=== PATIENT | male | born 1950 | race Caucasian/White ===

== ENCOUNTER 2019-09-15 19:07 | Emergency (ER) | payer OTHER, MEDICARE, SELFPAY ==
--- NOTE | ~2019-09-15 | XR_ITS ---
XR knee LT min 4V DATE: 09/15/2019 20:22 INDICATION: Left posterior knee pain TECHNIQUE: Crosstable lateral, AP, bilateral oblique views COMPARISON: None FINDINGS: There is prominent suprapatellar knee joint effusion. There is tricompartment osteoarthritis involving particularly the medial and patellofemoral compartme nts. Hypertrophic change of the tibial spines. Diffuse osteopenia. No fracture or dislocation, periosteal reaction or bone destruction, radiopaque intra-articular loose body or chondrocalcinosis is detected. IMPRESSION: Suprapatellar knee joint effusion Tricompartment osteoarthritis Reviewed, dictated and finalized at location A.
--- NOTE | ~2019-09-15 | XR_ITS ---
XR chest 2V DATE: 09/15/2019 20:22 INDICATION: Weakness TECHNIQUE: AP and lateral views COMPARISON: None FINDINGS: No pulmonary infiltrate or consolidation, pleural effusion or pulmonary vascular congestion or pneumothorax. Diffuse idiopathic skeletal hyperostosis of the thoracic spine. IMPRESSION: No active cardiopulmonary disease Reviewed, dictated and finalized at location A.
--- NOTE | 2019-09-15 19:11 | ECG_ITS ---
Measurements Intervals [place] Rate: 114 P: 71 DE: 169 QRS: -25 QRSD: 101 T: 74 QT: 314 QTc: 433 Interpretive Statements SINUS TACHYCARDIA INCOMPLETE RIGHT BUNDLE BRANCH BLOCK CONSIDER ANTEROSEPTAL INFARCT, AGE INDETERMINATE BASELINE ARTIFACT- I, III, AVR, AVL ABNORMAL ECG Electronically Signed On 09-16-2019 7:00:25 CDT by Geoffrey Roche D.O.
[2019-09-15 19:14] VITALS: BP 110/69; PULSE 114; RESP 18; TEMP 36.6; O2SAT 93
[2019-09-15 19:38] LABS: Basophils Absolute Auto 0.1 K/mm3 (0.0-0.1); Basophils Percent Auto 0.6 % (0.2-1.2); Eosinophils Percent Auto 0.4 % (0-4.4); Hematocrit 44.7 % (42.0-52.0); Hemoglobin 15.1 g/dL (14.0-18.0); Immature Granulocyte Absolute 0.08 K/mm3 (0.00-0.031); Immature Granulocyte Percent A 0.9 % (0-0.5); Lymphocytes Absolute Auto 1.51 K/mm3 (0.9-3.2); Lymphocytes Percent Auto 17.7 % (18.3-44.2); Mean Corpuscular HGB Conc 33.8 g/dl (32-36); Mean Corpuscular Hemoglobin 30.6 pg (26-34); Mean Corpuscular Volume 90.7 fl (80-100); Mean Platelet Volume 10.8 fl (7.4-10.4); Monocytes Percent Auto 11.9 % (2.6-8.5); Neutrophils Absolute Auto 5.9 K/mm3 (1.3-6.7); Neutrophils Percent Auto 68.5 % (45.5-73.1); Platelet Count Result 202 k/mm3 (150-375); Red Blood Count 4.93 M/mm3 (4.6-6.20); Red Cell Distribution Width 12.6 % (11.5-14.5); White Blood Count 8.5 K/mm3 (4.5-10.0)
[2019-09-15 19:53] LABS: Alanine Aminotransferase 30 U/L (4-50); Albumin Level 4.3 g/dL (3.5-5.1); Alkaline Phosphatase 65 U/L (38-126); Aspartate Amino Transferase 37 U/L (17-59); Bilirubin,Total 0.5 mg/dL (0.2-1.3); Blood Urea Nitrogen 41 mg/dL (9-20); Calcium 10.9 mg/dL (8.4-10.2); Carbon Dioxide 26 mmol/L (22-30); Chloride 100 mmol/L (98-107); Estimated CRCL calculation 54 ml/min; Estimated Glomerular Filt Rate 55; Glucose 399 mg/dL (75-110); Potassium 4.6 mmol/L (3.4-5.0); Sodium 138 mmol/L (137-145)
--- NOTE | 2019-09-15 20:00 | PC.NURSE ---
pt down to xray
[2019-09-15 20:03] VITALS: PULSE 114
--- NOTE | 2019-09-15 20:20 | PC.NURSE ---
provided pt w/ urinal for urine sample.
--- NOTE | 2019-09-15 20:37 | ED.LOWEXIN ---
HPI - Extremity Injury (Lower) General Chief Complaint: Weakness Stated Complaint: weakness, fall x 3 Time Seen by Provider: 09/15/19 20:12 History of Present Illness HPI Narrative: The patient presents with his for left knee pain, and recurrent falls. He fell in the bathtub 4 days ago, and twisted his left knee. Since then he has had 2 falls because he felt his leg buckling under him. He gives an 8 out of 10 pain scale at rest. [facility], and they are not seeing patients currently because of COVID. He does not have an orthopedic surgeon. MD complaint: knee injury Onset (ago): day(s) Injury: Left: knee Type of Injury: other (Fall) Place: home Severity: severe Severity scale (1-10): 8 Relieving factors: nothing Exacerbating factors: weight bearing and movement Context: fall Associated symptoms: swelling Other symptoms: none Related Data Allergies Allergy/AdvReac Type Severity Reaction Status Date / Time lithium Allergy Unknown Verified 09/15/19 20:47 Review of Systems Review of Systems: Narrative: CONSTITUTIONAL: Denies fever, chills, or sweats. EYES: Denies visual changes, redness, or discharge. ENT: Denies rhinorrhea, congestion, sore throat, or otalgia. CARDIOVASCULAR: Denies chest pain, palpitations, or edema. RESPIRATORY: Denies cough or dyspnea. GASTROINTESTINAL: Denies abdominal pain, nausea, vomiting, or diarrhea. GENITOURINARY: Denies dysuria or hematuria. SKIN: Denies rash or itching. MUSCULOSKELETAL: Denies back pain NEUROLOGIC: Denies headache, numbness, or weakness. PSYCHIATRIC: Denies anxiety or depression. [facility] Social History Social History (Updated 09/15/19 @ 20:39 by Jael Blunt MD) Smoking status: Never smoker Alcohol intake: never Substance use: never Gender identity (if verbalized by the patient): Male Exam Narrative: Exam Narrative: GENERAL: Well-appearing, well-nourished, and in no acute distress.Baseball hat falling over his eyes. HEAD: Normocephalic, atraumatic. EYES: PERRLA and EOMI. ENT: Nares clear, no rhinorrhea or epistaxis. Mucous membranes moist. NECK: Supple. CHEST: Clear to auscultation. No respiratory distress. HEART: Regular rate and rhythm. No murmur heard. Normal peripheral pulses. ABDOMEN: Soft, nontender, nondistended, normal active bowel sounds. EXTREMITIES: Left knee swollen and warm, more medially. SKIN: Warm, dry, no rash. NEURO: No focal deficits. Alert and oriented x3. PSYCH: Normal mood and affect. Course Reevaluation(s) Reevaluation #1: Went back in the room to discuss the x-ray findings with the patient and his . They understand there is no fracture but probably some internal damage. I will order a knee immobilizer and pain medication for here. They have a walker for home. I will give them the name and phone number of the orthopedic surgeon to follow-up with this week. I suspect he will need physical therapy and/or MRI. They understand this. Date: 09/15/19 Time: 20:47 Reevaluation #2: The patient now has on his left knee immobilizer, and is much more comfortable with it. There is no neurovascular compromise. We discussed the discharge plan. He and his agree Date: 09/15/19 Time: 21:54 Vital Signs Vital signs: Vital Signs Temperature 97.9 F 09/15/19 19:14 Pulse Rate 114 H 09/15/19 19:14 Respiratory Rate 18 09/15/19 19:14 Blood Pressure 110/69 09/15/19 19:14 Pulse Oximetry 93 09/15/19 19:14 Temperature 97.9 F 09/15/19 19:14 Pulse Rate 105 H 09/15/19 21:00 Respiratory Rate 12 09/15/19 21:00 Blood Pressure 126/83 09/15/19 21:00 Pulse Oximetry 93 09/15/19 21:00 MDM - Extremity Injury (Lower) Lab Data Attestation: I reviewed the patient's lab results. Result diagrams: 09/15/19 19:26 09/15/19 19:26 Labs: Lab Results 09/15/19 09/15/19 09/15/19 Range/Units 19:26 19:26 20:52 WBC 8.5 (4.5-10.0) K/mm3 RBC 4.93 (4.6-6.20) M/m
[2019-09-15] MEDS: HYDROMORPHONE HCL 1 MG/ML INJ 0.5 MG IV PUSH (20:51)
[2019-09-15 21:00] VITALS: BP 126/83; PULSE 105; RESP 12; O2SAT 93
[2019-09-15 21:01] LABS: Add Urine Microscopic? YES; Appearance Urine Clear (Clear); Bacteria Urine Trace /hpf; Bilirubin Urine Negative (Negative); Blood Urine 1+ (Negative); Color Urine Straw (Yellow); Glucose Urine UA 3+ mg/dL (Negative); Ketones Urine Negative (Negative); Leukocyte Esterase Ur 2+ LEU/UL (Negative); Nitrate Urine Negative (Negative); Protein Urine Negative (Negative); Specific Grav Ur 1.015 (1.001-1.035); Urobilinogen Urine Negative mg/dL (<2.0); WBC Urine 21-30 /hpf
[2019-09-15 22:15] VITALS: BP 160/78; PULSE 100; RESP 17; O2SAT 96
== END 2019-09-15 22:15 | disposition home or self-care (01) ==
PROVIDERS: Emergency Provider Emergency Medicine
DX: M25.562 Pain in left knee (principal); M25.462 Effusion, left knee; M17.12 Unilateral primary osteoarthritis, left knee; W18.2XXA Fall in (into) shower or empty bathtub, initial encounter; R82.998 Other abnormal findings in urine
CPT/HCPCS: 36415; 71046; 73564; 80053; 81001; 85025; 87086; 87088; 93005; 96374; 99284; J1170

== ENCOUNTER 2019-09-21 18:47 | Inpatient (IN) | payer MEDICARE, OTHER, SELFPAY ==
--- NOTE | ~2019-09-21 | CT_ITS ---
EXAMINATION: CTA chest PE abdomen pel DATE: 09/21/2019 20:46 INDICATION: Right upper quadrant abdominal pain. Right chest pain. TECHNIQUE: Computed tomography angiography (CTA) of the chest was performed with 100 mL Omnipaque-350 intravenous contrast timed to evaluate the pulmonary arteries. Coronal maximum intensity projection 3D-reconstructions were created by the technologist. Computed tomography (CT) of the abdomen and pelv is was performed with intravenous contrast. Automated exposure control and iterative reconstruction t echnique were employed. The dose-length product was 1427.91 mGy-cm. COMPARISON: Chest 2 views 09/15/2019 FINDINGS: CTA chest: The lungs demonstrate minimal atelectasis. No pleural effusion. The heart size is normal. There are coronary artery calcifications. No pericardial effusion. There is no pulmonary embolus. The re are bridging endplate osteophytes at multiple levels in the spine, consistent with diffuse idiopat hic skeletal hyperostosis (DISH). CT abdomen and pelvis: The liver and spleen are normal. There are changes of cholecystectomy. The pascal creas and adrenal glands are normal. There are cysts in the kidneys measuring up to 10 mm on the left . There is diffuse bladder wall thickening, likely secondary to chronic outlet obstruction from the m oderately enlarged prostate. There is diverticulosis of the colon without evidence of diverticulitis. There are no dilated loops of bowel. The appendix is normal. There are no pathologically enlarged ly mph nodes. There is no free intraperitoneal fluid. There is a left inguinal hernia containing fat. Th ere is mild lumbar spondylosis. IMPRESSION: 1. No pulmonary embolus. Sensitivity is mildly decreased by motion artifact. Reviewed, dictated and finalized at location A.
--- NOTE | ~2019-09-21 | CT_ITS ---
EXAMINATION: CT brain wo con DATE: 09/22/2019 04:04 INDICATION: Confusion. Altered mental status. TECHNIQUE: Computed tomography (CT) of the head was performed without intravenous contrast. The dose- length product was 681.00 mGy-cm. Automated exposure control and iterative reconstruction technique w ere employed. COMPARISON: None FINDINGS: Mild generalized atrophy. There are scattered mild periventricular and subcortical white ma tter changes, most likely related to small vessel ischemic disease (microangiopathy). Prominent periv ascular spaces bilaterally in the basal ganglia. No acute intracranial hemorrhage, infarction, mass o r mass effect. Mild mucosal thickening of the ethmoid and frontal sinuses. No depressed skull fractur es. Orbits are symmetric. IMPRESSION: 1. No acute intracranial abnormality. 2: Chronic age-related findings. Reviewed, dictated and finalized at location A.
[2019-09-21 18:50] VITALS: BP 160/77; PULSE 122; RESP 19; TEMP 37.9; O2SAT 93
--- NOTE | 2019-09-21 19:12 | ECG_ITS ---
Measurements Intervals [place] Rate: 122 P: 65 SD: 169 QRS: 11 QRSD: 93 T: 65 QT: 300 QTc: 429 Interpretive Statements SINUS TACHYCARDIA BORDERLINE R WAVE PROGRESSION, ANTERIOR LEADS BASELINE ARTIFACT- I, III, AVR, AVL ABNORMAL ECG Electronically Signed On 09-22-2019 7:48:52 CDT by Geoffrey Roche D.O.
[2019-09-21 19:45] LABS: Basophils Percent Auto 0.4 % (0.2-1.2); Hematocrit 45.2 % (42.0-52.0); Hemoglobin 15.5 g/dL (14.0-18.0); Immature Granulocyte Absolute 0.15 K/mm3 (0.00-0.031); Immature Granulocyte Percent A 1.5 % (0-0.5); Lymphocytes Absolute Auto 0.58 K/mm3 (0.9-3.2); Lymphocytes Percent Auto 5.6 % (18.3-44.2); Mean Corpuscular HGB Conc 34.3 g/dl (32-36); Mean Corpuscular Hemoglobin 30.3 pg (26-34); Mean Corpuscular Volume 88.3 fl (80-100); Monocytes Absolute Auto 0.9 K/mm3 (0.1-0.6); Monocytes Percent Auto 8.4 % (2.6-8.5); Neutrophils Absolute Auto 8.7 K/mm3 (1.3-6.7); Neutrophils Percent Auto 84.1 % (45.5-73.1); Platelet Count Result 200 k/mm3 (150-375); Red Blood Count 5.12 M/mm3 (4.6-6.20); Red Cell Distribution Width 12.5 % (11.5-14.5); White Blood Count 10.3 K/mm3 (4.5-10.0)
[2019-09-21 20:04] LABS: Alanine Aminotransferase 22 U/L (4-50); Albumin Level 4.4 g/dL (3.5-5.1); Alkaline Phosphatase 76 U/L (38-126); Aspartate Amino Transferase 19 U/L (17-59); Bilirubin,Total 0.6 mg/dL (0.2-1.3); Blood Urea Nitrogen 52 mg/dL (9-20); Calcium 11.3 mg/dL (8.4-10.2); Carbon Dioxide 22 mmol/L (22-30); Chloride 103 mmol/L (98-107); Estimated CRCL calculation 54 ml/min; Estimated Glomerular Filt Rate 55; Glucose 362 mg/dL (75-110); Potassium 5.1 mmol/L (3.4-5.0); Sodium 138 mmol/L (137-145)
--- NOTE | 2019-09-21 20:37 | ED.WEAKNESS ---
HPI - Weakness General Chief complaint: Weakness Stated complaint: generalized weakness Time Seen by Provider: 09/21/19 20:05 Source: patient Mode of arrival: EMS Limitations: no limitations History of Present Illness HPI Narrative: Patient is a 68-year-old male who presents to the emergency department with complaint of right rib pain and generalized weakness. Patient was seen in the emergency department on 09/15/2019 for a fall. At that time he was having pain in his left knee. Patient has had issues of his left knee giving out on him. Arthrocentesis was done and injection of steroid was performed. Orthopedic surgeon advised patient would eventually need a total knee replacement. Patient was referred for physical therapy. Patient has been having right-sided rib pain which may have been secondary to his fall. However, he is also significantly weak today. Patient is notably tachycardic on arrival. He denies any fever or illness symptoms aside from some urinary symptoms. MD Complaint: generalized weakness Duration: constant Location: generalized Associated symptoms: chest pain (right rib) Related Data Home Medications Medication Instructions Recorded Confirmed aspirin 81 mg tablet,delayed 81 mg PO DAILY 09/18/19 09/21/19 release vitamin B12 500 mcg-folic acid 400 1 tablet PO DAILY 09/18/19 09/22/19 mcg tablet ascorbic acid (vitamin C) [Vitamin 1 g PO HS 09/21/19 09/22/19 C] cholecalciferol (vitamin D3) 25 mcg PO DAILY 09/21/19 09/21/19 [Vitamin D3] cyanocobalamin (vitamin B-12) 1,000 mcg PO DAILY 09/21/19 09/22/19 [Vitamin B-12] divalproex 1,000 mg PO DAILY 09/21/19 09/21/19 glipizide 20 mg PO BIDAC 09/21/19 09/22/19 hydrochlorothiazide 25 mg PO DAILY 09/21/19 09/21/19 [id number] 1 cap PO DAILY 09/21/19 09/21/19 [MegaRed [place]-3 Krill Oil] lisinopril 10 mg PO DAILY 09/21/19 09/22/19 metformin 850 mg PO BIDWM 09/21/19 09/22/19 metoprolol tartrate 50 mg PO DAILY 09/21/19 09/22/19 metoprolol tartrate 75 mg PO QPM 09/21/19 09/22/19 Allergies Allergy/AdvReac Type Severity Reaction Status Date / Time lithium Allergy Unknown Verified 09/21/19 18:58 Review of Systems Review of Systems: All systems reviewed & are unremarkable except as noted in HPI and below Constitutional: Constitutional: Denies fever(s) Cardiovascular: Cardiovascular: Reports chest pain (right rib) Respiratory: Respiratory: Denies cough and Denies dyspnea Gastrointestinal: Gastrointestinal: Denies abdominal pain, Reports diarrhea, Denies nausea and Denies vomiting Genitourinary: Genitourinary: Denies hematuria, Reports dysuria and Reports urinary frequency Musculoskeletal: Musculoskeletal: Reports arthralgias (Left knee) [facility] Past Medical History Medical History (Updated 09/22/19 @ 02:48 by Lazara Gaviria MD) B12 deficiency Essential hypertension Gout Manic depressive disorder Osteoarthritis PTSD (post-traumatic stress disorder) Schizophrenia Type 2 diabetes mellitus Vitamin D deficiency Surgical History Surgical History (Updated 09/22/19 @ 02:22 by Kaitlyn Quinn DO) History of cholecystectomy (~1970) Status post cataract extraction of both eyes with insertion of intraocular lens Status post laser cataract surgery of both eyes Social History Social History (Updated 09/22/19 @ 02:34 by Kaitlyn Quinn DO) Social History: Primary care physician: [facility] Code status: Full code Advanced directives: None Smoking packs per day: 3 Smoking cigarettes per day: 60.0 Years smoked: 15 Smoking pack-years: 45.00 Smoking status: Former smoker Tobacco type: cigarettes Second hand tobacco smoke exposure: No Alcohol intake: never Substance use: never Living arrangements: with family Additional living arrangements comments: He lives with his of 11 years. He has 2 grown sons. One of his sons has issues with IV drug abuse. Occupation/
[2019-09-21 20:40] LABS: Prothrombin Time 12.7 Seconds (11.1-14.7)
[2019-09-21 20:41] LABS: Partial Thromboplastin Time 24.8 SECONDS (22.3-36.8)
[2019-09-21] MEDS: LACTATED RINGERS 1,000 ML 999 ML IV CONT ×2 (20:49→22:46)
[2019-09-21 20:51] LABS: Lipase 307 U/L (23-300)
[2019-09-21 21:16] VITALS: BP 158/96; PULSE 130; RESP 20; O2SAT 95
[2019-09-21 21:18] LABS: Lactic Acid Reflex 1.5 mmol/L (0.7-2.1)
[2019-09-21 21:30] LABS: Add Urine Microscopic? YES; Appearance Urine Clear (Clear); Bacteria Urine Trace /hpf; Bilirubin Urine Negative (Negative); Blood Urine 2+ (Negative); Color Urine Colorless (Yellow); Glucose Urine UA 3+ mg/dL (Negative); Ketones Urine Trace mg/dL (Negative); Leukocyte Esterase Ur 2+ LEU/UL (Negative); Mucus Urine Rare /lpf; Nitrate Urine Negative (Negative); Protein Urine 1+ mg/dL (Negative); RBC Urine 21-50 /hpf (0-2); Urobilinogen Urine Negative mg/dL (<2.0); WBC Urine 51-75 /hpf
[2019-09-21 21:32] LABS: Valproic Acid 41.8 ug/mL (50-120)
[2019-09-21 21:55] VITALS: BP 145/85; PULSE 126; RESP 22; O2SAT 96
--- NOTE | 2019-09-21 23:04 | PC.NURSE ---
Called [facility]. Spoke with Silvana, EOD. No beds available.
[2019-09-21 23:10] VITALS: BP 141/81; PULSE 119; RESP 20; O2SAT 92
[2019-09-21 23:29] VITALS: BP 151/84; PULSE 116; RESP 20; TEMP 36.4; O2SAT 96
[2019-09-21 23:32] VITALS: BMI 32.2
[2019-09-21 23:43] VITALS: BMI 32.3
[2019-09-22] VITALS (18 sets, daily range): BP systolic 115–172; BP diastolic 59–102; PULSE 87–139; RESP 20–22; TEMP 36.9–37.2; O2SAT 94–99
--- NOTE | 2019-09-22 | PC.NURSE ---
This patient, Alphonse Mason, was admitted to IMU Room 212-01. Patient/family oriented to hospital policies and general routines including ID bracelet, bed and alarms, visiting hours, pain management, procedures, bathroom and other care routines, personal items, smoking policy, room service/diet, and visiting hours. Valuables list has been completed. Information on how to activate the Rapid Response Team has been discussed. Patient/Family are encouraged to report perceived risks to care and to ask questions if they do not understand what they are told or what they should do.
[2019-09-22] MEDS: LACTATED RINGERS 1,000 ML 150 ML IV CONT ×3 (00:14→15:58)
--- NOTE | 2019-09-22 02:11 | PM.IMHP ---
H&P: HPI History of Present Illness Chief complaint: Weakness, right rib pain Narrative: Date and time of patient contact: 09/22/2019 at 10:50 p.m. Alphonse Mason is a 68 year old male with a past medical history type 2 diabetes, hypertension, and manic depression who presented to the ER with generalized weakness and right rib pain. Patient also has had multiple falls since the . Had been in the bathtub on the and twisted his left knee resulting in a fall. He had had multiple falls since that time due to knee buckling under him. He came to the ER on the due to severe knee pain with an intensity 8/10. He had an x-ray which demonstrated a suprapatellar joint effusion and tricompartmental osteoarthritis. He was unable to go to the [facility] where he usually receives his care due to COVID-19 restrictions. The patient was discharged home with Percocet and a knee immobilizer. He subsequently followed up with Dr. Padgett on the and had a steroid injection in his knee but was informed he would need a knee replacement. He was referred physical therapy. He has had multiple falls but denies having hit his head. He has not been having any headache or visual changes. Over the last 2-3 days the patient developed right rib pain which he thought was due to falling in september be landing on his shower stool. The pain is moderate in intensity and dull. His description of the pain is somewhat vague. He does not specify whether the pain is in anterior posterior ribs. It seems as if the pain is almost originating in the flank. Patient's reports that the patient has been leaning to the left side for the last couple of days to try to ease the pain without success. Pain was accompanied by significant weakness, decreased appetite, chills and the patient was febrile with a temperature of 100.2 on arrival to the ER. He has been fatigued and sleeping more than usual. He has been having a longstanding issue with sensation incomplete bladder emptying. He denies any slow or decreased urinary stream. He has been having some dysuria over the last several days. He denies any hematuria. He denies a known history of BPH but CT scan demonstrated evidence of a moderately enlarged prostate and evidence of diffuse bladder wall thickening. He denies having any abdominal pain. He does have intermittent soft stools but has a history of diverticulosis. He denies any hematochezia or melena. He has not had any recent ill contacts. Denies any cough, cold symptoms, chest pain, shortness of breath, nausea or vomiting. He has not had any changes in sense of smell or taste. The patient's reports that the patient has been mildly confused for the last couple of days. The patient's glucoses have been high during his last 2 ER visits. They are unsure of what his last hemoglobin A1c value. Source of information: ER records, the patient's and the patient's report. The patient relies heavily on his to provide medical information to the staff. Nursing staff called me to update me as to the patient's condition in the early childhood coordinator hours. The patient was less responsive and difficult to arouse. Patient's glucoses at that time were close to 400. Stat CT of the head was ordered and preliminary read from vision reported no acute intercranial process. An order was given for 8 units of NovoLog subq. Review of Systems Review of Systems: Narrative: 12 systems were reviewed with pertinent positives and negatives per HPI. Except as documented in the HPI, all other systems were reviewed and are negative. REPLACED BY [facility] Past Medical History Medical History (Updated 09/22/19 @ 03:12 by Kaitlyn Quinn DO) B12 deficiency Essential hypertension Gout Manic depressive disorder Osteoarthritis PTSD (post-traumatic stress disorder) Schizophrenia Type 2 diabetes mellitus Vitamin D deficiency Surgical History Surgical History (Updated 09/22/19 @ 02:22 by Refugio
[2019-09-22] MEDS: METOPROLOL TARTRATE 25 MG TABLET 75 MG PO ×2 (02:40→20:33)
[2019-09-22 03:21] LABS: Glucose Point of Care 384 (65-105)
--- NOTE | 2019-09-22 03:54 | PCRCNOTE ---
STAT ABG ATTEMPTED X2 WITHOUT SUCCESS. PT TAKEN TO CT SCAN. ABG WILL BE ATTEMPTED AGAIN ONCE PATIENT IS BACK IN ROOM.
[2019-09-22] MEDS: INSULIN ASPART (*BKC) 100 UNITS/ML 8 UNITS SUB-Q (04:13)
[2019-09-22 04:37] LABS: Alveolar/Arterial O2 Gradient 51.1 mmHg; Base Excess ABG 1.3 mEq/l (+/-2.0); Carboxyhemoglobin 0.3 % THb (0-2.0); Fractional Inspired Oxygen 21 %; HCO3 ABG 24.6 mEq/l (22.0-26.0); Methemoglobin ABG 0.5 %THb (0-1.5); Oxygen Content ABG 19.9 %vol (16.0-22.0); Oxygen Saturation ABG 91.2 % (95.0-100.0); Oxyhemoglobin 89.8 % THb (90.0-100.0); PCO2 ABG 35.1 mmHg (35.0-45.0); PO2 ABG 56.6 mmHg (80.0-100.0); Reduced Hemoglobin 9.4 %THb (0-5.0); Total Hemoglobin 15.8 g/dL (12.0-18.0); pH ABG 7.463 (7.350-7.450)
[2019-09-22 04:38] LABS: Device ROOM AIR; Modified Allen's Test Pass; Site Drawn LEFT RADIAL
[2019-09-22 05:04] LABS: Parathyroid Intact 75.4 pg/mL (7.5-53.5)
[2019-09-22 06:07] LABS: Thyroid Stimulating Hormone Reflex 0.292 uIU/mL (0.465-4.68)
[2019-09-22 06:09] LABS: Hemoglobin A1C 9.4 % (<5.7)
[2019-09-22] MEDS: glipiZIDE 5 MG TABLET 20 MG PO ×2 (06:18→16:33)
[2019-09-22 06:55] LABS: Free T4 Free Thyroxine Reflex 1.64 ng/dL (0.78-2.19)
[2019-09-22 07:46] LABS: Glucose Point of Care 318 (65-105)
[2019-09-22 08:00] LABS: Total Triiodothyronine (T3) 0.79 NG/ML (0.97-1.69)
[2019-09-22] MEDS: INSULIN ASPART (*BKC) 100 UNITS/ML SUB-Q ×3 (09:02→16:35)
[2019-09-22] MEDS: ASPIRIN 81 MG ENTERIC TABLET PO (09:29)
[2019-09-22] MEDS: DIVALPROEX SODIUM ER 500 MG TAB 1000 MG PO (09:29)
[2019-09-22] MEDS: ENOXAPARIN 40 MG/0.4 ML SYRINGE SUB-Q (09:30)
[2019-09-22] MEDS: TAMSULOSIN HCL 0.4 MG CAPSULE PO (09:30)
[2019-09-22] MEDS: CYANOCOBALAMIN 1,000 MCG TABLET 1000 MCG PO (09:30)
[2019-09-22] MEDS: CHOLECALCIFEROL 1,000 UNIT TABLET 1000 UNITS PO (09:30)
[2019-09-22] MEDS: METOPROLOL TARTRATE 50 MG TAB PO (09:37)
--- NOTE | 2019-09-22 12:08 | PM.IMPN ---
Progress Note: A&P Assessment and Plan (1) Sepsis: Qualifiers: Sepsis acute organ dysfunction status: without acute organ dysfunction Sepsis type: sepsis due to unspecified organism Qualified Code(s): A41.9 - Sepsis, unspecified organism Code(s): A41.9 - Sepsis, unspecified organism Status: Acute Assessment and Plan: -----defined by temperature, tachycardia, and tachypnea. Likely secondary to UTI. Await urine and blood cultures. Continue ceftriaxone and IV fluids at this time. Heart rate, fever and symptoms have improved. No other infection noted on CTA of chest abdomen pelvis. (2) UTI (urinary tract infection): Qualifiers: Urinary tract infection type: acute cystitis Hematuria presence: with hematuria Qualified Code(s): N30.01 - Acute cystitis with hematuria Code(s): N39.0 - Urinary tract infection, site not specified Status: Acute Assessment and Plan: -----UA suspicious for UTI. Await blood cultures. Continue ceftriaxone. (3) Benign prostatic hyperplasia (BPH) with urinary urgency: Code(s): N40.1 - Benign prostatic hyperplasia with lower urinary tract symptoms; R39.15 - Urgency of urination Status: Acute Assessment and Plan: -----on Flomax started (4) Hypercalcemia: Code(s): E83.52 - Hypercalcemia Status: Acute Assessment and Plan: -----with elevated PTH. Will draw vitamin-D tomorrow morning. Could be primary hyperparathyroidism or vitamin-D deficiency. Will need to follow-up with primary care physician. (5) Diabetes mellitus with hyperglycemia, without long-term current use of insulin: Qualifiers: Diabetes mellitus type: type 2 Qualified Code(s): E11.65 - Type 2 diabetes mellitus with hyperglycemia Code(s): E11.65 - Type 2 diabetes mellitus with hyperglycemia Status: Acute Assessment and Plan: -----A1c is 9.4 and his glucose has been elevated. He is on glipizide 20 mg b.i.d. as well as metformin 850 mg b.i.d.. Because of his uncontrolled glucose, Lantus has been started. He will continue diabetic diet. He was educated about the importance of adhering to a strict regimen to get his diabetes under control. (6) Sinus tachycardia: Code(s): R00.0 - Tachycardia, unspecified Status: Acute Assessment and Plan: -----improving but does have bursts of tachycardia. Likely due to sepsis. Patient also has a history of schizophrenia, drug use seems less likely but I will do a urine drug screen. No other signs withdrawal at this time. TSH abnormal what T4 is normal. Could be due to acute illness. Continue home metoprolol Additional Plan . Time Spent With Patient Time with patient: 25 - 35 minutes Subjective Date/time seen: 09/22/19 12:08 Interval history: Pt is a 68-year-old male here for UTI and sepsis. Patient was seen today and states he is having some dysuria and lower abdominal pain. He says his fevers and chills have resolved since being hospitalized. He denies chest pain, shortness of breath, nausea, vomiting, or leg swelling. Review of Systems Review of Systems: All systems reviewed & are unremarkable except as noted in HPI and below Exam Narrative: Exam Narrative: General: Well developed well nourished patient resting comfortably in bed in NAD HEENT: normocephalic Neck: supple Neuro: Alert and oriented x4. Equal strength the upper lower extremities 5/5. Able to do [id number] with both extremities and rapid alternating movements. CV:RRR. Patient was tachycardic earlier in the stay but his current heart rate at the time my exam was 97. Resp:CTA Abd: Soft, non distended. Pain to palpation to the lower quadrants. Positive bowel sounds Extremities: No swelling, erythema, or pain to palpation. Objective Data Vital Signs Vital Signs: Vital Signs - 24 hr 09/21/19 18:50 09/21/19 21:16 09/21/19 21:55 Te
[2019-09-22 16:54] LABS: Amphetamine Screen Urine Negative (Negative); Barbiturate Screen Urine Negative (Negative); Benzodiazepines Screen Urine Negative (Negative); Cannabinoid Screen Urine Negative (Negative); Cocaine Screen Urine Negative (Negative); Methadone Screen Urine Negative (Negative); Opiate Screen Urine Negative (Negative); Phencyclidine Screen Urine Negative (Negative)
[2019-09-22 20:17] LABS: Glucose Point of Care 328 (65-105)
[2019-09-22 20:17] LABS: Glucose Point of Care 329 (65-105)
[2019-09-22] MEDS: INSULIN GLARGINE (*BKC) 100 UNITS/ML 8 UNITS SUB-Q (20:34)
[2019-09-22] MEDS: ASCORBIC ACID 500 MG TABLET 1000 MG PO (20:34)
[2019-09-23] VITALS (12 sets, daily range): BP systolic 124–163; BP diastolic 70–93; PULSE 89–117; RESP 14–20; TEMP 36.2–36.9; O2SAT 94–97; BMI 32.1
[2019-09-23] MEDS: LACTATED RINGERS 1,000 ML 100 ML IV CONT (02:27)
[2019-09-23 04:38] LABS: Hemoglobin 13.1 g/dL (14.0-18.0); Mean Corpuscular HGB Conc 34.5 g/dl (32-36); Mean Corpuscular Hemoglobin 30.3 pg (26-34); Mean Corpuscular Volume 87.8 fl (80-100); Mean Platelet Volume 10.1 fl (7.4-10.4); Platelet Count Result 146 k/mm3 (150-375); Red Blood Count 4.33 M/mm3 (4.6-6.20); Red Cell Distribution Width 12.2 % (11.5-14.5); White Blood Count 9.5 K/mm3 (4.5-10.0)
[2019-09-23 05:02] LABS: Alanine Aminotransferase 20 U/L (4-50); Albumin Level 3.5 g/dL (3.5-5.1); Alkaline Phosphatase 53 U/L (38-126); Aspartate Amino Transferase 25 U/L (17-59); Bilirubin,Total 0.4 mg/dL (0.2-1.3); Blood Urea Nitrogen 32 mg/dL (9-20); Carbon Dioxide 30 mmol/L (22-30); Chloride 99 mmol/L (98-107); Estimated CRCL calculation 56 ml/min; Estimated Glomerular Filt Rate 60; Glucose 262 mg/dL (75-110); Potassium 4.6 mmol/L (3.4-5.0); Sodium 133 mmol/L (137-145)
[2019-09-23 05:33] LABS: Vitamin D 25 Hydroxy 49.2 ng/mL
[2019-09-23] MEDS: glipiZIDE 5 MG TABLET 20 MG PO ×2 (06:51→16:55)
[2019-09-23] MEDS: DIVALPROEX SODIUM ER 500 MG TAB 1000 MG PO (08:43)
[2019-09-23] MEDS: ASPIRIN 81 MG ENTERIC TABLET PO (08:43)
[2019-09-23] MEDS: CHOLECALCIFEROL 1,000 UNIT TABLET 1000 UNITS PO (08:44)
[2019-09-23] MEDS: CYANOCOBALAMIN 1,000 MCG TABLET 1000 MCG PO (08:44)
[2019-09-23] MEDS: METOPROLOL TARTRATE 50 MG TAB PO (08:44)
[2019-09-23] MEDS: ENOXAPARIN 40 MG/0.4 ML SYRINGE SUB-Q (08:45)
[2019-09-23] MEDS: TAMSULOSIN HCL 0.4 MG CAPSULE PO (08:45)
[2019-09-23 08:46] LABS: Glucose Point of Care 287 (65-105)
[2019-09-23 08:46] LABS: Glucose Point of Care 308 (65-105)
[2019-09-23] MEDS: INSULIN ASPART (*BKC) 100 UNITS/ML SUB-Q ×3 (08:47→17:16)
--- NOTE | 2019-09-23 10:53 | PM.IMPN ---
Progress Note: A&P Assessment and Plan (1) Bacteremia due to Klebsiella pneumoniae: Code(s): R78.81 - Bacteremia; B96.1 - Klebsiella pneumoniae [K. pneumoniae] as the cause of diseases classified elsewhere Status: Acute Assessment and Plan: -----patient's blood cultures are positive for Klebsiella as well as his urine culture. He also has another organism growing that is still un-identified. His pain has improved. Will continue ceftriaxone for now since he is getting better and await sensitivities of the blood culture and both organisms in the urine. Okay to transfer out of IMU (2) Sepsis: Qualifiers: Sepsis acute organ dysfunction status: without acute organ dysfunction Sepsis type: sepsis due to unspecified organism Qualified Code(s): A41.9 - Sepsis, unspecified organism Code(s): A41.9 - Sepsis, unspecified organism Status: Acute Assessment and Plan: -----defined by temperature, tachycardia, and tachypnea secondary to UTI and bacteremia. Continue ceftriaxone. Heart rate, fever and symptoms have improved. No other infection noted on CTA of chest abdomen pelvis. (3) UTI (urinary tract infection): Qualifiers: Urinary tract infection type: acute cystitis Hematuria presence: with hematuria Qualified Code(s): N30.01 - Acute cystitis with hematuria Code(s): N39.0 - Urinary tract infection, site not specified Status: Acute Assessment and Plan: -----culture growing Klebsiella and un-identified organism at this time. Continue to monitor and adjust antibiotics as necessary (4) Benign prostatic hyperplasia (BPH) with urinary urgency: Code(s): N40.1 - Benign prostatic hyperplasia with lower urinary tract symptoms; R39.15 - Urgency of urination Status: Acute Assessment and Plan: ----- Flomax started (5) Hypercalcemia: Code(s): E83.52 - Hypercalcemia Status: Acute Assessment and Plan: -----with elevated PTH. Consistent with primary hyperparathyroid since his vitamin-D is normal. Will need to follow up with this outpatient. (6) Diabetes mellitus with hyperglycemia, without long-term current use of insulin: Qualifiers: Diabetes mellitus type: type 2 Qualified Code(s): E11.65 - Type 2 diabetes mellitus with hyperglycemia Code(s): E11.65 - Type 2 diabetes mellitus with hyperglycemia Status: Acute Assessment and Plan: -----A1c is 9.4 and his glucose has been elevated. He is on glipizide 20 mg b.i.d. as well as metformin 850 mg b.i.d. Because of his uncontrolled glucose, Lantus has been started. He will continue diabetic diet. He was educated about the importance of adhering to a strict regimen to get his diabetes under control. (7) Sinus tachycardia: Code(s): R00.0 - Tachycardia, unspecified Status: Acute Assessment and Plan: -----resolved. Likely due to sepsis. Patient also has a history of schizophrenia, drug use seems less likely but I will do a urine drug screen which is still pending. No other signs withdrawal at this time. TSH abnormal but T4 is normal. Could be due to acute illness. Continue home metoprolol Additional Plan . Subjective Date/time seen: 09/23/19 10:53 Interval history: Pt is a 68-year-old male here for UTI and bacteremia. Patient was seen today and says he is feeling a lot better and has less pain with urination. He is unhappy with the food here in says it taste terrible. We went over the menu together and he has picked out a few items that he is going to try. He says his fevers and chills have resolved since being hospitalized. He denies chest pain, shortness of breath, nausea, vomiting, or leg swelling. We talked about his bacteremia in the plan of care. He says his left knee and leg has been hurting him since his cortisone shot he got before his hospitalization. Exam Narrative: Exam Na
[2019-09-23 12:45] LABS: Glucose Point of Care 275 (65-105)
--- NOTE | 2019-09-23 15:00 | PC.NURSE ---
Transfer received from IMU room 212 to room 243. Belongings list verified. Patient oriented to the room.
--- NOTE | 2019-09-23 15:39 | PC.NURSE ---
This patient, Alphonse Mason, was transferred to [[id number] ] on 09/23/19 at 1448. Personal belongings sent with patient. Belongings list checked and signed with receiving [ yes]. Report given to [viviane ]. Appropriate documentation sent with patient.
[2019-09-23 17:10] LABS: Glucose Point of Care 277 (65-105)
[2019-09-23 18:36] LABS: Glucose Point of Care 318 (65-105)
[2019-09-23 20:29] LABS: Glucose Point of Care 299 (65-105)
[2019-09-23] MEDS: ASCORBIC ACID 500 MG TABLET 1000 MG PO (20:42)
[2019-09-23] MEDS: INSULIN GLARGINE (*BKC) 100 UNITS/ML 8 UNITS SUB-Q (20:43)
[2019-09-23] MEDS: METOPROLOL TARTRATE 25 MG TABLET 75 MG PO (20:45)
[2019-09-24] VITALS: BP 122/71; PULSE 82; RESP 20; TEMP 36.4; O2SAT 98
[2019-09-24 04:00] VITALS: BP 139/87; PULSE 83; RESP 18; TEMP 36.5; O2SAT 96
[2019-09-24 04:56] LABS: Hemoglobin 13.1 g/dL (14.0-18.0); Mean Corpuscular HGB Conc 34.5 g/dl (32-36); Mean Corpuscular Hemoglobin 30.1 pg (26-34); Mean Corpuscular Volume 87.4 fl (80-100); Mean Platelet Volume 10.5 fl (7.4-10.4); Platelet Count Result 152 k/mm3 (150-375); Red Blood Count 4.35 M/mm3 (4.6-6.20); Red Cell Distribution Width 12.2 % (11.5-14.5); White Blood Count 7.1 K/mm3 (4.5-10.0)
[2019-09-24 05:07] LABS: Blood Urea Nitrogen 28 mg/dL (9-20); Calcium 11.1 mg/dL (8.4-10.2); Carbon Dioxide 28 mmol/L (22-30); Chloride 100 mmol/L (98-107); Estimated CRCL calculation 67 ml/min; Estimated Glomerular Filt Rate > 60; Glucose 343 mg/dL (75-110); Potassium 4.5 mmol/L (3.4-5.0); Sodium 134 mmol/L (137-145)
[2019-09-24] MEDS: glipiZIDE 5 MG TABLET 20 MG PO ×2 (06:42→16:11)
[2019-09-24 07:53] LABS: Glucose Point of Care 285 (65-105)
[2019-09-24] MEDS: INSULIN ASPART (*BKC) 100 UNITS/ML SUB-Q ×2 (07:57→11:27)
[2019-09-24] MEDS: ASPIRIN 81 MG ENTERIC TABLET PO (08:01)
[2019-09-24] MEDS: CHOLECALCIFEROL 1,000 UNIT TABLET 1000 UNITS PO (08:01)
[2019-09-24] MEDS: CYANOCOBALAMIN 1,000 MCG TABLET 1000 MCG PO (08:01)
[2019-09-24 08:02] VITALS: PULSE 80
[2019-09-24] MEDS: TAMSULOSIN HCL 0.4 MG CAPSULE PO (08:02)
[2019-09-24] MEDS: ENOXAPARIN 40 MG/0.4 ML SYRINGE SUB-Q (08:02)
[2019-09-24] MEDS: METOPROLOL TARTRATE 50 MG TAB PO (08:02)
--- NOTE | 2019-09-24 09:30 | PM.IMPN ---
Progress Note: A&P Assessment and Plan (1) Bacteremia due to Klebsiella pneumoniae: Code(s): R78.81 - Bacteremia; B96.1 - Klebsiella pneumoniae [K. pneumoniae] as the cause of diseases classified elsewhere Status: Acute Assessment and Plan: Blood and urine cultures grew Klebsiella. Symptoms improved. Sensative to rocephin; Continue Rocepin (day 4) for total of 7 to 10 days IV abx. Discussed this plan with the patient. (2) Sepsis: Qualifiers: Sepsis acute organ dysfunction status: without acute organ dysfunction Sepsis type: sepsis due to unspecified organism Qualified Code(s): A41.9 - Sepsis, unspecified organism Code(s): A41.9 - Sepsis, unspecified organism Status: Resolved Assessment and Plan: Resolved, stable. Evident by fever, tachycardia, tachypnea on arrival. Suspected source is above. No other evidence of infection noted on CTA of chest abdomen/pelvis. (3) UTI (urinary tract infection): Qualifiers: Hematuria presence: with hematuria Urinary tract infection type: acute cystitis Qualified Code(s): N30.01 - Acute cystitis with hematuria Code(s): N39.0 - Urinary tract infection, site not specified Status: Acute Assessment and Plan: See above. (4) Benign prostatic hyperplasia (BPH) with urinary urgency: Code(s): N40.1 - Benign prostatic hyperplasia with lower urinary tract symptoms; R39.15 - Urgency of urination Status: Acute Assessment and Plan: Continue Flomax. He reports no issues today. (5) Hypercalcemia: Code(s): E83.52 - Hypercalcemia Status: Acute Assessment and Plan: With elevated PTH, consider primary hyperparathyroidism since his vitamin-D is normal. Recommend follow up PCP outpatient. (6) Diabetes mellitus with hyperglycemia, without long-term current use of insulin: Qualifiers: Diabetes mellitus type: type 2 Qualified Code(s): E11.65 - Type 2 diabetes mellitus with hyperglycemia Code(s): E11.65 - Type 2 diabetes mellitus with hyperglycemia Status: Acute Assessment and Plan: A1c 9.4; blood sugars elevated. He remains on glipizide and metformin. Lantus has been started, continue diabetic diet. He was educated about the importance of adhering to a strict regimen to get his diabetes under control. Subjective Date/time seen: 09/24/19 0830 Interval history: Mr. Mason is a 68yo M admitted for UTI with bacteremia. He feels well today and notes that his painful urination has resolved. He denies chest pain, shortness of breath, or calf tenderness. He has tolerated some breakfast without nausea, vomiting, or abdominal pain. He describes that he had an office visit with Dr Padgett recently and received a cortisone shot to L knee, still having some left knee pain with activity. In good spirits. Review of Systems Review of Systems: Narrative: Twelve systems were reviewed with pertinent positives and negatives as per HPI. Exam Narrative: Exam Narrative: General: Male resting supine in bed in no acute distress. HEENT: Normocephalic, EOMI, oral mucosa moist. Cardiovascular: Rate and rhythm are regular. Respiratory: Lungs clear to auscultation all enriquez. Respirations even and nonlabored. Abdomen: Soft, non-tender, non-distended, bowel sounds present. Extremities: Peripheral pulses intact. No edema. L knee without edema, erythema, or warmth. Neuro: No focal neurological deficits. Speech is clear. Objective Data Vital Signs Vital Signs: Last Vital Signs Temp 97.7 F 09/24/19 04:00 Pulse 80 09/24/19 08:02 Resp 18 09/24/19 04:00 BP 139/87 09/24/19 04:00 Pulse Ox 96 09/24/19 04:00 Intake/Output Intake/Output: Intake & Output 09/21/19 09/22/19 09/23/19 09/24/19
[2019-09-24 11:25] LABS: Glucose Point of Care 335 (65-105)
[2019-09-24 14:00] VITALS: BP 128/80; PULSE 93; RESP 18; TEMP 36.3; O2SAT 95
[2019-09-24 14:24] LABS: Glucose Point of Care 265 (65-105)
[2019-09-24 16:30] LABS: Glucose Point of Care 193 (65-105)
[2019-09-24 20:00] VITALS: BP 129/81; PULSE 91; RESP 20; TEMP 36.1; O2SAT 98
[2019-09-24] MEDS: INSULIN GLARGINE (*BKC) 100 UNITS/ML 8 UNITS SUB-Q (20:56)
[2019-09-24 20:57] VITALS: PULSE 82
[2019-09-24] MEDS: METOPROLOL TARTRATE 25 MG TABLET 75 MG PO (20:57)
[2019-09-24] MEDS: DIVALPROEX SODIUM ER 500 MG TAB 1000 MG PO (20:57)
[2019-09-24] MEDS: ASCORBIC ACID 500 MG TABLET 1000 MG PO (20:57)
[2019-09-24 22:27] LABS: Glucose Point of Care 265 (65-105)
[2019-09-24] MEDS: ACETAMINOPHEN 325 MG TABLET 650 MG PO (22:34)
[2019-09-25] VITALS (9 sets, daily range): BP systolic 123–143; BP diastolic 64–91; PULSE 74–102; RESP 18–20; TEMP 36.1–36.6; O2SAT 94–99
[2019-09-25 05:13] LABS: Blood Urea Nitrogen 26 mg/dL (9-20); Calcium 11.2 mg/dL (8.4-10.2); Carbon Dioxide 30 mmol/L (22-30); Chloride 100 mmol/L (98-107); Estimated CRCL calculation 61 ml/min; Estimated Glomerular Filt Rate > 60; Glucose 274 mg/dL (75-110); Magnesium 1.6 mg/dL (1.6-2.3); Phosphorus 3.3 mg/dL (2.5-4.5); Potassium 4.6 mmol/L (3.4-5.0); Sodium 135 mmol/L (137-145)
[2019-09-25 07:49] LABS: Glucose Point of Care 273 (65-105)
[2019-09-25] MEDS: INSULIN ASPART (*BKC) 100 UNITS/ML SUB-Q ×3 (07:52→16:40)
[2019-09-25] MEDS: MAGNESIUM SULF 2 GM/WATER 50ML 2 GM/50 ML BAG IVPB (08:51)
[2019-09-25] MEDS: glipiZIDE 5 MG TABLET 20 MG PO ×2 (08:51→16:41)
[2019-09-25] MEDS: CHOLECALCIFEROL 1,000 UNIT TABLET 1000 UNITS PO (08:52)
[2019-09-25] MEDS: ASPIRIN 81 MG ENTERIC TABLET PO (08:52)
[2019-09-25] MEDS: CYANOCOBALAMIN 1,000 MCG TABLET 1000 MCG PO (08:52)
[2019-09-25] MEDS: ENOXAPARIN 40 MG/0.4 ML SYRINGE SUB-Q (08:52)
[2019-09-25] MEDS: TAMSULOSIN HCL 0.4 MG CAPSULE PO (08:53)
[2019-09-25] MEDS: METOPROLOL TARTRATE 50 MG TAB PO (09:13)
--- NOTE | 2019-09-25 09:21 | PM.IMPN ---
Progress Note: A&P Assessment and Plan (1) Bacteremia due to Klebsiella pneumoniae: Code(s): R78.81 - Bacteremia; B96.1 - Klebsiella pneumoniae [K. pneumoniae] as the cause of diseases classified elsewhere Status: Acute Assessment and Plan: Blood and urine cultures grew Klebsiella. Symptoms improved. Sensative to rocephin; Continue Rocepin (day 5). Plan for 7 days of IV Rocephin and potential discharge 09/26 after 7th dose. (2) Sepsis: Qualifiers: Sepsis acute organ dysfunction status: without acute organ dysfunction Sepsis type: sepsis due to unspecified organism Qualified Code(s): A41.9 - Sepsis, unspecified organism Code(s): A41.9 - Sepsis, unspecified organism Status: Resolved Assessment and Plan: Resolved, stable. Evident by fever, tachycardia, tachypnea on arrival. Suspected source is above. No other evidence of infection noted on CTA of chest abdomen/pelvis. (3) UTI (urinary tract infection): Qualifiers: Urinary tract infection type: acute cystitis Hematuria presence: with hematuria Qualified Code(s): N30.01 - Acute cystitis with hematuria Code(s): N39.0 - Urinary tract infection, site not specified Status: Acute Assessment and Plan: See above. (4) Benign prostatic hyperplasia (BPH) with urinary urgency: Code(s): N40.1 - Benign prostatic hyperplasia with lower urinary tract symptoms; R39.15 - Urgency of urination Status: Acute Assessment and Plan: Continue Flomax. He reports no issues today. (5) Hypercalcemia: Code(s): E83.52 - Hypercalcemia Status: Acute Assessment and Plan: With elevated PTH, consider primary hyperparathyroidism since his vitamin-D is normal. Recommend follow up PCP outpatient. (6) Diabetes mellitus with hyperglycemia, without long-term current use of insulin: Qualifiers: Diabetes mellitus type: type 2 Qualified Code(s): E11.65 - Type 2 diabetes mellitus with hyperglycemia Code(s): E11.65 - Type 2 diabetes mellitus with hyperglycemia Status: Acute Assessment and Plan: A1c 9.4. He remains on glipizide and metformin. Lantus has been started, continue diabetic diet. He was educated about the importance of adhering to a strict regimen to get his diabetes under control. Blood sugars elevated, increase lantus. Subjective Date/time seen: 09/25/19 0845 Interval history: Mr. Mason is a 68yo M admitted for UTI with bacteremia. He feels well today and offers no complaints. Dysuria is resolved. He tolerated breakfast without nausea, vomiting, or abdominal pain. He denies chest pain, shortness of breath, or cough. Review of Systems Review of Systems: Narrative: Twelve systems were reviewed with pertinent positives and negatives as per HPI. Exam Narrative: Exam Narrative: General: Male resting comfortably in bedside chair no acute distress. HEENT: Normocephalic, EOMI, oral mucosa moist. Cardiovascular: Rate and rhythm are regular. Respiratory: Lungs clear to auscultation all enriquez. Respirations even and nonlabored. Abdomen: Soft, non-tender, non-distended, bowel sounds present. Extremities: Peripheral pulses intact. No edema. Neuro: No focal neurological deficits. Speech is clear. Objective Data Vital Signs Vital Signs: Last Vital Signs Temp 97.8 F 09/25/19 10:00 Pulse 102 H 09/25/19 10:00 Resp 19 09/25/19 10:00 BP 143/91 H 09/25/19 10:00 Pulse Ox 94 09/25/19 10:00 Intake/Output Intake/Output: Intake & Output 09/22/19 09/23/19 09/24/19 09/25/19 23:59 23:59 23:59 23:59 Intake Total 3340 1940 1700 190 Output Total 500 1575 550 900 Balance 2840 365 1150 -710 Meds/Results Medications: Active Medications Generic Name Dose Route
[2019-09-25 11:46] LABS: Glucose Point of Care 348 (65-105)
[2019-09-25 16:17] LABS: Glucose Point of Care 287 (65-105)
[2019-09-25] MEDS: METOPROLOL TARTRATE 25 MG TABLET 75 MG PO (20:42)
[2019-09-25] MEDS: DIVALPROEX SODIUM ER 500 MG TAB 1000 MG PO (20:42)
[2019-09-25] MEDS: ASCORBIC ACID 500 MG TABLET 1000 MG PO (20:43)
[2019-09-25] MEDS: INSULIN GLARGINE (*BKC) 100 UNITS/ML 12 UNITS SUB-Q (20:57)
[2019-09-25 21:16] LABS: Glucose Point of Care 231 (65-105)
[2019-09-25] MEDS: ACETAMINOPHEN 325 MG TABLET 650 MG PO (21:25)
[2019-09-26 05:31] LABS: Hematocrit 42.3 % (42.0-52.0); Hemoglobin 14.6 g/dL (14.0-18.0); Mean Corpuscular HGB Conc 34.5 g/dl (32-36); Mean Corpuscular Hemoglobin 29.9 pg (26-34); Mean Corpuscular Volume 86.7 fl (80-100); Mean Platelet Volume 10.5 fl (7.4-10.4); Platelet Count Result 171 k/mm3 (150-375); Red Blood Count 4.88 M/mm3 (4.6-6.20); Red Cell Distribution Width 12.1 % (11.5-14.5); White Blood Count 8.5 K/mm3 (4.5-10.0)
[2019-09-26 05:35] LABS: Blood Urea Nitrogen 29 mg/dL (9-20); Calcium 11.5 mg/dL (8.4-10.2); Carbon Dioxide 31 mmol/L (22-30); Chloride 98 mmol/L (98-107); Estimated CRCL calculation 61 ml/min; Estimated Glomerular Filt Rate > 60; Glucose 259 mg/dL (75-110); Magnesium 1.9 mg/dL (1.6-2.3); Potassium 4.7 mmol/L (3.4-5.0); Sodium 135 mmol/L (137-145)
[2019-09-26 05:55] VITALS: BP 117/71; PULSE 77; RESP 20; TEMP 36.2; O2SAT 95
[2019-09-26] MEDS: glipiZIDE 5 MG TABLET 20 MG PO ×2 (06:26→17:02)
[2019-09-26 08:08] LABS: Glucose Point of Care 382 (65-105)
[2019-09-26] MEDS: INSULIN ASPART (*BKC) 100 UNITS/ML 7 UNITS SUB-Q ×3 (08:18→17:02)
[2019-09-26] MEDS: INSULIN ASPART (*BKC) 100 UNITS/ML SUB-Q (08:19)
[2019-09-26] MEDS: ASPIRIN 81 MG ENTERIC TABLET PO (08:20)
[2019-09-26] MEDS: TAMSULOSIN HCL 0.4 MG CAPSULE PO (08:20)
[2019-09-26] MEDS: CHOLECALCIFEROL 1,000 UNIT TABLET 1000 UNITS PO (08:20)
[2019-09-26 08:21] VITALS: PULSE 77
[2019-09-26] MEDS: CYANOCOBALAMIN 1,000 MCG TABLET 1000 MCG PO (08:21)
[2019-09-26] MEDS: METOPROLOL TARTRATE 50 MG TAB PO (08:21)
[2019-09-26] MEDS: ENOXAPARIN 40 MG/0.4 ML SYRINGE SUB-Q (08:21)
--- NOTE | 2019-09-26 09:43 | PM.IMPN ---
Progress Note: A&P Assessment and Plan (1) Bacteremia due to Klebsiella pneumoniae: Code(s): R78.81 - Bacteremia; B96.1 - Klebsiella pneumoniae [K. pneumoniae] as the cause of diseases classified elsewhere Status: Acute Assessment and Plan: Blood and urine cultures grew Klebsiella. Symptoms improved. Sensative to rocephin; Continue Rocepin (day 6). Anticipate discharge tomorrow after 7th dose and home with oral abx to complete a 14-day course. (2) Sepsis: Qualifiers: Sepsis acute organ dysfunction status: without acute organ dysfunction Sepsis type: sepsis due to unspecified organism Qualified Code(s): A41.9 - Sepsis, unspecified organism Code(s): A41.9 - Sepsis, unspecified organism Status: Resolved Assessment and Plan: Resolved, stable. Evident by fever, tachycardia, tachypnea on arrival. Suspected source is above. No other evidence of infection noted on CTA of chest abdomen/pelvis. (3) UTI (urinary tract infection): Qualifiers: Hematuria presence: with hematuria Urinary tract infection type: acute cystitis Qualified Code(s): N30.01 - Acute cystitis with hematuria Code(s): N39.0 - Urinary tract infection, site not specified Status: Acute Assessment and Plan: See above. (4) Benign prostatic hyperplasia (BPH) with urinary urgency: Code(s): N40.1 - Benign prostatic hyperplasia with lower urinary tract symptoms; R39.15 - Urgency of urination Status: Acute Assessment and Plan: Continue Flomax. He reports no issues today. (5) Hypercalcemia: Code(s): E83.52 - Hypercalcemia Status: Acute Assessment and Plan: With elevated PTH, consider primary hyperparathyroidism since his vitamin-D is normal. Recommend follow up PCP outpatient. (6) Diabetes mellitus with hyperglycemia, without long-term current use of insulin: Qualifiers: Diabetes mellitus type: type 2 Qualified Code(s): E11.65 - Type 2 diabetes mellitus with hyperglycemia Code(s): E11.65 - Type 2 diabetes mellitus with hyperglycemia Status: Acute Assessment and Plan: A1c 9.4, poorly controlled. He remains on glipizide and metformin. Lantus has been started and start scheduled Novolog today. Insulin is new and anticipate he needs these at discharge. Continue diabetic diet. He was educated about the importance of adhering to a strict regimen to get his diabetes under control. Subjective Date/time seen: 09/26/19 0900 Interval history: Mr. Mason is a 68yo M admitted for UTI with bacteremia. He is feeling well today and offers no complaints. Dysuria is resolved. He is tolerating oral intake without nausea, vomiting, or abdominal pain. He denies chest pain, shortness of breath, or cough. Review of Systems Review of Systems: Narrative: Twelve systems were reviewed with pertinent positives and negatives as per HPI. Exam Narrative: Exam Narrative: General: Male resting comfortably in bedside chair no acute distress. HEENT: Normocephalic, EOMI, oral mucosa moist. Cardiovascular: Rate and rhythm are regular. Respiratory: Lungs clear to auscultation all enriquez. Respirations even and nonlabored. Abdomen: Soft, non-tender, non-distended, bowel sounds present. Extremities: Peripheral pulses intact. No edema. Neuro: No focal neurological deficits. Speech is clear. Objective Data Vital Signs Vital Signs: Last Vital Signs Temp 97.1 F L 09/26/19 05:55 Pulse 77 09/26/19 08:21 Resp 20 09/26/19 05:55 BP 117/71 09/26/19 05:55 Pulse Ox 95 09/26/19 05:55 Intake/Output Intake/Output: Intake & Output 09/23/19 09/24/19 09/25/19 09/26/19 23:59 23:59 23:59 23:59 Intake Total 1940 1750 1625 360 Output Total 5705 729 7596 600 Aaron
[2019-09-26 12:28] LABS: Glucose Point of Care 180 (65-105)
[2019-09-26 14:00] VITALS: BP 127/81; PULSE 108; RESP 20; TEMP 36.6; O2SAT 97
[2019-09-26 16:44] LABS: Glucose Point of Care 128 (65-105)
[2019-09-26 20:09] VITALS: PULSE 78
[2019-09-26] MEDS: METOPROLOL TARTRATE 25 MG TABLET 75 MG PO (20:09)
[2019-09-26] MEDS: DIVALPROEX SODIUM ER 500 MG TAB 1000 MG PO (20:10)
[2019-09-26] MEDS: ASCORBIC ACID 500 MG TABLET 1000 MG PO (20:10)
[2019-09-26] MEDS: INSULIN GLARGINE (*BKC) 100 UNITS/ML 12 UNITS SUB-Q (20:17)
[2019-09-26] MEDS: ACETAMINOPHEN 325 MG TABLET 650 MG PO (21:28)
[2019-09-26 22:00] VITALS: BP 138/90; PULSE 108; RESP 16; TEMP 36.1; O2SAT 97
[2019-09-26 22:16] LABS: Glucose Point of Care 288 (65-105)
[2019-09-27 05:24] LABS: Blood Urea Nitrogen 28 mg/dL (9-20); Calcium 11.4 mg/dL (8.4-10.2); Carbon Dioxide 32 mmol/L (22-30); Chloride 98 mmol/L (98-107); Estimated CRCL calculation 48 ml/min; Estimated Glomerular Filt Rate 50; Glucose 255 mg/dL (75-110); Magnesium 1.8 mg/dL (1.6-2.3); Phosphorus 3.3 mg/dL (2.5-4.5); Potassium 4.7 mmol/L (3.4-5.0); Sodium 137 mmol/L (137-145)
[2019-09-27 05:28] VITALS: BP 140/94; PULSE 81; RESP 16; TEMP 35.9; O2SAT 97
[2019-09-27 07:52] LABS: Glucose Point of Care 226 (65-105)
[2019-09-27 08:00] VITALS: BP 130/96; PULSE 89
[2019-09-27] MEDS: INSULIN ASPART (*BKC) 100 UNITS/ML 7 UNITS SUB-Q (08:08)
[2019-09-27] MEDS: INSULIN ASPART (*BKC) 100 UNITS/ML SUB-Q (08:09)
[2019-09-27] MEDS: TAMSULOSIN HCL 0.4 MG CAPSULE PO (08:14)
[2019-09-27] MEDS: ASPIRIN 81 MG ENTERIC TABLET PO (08:17)
[2019-09-27] MEDS: CYANOCOBALAMIN 1,000 MCG TABLET 1000 MCG PO (08:17)
[2019-09-27] MEDS: glipiZIDE 5 MG TABLET 20 MG PO (08:17)
[2019-09-27] MEDS: METOPROLOL TARTRATE 50 MG TAB PO (08:17)
[2019-09-27] MEDS: CHOLECALCIFEROL 1,000 UNIT TABLET 1000 UNITS PO (08:17)
[2019-09-27] MEDS: ENOXAPARIN 40 MG/0.4 ML SYRINGE SUB-Q (08:17)
--- NOTE | 2019-09-27 11:20 | PM.DS ---
DS: Diagnosis Admitting Diagnosis Admitting Diagnosis: Sepsis, unspecified organism Discharge Diagnosis (1) Bacteremia due to Klebsiella pneumoniae: Code(s): R78.81 - Bacteremia; B96.1 - Klebsiella pneumoniae [K. pneumoniae] as the cause of diseases classified elsewhere Status: Acute Assessment and Plan: Date of Service 09/27/19 Mr. Mason is a 68yo M with history of type 2 diabetes, hypertension, and depression who presented to the ED for evaluation of weakness and dysuria. He was found to have a urinary tract infection and grew Klebsiella in urine and blood cultures. He was treated with 7 days of IV ceftriaxone here in the hospital and discharged with oral levofloxacin to complete a 14-day (total) course. Flomax was initiated. Dysuria resolved. Blood sugars were elevated, A1c 9.4 and he was started on Lantus. He was instructed to continue adhering to a diabetic diet and monitor blood sugars regularly. 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 He will follow up with his primary care provider within 1 week. He was hemodynamically stable for discharge 09/27/19. He was obstructed to obtain repeat lab work after discharge. He did have an elevated calcium level through his stay and elevated PTH. Vitamin D level normal. Encouraged to follow up with PCP for further workup if needed. Recently had a left knee injection in Dr Padgett's office. Will continue to follow up with him outpatient as well. (2) Sepsis: Qualifiers: Sepsis acute organ dysfunction status: without acute organ dysfunction Sepsis type: sepsis due to unspecified organism Qualified Code(s): A41.9 - Sepsis, unspecified organism Code(s): A41.9 - Sepsis, unspecified organism Status: Resolved Assessment and Plan: Resolved, stable. Evident by fever, tachycardia, tachypnea on arrival. Suspected source is above. (3) UTI (urinary tract infection): Qualifiers: Urinary tract infection type: acute cystitis Hematuria presence: with hematuria Qualified Code(s): N30.01 - Acute cystitis with hematuria Code(s): N39.0 - Urinary tract infection, site not specified Status: Acute Assessment and Plan: See above. (4) Benign prostatic hyperplasia (BPH) with urinary urgency: Code(s): N40.1 - Benign prostatic hyperplasia with lower urinary tract symptoms; R39.15 - Urgency of urination Status: Acute Assessment and Plan: Continue Flomax. He reports no issues today. (5) Hypercalcemia: Code(s): E83.52 - Hypercalcemia Status: Acute Assessment and Plan: With elevated PTH, consider primary hyperparathyroidism since his vitamin-D is normal. Recommend follow up PCP outpatient. (6) Diabetes mellitus with hyperglycemia, without long-term current use of insulin: Qualifiers: Diabetes mellitus type: type 2 Qualified Code(s): E11.65 - Type 2 diabetes mellitus with hyperglycemia Code(s): E11.65 - Type 2 diabetes mellitus with hyperglycemia Status: Acute Assessment and Plan: A1c 9.4, poorly controlled. He remains on glipizide and metformin. Lantus has been started. Continue diabetic diet. He was educated about the importance of adhering to a strict regimen to get his diabetes under control. DS: Summary Time Spent with Patient Time attestation: Total time spent providing and/or coordinating discharge services: 40 minutes Exam Narrative: Exam Narrative: General: Male resting comfortably in bedside chair no acute distress. HEENT: Normocephalic, EOMI, oral mucosa moist. Cardiovascular: Rate and rhythm are regular. Respiratory: Lungs clear to auscultation all enriquez. Respirations even and nonlabored. Abdomen: Soft, non-tender, non-distended, vin
== END 2019-09-27 11:05 | disposition home or self-care (01) | DRG 872 ==
LOC: ANHED 22:29 → ANHIMU 23:01 → ANH2MED 09-24 07:03 → ANHIMU 10-01 08:52
PROVIDERS: Physician Assistant; Admitting Provider Internal Medicine; Emergency Provider Emergency Medicine; Visit Provider Hospitalist
DX: A41.89 Other specified sepsis (principal); F33.9 Major depressive disorder, recurrent, unspecified; N30.01 Acute cystitis with hematuria; B96.1 Klebsiella pneumoniae [K. pneumoniae] as the cause of diseases classified elsewhere; E11.65 Type 2 diabetes mellitus with hyperglycemia; N40.1 Benign prostatic hyperplasia with lower urinary tract symptoms; R39.15 Urgency of urination; E83.52 Hypercalcemia; I10 Essential (primary) hypertension; M10.9 Gout, unspecified; F43.10 Post-traumatic stress disorder, unspecified; F20.9 Schizophrenia, unspecified; E53.8 Deficiency of other specified B group vitamins; Z79.82 Long term (current) use of aspirin; Z79.84 Long term (current) use of oral hypoglycemic drugs; Z79.899 Other long term (current) drug therapy; Z87.891 Personal history of nicotine dependence; Z98.42 Cataract extraction status, left eye; Z98.41 Cataract extraction status, right eye; Z96.1 Presence of intraocular lens
CPT/HCPCS: 36415; 36600; 70450; 71275; 74177; 80048; 80053; 80164; 80307; 81001; 82306; 82375; 82805; 83036; 83050; 83519; 83605; 83690; 83735; 83970; 84100; 84439; 84443; 84480; 85025; 85027; 85610; 85730; 87040; 87077; 87086; 87088; 87186; 87804; 93005; 96361; 96365; 96375; 97110; 97116; 97161; 97165; 97530; 97535; 99285; A9270; J0131; J0696; J1650; J1815; J3475; J7120; Q9967

== ENCOUNTER 2020-04-02 23:21 | Emergency (ER) | payer OTHER, MEDICARE, SELFPAY ==
[2020-04-02 23:24] VITALS: BP 159/66; PULSE 79; RESP 16; TEMP 36.8; O2SAT 94
[2020-04-02 23:58] VITALS: BP 149/79; PULSE 73; RESP 14; O2SAT 97
--- NOTE | 2020-04-03 00:07 | ED.GENADULT ---
HPI - General Adult General Chief complaint: Weakness Stated complaint: sore throat, weakness Time Seen by Provider: 04/02/20 23:31 History of Present Illness HPI narrative: Patient is a 69-year-old male who presents ER with sore throat. Ongoing for couple days. Reports he has had some sinus headaches related to this. Has history of sinus congestion has been taking allergy medication for this. No loss of taste or smell. Denies Covid exposure. No fevers or chills or sweats. No extremity weakness. He is without body aches. He said no cough. No exertional dyspnea or fatigue. He is not reporting weakness during my evaluation. Related Data Home Medications Medication Instructions Recorded Confirmed aspirin 81 mg tablet,delayed 81 mg PO DAILY 09/18/19 09/21/19 release vitamin B12 500 mcg-folic acid 400 1 tablet PO DAILY 09/18/19 09/22/19 mcg tablet MegaRed Lisco-3 Krill Oil 1 cap PO DAILY 09/21/19 09/21/19 ascorbic acid (vitamin C) [Vitamin 1 g PO HS 09/21/19 09/22/19 C] cholecalciferol (vitamin D3) 25 mcg PO DAILY 09/21/19 09/21/19 [Vitamin D3] cyanocobalamin (vitamin B-12) 1,000 mcg PO DAILY 09/21/19 09/22/19 [Vitamin B-12] divalproex 1,000 mg PO DAILY 09/21/19 09/21/19 glipizide 20 mg PO BIDAC 09/21/19 09/22/19 hydrochlorothiazide 25 mg PO DAILY 09/21/19 09/21/19 lisinopril 10 mg PO DAILY 09/21/19 09/22/19 metoprolol tartrate 50 mg PO DAILY 09/21/19 09/22/19 metoprolol tartrate 75 mg PO QPM 09/21/19 09/22/19 Allergies Allergy/AdvReac Type Severity Reaction Status Date / Time lithium Allergy Unknown Verified 09/21/19 18:58 Review of Systems Review of Systems: All systems reviewed & are unremarkable except as noted in HPI and below Constitutional: Constitutional: Denies chills, Denies fatigue, Denies fever(s) and Denies weakness ENT: Reports nasal congestion and Reports sore throat Cardiovascular: Cardiovascular: Denies chest pain and Denies radiating jaw, neck or arm pain Respiratory: Respiratory: Denies cough, Denies dyspnea and Denies wheezing Gastrointestinal: Gastrointestinal: Denies nausea and Denies vomiting Neurologic: Reports headache(s), Denies focal weakness and Denies numbness PMFSH Past Medical History Medical History (Updated 04/03/20 @ 00:10 by Ranjeet Mullen MD) B12 deficiency Essential hypertension Gout Manic depressive disorder Osteoarthritis PTSD (post-traumatic stress disorder) Schizophrenia Type 2 diabetes mellitus Vitamin D deficiency Surgical History Surgical History (Updated 09/22/19 @ 02:22 by Kaitlyn Quinn DO) History of cholecystectomy (~1970) Status post cataract extraction of both eyes with insertion of intraocular lens Status post laser cataract surgery of both eyes Family History Family History Father Carcinoma of colon Diabetes mellitus Mother Carcinoma of colon Diabetes mellitus Heart disease Social History Social History (Updated 09/22/19 @ 03:11 by Kaitlyn Quinn DO) Social History: Primary care physician: [facility] Code status: Full code Advanced directives: None Smoking packs per day: 3 Smoking cigarettes per day: 60.0 Years smoked: 15 Smoking pack-years: 45.00 Smoking status: Former smoker Tobacco type: cigarettes Second hand tobacco smoke exposure: No Alcohol intake: never Substance use: never Additional living arrangements comments: He lives with his of 11 years. He has 2 grown sons. One of his sons has issues with IV drug abuse. 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 He served in the [employer] during the [place] War for 1 year. Gender identity (if verbalized by the patient): Male Spiritual care concerns: No Agree to blood products: Yes Exam Narrative: Exam Narrative: GENERAL: Well-appearing, well-nourished, and in no acute distress. HEAD: Norm
[2020-04-03 00:30] VITALS: BP 120/70; PULSE 70; RESP 22; O2SAT 96
== END 2020-04-03 00:30 | disposition home or self-care (01) ==
PROVIDERS: Emergency Provider Emergency Medicine
DX: J06.9 Acute upper respiratory infection, unspecified (principal); E53.8 Deficiency of other specified B group vitamins; I10 Essential (primary) hypertension; M10.9 Gout, unspecified; M19.90 Unspecified osteoarthritis, unspecified site; E11.9 Type 2 diabetes mellitus without complications; E55.9 Vitamin D deficiency, unspecified; F43.10 Post-traumatic stress disorder, unspecified; F20.9 Schizophrenia, unspecified; F31.9 Bipolar disorder, unspecified; Z98.42 Cataract extraction status, left eye; Z98.41 Cataract extraction status, right eye; Z87.891 Personal history of nicotine dependence; Z79.84 Long term (current) use of oral hypoglycemic drugs; Z79.82 Long term (current) use of aspirin
CPT/HCPCS: 99283

== ENCOUNTER 2022-10-12 21:33 | Emergency (ER) | payer MEDICARE, OTHER, SELFPAY ==
[2022-10-12] VITALS (7 sets, daily range): BP systolic 177–195; BP diastolic 90–91; PULSE 71–101; RESP 12–20; TEMP 36.6; O2SAT 95–97
--- NOTE | ~2022-10-12 | XR_ITS ---
AP and lateral views of the sacrum/coccyx CLINICAL HISTORY: Status post fall FINDINGS: No fracture or dislocation seen. Visualized joint spaces are preserved. Soft tissues are un remarkable. IMPRESSION: No acute abnormality seen. Reviewed, dictated and finalized at location . IMPRESSION: No acute abnormality seen.
--- NOTE | ~2022-10-12 | CT_ITS ---
CT head without contrast Indication: Head injury COMPARISON: 09/22/2019 Technique: Serial scans were obtained through the brain without the administration of contrast. Dose reduction technique was used on this scan by utilizing automated exposure control and iterative recon struction technique. The dose-length product (DLP) was 681.00 mGy-cm. Findings: There is no evidence of intracranial hemorrhage, mass lesion, or acute infarct. The ventri cles and subarachnoid spaces are dilated, consistent with mild atrophy. Low attenuation regions are seen within the periventricular white matter bilaterally, likely representing changes from chronic mi crovascular ischemic disease. There is no evidence of edema, mass effect or midline shift. The visu alized paranasal sinuses and mastoid air cells are clear. Impression: No intracranial hemorrhage, mass, or acute infarct. Atrophy and chronic white matter changes, as above. Reviewed, dictated and finalized at [facility]. Impression: No intracranial hemorrhage, mass, or acute infarct. Atrophy and chronic white matter changes, as above.
--- NOTE | ~2022-10-12 | XR_ITS ---
Right Shoulder Technique: AP and scapular Y views were obtained. Clinical History: Pain Findings: No fracture or dislocation is seen. Osseous alignment is anatomic. The glenohumeral and acr omioclavicular joint spaces are preserved. Soft tissues are unremarkable. Impression: Unremarkable right shoulder radiographs. Reviewed, dictated and finalized at [facility]. Impression: Unremarkable right shoulder radiographs.
--- NOTE | 2022-10-12 21:46 | ECG_ITS ---
Measurements Intervals [place] Rate: 84 P: 67 OK: 198 QRS: 24 QRSD: 101 T: 79 QT: 335 QTc: 396 Interpretive Statements SINUS RHYTHM DELAYED PRECORDIAL R/S TRANSITION BORDERLINE ECG COMPARED TO ECG 09/21/2019 18:55:49 SINUS RHYTHM NOW PRESENT Electronically Signed On 10-13-2022 8:11:33 CDT by Geoffrey Roche D.O.
[2022-10-12 22:34] LABS: Basophils Percent Auto 0.5 % (0.2-1.2); Eosinophils Absolute Auto 0.1 K/mm3 (0-0.3); Eosinophils Percent Auto 1.2 % (0-4.4); Hematocrit 40.4 % (42.0-52.0); Hemoglobin 13.7 g/dL (14.0-18.0); Immature Granulocyte Absolute 0.05 K/mm3 (0.00-0.031); Immature Granulocyte Percent A 0.9 % (0-0.5); Lymphocytes Absolute Auto 1.17 K/mm3 (0.9-3.2); Lymphocytes Percent Auto 20.1 % (18.3-44.2); Mean Corpuscular HGB Conc 33.9 g/dl (32-36); Mean Corpuscular Hemoglobin 31.4 pg (26-34); Mean Corpuscular Volume 92.4 fl (80-100); Mean Platelet Volume 9.5 fl (7.4-10.4); Monocytes Absolute Auto 0.4 K/mm3 (0.1-0.6); Monocytes Percent Auto 7.2 % (2.6-8.5); Neutrophils Absolute Auto 4.1 K/mm3 (1.3-6.7); Neutrophils Percent Auto 70.1 % (45.5-73.1); Platelet Count Result 148 k/mm3 (150-375); Red Blood Count 4.37 M/mm3 (4.6-6.20); White Blood Count 5.8 K/mm3 (4.5-10.0)
[2022-10-12 22:45] LABS: Alanine Aminotransferase 27 U/L (6-50); Albumin Level 4.4 g/dL (3.5-5.1); Alkaline Phosphatase 55 U/L (38-126); Anion Gap 9 mmol/L (8-16); Aspartate Amino Transferase 25 U/L (17-59); Bilirubin,Total 0.4 mg/dL (0.2-1.3); Blood Urea Nitrogen 27 mg/dL (9-20); Calcium 9.2 mg/dL (8.4-10.2); Carbon Dioxide 25 mmol/L (22-30); Chloride 105 mmol/L (98-107); Estimated CRCL calculation 40 ml/min; Estimated Glomerular Filt Rate 43; Glucose 242 mg/dL (65-110); Potassium 5.3 mmol/L (3.4-5.0); Sodium 139 mmol/L (137-145)
--- NOTE | 2022-10-12 23:24 | ED.FALL ---
HPI - Fall General Chief Complaint: Fall Stated Complaint: fall 1 week ago Time Seen by Provider: 10/12/22 22:45 History of Present Illness HPI Narrative: This is a 72-year-old male with past history of hypertension, who presents the emergency department complaining of coccyx pain after 2 falls. Patient states several days ago, he was walking up stairs when he lost balance, falling backwards landing on the bottom and striking the back of his head on a car. 2 days later, he had a repeat similar fall. Today he complains of 5/10 pain at the coccyx. He has no other complaints today. Related Data Home Medications Medication Instructions Recorded Confirmed aspirin 81 mg tablet,delayed 81 mg PO DAILY 09/18/19 09/21/19 release (Adult Aspirin Regimen) vitamin B12 500 mcg-folic acid 400 1 tablet PO DAILY 09/18/19 09/22/19 mcg tablet ascorbic acid (vitamin C) 1,000 mg 1 g PO HS 09/21/19 09/22/19 tablet (Vitamin C) cholecalciferol (vitamin D3) 25 25 mcg PO DAILY 09/21/19 09/21/19 mcg (1,000 unit) capsule (Vitamin D3) cyanocobalamin (vitamin B-12) 1,000 mcg PO DAILY 09/21/19 09/22/19 1,000 mcg tablet (Vitamin B-12) divalproex 500 mg tablet,extended 1,000 mg PO DAILY 09/21/19 09/21/19 release 24 hr glipizide 10 mg tablet 20 mg PO BIDAC 09/21/19 09/22/19 hydrochlorothiazide 25 mg tablet 25 mg PO DAILY 09/21/19 09/21/19 krill 500 mg-omega 3 115 mg-dha 30 1 cap PO DAILY 09/21/19 09/21/19 mg-epa 64 [id number]-[id number] capsule (MegaRed [place]-3 Krill Oil) lisinopril 40 mg tablet 10 mg PO DAILY 09/21/19 09/22/19 metoprolol tartrate 50 mg tablet 50 mg PO DAILY 09/21/19 09/22/19 metoprolol tartrate 50 mg tablet 75 mg PO QPM 09/21/19 09/22/19 Allergies Allergy/AdvReac Type Severity Reaction Status Date / Time lithium Allergy Unknown Verified 10/12/22 23:03 Review of Systems Review of Systems: CONSTITUTIONAL: Denies fever, chills, or sweats. CARDIOVASCULAR: Denies chest pain, palpitations, or edema. RESPIRATORY: Denies cough or dyspnea. GASTROINTESTINAL: Denies abdominal pain, nausea, vomiting, or diarrhea. GENITOURINARY: Denies dysuria or hematuria. SKIN: Denies rash or itching. MUSCULOSKELETAL: Sacral and coccygeal pain denies joint pain, or myalgia. NEUROLOGIC: Denies headache, numbness, dizziness, or weakness. PSYCHIATRIC: Denies anxiety or depression. [facility] Past Medical History Medical History B12 deficiency Essential hypertension Gout Manic depressive disorder Osteoarthritis PTSD (post-traumatic stress disorder) Schizophrenia Type 2 diabetes mellitus Vitamin D deficiency Surgical History Surgical History History of cholecystectomy (~1970) Status post cataract extraction of both eyes with insertion of intraocular lens Status post laser cataract surgery of both eyes Family History Family History Father Carcinoma of colon Diabetes mellitus Mother Carcinoma of colon Diabetes mellitus Heart disease Social History Social History Social History: Primary care physician: [facility] Code status: Full code Advanced directives: None Smoking packs per day: 3 Smoking cigarettes per day: 60.0 Years smoked: 15 Smoking pack-years: 45.00 Smoking status: Former smoker Tobacco type: cigarettes Second hand tobacco smoke exposure: No Alcohol intake: never Substance use: never Living arrangements: with family Additional living arrangements comments: He lives with his of 11 years. He has 2 grown sons. One of his sons has issues with IV drug abuse. 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 Gender id
[2022-10-12] MEDS: SODIUM CHLORIDE 0.9% IV 1,000 ML 999 ML IV CONT (23:28)
[2022-10-13] VITALS: PULSE 71; RESP 16; O2SAT 96
[2022-10-13 00:25] VITALS: BP 164/72; PULSE 72; RESP 16; O2SAT 98
[2022-10-13 00:31] VITALS: PULSE 71; RESP 17; O2SAT 99
[2022-10-13 00:48] VITALS: BP 166/66; PULSE 74; RESP 16; O2SAT 98
[2022-10-13 02:18] LABS: Chloride 109 mmol/L (98-107); Potassium 5.8 mmol/L (3.4-5.0); Sodium 139 mmol/L (137-145)
[2022-10-13 02:19] LABS: Anion Gap 7 mmol/L (8-16); Blood Urea Nitrogen 25 mg/dL (9-20); Calcium 8.7 mg/dL (8.4-10.2); Carbon Dioxide 23 mmol/L (22-30); Estimated CRCL calculation 40 ml/min; Estimated Glomerular Filt Rate 43; Glucose 122 mg/dL (65-110)
--- NOTE | 2022-10-13 02:35 | ECG_ITS ---
Measurements Intervals [place] Rate: 73 P: 65 VA: 180 QRS: 12 QRSD: 101 T: 89 QT: 368 QTc: 406 Interpretive Statements SINUS RHYTHM CANNOT RULE OUT SEPTAL INFARCT, AGE INDETERMINATE BORDERLINE T WAVE ABNORMALITY- HIGH LATERAL LEADS COMPARED TO ECG 10/12/2022 22:22:54 NO SIGNIFICANT CHANGES Electronically Signed On 10-13-2022 8:13:08 CDT by Geoffrey Roche D.O.
[2022-10-13 03:01] VITALS: BP 142/96; PULSE 82; RESP 16; O2SAT 100
== END 2022-10-13 03:02 | disposition home or self-care (01) ==
PROVIDERS: Emergency Provider Preventive Medicine Aerospace Medicine
DX: S32.2XXA Fracture of coccyx, initial encounter for closed fracture (principal); I10 Essential (primary) hypertension; E11.9 Type 2 diabetes mellitus without complications; E53.8 Deficiency of other specified B group vitamins; E55.9 Vitamin D deficiency, unspecified; M19.90 Unspecified osteoarthritis, unspecified site; Z79.84 Long term (current) use of oral hypoglycemic drugs; Z79.82 Long term (current) use of aspirin; Z79.4 Long term (current) use of insulin; R94.31 Abnormal electrocardiogram [ECG] [EKG]; W10.9XXA Fall (on) (from) unspecified stairs and steps, initial encounter
CPT/HCPCS: 36415; 70450; 72220; 73030; 80048; 80053; 85025; 93005; 96360; 99284; J7030

== ENCOUNTER 2023-05-16 22:03 | Emergency (ER) | payer MEDICARE, OTHER, SELFPAY ==
[2023-05-16] VITALS (11 sets, daily range): BP systolic 151–171; BP diastolic 88–99; PULSE 107–114; RESP 16–20; TEMP 37.7; O2SAT 93–99
--- NOTE | ~2023-05-16 | XR_ITS ---
EXAMINATION: XR chest 1V portable Exam Date/Time: 05/16/2023 23:10 SENIOR INFORMATION SYSTEMS ARCHITECT HISTORY: fever, weakness Comparison: 09/15/2019. RESULT: Lines, tubes, and devices: None. Lungs and pleura: Clear. Cardiomediastinal silhouette: Stable. Other: No acute osseous or upper abdominal finding. IMPRESSION: No acute cardiopulmonary process. Reviewed, dictated and finalized at location K. OR INFORMATION SYSTEMS ARCHITECT
--- NOTE | 2023-05-16 22:21 | ECG_ITS ---
Measurements Intervals [place] Rate: 107 P: RI: 0 QRS: -4 QRSD: 101 T: 107 QT: 325 QTc: 435 Interpretive Statements SINUS TACHYCARDIA COMPARED TO ECG 10/13/2022 02:39:03 SINUS TACHYCARDIA NOW PRESENT Electronically Signed On 05-17-2023 13:20:34 MEDICAL OFFICE SUPERVISOR by Keri Marrero M.D.
[2023-05-16 22:30] LABS: Basophils Percent Auto 0.3 % (0.2-1.2); Eosinophils Percent Auto 0.3 % (0-4.4); Hematocrit 39.7 % (42.0-52.0); Hemoglobin 13.5 g/dL (14.0-18.0); Immature Granulocyte Absolute 0.05 K/mm3 (0.00-0.031); Immature Granulocyte Percent A 0.6 % (0-0.5); Immature Platelet Fraction Pct 3.2 % (0.9-11.2); Lymphocytes Absolute Auto 1.11 K/mm3 (0.9-3.2); Lymphocytes Percent Auto 12.6 % (18.3-44.2); Mean Corpuscular Hemoglobin 30.4 pg (26-34); Mean Corpuscular Volume 89.4 fl (80-100); Monocytes Absolute Auto 0.9 K/mm3 (0.1-0.6); Monocytes Percent Auto 9.7 % (2.6-8.5); Neutrophils Absolute Auto 6.7 K/mm3 (1.3-6.7); Neutrophils Percent Auto 76.5 % (45.5-73.1); Platelet Count Result 127 k/mm3 (150-375); Red Blood Count 4.44 M/mm3 (4.6-6.20); Red Cell Distribution Width 12.8 % (11.5-14.5); White Blood Count 8.8 K/mm3 (4.5-10.0)
[2023-05-16 22:40] LABS: Alanine Aminotransferase 16 U/L (6-50); Albumin Level 4.1 g/dL (3.5-5.1); Alkaline Phosphatase 55 U/L (38-126); Anion Gap 13 mmol/L (8-16); Aspartate Amino Transferase 19 U/L (17-59); Bilirubin,Total 0.6 mg/dL (0.2-1.3); Blood Urea Nitrogen 16 mg/dL (9-20); Calcium 9.7 mg/dL (8.4-10.2); Carbon Dioxide 24 mmol/L (22-30); Chloride 103 mmol/L (98-107); Estimated CRCL calculation 53 ml/min; Estimated Glomerular Filt Rate 59; Glucose 163 mg/dL (65-110); Potassium 4.1 mmol/L (3.4-5.0); Sodium 140 mmol/L (137-145)
[2023-05-16] MEDS: ACETAMINOPHEN 500 MG TABLET 1000 MG PO (23:18)
[2023-05-16] MEDS: SODIUM CHLORIDE 0.9% IV 1,000 ML 999 ML IV CONT (23:18)
[2023-05-17] VITALS: PULSE 104; RESP 19
[2023-05-17 00:02] VITALS: BP 142/87; PULSE 103; RESP 18
[2023-05-17 00:03] VITALS: PULSE 98
[2023-05-17] MEDS: SODIUM CHLORIDE 0.9% IV 1,000 ML 999 ML IV CONT ×2 (00:33→00:34)
[2023-05-17 00:40] LABS: Influenza A QL RT-PCR Negative (Negative); Influenza B QL RT-PCR Negative (Negative); RSV RNA, RT-PCR Negative (Negative); SARS-CoV-2 RNA PCR Negative (Negative)
[2023-05-17 00:46] LABS: Appearance Urine Clear (Clear); Bacteria Urine None Seen /hpf; Bilirubin Urine Negative (Negative); Blood Urine Trace (Negative); Color Urine Yellow (Yellow); Glucose Urine UA Negative (Negative); Ketones Urine Trace mg/dL (Negative); Leukocyte Esterase Ur Negative LEU/UL (Negative); Nitrate Urine Negative (Negative); Non Pathogenic Casts 0-2; Protein Urine 2+ mg/dL (Negative); RBC Urine 0-2 /hpf (0-2); Specific Grav Ur 1.013 (1.001-1.035); Squamous Epithelial Cell Urine None seen /hpf (Few); Urobilinogen Urine 0.2 mg/dL (<2.0); WBC Urine 0-5 /hpf; pH Urine 5.5 (5.0-9.0)
[2023-05-17 00:48] LABS: Add Urine Microscopic? YES
[2023-05-17 01:41] LABS: Lactic Acid Reflex 1.7 mmol/L (0.7-2.0)
[2023-05-17 02:10] LABS: Reflex Lactic Acid Yes or No Add Lactic
[2023-05-17 02:16] VITALS: PULSE 81; O2SAT 95
--- NOTE | 2023-05-17 02:28 | ED.GENADULT ---
HPI - General Adult General Chief complaint: Weakness Stated complaint: weak, ams Time Seen by Provider: 05/16/23 23:05 History of Present Illness HPI narrative: Patient 72-year-old gentleman who presents emergency department with chief complaint of fever and weakness. The family has noticed over the last several days he has been a little weaker than normal report that he had an episode of incontinence today and reports that they are concerned that he may be developing sepsis due to urinary tract infection. The patient reports that he had similar episodes in the past. Related Data Home Medications Medication Instructions Recorded Confirmed aspirin 81 mg tablet,delayed 81 mg PO DAILY 09/18/19 09/21/19 release (Adult Aspirin Regimen) vitamin B12 500 mcg-folic acid 400 1 tablet PO DAILY 09/18/19 09/22/19 mcg tablet ascorbic acid (vitamin C) 1,000 mg 1 g PO HS 09/21/19 09/22/19 tablet (Vitamin C) cholecalciferol (vitamin D3) 25 25 mcg PO DAILY 09/21/19 09/21/19 mcg (1,000 unit) capsule (Vitamin D3) cyanocobalamin (vitamin B-12) 1,000 mcg PO DAILY 09/21/19 09/22/19 1,000 mcg tablet (Vitamin B-12) divalproex 500 mg tablet,extended 1,000 mg PO DAILY 09/21/19 09/21/19 release 24 hr glipizide 10 mg tablet 20 mg PO BIDAC 09/21/19 09/22/19 hydrochlorothiazide 25 mg tablet 25 mg PO DAILY 09/21/19 09/21/19 krill 500 mg-omega 3 115 mg-dha 30 1 cap PO DAILY 09/21/19 09/21/19 mg-epa 64 [id number]-[id number] capsule (MegaRed [place]-3 Krill Oil) lisinopril 40 mg tablet 10 mg PO DAILY 09/21/19 09/22/19 metoprolol tartrate 50 mg tablet 50 mg PO DAILY 09/21/19 09/22/19 metoprolol tartrate 50 mg tablet 75 mg PO QPM 09/21/19 09/22/19 Allergies Allergy/AdvReac Type Severity Reaction Status Date / Time lithium Allergy Unknown Verified 10/12/22 23:03 Review of Systems Review of Systems: A 10 system review of systems was completed on the patient and is negative except for what is stated in the HPI. Nursing and ancillary documentation was reviewed. [facility] Past Medical History Medical History B12 deficiency Essential hypertension Gout Manic depressive disorder Osteoarthritis PTSD (post-traumatic stress disorder) Schizophrenia Type 2 diabetes mellitus Vitamin D deficiency Surgical History Surgical History History of cholecystectomy (~1971) Status post cataract extraction of both eyes with insertion of intraocular lens Status post laser cataract surgery of both eyes Family History Family History Father Carcinoma of colon Diabetes mellitus Mother Carcinoma of colon Diabetes mellitus Heart disease Social History Social History Social History: Primary care physician: [facility] Code status: Full code Advanced directives: None Smoking packs per day: 3 Smoking cigarettes per day: 60.0 Years smoked: 15 Smoking pack-years: 45.00 Smoking status: Former smoker Tobacco type: cigarettes Second hand tobacco smoke exposure: No Alcohol intake: never Substance use: never Living arrangements: with family Additional living arrangements comments: He lives with his of 11 years. He has 2 grown sons. One of his sons has issues with IV drug abuse. 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 Gender identity (if verbalized by the patient): Male Spiritual care concerns: No Agree to blood products: Yes Exam Narrative: GENERAL: Well-appearing, well-nourished, and in no acute distress. HEAD: Normocephalic, atraumatic. EYES: PERRLA and EOMI. ENT: Nares clear, no rhinorrhea or epist
[2023-05-17 02:43] VITALS: PULSE 86; RESP 17; O2SAT 96
[2023-05-17 02:45] VITALS: BP 127/71; PULSE 81; RESP 15; TEMP 36.9; O2SAT 95
== END 2023-05-17 03:29 | disposition home or self-care (01) ==
PROVIDERS: Emergency Provider Emergency Medicine
DX: B34.9 Viral infection, unspecified (principal); I10 Essential (primary) hypertension; E11.9 Type 2 diabetes mellitus without complications; E55.9 Vitamin D deficiency, unspecified; F43.10 Post-traumatic stress disorder, unspecified; F20.9 Schizophrenia, unspecified; E53.8 Deficiency of other specified B group vitamins; M10.9 Gout, unspecified; Z87.891 Personal history of nicotine dependence; Z79.82 Long term (current) use of aspirin; Z79.84 Long term (current) use of oral hypoglycemic drugs; Z79.4 Long term (current) use of insulin; Z20.822 Contact with and (suspected) exposure to COVID-19
CPT/HCPCS: 36415; 71045; 80053; 81001; 83605; 84145; 85025; 85055; 87040; 87147; 87181; 87186; 87637; 93005; 96360; 96361; 99283; 99284; A9270; J7030

== ENCOUNTER 2023-05-17 22:58 | Emergency (ER) | payer MEDICARE, OTHER, SELFPAY ==
[2023-05-17 23:05] VITALS: BP 176/81; PULSE 88; RESP 18; TEMP 36.4; O2SAT 96
[2023-05-18 02:00] VITALS: BP 154/88; PULSE 99; RESP 14; O2SAT 96
--- NOTE | 2023-05-18 03:18 | ED.GENADULT ---
HPI - General Adult General Chief complaint: Recheck/Abnormal Lab/Rx Stated complaint: sent by pcp for + blood cultures Time Seen by Provider: 05/18/23 02:26 History of Present Illness HPI narrative: patient is a 72-year-old gentleman presents emergency department with chief complaint of positive blood culture. The patient was seen in the emergency department recently after he had a fever and was less active. Patient at that time had a normal white blood cell count negative COVID negative flu negative RSV and negative urinalysis negative chest x-ray. The patient has had issues with sepsis before in the past and blood cultures were sent at that time. The patient was feeling better and was able to be discharged home and has actually been feeling very well and has been doing good today patient was called and told that 1 of the 2 blood cultures was positive and was instructed to come to the emergency department. Related Data Home Medications Medication Instructions Recorded Confirmed aspirin 81 mg tablet,delayed 81 mg PO DAILY 09/18/19 09/21/19 release (Adult Aspirin Regimen) vitamin B12 500 mcg-folic acid 400 1 tablet PO DAILY 09/18/19 09/22/19 mcg tablet ascorbic acid (vitamin C) 1,000 mg 1 g PO HS 09/21/19 09/22/19 tablet (Vitamin C) cholecalciferol (vitamin D3) 25 25 mcg PO DAILY 09/21/19 09/21/19 mcg (1,000 unit) capsule (Vitamin D3) cyanocobalamin (vitamin B-12) 1,000 mcg PO DAILY 09/21/19 09/22/19 1,000 mcg tablet (Vitamin B-12) divalproex 500 mg tablet,extended 1,000 mg PO DAILY 09/21/19 09/21/19 release 24 hr glipizide 10 mg tablet 20 mg PO BIDAC 09/21/19 09/22/19 hydrochlorothiazide 25 mg tablet 25 mg PO DAILY 09/21/19 09/21/19 krill 500 mg-omega 3 115 mg-dha 30 1 cap PO DAILY 09/21/19 09/21/19 mg-epa 64 [id number]-gnptn capsule (MegaRed [place]-3 Krill Oil) lisinopril 40 mg tablet 10 mg PO DAILY 09/21/19 09/22/19 metoprolol tartrate 50 mg tablet 50 mg PO DAILY 09/21/19 09/22/19 metoprolol tartrate 50 mg tablet 75 mg PO QPM 09/21/19 09/22/19 Allergies Allergy/AdvReac Type Severity Reaction Status Date / Time lithium Allergy Unknown Verified 05/18/23 01:38 Review of Systems Review of Systems: A 10 system review of systems was completed on the patient and is negative except for what is stated in the HPI. Nursing and ancillary documentation was reviewed. [facility] Past Medical History Medical History B12 deficiency Essential hypertension Gout Manic depressive disorder Osteoarthritis PTSD (post-traumatic stress disorder) Schizophrenia Type 2 diabetes mellitus Vitamin D deficiency Surgical History Surgical History History of cholecystectomy (~1970) Status post cataract extraction of both eyes with insertion of intraocular lens Status post laser cataract surgery of both eyes Family History Family History Father Carcinoma of colon Diabetes mellitus Mother Carcinoma of colon Diabetes mellitus Heart disease Social History Social History Social History: Primary care physician: [facility] Code status: Full code Advanced directives: None Smoking packs per day: 3 Smoking cigarettes per day: 60.0 Years smoked: 15 Smoking pack-years: 45.00 Smoking status: Former smoker Tobacco type: cigarettes Second hand tobacco smoke exposure: No Alcohol intake: never Substance use: never Living arrangements: with family Additional living arrangements comments: He lives with his of 11 years. He has 2 grown sons. One of his sons has issues with IV drug abuse. 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
[2023-05-18 03:21] LABS: Basophils Percent Auto 0.4 % (0.2-1.2); Eosinophils Percent Auto 0.5 % (0-4.4); Hematocrit 36.5 % (42.0-52.0); Immature Granulocyte Absolute 0.05 K/mm3 (0.00-0.031); Immature Granulocyte Percent A 0.7 % (0-0.5); Immature Platelet Fraction Pct 3.4 % (0.9-11.2); Lymphocytes Absolute Auto 1.42 K/mm3 (0.9-3.2); Lymphocytes Percent Auto 19.4 % (18.3-44.2); Mean Corpuscular HGB Conc 32.9 g/dl (32-36); Mean Corpuscular Hemoglobin 30.1 pg (26-34); Mean Corpuscular Volume 91.5 fl (80-100); Mean Platelet Volume 10.2 fl (7.4-10.4); Monocytes Absolute Auto 0.7 K/mm3 (0.1-0.6); Monocytes Percent Auto 9.2 % (2.6-8.5); Neutrophils Absolute Auto 5.1 K/mm3 (1.3-6.7); Neutrophils Percent Auto 69.8 % (45.5-73.1); Platelet Count Result 127 k/mm3 (150-375); Red Blood Count 3.99 M/mm3 (4.6-6.20); White Blood Count 7.3 K/mm3 (4.5-10.0)
[2023-05-18 03:25] LABS: Appearance Urine Clear (Clear); Bacteria Urine None Seen /hpf; Bilirubin Urine Negative (Negative); Blood Urine Trace (Negative); Color Urine Yellow (Yellow); Glucose Urine UA 2+ mg/dL (Negative); Ketones Urine Negative (Negative); Leukocyte Esterase Ur Negative LEU/UL (Negative); Nitrate Urine Negative (Negative); Non Pathogenic Casts 0-2; Protein Urine 1+ mg/dL (Negative); RBC Urine 0-2 /hpf (0-2); Specific Grav Ur 1.012 (1.001-1.035); Squamous Epithelial Cell Urine None seen /hpf (Few); Urobilinogen Urine 0.2 mg/dL (<2.0); WBC Urine 0-5 /hpf
[2023-05-18 03:30] LABS: Alanine Aminotransferase 14 U/L (6-50); Albumin Level 3.5 g/dL (3.5-5.1); Alkaline Phosphatase 49 U/L (38-126); Anion Gap 8 mmol/L (8-16); Aspartate Amino Transferase 19 U/L (17-59); Bilirubin,Total 0.4 mg/dL (0.2-1.3); Blood Urea Nitrogen 14 mg/dL (9-20); Calcium 9.3 mg/dL (8.4-10.2); Carbon Dioxide 30 mmol/L (22-30); Chloride 104 mmol/L (98-107); Estimated CRCL calculation 49 ml/min; Estimated Glomerular Filt Rate 54; Glucose 160 mg/dL (65-110); Lactic Acid Reflex 1.6 mmol/L (0.7-2.0); Potassium 3.8 mmol/L (3.4-5.0); Sodium 142 mmol/L (137-145)
[2023-05-18 03:30] LABS: Add Urine Microscopic? YES
[2023-05-18 03:46] LABS: Procalcitonin 0.1 ng/mL
[2023-05-18 03:55] LABS: Influenza A QL RT-PCR Negative (Negative); Influenza B QL RT-PCR Negative (Negative); RSV RNA, RT-PCR Negative (Negative); SARS-CoV-2 RNA PCR Negative (Negative)
[2023-05-18 04:00] VITALS: BP 145/89; PULSE 80; RESP 19; O2SAT 99
== END 2023-05-18 05:00 | disposition home or self-care (01) ==
PROVIDERS: Emergency Provider Emergency Medicine
DX: R78.81 Bacteremia (principal); I10 Essential (primary) hypertension; E11.9 Type 2 diabetes mellitus without complications; Z87.891 Personal history of nicotine dependence; Z20.822 Contact with and (suspected) exposure to COVID-19
CPT/HCPCS: 36415; 80053; 81001; 83605; 84145; 85025; 85055; 87040; 87637; 99283

== ENCOUNTER 2024-05-07 10:40 | Emergency (ER) | payer MEDICARE, OTHER, SELFPAY ==
--- NOTE | ~2024-05-07 | XR_ITS ---
XR knee RT min 4V 05/07/2024 13:08 Indication: Right knee pain after injury Procedure: 4 views right knee Comparison: No prior studies for comparison. Findings: There is severe tricompartment osteoarthritis. Moderate joint effusion. No fracture or trau matic malalignment. No foreign bodies. Impression: 1: No acute fracture. 2: Severe osteoarthritis of the right knee. 3: Moderate joint effusion. Reviewed, dictated and finalized at location B. ESS AND BAG INSPECTOR Impression: 1: No acute fracture. 2: Severe osteoarthritis of the right knee. 3: Moderate joint effusion.
[2024-05-07 10:51] VITALS: BP 186/90; PULSE 74; RESP 16; TEMP 36.5; O2SAT 97
--- NOTE | 2024-05-07 11:31 | ED.GENADULT ---
HPI - General Adult General Chief complaint: Extremity Injury, Lower Stated complaint: right knee pain Time Seen by Provider: 05/07/24 11:11 History of Present Illness HPI narrative: 73-year-old male presenting to the emergency department for evaluation for right knee pain. Patient states he was walking up stairs Monday when he felt a pop in his right knee. Patient states he has had difficulty with ambulating since then. Patient was walking yesterday his knee gave out causing him to fall into the wall. Patient had trouble getting out of bed her ambulating this morning. Patient describes pain throughout the knee. Patient denies any other pain or injury. Patient denies striking his head denies any loss of consciousness Related Data Home Medications ?Medication ?Instructions ?Recorded ?Confirmed ?Last Taken ?Type aspirin 81 mg tablet,delayed 81 mg PO DAILY 09/18/19 09/21/19 Unknown History release (Adult Aspirin Regimen) vitamin B12 500 mcg-folic acid 400 1 tablet PO DAILY 09/18/19 09/22/19 Unknown History mcg tablet ascorbic acid (vitamin C) 1,000 mg 1 g PO HS 09/21/19 09/22/19 Unknown History tablet (Vitamin C) cholecalciferol (vitamin D3) 25 25 mcg PO DAILY 09/21/19 09/21/19 Unknown History mcg (1,000 unit) capsule (Vitamin D3) cyanocobalamin (vitamin B-12) 1,000 mcg PO DAILY 09/21/19 09/22/19 Unknown History 1,000 mcg tablet (Vitamin B-12) divalproex 500 mg tablet,extended 1,000 mg PO DAILY 09/21/19 09/21/19 Unknown History release 24 hr glipizide 10 mg tablet 20 mg PO BIDAC 09/21/19 09/22/19 Unknown History hydrochlorothiazide 25 mg tablet 25 mg PO DAILY 09/21/19 09/21/19 Unknown History krill 500 mg-omega 3 115 mg-dha 30 1 cap PO DAILY 09/21/19 09/21/19 Unknown History mg-epa 64 cn-[id number]-oloib capsule (MegaRed [place]-3 Krill Oil) lisinopril 40 mg tablet 10 mg PO DAILY 09/21/19 09/22/19 Unknown History metoprolol tartrate 50 mg tablet 50 mg PO DAILY 09/21/19 09/22/19 Unknown History metoprolol tartrate 50 mg tablet 75 mg PO QPM 09/21/19 09/22/19 Unknown History Allergies Allergy/AdvReac Type Severity Reaction Status Date / Time lithium Allergy Unknown Verified 05/18/23 01:38 Review of Systems Review of Systems: All systems reviewed & are unremarkable except as noted in HPI and below PMFSH Past Medical History Medical History B12 deficiency Essential hypertension Gout Manic depressive disorder Osteoarthritis PTSD (post-traumatic stress disorder) Schizophrenia Type 2 diabetes mellitus Vitamin D deficiency Surgical History Surgical History History of cholecystectomy (~1970) Status post cataract extraction of both eyes with insertion of intraocular lens Status post laser cataract surgery of both eyes Family History Family History Father Carcinoma of colon Diabetes mellitus Mother Carcinoma of colon Diabetes mellitus Heart disease Social History Social History Social History: Primary care physician: [facility] Code status: Full code Advanced directives: None Smoking packs per day: 3 Smoking cigarettes per day: 60.0 Years smoked: 15 Smoking pack-years: 45.00 Smoking status: Former smoker Tobacco type: cigarettes Second hand tobacco smoke exposure: No Alcohol intake: never Substance use: never Living arrangements: with family Additional living arrangements comments: He lives with his of 11 years. He has 2 grown sons. One of his sons has issues with IV drug abuse. 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 Gender identity (if verbalized by the patient): Male Spiritual care concerns: No Agree to blood products: Yes Exam Narrative: APPEARANCE: Well appearing, no pain, no distress, well-nourished. HEAD: normocephalic, atraumatic. EYES: PERRLA/EOMI, conjunctivae clear. NOSE: Normal no drainage EARS:TMS clear with good light reflex. THROAT: Pharynx clear, no exudate. NECK: Supple. No adenopathy, no masses. RESPIRATORY: Airway patent, respirations nonlabored. Clear to auscultation bilaterally, no rales, rhonchi, wheezing. CARDIOVASCULAR: Regular rate and rhythm without murmurs rubs or gallops. ABDOMINAL: Soft, nontender, nondistended, normal bowel sounds MUSCULOSKELETAL: No significant right knee erythema, edema, ecchymosis, does have tenderness to palpation on medial and lateral sides of right knee NEURO: Alert. Cranial nerves II through XII intact. Good gait. Good coordination SKIN: Warm, dry. Normal Color Course Vital Signs Vital signs: Vital Signs Temperature 97.7 F 05/07/24 10:51 Pulse Rate 74 05/07/24 10:51 Respiratory Rate 16 05/07/24 10:51 Blood Pressure 186/90 H 05/07/24 10:51 Pulse Oximetry 97 05/07/24 10:51 Temperature 97.7 F 05/07/24 10:51 Pulse Rate 74 05/07/24 10:51 Respiratory Rate 16 05/07/24 10:51 Blood Pressure 186/90 H 05/07/24 10:51 Pulse Oximetry 97 05/07/24 10:51 Medical Decision Making MDM Narrative Medical decision making narrative: 73 old male presents emergency department for evaluation for right knee pain x-ray was negative for acute fracture dislocation. Patient was provided a knee immobilizer and crutches for limited weight-bearing. Patient was encouraged close follow-up with Orthopedics for further evaluation. All questions concerns were addressed. Differential Diagnosis Differential Diagnosis: Knee contusion, knee effusion, knee fracture, knee sprain, internal drain Vital Signs Vital Signs: Vital Signs Temperature 97.7 F 05/07/24 10:51 Pulse Rate 74 05/07/24 10:51 Respiratory Rate 16 05/07/24 10:51 Blood Pressure 186/90 H 05/07/24 10:51 Pulse Oximetry 97 05/07/24 10:51 Temperature 97.7 F 05/07/24 10:51 Pulse Rate 74 05/07/24 10:51 Respiratory Rate 16 05/07/24 10:51 Blood Pressure 186/90 H 05/07/24 10:51 Pulse Oximetry 97 05/07/24 10:51 Imaging Data Radiologist's impression: Impressions Knee X-Ray 05/07/24 13:09 Impression: 1: No acute fracture. 2: Severe osteoarthritis of the right knee. 3: Moderate joint effusion. Discharge Plan Discharge Clinical Impression: Injury of knee Patient Disposition: Home, Self-Care Condition: Stable Instructions: Antibiotic Form, Crutch Instructions (ED), Knee Immobilizer (ED) Additional Instructions: Tylenol and ibuprofen for pain control. Knee immobilizer for comfort. Crutches for limited weight-bearing. Have close follow-up with your primary care physician. Additionally you need follow-up with Orthopedics and you may need an outpatient MRI. Patient Language: [place] Prescriptions: No Action aspirin [Adult Aspirin Regimen] 81 mg tablet,delayed release (DR/EC) 81 mg PO DAILY vitamin P17-jxofb acid 500-400 mcg tablet 1 tablet PO DAILY Rx Instructions: administer with a meal ascorbic acid (vitamin C) [Vitamin C] 1,000 mg Tablet 1 g PO HS glipizide 10 mg Tablet 20 mg PO BIDAC cyanocobalamin (vitamin B-12) [Vitamin B-12] 1,000 mcg Tablet 1,000 mcg PO DAILY divalproex 500 mg Tablet Extended Release 24 Hr 1,000 mg PO DAILY metoprolol tartrate 50 mg Tablet 50 mg PO DAILY metoprolol tartrate 50 mg Tablet 75 mg PO QPM hydrochlorothiazide 25 mg Tablet 25 mg PO DAILY lisinopril 40 mg Tablet 10 mg PO DAILY cholecalciferol (vitamin D3) [Vitamin D3] 25 mcg (1,000 unit) Capsule 25 mcg PO DAILY MegaRed [place]-3 Krill Oil [id number] mg Capsule 1 cap PO DAILY Lantus U-100 Insulin 100 unit/mL Solution 12 unit subcut HS Qty: 10 0RF tamsulosin 0.4 mg Capsule 0.4 mg PO QAM 30 Days Qty: 30 0RF (DME) insulin syringe-needle U-100 [BD Insulin Syringe] 1 mL 28 gauge x 1/2 syringe See Rx Instructions .ROUTE .MEDSUPPLY Qty: 100 0RF Rx Instructions: As directed levofloxacin [Levaquin] 750 mg tablet 750 mg PO QAM 7 Days Qty: 7 0RF Rx Instructions: Start 09/28/19 metformin 1,000 mg tablet 1,000 mg PO BIDWM 30 Days Qty: 60 0RF Flonase Sensimist 27.5 mcg/actuation spray,suspension 1 spray intranasal DAILY Qty: 5.9 0RF Rx Instructions: into each nostril Follow-up/Referrals: Danny Kat MD [Physician] - [facility] [Primary Care Provider] -
== END 2024-05-07 13:30 | disposition home or self-care (01) ==
PROVIDERS: Emergency Provider Emergency Medicine
DX: S89.91XA Unspecified injury of right lower leg, initial encounter (principal); I10 Essential (primary) hypertension; E11.9 Type 2 diabetes mellitus without complications; E55.9 Vitamin D deficiency, unspecified; E53.8 Deficiency of other specified B group vitamins; M10.9 Gout, unspecified; M17.11 Unilateral primary osteoarthritis, right knee; F43.10 Post-traumatic stress disorder, unspecified; F20.9 Schizophrenia, unspecified; Z87.891 Personal history of nicotine dependence; Z96.1 Presence of intraocular lens; Z98.42 Cataract extraction status, left eye; Z98.41 Cataract extraction status, right eye; Z90.49 Acquired absence of other specified parts of digestive tract; Z79.84 Long term (current) use of oral hypoglycemic drugs; Z79.82 Long term (current) use of aspirin; Z79.4 Long term (current) use of insulin; Z79.899 Other long term (current) drug therapy; W01.198A Fall on same level from slipping, tripping and stumbling with subsequent striking against other object, initial encounter
CPT/HCPCS: 73564; 99283

== ENCOUNTER 2024-07-25 11:05 | Emergency (ER) | payer MEDICARE, OTHER, SELFPAY ==
--- NOTE | ~2024-07-25 | XR_ITS ---
EXAMINATION: XR chest 1V portable DATE: 07/25/2024 13:24 INDICATION: Stroke presenting with weakness TECHNIQUE: frontal view of the chest was obtained. COMPARISON: Chest radiograph dated 05/16/2023 FINDINGS: The lungs are clear with no focal airspace opacities, pulmonary edema, pleural effusion or pneumothor ax. The cardiomediastinal silhouette is normal. Cholecystectomy clips in right upper quadrant. IMPRESSION: 1. No acute cardiopulmonary disease. Reviewed, dictated and finalized at location L. HER WARP
--- NOTE | ~2024-07-25 | CT_ITS ---
EXAMINATION: CT brain wo con DATE: 07/25/2024 13:20 INDICATION: Speech deficit. Dizziness. Weakness. TECHNIQUE: Computed tomography (CT) of the head was performed without intravenous contrast. The mA wa s adjusted according to patient size. Iterative reconstruction technique was employed. The dose-lengt h product was 605.33 mGy-cm. COMPARISON: Head CT 10/12/2022 FINDINGS: There is no intracranial hemorrhage, acute infarction, or abnormal intracranial mass lesion . The ventricles are normal in size. There are likely changes of ocular lens replacement surgeries. T here is mild mucosal thickening in the paranasal sinuses. The mastoid air cells are normal. IMPRESSION: 1. Normal aging brain. Reviewed, dictated and finalized at location A. LATION FOREMAN IMPRESSION: 1. Normal aging brain.
[2024-07-25 12:01] VITALS: BP 152/88; PULSE 86; RESP 16; TEMP 36.6; O2SAT 98
--- OUTSIDE RECORDS SUMMARY | 2024-07-25 12:50 | XMS_ITS | Continuity of Care Document ---
Author Name [facility] Organization 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 Unavailable Unavailable Problems Combined list of problems from Department of Defense and Veterans Affairs facilities. It does not include entries that were removed or entered in error. Problem Status Onset Date Problem Type Date of Resolution Comments Source Abnormal liver function Active Condition [facility] Benign hypertension (SNOMED CT 18884521) Active Condition [facility] Benign prostatic hyperplasia Active Condition [facility] Bipolar disorder Active Condition Mar 15, 2016 Entered By: ANDRIY JUDD Comment: psychotic features [facility] Bipolar Disorder Active Condition [facility] Bipolar Disorder NOS * (ICD-9-CM 296.7/296.80) Active Condition [facility] Bipolar I Disorder, most Recent Episode Manic, Severe, with Psychotic Features ( Active Condition [facility] Chronic kidney disease Active Condition [facility] Diabetes mellitus Active Condition [facility] Diabetes mellitus (SNOMED CT 96251294) Active Condition PAVITHRA [facility] Diabetes Mellitus Type II or unspecified * (ICD-9-CM 250.00) Active Condition [facility] Essential hypertension Active Condition [facility] Exposure to potentially hazardous substance Active Condition [facility] Family History of Malignant Neoplasm of Gastrointestinal Tract (ICD-9-CM V16.0) Active Condition [facility] Arciniega EX [facility] Health maintenance alteration Active Condition Mar 13, 2003 Entered By: AWILDA MCNEAL Comment: colonosocpy 02/2015, f/u 10/2015 due to poor prepSep 2003 Entered By: AWILDA MCNEAL Comment: declines nelly, psa 01/2015Sep 2009 Entered By: AWILDA MCNEAL Comment: TDAP 01/21/2010Jul 2012 Entered By: AWILDA MCNEAL Comment: pneumovax 9/09Sep 2014 Entered By: AWILDA MCNEAL Comment: prevnar 13 10/2014 [facility] History of male erectile disorder Active Condition [facility] Hypercholesterolemia Active Condition D [facility] Hyperlipidemia Active Condition [facility] Hyperlipidemia (SNOMED CT 07104587) Active Condition [facility] Hyperparathyroidism Active Condition [facility] Hypertension Active Condition [facility] Knee pain Active Condition [facility] LBP * (ICD-9-CM 724.2) Active Condition [facility] Low back pain Active Condition [facility] Low Back Pain Active Condition [facility] Male erectile disorder (ICD-9-CM 302.72/607.84) Active Condition [facility] Myalgia caused by statin Active Condition [facility] Nonspecific abnormal findings (radiological) of abdominal area, including retrop Active Condition Nov 04 8 Entered By: AWILDA MCNEAL Comment: ABNL RENAL US. PT DECLINES TO DO CT/MRI [facility] Obesity Active Condition [facility] Obesity * (ICD-9-CM 278.00) Active Condition [facility] Osteoarthritis of knee (SNOMED CT 897662016) [facility] Overweight Active [facility] Pain in left knee Active Condition [facility] Pain in right foot Active Condition [facility] Polycythemia Active Condition [facility] Polycythemia Active Condition [facility] Primary hyperparathyroidism Active Condition [facility] Primary Hyperparathyroidism (ICD-9-CM 252.01) Active Condition [facility] Schizoaffective disorder (SNOMED CT 86961120) Active Condition [facility] Soft tissue swelling Active Condition [facility] Tobacco Use Disorder Active Condition Mar 13, 2003 Entered By: AWILDA MCNEAL Comment: 59 pk yr and continues at 2ppd [facility] Vertigo Active Condition [facility] Vitamin B12 deficiency (non anaemic) Active Condition Feb 09, 2017 Entered By: KORINA KWAN Comment: refuses supplement [facility] Vitamin D deficiency Active Condition [facility] Anxiety Disorder * (ICD-9-CM 300.00) Inactive Condition 02/09/[address] [facility] Diabetes Mellitus without mention of Complication, type II or unspecified type, Inactive Condition 02/09/2017 [facility] Hypertension * (ICD-9-CM 401.9) Inactive Condition 02/09/2017 [facility] Liver function tests abnormal Inactive Condition 02/09/2017 [facility] Sinusitis * (ICD-9-CM 473.9) Inactive Condition 01/03/2014 [facility] Tobacco Use * (ICD-9-CM 305.1) Inactive Condition 03/15/2016 [facility] URI (ICD-9-CM 465.9) Inactive Condition 01/03/2014 [facility] Diagnosis: ICD-10-CM Z00.00 Encntr for general adult medical exam w/o abnormal findings Active Diagnosis [facility] Diagnosis: ICD-10-CM E11.9 Type 2 diabetes mellitus without complications Active Diagnosis [facility] Diagnosis: ICD-10-CM M25.561 Pain in right knee Active Diagnosis [facility] Diagnosis: ICD-10-CM F25.9 Schizoaffective disorder, unspecified Active Diagnosis [facility] Diagnosis: ICD-10-CM R53.1 Weakness Active Diagnosis [facility] Diagnosis: ICD-10-CM R63.4 Abnormal weight loss Active Diagnosis [facility] Diagnosis: ICD-10-CM H61.21 Impacted cerumen, right ear Active Diagnosis [facility] Diagnosis: ICD-10-CM Z74.1 Need for assistance with personal care Active Diagnosis [facility] Medications Combined list of outpatient medications from Department of Defense and Veterans Affairs facilities.Medications provided include 1) outpatient medications from the last 15 months, and 2) patient-reported medications. Medication Details Route Status Patient Instructions Prescription Expires Prescription Number Last Dispense Date Ordering Provider Order Date Order Qty Source ASPIRIN 81MG TAB,CHEWABL E CHEW AND SWALLOW ONE TABLET BY MOUTH ONCE A DAY ORAL ACTIVE KETTY JUDD 2015 [facility] ASPIRIN 81MG TAB,EC TAKE ONE TABLET BY MOUTH EVERY DAY ORAL ACTIVE MYAU DAY R 2007 [facility] CARBAMIDE PEROXIDE 6.5%/GLYCER IN SOLN,OTIC INSTILL 2 DROPS IN RIGHT EAR TWICE A DAY FOR EAR WAX BLOCKAGE AURICU LAR (OTIC) ACTIVE 07/31/2024 [id number] 4 MOSERCASSIA VIER E 2023 15 [facility] CHOLECALCIF LINDA (LOW DOSE VIT D) - (OTC) TAB TAKE 1000UNIT BY MOUTH ONCE A DAY ORAL ACTIVE STOUTENBO NACHO,[facility] ISTA M 2023 [facility] CYANOCOBALA MIN 1000MCG TAB TAKE ONE TABLET BY MOUTH EVERY OTHER DAY ORAL ACTIVE STOUTENBO ROUGH,[facility] ISTA M 2023 [facility] DICLOFENAC NA 1% GEL,TOP APPLY 4 GM TO AFFECTED AREA(S) FOUR TIMES A DAY NEEDED NO MORE THAN 16 GM/DAY TO ANY LOWER EXTREMIT Y JOINT. NO MORE THAN 8 GM/DAY TO ANY UPPER EXTREMIT Y JOINT. MAX 32GM/DAY OVER ALL JOINTS.( MEASURE DOSE WITH RULER INSIDE BOX) TOPICA L ACTIVE 06/13/2025 [id number] 5 AISHAANLE SSA S 2024 100 [facility] DIVALPROEX NA 500MG TAB,SA TAKE TWO TABLETS BY MOUTH AT BEDTIME FOR BIPOLAR DISORDER ORAL ACTIVE 04/23/2025 [id number] 5 LOITERSTE IN,ARIEL A 2023 180 [facility] DIVALPROEX NA 500MG TAB,SA TAKE TWO TABLETS BY MOUTH AT BEDTIME FOR BIPOLAR DISORDER ORAL DISCONT INUED 04/26/2024 [id number] LOITERSTE INARIEL A 2022 180 [facility] GLIPIZIDE 10MG TAB TAKE TWO TABLETS BY MOUTH TWO TIMES A DAY BEFORE MEALS FOR DIABETES . TAKE 30 MINUTES BEFORE EATING. ORAL ACTIVE 06/13/2025 [id number] 5 ANEL LEONARD SSA S 2024 360 [facility] GLIPIZIDE 10MG TAB TAKE TWO TABLETS BY MOUTH TWO TIMES A DAY BEFORE MEALS FOR DIABETES . TAKE 30 MINUTES BEFORE EATING. ORAL DISCONT INUED 09/07/2024 [id number] 4 [facility]EV[facility]Maryanne [facility] 2023 360 [facility] GLIPIZIDE 10MG TAB TAKE TWO TABLETS BY MOUTH TWO TIMES A DAY BEFORE MEALS FOR DIABETES . TAKE 30 MINUTES BEFORE EATING. ORAL DISCONT INUED 03/09/2024 [id number] 4 [facility]AMMIE [facility] 2022 360 [facility] HYDROCHLORO THIAZIDE 25MG TAB TAKE ONE TABLET BY MOUTH ONCE A DAY FOR HIGH BLOOD PRESSURE ORAL ACTIVE 06/13/2025 [id number] 5 ANEL LEONARD SSA S 2024 90 [facility] HYDROCHLORO THIAZIDE 25MG TAB TAKE ONE TABLET BY MOUTH ONCE A DAY FOR HIGH BLOOD PRESSURE ORAL DISCONT INUED 06/23/2024 [id number] 4 ANEL LEONARD SSA S 2023 90 [facility] HYDROCHLORO THIAZIDE 25MG TAB TAKE ONE TABLET BY MOUTH ONCE A DAY FOR HIGH BLOOD PRESSURE ORAL DISCONT INUED 03/19/2024 [id number] [facility] 2023 90 [facility] HYDROCHLORO THIAZIDE 25MG TAB TAKE ONE TABLET BY MOUTH ONCE A DAY FOR BLOOD PRESSURE ORAL DISCONT INUED BY PRECIOUS R 09/07/2024 [id number] 4 [facility] 2023 90 [facility] HYDROCHLORO THIAZIDE 25MG TAB TAKE ONE TABLET BY MOUTH ONCE A DAY FOR BLOOD PRESSURE ORAL DISCONT INUED 03/09/2024 [id number] 4 [facility] 20[facility] 90 [facility] LISINOPRIL 40MG TAB TAKE ONE TABLET BY MOUTH ONCE A DAY FOR HEART OR BLOOD PRESSURE ORAL SUSPEND ED 06/13/2025 [id number] 5 [facility] S 2024 90 [facility] LISINOPRIL 40MG TAB TAKE ONE TABLET BY MOUTH ONCE A DAY FOR HEART OR BLOOD PRESSURE ORAL DISCONT INUED 09/07/2024 [id number] 5 [facility] [address] [place] [address] DIVISIO N LISINOPRIL 40MG TAB TAKE ONE TABLET BY MOUTH ONCE A DAY FOR HEART OR BLOOD PRESSURE ORAL DISCONT INUED 03/09/2024 [id number] 4 [facility] 2022 90 [facility] MENTHOL/MET HYL SALICYLATE (10-15%) LOW CONC. CREAM,TOP APPLY LIGHTLY TO AFFECTED AREA(S) FOUR TIMES A DAY FOR NECK MUSCLE DISCOMFO RT/PAIN. (EXTERNA L USE ONLY) TOPICA L ACTIVE 06/13/2025 [id number] 5 ANEL LEONARD SSA S 2024 90 [facility] MENTHOL/MET HYL SALICYLATE (10-15%) LOW CONC. CREAM,TOP APPLY LIGHTLY TO AFFECTED AREA(S) FOUR TIMES A DAY FOR NECK MUSCLE DISCOMFO RT/PAIN. (EXTERNA L USE ONLY) TOPICA L DISCONT INUED 05/04/2024 [id number] 4 [facility] 2022 90 [facility] METFORMIN HCL 1000MG TAB TAKE ONE TABLET BY MOUTH TWICE A DAY WITH MEALS FOR BLOOD SUGAR CONTROL. TAKE WITH FOOD. AVOID ALCOHOL. DISCONTI NUE BEFORE GETTING XRAY DYE. ORAL DISCONT INUED BY PROVIDE R 03/09/2024 [id number] 4 NADEEN LEE 2022 180 [facility] METFORMIN HCL 500MG 24HR TAB,SA TAKE TWO TABLETS BY MOUTH TWICE A DAY TAKE WITH FOOD. AVOID ALCOHOL. DISCONTI NUE BEFORE GETTING XRAY DYE. ORAL ACTIVE 06/13/2025 [id number] 5 ANEL LEONARD SSA S 2024 360 [facility] METFORMIN HCL 500MG 24HR TAB,SA TAKE TWO TABLETS BY MOUTH TWICE A DAY TAKE WITH FOOD. AVOID ALCOHOL. DISCONTI NUE BEFORE GETTING XRAY DYE. ORAL DISCONT INUED 12/09/2024 [id number] 4 NADEEN LEE 2023 120 [facility] METFORMIN HCL 500MG 24HR TAB,SA TAKE TWO TABLETS BY MOUTH TWICE A DAY FOR DIABETES TAKE WITH FOOD. AVOID ALCOHOL. DISCONTI NUE BEFORE GETTING XRAY DYE. ORAL DISCONT INUED (EDIT) 09/07/2024 [id number] 4 NADEEN LEE 2023 120 [facility] METFORMIN HCL 500MG 24HR TAB,SA TAKE TWO TABLETS BY MOUTH TWICE A DAY FOR DIABETES TAKE WITH FOOD. AVOID ALCOHOL. DISCONTI NUE BEFORE GETTING XRAY DYE. ORAL DISCONT INUED 09/07/2024 [id number] NADEEN LEE 2023 360 [facility] METOPROLOL TARTRATE 50MG TAB TAKE ONE AND ONE-HALF TABLETS BY MOUTH TWICE A DAY FOR HEART/BL OOD PRESSURE . TAKE WITH OR IMMEDIAT MALCOLM FOLLOWIN G FOOD. ORAL ACTIVE 06/13/2025 [id number] 5 ANEL LEONARD SSA S 2024 270 [facility] METOPROLOL TARTRATE 50MG TAB TAKE ONE AND ONE-HALF TABLETS BY MOUTH TWICE A DAY FOR HEART/BL OOD PRESSURE . TAKE WITH OR IMMEDIAT MALCOLM FOLLOWIN G FOOD. ORAL DISCONT INUED 09/07/2024 [id number] 4 [facility] GRIFFITH[facility] 2023 270 [facility] METOPROLOL TARTRATE 50MG TAB TAKE ONE AND ONE-HALF TABLETS BY MOUTH TWICE A DAY FOR HEART/BL OOD PRESSURE . TAKE WITH OR IMMEDIAT MALCOLM FOLLOWIN G FOOD. ORAL DISCONT INUED 11/10/2023 [id number] 4 [facility] 2022 270 [facility] TAMSULOSIN HCL 0.4MG CAP TAKE ONE CAPSULE BY MOUTH EVERY EVENING APPROXIM ATELY 30 MINUTES AFTER THE SAME MEAL EACH DAY (FOR PROSTATE ) ORAL ACTIVE 06/13/2025 [id number] 5 ANEL LEONARD S 2024 90 [facility] TAMSULOSIN HCL 0.4MG CAP TAKE ONE CAPSULE BY MOUTH EVERY EVENING APPROXIM ATELY 30 MINUTES AFTER THE SAME MEAL EACH DAY (FOR PROSTATE ) ORAL DISCONT INUED 12/04/2024 [id number] 4 [facility] 2023 90 [facility] TAMSULOSIN HCL 0.4MG CAP TAKE ONE CAPSULE BY MOUTH EVERY EVENING APPROXIM ATELY 30 MINUTES AFTER THE SAME MEAL EACH DAY (FOR PROSTATE ) ORAL DISCONT INUED 04/24/2024 [id number] 4 [facility] 2022 90 [facility] ZINC OXIDE 20% OINT,TOP APPLY LIBERALL Y TO AFFECTED AREA(S) THREE TIMES A DAY NEEDED TOPICA L ACTIVE 06/13/2025 [id number] ANEL LEONARD SSA S 2024 60 [facility] Allergies, Adverse Reactions, Alerts Combined list of allergies from Department of Defense and Veterans Affairs facilities. It does not include entries that were removed or entered in error. Substance Category Reaction Severity Reaction type Status Date Reported Comments Source FLUVASTATIN Propensity to adverse reactions to drug (finding) active 7 [facility] FLUVASTATIN Propensity to adverse reactions to drug (finding) Muscle pain active 2 [facility] GEMFIBROZIL Propensity to adverse reactions to drug (finding) Nausea, Diarrhea active 7 [facility] GEMFIBROZIL Propensity to adverse reactions to drug (finding) Diarrhea, Nausea active 8 [facility] GEMFIBROZIL Propensity to adverse reactions to drug (finding) Nausea and vomiting, Diarrhea active 2 [facility] LITHIUM Propensity to adverse reactions to drug (finding) TREMORS active 3 [facility] LITHIUM Propensity to adverse reactions to drug (finding) Tremor active 8 [facility] LITHIUM Propensity to adverse reactions to drug (finding) Anaphylaxis active 7 [facility] LOVASTATIN Propensity to adverse reactions to drug (finding) active 7 [facility] LOVASTATIN Propensity to adverse reactions to drug (finding) Muscle pain active 2 [facility] METHOCARBAMO L Propensity to adverse reactions to drug (finding) Sedated active 2 [facility] ROSUVASTATIN Propensity to adverse reactions to drug (finding) active 0 [facility] Immunizations Combined list of available immunizations from the Department of Defense and Veterans Affairs facilities. Immunization Series Date Given Administered By Site Reaction Lot Number CVX Code Drug Artificial Teeth Inspector Status Comments Source PNEUMOCOCCAL CONJUGATE PCV 13 2018 133 complet ed [facility] TDAP 2018 115 complet ed Right Deltoid [facility] INFLUENZA, UNSPECIFIED FORMULATION 2017 88 complet ed [facility] INFLUENZA, UNSPECIFIED FORMULATION 2016 88 complet ed [facility] INFLUENZA, SEASONAL, INJECTABLE 2014 141 complet ed [facility] PNEUMOCOCCAL CONJUGATE PCV 13 2014 133 complet ed [facility] INFLUENZA, UNSPECIFIED FORMULATION 2013 88 complet ed [facility] INFLUENZA, UNSPECIFIED FORMULATION 2012 88 complet ed [facility] INFLUENZA, UNSPECIFIED FORMULATION 2011 88 complet ed [facility] INFLUENZA, UNSPECIFIED FORMULATION 2010 88 complet ed [facility] INFLUENZA, UNSPECIFIED FORMULATION 2009 88 complet ed [facility] TDAP 2009 115 complet ed [facility] NOVEL INFLUENZA-H1N 1-09, ALL FORMULATIONS 2009 128 complet ed [facility] PNEUMOCOCCAL, UNSPECIFIED FORMULATION 2008 109 complet ed [facility] INFLUENZA, UNSPECIFIED FORMULATION 2008 88 complet ed [facility] NOVEL INFLUENZA-H1N 1-09, ALL FORMULATIONS 2008 128 complet ed [facility] INFLUENZA, UNSPECIFIED FORMULATION 2008 88 complet ed [facility] PNEUMOCOCCAL, UNSPECIFIED FORMULATION 2008 109 complet ed [facility] Results Combined list of recent chemistry, hematology and other laboratory results from Department of Defense and Veterans Affairs, ranging from 15 months to all on record, depending upon the facility. Order Name Results Value Reference Range Date Interpretation Specimen Comments Source OCCULT BLOOD FIT X1 SCREEN HEMOGLOBIN .GASTROINT ESTINAL.LO WER [PRESENCE] IN STOOL BY IMMUNOASSA Y Negative 06/23 Specimen Type: FECES No comment entered. Ordering Provider: LIONEL LEONARD SA S Report Released Date/Time: Jun 12, 2024 02:27 PM Reporting Lab: [facility] [address] [facility] [id number] Performing Lab: [facility] [address] [facility] [id number] [facility] COMPREHEN SIVE METABOLIC PANEL CREATININE [MASS/VOLU ME] IN SERUM OR PLASMA 1.49 mg/dL 0.70 - 1.30 07/19 H Specimen Type: PLASMA Comment: Specimen slightly hemolyzed. K result may show a positive bias due to hemolysis. Ordering Provider: ESME WHITEHEAD Report Released Date/Time: Jul 19, 2023 12:13 PM Reporting Lab: [facility] [address] [place] [address] Performing Lab: [facility] DIVISION COMPREHEN SIVE METABOLIC PANEL UREA NITROGEN [MASS/VOLU ME] IN SERUM OR PLASMA 24.9 mg/dL 9.0 - 25.0 07/19 Specimen Type: PLASMA Comment: Specimen slightly hemolyzed. K result may show a positive bias due to hemolysis. Ordering Provider: ESME WHITEHEAD Report Released Date/Time: Jul 19, 2023 12:13 PM Reporting Lab: [facility] [place] [address] Performing Lab: [facility] DIVISION COMPREHEN SIVE METABOLIC PANEL GLUCOSE [MASS/VOLU ME] IN SERUM OR PLASMA 165 mg/dL 72 - 99 07/19 H Specimen Type: PLASMA Comment: Specimen slightly hemolyzed. K result may show a positive bias due to hemolysis. Ordering Provider: ESME WHITEHEAD Report Released Date/Time: Jul 19, 2023 12:13 PM Reporting Lab: [facility] [place] [address] Performing Lab: [facility] DIVISION COMPREHEN SIVE METABOLIC PANEL SODIUM [MOLES/VOL UME] IN SERUM OR PLASMA 143 meq/L 136 - 145 07/19 Specimen Type: PLASMA Comment: Specimen slightly hemolyzed. K result may show a positive bias due to hemolysis. Ordering Provider: ESME WHITEHEAD Report Released Date/Time: Jul 19, 2023 12:13 PM Reporting Lab: [facility] [place] [address] Performing Lab: [facility] DIVISION COMPREHEN SIVE METABOLIC PANEL POTASSIUM [MOLES/VOL UME] IN SERUM OR PLASMA 4.4 meq/L 3.5 - 5.0 07/19 Specimen Type: PLASMA Comment: Specimen slightly hemolyzed. K result may show a positive bias due to hemolysis. Ordering Provider: ESME WHITEHEAD Report Released Date/Time: Jul 19, 2023 12:13 PM Reporting Lab: [facility] [place] [address] Performing Lab: [facility] DIVISION COMPREHEN SIVE METABOLIC PANEL CHLORIDE [MOLES/VOL UME] IN SERUM OR PLASMA 106 meq/L 98 - 107 07/19 Specimen Type: PLASMA Comment: Specimen slightly hemolyzed. K result may show a positive bias due to hemolysis. Ordering Provider: ESME WHITEHEAD Report Released Date/Time: Jul 19, 2023 12:13 PM Reporting Lab: [facility] [place] [address] Performing Lab: [facility] DIVISION COMPREHEN SIVE METABOLIC PANEL CARBON DIOXIDE, TOTAL [MOLES/VOL UME] IN SERUM OR PLASMA 26 meq/L 22 - 31 07/19 Specimen Type: PLASMA Comment: Specimen slightly hemolyzed. K result may show a positive bias due to hemolysis. Ordering Provider: ESME WHITEHEAD Report Released Date/Time: Jul 19, 2023 12:13 PM Reporting Lab: [facility] [place] [address] Performing Lab: [facility] [facility] DIVISION COMPREHEN SIVE METABOLIC PANEL CALCIUM [MASS/VOLU ME] IN SERUM OR PLASMA 10.1 mg/dL 8.4 - 10.4 07/19 Specimen Type: PLASMA Comment: Specimen slightly hemolyzed. K result may show a positive bias due to hemolysis. Ordering Provider: ESME WHITEHEAD Report Released Date/Time: Jul 19, 2023 12:13 PM Reporting Lab: [facility] [place] [address] Performing Lab: [facility] DIVISION COMPREHEN SIVE METABOLIC PANEL PROTEIN [MASS/VOLU ME] IN SERUM OR PLASMA 7.9 g/dL 6.0 - 8.6 07/19 Specimen Type: PLASMA Comment: Specimen slightly hemolyzed. K result may show a positive bias due to hemolysis. Ordering Provider: ESME WHITEHEAD Report Released Date/Time: Jul 19, 2023 12:13 PM Reporting Lab: [facility] [place] [address] Performing Lab: [facility] DIVISION COMPREHEN SIVE METABOLIC PANEL ALBUMIN [MASS/VOLU ME] IN SERUM OR PLASMA 4.3 g/dL 3.4 - 5.0 07/19 Specimen Type: PLASMA Comment: Specimen slightly hemolyzed. K result may show a positive bias due to hemolysis. Ordering Provider: ESME WHITEHEAD Report Released Date/Time: Jul 19, 2023 12:13 PM Reporting Lab: [facility] [place] [address] Performing Lab: [facility] DIVISION COMPREHEN SIVE METABOLIC PANEL BILIRUBIN. TOTAL [MASS/VOLU ME] IN SERUM OR PLASMA 0.5 mg/dL 0.2 - 1.2 07/19 Specimen Type: PLASMA Comment: Specimen slightly hemolyzed. K result may show a positive bias due to hemolysis. Ordering Provider: ESME WHITEHEAD Report Released Date/Time: Jul 19, 2023 12:13 PM Reporting Lab: [facility] [place] [address] Performing Lab: [facility] DIVISION COMPREHEN SIVE METABOLIC PANEL ALKALINE PHOSPHATAS E [ENZYMATIC ACTIVITY/V OLUME] IN SERUM OR PLASMA 58 U/L 40 - 150 07/19 Specimen Type: PLASMA Comment: Specimen slightly hemolyzed. K result may show a positive bias due to hemolysis. Ordering Provider: ESME WHITEHEAD Report Released Date/Time: Jul 19, 2023 12:13 PM Reporting Lab: [facility] [place] [address] Performing Lab: [facility] DIVISION COMPREHEN SIVE METABOLIC PANEL ASPARTATE AMINOTRANS FERASE [ENZYMATIC ACTIVITY/V OLUME] IN SERUM OR PLASMA 20 U/L 5 - 34 07/19 Specimen Type: PLASMA Comment: Specimen slightly hemolyzed. K result may show a positive bias due to hemolysis. Ordering Provider: ESME WHITEHEAD Report Released Date/Time: Jul 19, 2023 12:13 PM Reporting Lab: [facility] [place] [address] Performing Lab: [facility] DIVISION COMPREHEN SIVE METABOLIC PANEL ALANINE AMINOTRANS FERASE [ENZYMATIC ACTIVITY/V OLUME] IN SERUM OR PLASMA 22 U/L 8 - 40 07/19 Specimen Type: PLASMA Comment: Specimen slightly hemolyzed. K result may show a positive bias due to hemolysis. Ordering Provider: ESME WHITEHEAD Report Released Date/Time: Jul 19, 2023 12:13 PM Reporting Lab: [facility] [place] [address] Performing Lab: [facility] DIVISION COMPREHEN SIVE METABOLIC PANEL GLOMERULAR FILTRATION RATE/1.73 SQ M.PREDICTE D [VOLUME RATE/AREA] IN SERUM, PLASMA OR BLOOD BY CREATININE -BASED FORMULA (CKD-EPI 2020) 49.25 60 07/19 Specimen Type: PLASMA Comment: Specimen slightly hemolyzed. K result may show a positive bias due to hemolysis. Ordering Provider: ESME WHITEHEAD Report Released Date/Time: Jul 19, 2023 12:13 PM Reporting Lab: [facility] [place] [address] Performing Lab: [facility] DIVISION CBC LEUKOCYTES [#/VOLUME] IN BLOOD BY AUTOMATED COUNT 7.2 10*3/uL 3.6 - 11.2 07/19 Specimen Type: BLOOD No comment entered. Ordering Provider: ESME WHITEHEAD Report Released Date/Time: Jul 19, 2023 12:13 PM Reporting Lab: [facility] [place] [address] Performing Lab: [facility] DIVISION CBC ERYTHROCYT ES [#/VOLUME] IN BLOOD BY AUTOMATED COUNT 4.76 10*6/uL 4.10 - 5.70 07/19 Specimen Type: BLOOD No comment entered. Ordering Provider: ESME WHITEHEAD Report Released Date/Time: Jul 19, 2023 12:13 PM Reporting Lab: [facility] [place] [address] Performing Lab: [facility] [id number] [place] [address] DIVISION CBC HEMOGLOBIN [MASS/VOLU ME] IN BLOOD 14.2 g/dL 13.1 - 16.8 07/19 Specimen Type: BLOOD No comment entered. Ordering Provider: ESME WHITEHEAD Report Released Date/Time: Jul 19, 2023 12:13 PM Reporting Lab: [facility] [place] [address] Performing Lab: [facility] [place] [id number] CBC HEMATOCRIT [VOLUME FRACTION] OF BLOOD 42.3 38.2 - 48.4 07/19 Specimen Type: BLOOD No comment entered. Ordering Provider: ESME WHITEHEAD Report Released Date/Time: Jul 19, 2023 12:13 PM Reporting Lab: [facility] [place] [address] Performing Lab: [facility] CBC MCV [ENTITIC VOLUME] BY AUTOMATED COUNT 88.9 fL 80.0 - 100.0 07/19 Specimen Type: BLOOD No comment entered. Ordering Provider: ESME WHITEHEAD Report Released Date/Time: Jul 19, 2023 12:13 PM Reporting Lab: [facility] [place] [address] Performing Lab: [facility] CBC MCH [ENTITIC MASS] BY AUTOMATED COUNT 29.8 pg 27.0 - 34.0 07/19 Specimen Type: BLOOD No comment entered. Ordering Provider: ESME WHITEHEAD Report Released Date/Time: Jul 19, 2023 12:13 PM Reporting Lab: [facility] [address] Performing Lab: [facility] [place] [id number] DIVISION CBC MCHC [MASS/VOLU ME] BY AUTOMATED COUNT 33.6 g/dL 33.0 - 36.0 07/19 Specimen Type: BLOOD No comment entered. Ordering Provider: ESME WHITEHEAD Report Released Date/Time: Jul 19, 2023 12:13 PM Reporting Lab: [facility] [place] [address] Performing Lab: [facility] DIVISION CBC PLATELETS [#/VOLUME] IN BLOOD BY AUTOMATED COUNT 128 10*3/uL 150 - 400 07/19 L Specimen Type: BLOOD No comment entered. Ordering Provider: ESEM WHITEHEAD Report Released Date/Time: Jul 19, 2023 12:13 PM Reporting Lab: [facility] [place] [address] Performing Lab: [facility] DIVISION CBC PLATELET MEAN VOLUME [ENTITIC VOLUME] IN BLOOD BY AUTOMATED COUNT 10.5 fL 7.5 - 11.2 07/19 Specimen Type: BLOOD No comment entered. Ordering Provider: ESME WHITEHEAD Report Released Date/Time: Jul 19, 2023 12:13 PM Reporting Lab: [facility] [place] [address] Performing Lab: [facility] DIVISION CBC ERYTHROCYT E DISTRIBUTI ON WIDTH [RATIO] BY AUTOMATED COUNT 13.7 11.8 - 15.1 07/19 Specimen Type: BLOOD No comment entered. Ordering Provider: ESME WHITEHEAD Report Released Date/Time: Jul 19, 2023 12:13 PM Reporting Lab: [facility] [address] Performing Lab: [facility] [phone] DIVISION CBC LYMPHOCYTE S/100 LEUKOCYTES IN BLOOD BY AUTOMATED COUNT 23 07/19 Specimen Type: BLOOD No comment entered. Ordering Provider: ESME WHITEHEAD Report Released Date/Time: Jul 19, 2023 12:13 PM Reporting Lab: [facility] [address] Performing Lab: [facility] DIVISION CBC MONOCYTES/ 100 LEUKOCYTES IN BLOOD BY AUTOMATED COUNT 7 07/19 Specimen Type: BLOOD No comment entered. Ordering Provider: ESME WHITEHEAD Report Released Date/Time: Jul 19, 2023 12:13 PM Reporting Lab: [facility] [place] [address] Performing Lab: [facility] [phone] DIVISION CBC NEUTROPHIL S/100 LEUKOCYTES IN BLOOD BY AUTOMATED COUNT 68 07/19 Specimen Type: BLOOD No comment entered. Ordering Provider: ESME WHITEHEAD Report Released Date/Time: Jul 19, 2023 12:13 PM Reporting Lab: [facility] [address] Performing Lab: [facility] DIVISION CBC EOSINOPHIL S/100 LEUKOCYTES IN BLOOD BY AUTOMATED COUNT 1 07/19 Specimen Type: BLOOD No comment entered. Ordering Provider: ESME WHITEHEAD Report Released Date/Time: Jul 19, 2023 12:13 PM Reporting Lab: [facility] [place] [address] Performing Lab: [facility] DIVISION CBC BASOPHILS/ 100 LEUKOCYTES IN BLOOD BY AUTOMATED COUNT 0 07/19 Specimen Type: BLOOD No comment entered. Ordering Provider: ESME WHITEHEAD Report Released Date/Time: Jul 19, 2023 12:13 PM Reporting Lab: [facility] [place] [address] Performing Lab: [facility] DIVISION CBC LYMPHOCYTE S [#/VOLUME] IN BLOOD BY AUTOMATED COUNT 1.66 10*3/uL 0.77 - 4.50 07/19 Specimen Type: BLOOD No comment entered. Ordering Provider: ESME WHITEHEAD Report Released Date/Time: Jul 19, 2023 12:13 PM Reporting Lab: [facility] [place] [address] Performing Lab: [facility] DIVISION CBC MONOCYTES [#/VOLUME] IN BLOOD BY AUTOMATED COUNT 0.51 10*3/uL 0.19 - 0.80 07/19 Specimen Type: BLOOD No comment entered. Ordering Provider: ESME WHITEHEAD Report Released Date/Time: Jul 19, 2023 12:13 PM Reporting Lab: [facility] [place] [address] Performing Lab: [facility] DIVISION CBC NEUTROPHIL S [#/VOLUME] IN BLOOD BY AUTOMATED COUNT 4.89 10*3/uL 2.10 - 8.00 07/19 Specimen Type: BLOOD No comment entered. Ordering Provider: ESME WHITEHEAD Report Released Date/Time: Jul 19, 2023 12:13 PM Reporting Lab: [facility] [place] [address] Performing Lab: [facility] DIVISION CBC EOSINOPHIL S [#/VOLUME] IN BLOOD BY AUTOMATED COUNT 0.08 10*3/uL 0.00 - 0.60 07/19 Specimen Type: BLOOD No comment entered. Ordering Provider: ESME WHITEHEAD Report Released Date/Time: Jul 19, 2023 12:13 PM Reporting Lab: [facility] [place] [address] Performing Lab: [facility] DIVISION CBC BASOPHILS [#/VOLUME] IN BLOOD BY AUTOMATED COUNT 0.03 10*3/uL 0.00 - 0.20 07/19 Specimen Type: BLOOD No comment entered. Ordering Provider: ESME WHITEHEAD Report Released Date/Time: Jul 19, 2023 12:13 PM Reporting Lab: [facility] [place] [address] Performing Lab: [facility] DIVISION CBC PLATELETS RETICULATE D/100 PLATELETS IN BLOOD BY AUTOMATED COUNT 3.6 1.0 - 7.0 07/19 Specimen Type: BLOOD No comment entered. Ordering Provider: ESME WHITEHEAD Report Released Date/Time: Jul 19, 2023 12:13 PM Reporting Lab: [facility] [place] [address] Performing Lab: [facility] DIVISION HGA1C HEMOGLOBIN A1C/HEMOGL OBIN.TOTAL IN BLOOD 6.5 4.0 - 6.0 05/04 H Specimen Type: BLOOD No comment entered. Ordering Provider: ESME WHITEHEAD Report Released Date/Time: May 04, 2023 11:02 AM Reporting Lab: [facility] [place] [address] Performing Lab: [facility] DIVISION BASIC METABOLIC PANEL CREATININE [MASS/VOLU ME] IN SERUM OR PLASMA 1.58 mg/dL 0.70 - 1.30 05/04 H Specimen Type: PLASMA Comment: No hemolysis noted. Ordering Provider: ESME WHITEHEAD Report Released Date/Time: May 04, 2023 11:02 AM Reporting Lab: [facility] [place] [address] Performing Lab: [facility] DIVISION BASIC METABOLIC PANEL UREA NITROGEN [MASS/VOLU ME] IN SERUM OR PLASMA 25.2 mg/dL 9.0 - 25.0 05/04 H Specimen Type: PLASMA Comment: No hemolysis noted. Ordering Provider: ESME WHITEHEAD Report Released Date/Time: May 04, 2023 11:02 AM Reporting Lab: [facility] [place] [address] Performing Lab: [facility] BASIC METABOLIC PANEL GLUCOSE [MASS/VOLU ME] IN SERUM OR PLASMA 142 mg/dL 72 - 99 05/04 H Specimen Type: PLASMA Comment: No hemolysis noted. Ordering Provider: ESME WHITEHEAD Report Released Date/Time: May 04, 2023 11:02 AM Reporting Lab: [facility] [place] [address] Performing Lab: [facility] [address] [facility] BASIC METABOLIC PANEL SODIUM [MOLES/VOL UME] IN SERUM OR PLASMA 142 meq/L 136 - 145 05/04 Specimen Type: PLASMA Comment: No hemolysis noted. Ordering Provider: ESME WHITEHEAD Report Released Date/Time: May 04, 2023 11:02 AM Reporting Lab: [facility] [address] Performing Lab: [facility] [id number] [place] [address] DIVISION BASIC METABOLIC PANEL POTASSIUM [MOLES/VOL UME] IN SERUM OR PLASMA 4.4 meq/L 3.5 - 5.0 05/04 Specimen Type: PLASMA Comment: No hemolysis noted. Ordering Provider: ESME HWITEHEAD Report Released Date/Time: May 04, 2023 11:02 AM Reporting Lab: [facility] [address] Performing Lab: [facility] [phone] DIVISION BASIC METABOLIC PANEL CHLORIDE [MOLES/VOL UME] IN SERUM OR PLASMA 106 meq/L 98 - 107 05/04 Specimen Type: PLASMA Comment: No hemolysis noted. Ordering Provider: ESME WHITEHEAD Report Released Date/Time: May 04, 2023 11:02 AM Reporting Lab: [facility] [address] Performing Lab: [facility] [phone] [place] [address] DIVISION BASIC METABOLIC PANEL CARBON DIOXIDE, TOTAL [MOLES/VOL UME] IN SERUM OR PLASMA 27 meq/L 22 - 31 05/04 Specimen Type: PLASMA Comment: No hemolysis noted. Ordering Provider: ESME WHITEHEAD Report Released Date/Time: May 04, 2023 11:02 AM Reporting Lab: [facility] [address] Performing Lab: [facility] [phone] DIVISION BASIC METABOLIC PANEL CALCIUM [MASS/VOLU ME] IN SERUM OR PLASMA 9.6 mg/dL 8.4 - 10.4 05/04 Specimen Type: PLASMA Comment: No hemolysis noted. Ordering Provider: ESME WHITEHEAD Report Released Date/Time: May 04, 2023 11:02 AM Reporting Lab: [facility] [address] Performing Lab: [facility] [phone] BASIC METABOLIC PANEL GLOMERULAR FILTRATION RATE/1.73 SQ M.PREDICTE D [VOLUME RATE/AREA] IN SERUM, PLASMA OR BLOOD BY CREATININE -BASED FORMULA (CKD-EPI 2020) 45.90 60 05/04 Specimen Type: PLASMA Comment: No hemolysis noted. Ordering Provider: ESME WHITEHEAD Report Released Date/Time: May 04, 2023 11:02 AM Reporting Lab: [facility] [address] Performing Lab: [facility] [id number] [place] [address] Vital Signs Combined list of inpatient and outpatient Vital Signs from Department of Defense and Veterans Affairs, ranging from 12 months to all on record, depending upon the facility. Vital Sign Value Date Comments Source SYSTOLIC BLOOD PRESSURE 151 06/12/2024 10:16:01 [facility] DIASTOLIC BLOOD PRESSURE 80 06/12/2024 10:16:01 [facility] PULSE OXIMETRY 95 06/12/2024 10:16:01 [facility] WEIGHT 204.1 06/12/2024 10:16:01 [facility] BMI 32 kg/m2 06/12/2024 10:16:01 [facility] PAIN 0 06/12/2024 10:16:01 [facility] DIVISION TEMPERATURE 97.9 06/12/2024 10:16:01 [facility] PULSE 63 06/12/2024 10:16:01 [facility] DIVISION RESPIRATION 16 06/12/2024 10:16:01 [facility] SYSTOLIC BLOOD PRESSURE 173 09/07/2023 14:46:16 [facility] DIASTOLIC BLOOD PRESSURE 83 09/07/2023 14:46:16 [facility] PULSE OXIMETRY 98 09/07/2023 14:46:16 [place] [facility] DIVISION WEIGHT 203.9 09/07/2023 14:46:16 [facility] DIVISION BMI 32 kg/m2 09/07/2023 14:46:16 [facility] DIVISION PAIN 0 09/07/2023 14:46:16 [facility] DIVISION TEMPERATURE 97.5 09/07/2023 14:46:16 [facility] PULSE 64 09/07/2023 14:46:16 [facility] DIVISION RESPIRATION 16 09/07/2023 14:46:16 [facility] SYSTOLIC BLOOD PRESSURE 169 07/31/2023 08:52:32 [facility] DIASTOLIC BLOOD PRESSURE 91 07/31/2023 08:52:32 [facility] PULSE OXIMETRY 96 07/31/2023 08:52:32 [place] [facility] DIVISION WEIGHT 210.4 07/31/2023 08:52:32 [facility] BMI 33 kg/m2 07/31/2023 08:52:32 [facility] PAIN 0 07/31/2023 08:52:32 [facility] HEIGHT 67 07/31/2023 08:52:32 [facility] TEMPERATURE 97.5 07/31/2023 08:52:32 [facility] PULSE 64 07/31/2023 08:52:32 [facility] DIV[facility] RESPIRATION 18 07/31/2023 08:52:32 [facility] Encounters Combined list of: 1) Encounters from Department of [facility] Affairs facilities going backup to the last 18 months, not all VA inpatient encounters are included; 2) Encounters from the Department of [facility] facilities going backup to 280 months. Location Location Details Encounter Type Encounter Number Reason For Visit Attending Provider ADM Date DC Date Status Disposition Source [facility] Outpatient Encounter [id number] ESME WHITEHEDA 03/08 [facility] Outpatient Encounter [id number] 03/15 [facility] Outpatient Encounter [id number] 03/22 [facility] Outpatient Encounter [id number] 04/03 [facility] Outpatient Encounter [id number] 04/11 [facility] Outpatient Encounter [id number] 04/15 [facility] Outpatient Encounter [id number] JIMBO KHANNA 04/17 [facility] Outpatient Encounter [id number] Lyla DUARTE 04/22 [facility] Outpatient Encounter [id number] 04/25 [facility] Outpatient Encounter [id number] 05/04 [facility] OFFICE O/P EST MOD 30-39 MIN [id number] Diagnos is: ICD-10- CM E11.9 Type 2 diabete s mellitu s without complic ations ESME WHITEHEAD 05/04 [facility] Outpatient Encounter [id number] ELVIS MALDONADO E 05/11 [facility] Outpatient Encounter [id number] 05/11 [facility] Outpatient Encounter [id number] ESME WHITEHEAD 05/17 [facility] Outpatient Encounter [id number] 06/29 [facility] [id number] 07/13 [facility] Encounter [id number] 07/13 [facility] Encounter [id number] ELIAS MISHRA 07[facility]13 [facility] [id number] ELVIS MALDONADO Y E 07/14 [facility] Outpatient Encounter [id number] 07/17 [facility] OFFICE O/P EST MOD 30 MIN [id number] Diagnos is: ICD-10- CM M25.561 Pain in right knee ESME WHITEHEAD M 07/19 [facility] END OF LIFE COUNSELING [id number] Diagnos is: ICD-10- CM Z74.1 Need for assista nce with Modesto Herrmann 07/19 [facility] OT EVAL MOD COMPLEX 45 MIN [id number] Diagnos is: ICD-10- CM R53.1 John BAANDDemian EW H 07/24 [facility] Outpatient Encounter [id number] 07/25 [facility] Outpatient Encounter [id number] 07/27 [facility] REMOVE IMPACTED EAR WAX UNI [id number] Diagnos is: ICD-10- CM H61.21 Impacte d cerumen , right ear STACEY MENDOZA 07/30 [facility] Outpatient Encounter [id number] 08/01 [facility] Outpatient Encounter [id number] 08/01 [facility] THERAPEUTI C EXERCISES [id number] Diagnos is: ICD-10- CM M25.561 Pain in right knee SHIRLEYYING L 08/10 [facility] Outpatient Encounter [id number] 08/10 [facility] Outpatient Encounter [id number] 08/13 [facility] Outpatient Encounter [id number] 08/16 [facility] GAIT TRAINING THERAPY [id number] Diagnos is: ICD-10- CM M25.561 Pain in right knee YING WATSON L 08/17 [facility] Outpatient Encounter [id number] 08/21 [facility] THERAPEUTI C EXERCISES [id number] Diagnos is: ICD-10- CM M25.561 Pain in right knee YING WATSON L 08/24 [facility] Outpatient Encounter [id number] 08/24 [facility] HC PRO PHONE CALL 21-30 MIN [id number] Diagnos is: ICD-10- CM F25.9 Schizoa ffectiv e disorde r, unspeci fied RAMOSJAIMIE HICKMAN L 08/28 [facility] THERAPEUTI C EXERCISES [id number] Diagnos is: ICD-10- CM M25.561 Pain in right knee YING WATSON L 08/31 [facility] Outpatient Encounter [id number] FAUSTO STEVENSON L 09/06 [facility] OFFICE O/P EST SF 10 MIN [id number] Diagnos is: ICD-10- CM R63.4 Abnorma l weight loss ESME WHITEHEAD 09/06 [facility] THERAPEUTI C EXERCISES [id number] Diagnos is: ICD-10- CM M25.561 Pain in right knee YING WATSON L 09/07 [facility] SELF CARE MNGMENT TRAINING [id number] Diagnos is: ICD-10- CM R53.1 John s JESENIA,ANDR EW H 10/08 [facility] Outpatient Encounter [id number] 10/12 [facility] Outpatient Encounter [id number] 10/18 [facility] Outpatient Encounter [id number] RAJ RED 11/14 [facility] Outpatient Encounter [id number] IVÁN REY RRY 11/23 [facility] OFFICE O/P EST MOD 30 MIN [id number] Diagnos is: ICD-10- CM F25.9 Schizoa ffectiv e disorde r, unspeci fied LOITERSTEI N,ARIEL A 11/27 [facility] ASSMT/REAS SESSMENT [id number] Diagnos is: ICD-10- CM M25.561 Pain in right knee KENNETH TAYLOR M 11/28 [facility] Outpatient Encounter [id number] Diagnos is: ICD-10- CM E11.9 Type 2 diabete s mellitu s without complic ations ESME WHITEHEAD M 12/03 [facility] Outpatient Encounter [id number] 12/05 [facility] Outpatient Encounter [id number] ELVIS MALDONADO 12/10 [facility] Outpatient Encounter [id number] YING BEE 12/10 [facility] Outpatient Encounter [id number] Lyla DUARTE 12/19 [facility] Outpatient Encounter [id number] 12/27 [facility] Outpatient Encounter [id number] 01/03 [facility] Outpatient Encounter [id number] 01/26 [facility] Outpatient Encounter [id number] 03/07 [facility] Outpatient Encounter [id number] 03/19 [facility] Outpatient Encounter [id number] 04/16 [facility] Outpatient Encounter [id number] LIONEL LEONARD SA S 05/10 [facility] Outpatient Encounter [id number] 05/23 [facility] Outpatient Encounter [id number] 05/29 [facility] Outpatient Encounter [id number] 06/12 [facility] OFFICE O/P EST MOD 30 MIN [id number] Diagnos is: ICD-10- CM Z00.00 Encntr for general adult medical exam w/o abnorma l finding s LUCIANO LEONARDIS SA S 06/12 [facility] Outpatient Encounter [id number] 07/11 [facility] Social History Combined list of available smoking, tobacco, and other social history from [facility] and [facility] facilities. Social History Type Response Date Comment Source Tobacco smoking status [place] [facility] FORMER USER 09/07/2023 [facility] History of tobacco use VA-TOBACCO QUIT 15 YRS OR MORE 09/07/2023 [facility] History of tobacco use FL-TOBACCO QUIT 15 YRS OR MORE 07/19/2023 [facility] History of tobacco use FL-TOBACCO FORMER USER 07/05/2022 [facility] History of tobacco use VA-TOBACCO FORMER USER 07/05/2021 [facility] History of tobacco use VA-TOBACCO FORMER USER 06/19/2020 [facility] History of tobacco use VA-TOBACCO QUIT 5 TO < 15 YRS 12/03/2018 [facility] History of tobacco use FL-TOBACCO FORMER USER 05/31/2018 [facility] History of tobacco use QUIT TOBACCO >7 YEARS AGO 06/13/2017 [facility] History of tobacco use QUIT TOBACCO >7 YEARS AGO 02/09/2017 [facility] History of tobacco use QUIT TOBACCO >7 YEARS AGO 11/24/2016 [facility] History of tobacco use QUIT TOBACCO >7 YEARS AGO 03/15/2016 [facility] History of tobacco use HF V9 QUIT SMOKING > 1YR 02/11/2015 >5 years [facility] History of tobacco use HF V9 QUIT SMOKING > 1YR 01/13/2014 [facility] History of tobacco use HF V9 QUIT SMOKING > 1YR 02/08/2013 [facility] History of tobacco use HF V9 QUIT SMOKING > 1YR 02/13/2012 [facility] History of tobacco use HF V9 QUIT SMOKING > 1YR 03/09/2011 >2 years [facility] History of tobacco use HF V9 QUIT SMOKING > 1YR 07/22/2010 >3 months [facility] History of tobacco use QUIT TOBACCO >12 MO and <7 YRS AGO 09/22/2009 [facility] History of tobacco use HF V9 QUIT SMOKING > 1YR 08/12/2009 >2 years [facility] History of tobacco use HF V9 QUIT SMOKING > 1YR 08/04/2008 >2 years [facility] History of tobacco use HF V9 CURRENT SMOKER 07/11/2008 [facility] History of tobacco use QUIT TOBACCO IN THE LAST 12 MONTHS 01/10/2008 [facility] History of tobacco use HF V9 QUIT SMOKING < 1YR 09/26/2007 >6 months [facility] History of tobacco use HF V9 CURRENT SMOKER 02/12/2007 1ppd [facility] History of tobacco use HF V9 CURRENT SMOKER 12/08/2006 [facility] History of tobacco use HF V9 CURRENT SMOKER 07/17/2006 [facility] History of tobacco use HF V9 CURRENT SMOKER 05/03/2006 [facility] History of tobacco use HF V9 CURRENT SMOKER 01/10/2006 1 1/2PPD [facility] History of tobacco use HF V9 CURRENT SMOKER 06/15/2005 2 ppd [facility] History of tobacco use HF V9 CURRENT SMOKER 11/01/2004 [facility] History of tobacco use HF V9 CURRENT SMOKER 05/06/2004 [facility] History of tobacco use HF V9 CURRENT SMOKER 01/21/2004 2 PPD [facility] History of tobacco use HF V9 CURRENT SMOKER 07/17/2003 2PPD [facility] History of tobacco use HF V9 CURRENT SMOKER 04/14/2003 Pt does not want to stop smoking at this time. 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 Additional future care activities may be listed in the Assessment and Plan section. Date/Time Care Activity Care Activity Detail Facili ty 08/19/2024 AMBULATORY - PSYCHIATRY AMBULATORY - PSYC HIATRY [facility] 12/11/2024 AMBULATORY - MEDICINE AMBULATORY - MEDICI NE [facility] 06/12/2024 Laboratory - Form Designer ry Order COMPREHENSIVE METABOLIC PANEL GREEN LI/HEP BLD/PLAS PLASMA SP [facility] 06/12/2024 Laboratory - Form Designer ry Order LIPID PANEL (STL) GREEN LI/HEP BLD/PLAS PLASMA SP ONCE [facility] 06/12/2024 Laboratory - Form Designer ry Order CBC BLOOD SP [facility] 06/12/2024 Laboratory - Form Designer ry Order HGA1C BLOOD [facility] 06/12/2024 Laboratory - Form Designer ry Order B12 GOLD/RED SST SERUM SP [facility] 06/12/2024 Laboratory - Form Designer ry Order PROST. SPECIFIC AG.(PB-STL) GOLD/RED SST SERUM SP [facility] 06/12/2024 Laboratory - Form Designer ry Order THYROXINE GOLD/RED SST SERUM SP [facility] 06/12/2024 Laboratory - Form Designer ry Order TSH W/ REFLEX FT4 (STL) GREEN LI-HEP PLASMA SP [facility] 06/12/2024 Laboratory - Form Designer ry Order VITAMIN D, 25-HYDROXY GOLD/RED SST SERUM [facility] Advance Directives List of completed, amended, or rescinded Advance Directives on record at [facility] facilities. An actual copy of the Directive is not included. Date Advance Directive Provider Source 07/19/2023 ADVANCE DIRECTIVE SEVERIANO STERN [facility]
--- OUTSIDE RECORDS SUMMARY | 2024-07-25 12:51 | XMS_ITS | Encounter Summary ---
Author Name [facility] [facility] [place] Address [address] [place] [address] Care Team Providers Care Mud Analysis Supervisor Name Role Phone ABBEY HUANG Primary Care Provider Unavail le Insurance Providers: All historical and current Section Date Range: From patient's date of to the date document was created. This section includes the names of all active insurance providers for the patient. Insurance Provider Type of Coverage Plan Name Start of Policy Coverage End of Policy Coverage Group Number Member ID Insurance Provider's Telephone Number Policy Loza's Name Patient's Relationship to Policy Loza MEDICARE (WNR) MEDICARE (M) PART B [birth year] 21[birth year] 1983 PART B [id number] [phone] DEEYOGESH HN PATIENT MEDICARE (WNR) MEDICARE (M) PART B Apr 21, 1983 PART B [id number] [phone] YOGESH DEE HN PATIENT MEDICARE (WNR) MEDICARE (M) PART B Apr 21, 1983 PART B [id number] [phone] YOGESH DEE HN PATIENT MEDICARE (WNR) MEDICARE (M) PART B Apr 21, 1983 PART B [id number] YOGESH DEE HN PATIENT MEDICARE (WNR) MEDICARE (M) PART A September 19, 1981 PART A [id number] DEEYOGESH HN PATIENT MEDICARE (WNR) MEDICARE (M) PART A September 19, 1981 PART A [id number] [phone] YOGESH DEE HN PATIENT MEDICARE (WNR) MEDICARE (M) PART A September 19, 1981 PART A [id number] YOGESH DEE HN PATIENT MEDICARE (WNR) MEDICARE (M) PART A September 19, 1981 PART A [id number] YOGESH DEE PATIENT Selected Encounter This section includes the information on record at [place] for the Encounter. Date/Time Encounter Type Encounter Description Reason Provider Source May 10, 2024 08:22 AM Outpatient Encounter GENERAL INTERNAL MEDICINE JOVANY LEONARD Encounter Template Text not used by [place] Plan of Treatment: Future Appointments (+ 6 months) and Future Tests (+/- 45 days) The Plan of Treatment section includes future care activities for the [facility] [place] [facility] [place] This section includes future appointments and future orders which are active, pending or scheduled. Future Appointments This section includes appointments that were scheduled to occur 6 months from the date of the Encounter, up to a maximum of 20 appointments. The data comes from all [facility]. Appointment Date/Time Appointment Type Appointme nt Facility Name Jun 12, 2024 10:30 AM AMBULATORY - MEDICINE [facility] Aug 19, 2024 01:30 PM AMBULATORY - PSYCHIATRY [facility] Active, Pending, and Scheduled Orders This section includes a listing of several types of active, pending, and scheduled orders, including clinic medications orders, diagnostic test orders, procedure orders and consult orders; where the start date of the order is 45 days before the date of the Encounter or 45 days after the date of theEncounter. The data comes from all [facility]. Test Date/Time Test Type Test Details Facility Name Jun 12, 2024 12:00 AM Laboratory - Chemistry Order COMPREHENSIVE METABOLIC PANEL GREEN LI/HEP BLD/PLAS PLASMA SP [facility] Jun 12, 2024 12:00 AM Laboratory - Chemistry Order LIPID PANEL (STL) GREEN LI/HEP BLD/PLAS PLASMA SP [facility] Jun 12, 2024 12:00 AM Laboratory - Chemistry Order HGA1C BLOOD SP [facility] Jun 12, 2024 12:00 AM Laboratory - Chemistry Order PROST. SPECIFIC AG.(PB-STL) GOLD/RED SST SERUM SP [facility] Jun 12, 2024 12:00 AM Laboratory - Chemistry Order THYROXINE GOLD/RED SST SERUM SP [facility] Jun 12, 2024 12:00 AM Laboratory - Chemistry Order CBC BLOOD SP [facility] Jun 12, 2024 12:00 AM Laboratory - Chemistry Order B12 GOLD/RED SST SERUM SP [facility] Jun 12, 2024 12:00 AM Laboratory - Chemistry Order VITAMIN D, 25-HYDROXY GOLD/RED SST SERUM [facility] Jun 12, 2024 12:00 AM Laboratory - Chemistry Order TSH W/ REFLEX FT4 (STL) GREEN LI-HEP PLASMA SP [facility] Social History: Smoking Status (Most current) and Tobacco Use (All prior to encounter date) This section includes the most current, and the historical, smoking and tobacco- related health factors from the [place] facility where the Encounter took place. Current Smoking Status This section includes the most current smoking, or tobacco-related health factor, from the [place] facility where the Encounter took place. Date/Time Current Smoking Status Comment Geoff ity September 22, 2009 09:34 AM QUIT TOBACCO >12 M O & <7 YRS AGO [facility] Tobacco Use History This section includes a history of the smoking, or tobacco-related health factors, that were collected on or before the date of the Encounter. The data comes from the [place] facility where the Encounter took place. Date/Time Smoking Status/Tobacco Use Comment F acility 2001 08:20 AM CURRENT TOBACCO USER [facility] 2001 08:[address] [facility] Advance Directives: All historical and current Section Date Range: From patient's date of to the date document was created. This section includes ALL of a patient's completed or amended [place] Advance and Rescinded Directives. The entries below indicate that a directive exists for the patient, but an actual copy is not included with this document. The data comes from all [place] facilities. Date Advance Directives Provider Source Jul 19, 2023 ADVANCE DIRECTIVE SEVERIANO STERN [facility] Encounter Notes: All associated encounter notes This section contains the clinical notes associated to the Encounter. Date/Time Encounter Note(s) Provider Source May 07, 2024 08:22 AM NONVA NOTE: LOCAL TITLE: COMMUNITY CARE-VERA SELF PRESENTING CARE COORD PLAN STANDARD TITLE: NONVA NOTE DATE OF NOTE: MAY 07, 2024@08:22 ENTRY DATE: MAY 10, 2024@08:23:02 AUTHOR: TERRANCE SAUNDERS COSIGNER: URGENCY: STATUS: COMPLETED COMMUNITY CARE-VERA SELF PRESENTING CARE COORD PLAN 6[address] Has ADDENDA Emergency Notification Intake Date Presenting to the Facility: Apr Method of Contact: Notified from ECR worklist Notification ID: [id number] [facility] Referral #: [id number] Clinical Review [facility] Name: Hospital: [facility] Address: [address] City: [place] State: [place] Zip Code: [address] [facility] Facility Point of Contact: Name: Hannah Monroy Chief complaint: knee pain Primary Diagnosis: Disposition Unknown at time of intake note entry Faxed request for records to merged with [facility]. /kyle/ TERRANCE SAUNDERS ADVANCED RN [place] Signed: 05/10/2024 08:26 05/13/2024 ADDENDUM STATUS: COMPLETED Records r/t this episode of care sent to [facility] for scanning. /es/ TYRELL ROGERS ADVANCED RN [place] Signed: 05/13/2024 08:40 TERRANCE SAUNDERS [facility]
--- OUTSIDE RECORDS SUMMARY | 2024-07-25 12:51 | XMS_ITS | Encounter Summary ---
Author Name [facility] [facility] [place] [facility] [place] [facility] [place] Address [address] [place] [address] Care Team Providers Care Commissioner Public Works Name Role Phone ABBEY HUANG Primary Care Provider Vj rose Insurance Providers: All historical and current Section [...] PART B Apr 21, 1983 PART B [id number] YOGESH DEE HN PATIENT MEDICARE (WNR) MEDICARE (M) PART B Apr 21, 1983 PART B [id number] YOGESH DEE HN PATIENT MEDICARE (WNR) MEDICARE (M) PART B Apr 21, 1983 PART B [id number] YOGESH DEE HN PATIENT MEDICARE (WNR) MEDICARE (M) PART B Apr 21, 1983 PART B [id number] YOGESH DEE HN PATIENT MEDICARE (WNR) MEDICARE (M) PART A September 19, 1981 PART A [id number] YOGESH DEE HN PATIENT MEDICARE (WNR) MEDICARE (M) PART A September 19, 1981 PART A [id number] [phone] YOGESH DEE HN PATIENT MEDICARE (WNR) MEDICARE (M) PART A September 19, 1981 PART A [id number] [facility] [place] [phone] YOGESH DEE HN PATIENT MEDICARE (WNR) MEDICARE (M) PART A September 19, 1981 PART A [id number] YOGESH DEE PATIENT Selected Encounter This section includes the information on record at [place] for the Encounter. Date/Time Encounter Type Encounter Description Reason Provider Source Jun 12, 2024 10:30 AM OFFICE O/P EST MOD 30 MIN PRIMARY CARE/MEDICINE ICD-10-CM Z00.00 Encntr for general adult medical exam w/o abnormal findings [facility] [place] Encounter Template Text not used by [place] Assessments - Encounter Diagnoses This section includes the primary and secondary diagnoses documented for the Encounter. Date/Time Primary/Secondary Diagnosis Diagnosis Name Provider Source Jun 12, 2024 11:06 AM PRIMARY Encntr for general adult medical exam w/o abnormal findings [facility] Jun 12, 2024 11:06 AM SECONDARY Benign prostatic hyperplasia without lower urinry tract symp [facility] Jun 12, 2024 11:06 AM SECONDARY Chronic kidney disease, unspecified [facility] Jun 12, 2024 11:06 AM SECONDARY Essential (primary) hypertension [facility] Jun 12, 2024 11:06 AM SECONDARY Mixed hyperlipidemia [facility] Jun 12, 2024 11:06 AM SECONDARY Obesity, unspecified [facility] Jun 12, 2024 11:06 AM SECONDARY Other bipolar disorder [facility] Jun 12, 2024 11:06 AM SECONDARY Pain in unspecified knee [facility] Jun 12, 2024 11:06 AM SECONDARY Schizoaffective disorder, unspecified [facility] Jun 12, 2024 11:06 AM SECONDARY Type 2 diabetes mellitus without complications [facility] Jun 12, 2024 11:06 AM SECONDARY Vitamin B12 deficiency anemia, unspecified AISHA,JOVANY Mancia [facility] Jun 12, 2024 11:06 AM SECONDARY Vitamin D deficiency, unspecified AISHA,JOVANY Mancia [facility] Plan of Treatment: Future Appointments (+ 6 months) and Future Tests (+/- 45 days) The Plan of Treatment section includes future care activities for the patient from all [place] [facility]. This section includes future appointments and future orders which are active, pending or scheduled. Future Appointments This section includes appointments that were scheduled to occur 6 months from the date of the Encounter, up to a maximum of 20 appointments. The data comes from all [facility]. Appointment Date/Time Appointment Type Appointme nt Facility Name Aug 19, 2024 01:30 PM AMBULATORY - PSYCHIATRY [facility] Active, Pending, and Scheduled Orders This section includes a listing of several types of active, pending, and scheduled orders, including clinic medications orders, diagnostic test orders, procedure orders and consult orders; where the start date of the order is 45 days before the date of the Encounter or 45 days after the date of theEncounter. The data comes from all [facility]. Test Date/Time Test Type Test Details Facility Name Jun 12, 2024 12:00 AM Laboratory - Chemistry Order COMPREHENSIVE METABOLIC PANEL GREEN LI/HEP BLD/PLAS [facility] Jun 12, 2024 12:00 AM Laboratory - Chemistry Order LIPID PANEL (STL) GREEN LI/HEP BLD/PLAS PLASMA SP ONCE [facility] Jun 12, 2024 12:00 AM Laboratory - Chemistry Order CBC BLOOD [facility] Jun 12, 2024 12:00 AM Laboratory - Chemistry Order HGA1C BLOOD [facility] Jun 12, 2024 12:00 AM Laboratory - Chemistry Order PROST. SPECIFIC AG.(PB-STL) GOLD/RED SST [facility]UM [facility] Jun 12, 2024 12:00 AM Laboratory - Chemistry Order B12 GOLD/RED SST [facility]UM [facility] Jun 12, 2024 12:00 AM Laboratory - Chemistry Order THYROXINE GOLD/RED SST [facility]UM [facility] Jun 12, 2024 12:00 AM Laboratory - Chemistry Order TSH W/ REFLEX FT4 (STL) GREEN LI-HEP PLASMA SP [facility] Jun 12, 2024 12:00 AM Laboratory - Chemistry Order VITAMIN D, 25-HYDROXY GOLD/RED SST SERUM SP [facility] Lab Results: +/- 30 days of the encounter This section includes the Chemistry and Hematology Lab Results on record with [place] for the patient. Radiology Reports and Pathology Reports are provided separately, in subsequent sections. Lab Results This section contains the Chemistry/Hematology Results that were resulted 30 days before or 30 daysafter the date of the Encounter. Date/Time Source Result Type Result - Unit Interpretation Reference Range Comment Jun 23, 2024 12:[address] [facility] OCCULT BLOOD FIT X1 SCREEN Specimen Type: FECES No comment entered. Ordering Provider: JOVANY LEONARD Report Released Date/Time: Jun 12, 2024 02:27 PM Reporting Lab: [address] [address] Performing Lab: [address] [address] OCCULT BLOOD (FIT) #1 OF 1 Negative Negative Vital Signs: All taken on the encounter date This section contains inpatient and outpatient Vital Signs collected on the date of the Encounter. Date/Time Temperature Pulse Blood Pressure Respiratory Rate SP02 Pain Height Weight Body Mass Index Source Jun 12, 2024 10:59 AM 130/68 [facility] Jun 12, 2024 10:16 AM 144/78 [facility] Jun 12, 2024 10:16 AM 97.9 63 151/80 16 95 0 204.1 32 [facility] Social History: Smoking Status (Most current) and Tobacco Use (All prior to encounter date) This section includes the most current, and the historical, smoking and tobacco- related health factors from the [place] facility where the Encounter took place. Current Smoking Status This section includes the most current smoking, or tobacco-related health factor, from the [place] facility where the Encounter took place. Date/Time Current Smoking Status Comment Geoff wu Sep 07, 2023 03:30 PM VA-TOBACCO FORMER USER [facility] Tobacco Use History This section includes a history of the smoking, or tobacco-related health factors, that were collected on or before the date of the Encounter. The data comes from the [place] facility where the Encounter took place. Date/Time Smoking Status/Tobacco Use Comment F acility Sep 07, 2023 03:30 PM VA-TOBACCO QUIT 15 YRS OR MORE [facility] Jul 19, 2023 11:00 AM VA-TOBACCO FORMER USER [facility] Jul 19, 2023 11:00 AM VA-TOBACCO QUIT 15 YRS OR MORE [facility] Jul 05, 2022 10:30 AM VA-TOBACCO FORMER USER [facility] Jul 05, 2022 10:30 AM VA-TOBACCO QUIT 15 YRS OR MORE [facility] Jul 05, 2021 09:30 AM VA-TOBACCO FORMER USER [facility] Jul 05, 2021 09:30 AM VA-TOBACCO QUIT 15 YRS OR MORE [facility] Jun 19, 2020 02:30 PM VA-TOBACCO FORMER USER [facility] Jun 19, 2020 02:30 PM VA-TOBACCO QUIT 5 TO < [address] [facility] Dec 03, 2018 11:34 AM VA-TOBACCO FORMER USER [facility] Dec 03, 2018 11:34 AM VA-TOBACCO QUIT 5 TO < [address] [facility] May 31, 2018 12:04 PM VA-TOBACCO FORMER USER [facility] May 31, 2018 12:04 PM VA-TOBACCO QUIT 5 TO < [address] [facility] Jun 13, 2017 09:49 AM QUIT TOBACCO >7 YEARS AGO [facility] Feb 09, 2017 09:29 AM QUIT TOBACCO >7 YEARS AGO [facility] Nov 24, 2016 01:52 PM QUIT TOBACCO >7 YEARS AGO [facility] Mar 15, 2016 09:57 AM QUIT TOBACCO >7 YEARS AGO [facility] Advance Directives: All historical and current Section Date Range: From patient's date of to the date document was created. This section includes ALL of a patient's completed or amended [place] Advance and Rescinded Directives. The entries below indicate that a directive exists for the patient, but an actual copy is not included with this document. The data comes from all [place] facilities. Date Advance Directives Provider Source Jul 19, 2023 ADVANCE DIRECTIVE SEVERIANO [facility] Encounter Notes: All associated encounter notes This section contains the clinical notes associated to the Encounter. Date/Time Encounter Note(s) Provider Source Jul 04, 2024 10:47 AM PHYSICIAN LETTERS: LOCAL TITLE: TEST RESULT GENERAL LETTER STL STANDARD TITLE: PHYSICIAN LETTERS DATE OF NOTE: JUL 04, 2024@10:47 ENTRY DATE: JUL 04, 2024@10:48 AUTHOR: JOVANY LEONARD EXP COSIGNER: URGENCY: STATUS: COMPLETED [facility] [address] [place] [address] JUL 04, 2024 ERLIN DEE [address] [place] [id number] Dear Erlin Dee, I would like to update you on your recent test results. OCCULT BLOOD - Occult blood cards are a screening test for colon cancer. A negative (0) is a good result and means we found no blood in your stool samples. A positive result (1) is abnormal and you should have further testing. OCCULT BLOOD OCCULT BLOOD (FIT) #1 OF 1 Negative 06/23/2024 12:00 These readings are within normal limits. It was a pleasure seeing you in the office. Your FIT stool test was negative/normal. If you have a question, please do not hesitate to reach out via [employer] or telephone. We look forward to seeing you at your next office visit. FUTURE APPOINTMENTS: 07/12/2024 14:30 [facility] IND LOITERS 12/11/2024 10:30 [facility]-PACT E4 PCP Sincerely, JOVANY LEONARD NURSE PRACTITIONER ERLIN DEE MELISSA S [facility] Jun 12, 2024 10:25 AM PRIMARY CARE NOTE: LOCAL TITLE: PRIMARY CARE PROVIDER ESTABLISHED VISIT STL STANDARD TITLE: PRIMARY CARE NOTE DATE OF NOTE: JUN 12, 2024@10:25 ENTRY DATE: JUN 12, 2024@10:26:05 AUTHOR: JOVANY LEONARD EXP COSIGNER: URGENCY: STATUS: COMPLETED ESTABLISHED PATIENT [id number]: REASON FOR VISIT/CHIEF COMPLAINT: routine 6 mo HPI [place] is a 73 year old WHITE MALE who presents with his and strategic communications manager today for evaluation and management of chronic medical conditions. Denies concerns today. DM2 home glucose: running good around 119 denies neuropathy and open wounds last eye exam: overdue, he cannot remember metformin, glipizide HTN home BP: its been good 120-130/70-80 always gets elevated bp at providers offices HCTZ, metoprolol, lisinopril HLD OTC fish oil - Alexis Red - 500mg once at night declines statins - has had ADR to several CKD avoiding NSAIDs water intake: lots of water lately low back pain/left knee pain denies radiculopathy, loss of bladder and bowel control, and saddle parasthsia hx of knee injections home regimen includes extra strength tylenol, MMS, Voltaren vitamin d - taking vit d supplement BPH reports urinating okay tamsulosin obesity exercise regimen: walking up and down the steps at hinduism and around the house diet: eating better , more fruits and vegetables Schizoaffective disorder/bipolar depakote denies SI seeing MH Hx colon polyp/family history of colon cancer Overdue for cscope, he does not want to have. reports his mother and father both have had colon cancer. hx of smoking he quit smoking in 2005 3 ppd x I dont know how many years, but I am healed with Jagdish he does not want to have LDCT Jagdish has got me he has had [place] [facility] [place] and does not want to repeat WHAT IS YOUR GOAL FOR TODAY? routine visit SOURCE(S) OF HISTORY: Patient PAST MEDICAL HISTORY: 1) Schizoaffective disorder (SNOMED CT [id number]) 2) Polycythemia 3) Hyperlipidemia 4) Obesity 5) Bipolar disorder comment: psychotic features 6) Low back pain 7) Primary hyperparathyroidism 8) History of male erectile disorder 9) Vertigo 10) Pain in left knee 11) Diabetes mellitus 12) Essential hypertension 13) Vitamin B12 deficiency (non anaemic) comment: refuses supplement 14) Vitamin D deficiency 15) Pain in right foot 16) Soft tissue swelling 17) Hyperparathyroidism 18) Myalgia caused by statin 19) Exposure to potentially hazardous substance 20) Chronic kidney disease 21) Knee pain 22) Benign prostatic hyperplasia ALLERGIES: Life Sustaining Treatment Orders ALLERGY REVIEW: Allergy list reviewed and remains current. RXAE - Active/Exp Opt Meds 1) CARBAMIDE PEROXIDE 6.5% OTIC SOLN ACTIVE INSTILL 2 DROPS IN RIGHT EAR TWICE A DAY FOR EAR WAX BLOCKAGE 2) DIVALPROEX 500MG 24HR (ER) SA TAB ACTIVE TAKE TWO TABLETS BY MOUTH AT BEDTIME FOR BIPOLAR DISORDER 3) GLIPIZIDE 10MG TAB ACTIVE TAKE TWO TABLETS BY MOUTH TWO TIMES A DAY BEFORE MEALS FOR DIABETES. TAKE 30 MINUTES BEFORE EATING. 4) HYDROCHLOROTHIAZIDE 25MG TAB ACTIVE TAKE ONE TABLET BY MOUTH ONCE A DAY FOR HIGH BLOOD PRESSURE 5) LISINOPRIL 40MG TAB ACTIVE TAKE ONE TABLET BY MOUTH ONCE A DAY FOR HEART OR BLOOD PRESSURE 6) METFORMIN HCL 500MG 24HR SA TAB ACTIVE TAKE TWO TABLETS BY MOUTH TWICE A DAY TAKE WITH FOOD. AVOID ALCOHOL. DISCONTINUE BEFORE GETTING XRAY DYE. 7) METOPROLOL TARTRATE 50MG TAB ACTIVE TAKE ONE AND ONE-HALF TABLETS BY MOUTH TWICE A DAY FOR HEART/BLOOD PRESSURE. TAKE WITH OR IMMEDIATELY FOLLOWING FOOD. 8) MENTHOL/M-SALICYLATE 10-15% TOP CREAM APPLY LIGHTLY TO AFFECTED AREA(S) FOUR TIMES A DAY FOR NECK MUSCLE DISCOMFORT/PAIN. (EXTERNAL USE ONLY) 9) TAMSULOSIN HCL 0.4MG CAP ACTIVE/S TAKE ONE CAPSULE BY MOUTH EVERY EVENING APPROXIMATELY 30 MINUTES AFTER THE SAME MEAL EACH DAY (FOR PROSTATE) 10) BRIEF,PROTECTIVE SUPER ABS LG ATTENDS ACTIVE USE 1 BRIEF TO AFFECTED AREA(S) THREE TIMES A DAY NEEDED Legend: ACTIVE/S means that the RX is 'active' and suspended for mailout. N O N - V A M E D I C A T I O N S O N F I L E 1) ASPIRIN 81MG CHEW TAB ACTIVE 81MG BY MOUTH ONCE A DAY 2) CHOLECALCIFEROL (LOW DOSE VIT D) - (OTC) ACTIVE 1000UNIT BY MOUTH ONCE A DAY 3) CYANOCOBALAMIN 1000MCG TAB ACTIVE 1000MCG BY MOUTH EVERY OTHER DAY MEDICATION RECONCILIATION: I have reviewed the patient's medication list with the patient and/or his/her care-cook restaurant. Handwritten corrections, additions and/or deletions were made to the list. Corrected Outpatient Medication List was provided to the patient/caregiver. DATA REVIEW: SODIUM 143 mEq/L 07/19/2023 12:48 POTASSIUM 4.4 mEq/L 07/19/2023 12:48 CHLORIDE 106 mEq/L 07/19/2023 12:48 UREA NITROGEN 24.9 mg/dL 07/19/2023 12:48 CREATININE 1.49 H mg/dL 07/19/2023 12:48 CALCIUM 10.1 mg/dL 07/19/2023 12:48 PROTEIN 7.9 g/dL 07/19/2023 12:48 ALBUMIN 4.3 g/dL 07/19/2023 12:48 ALKALINE PHOSPHATASE 58 U/L 07/19/2023 12:48 ALT/SGPT 22 U/L 07/19/2023 12:48 AST/SGOT 20 U/L 07/19/2023 12:48 TOTAL BILIRUBIN 0.5 mg/dL 07/19/2023 12:48 CARBON DIOXIDE 26 mEq/L 07/19/2023 12:48 GLUCOSE 165 H mg/dL 07/19/2023 12:48 EGFR (CKD-EPI 2020) 49.25 07/19/2023 12:48 WBC 7.2 10*3/uL 07/19/2023 12:48 RBC 4.76 10*6/uL 07/19/2023 12:48 HGB 14.2 g/dL 07/19/2023 12:48 HCT 42.3 % 07/19/2023 12:48 MCV 88.9 fL 07/19/2023 12:48 MCH 29.8 pg 07/19/2023 12:48 MCHC 33.6 g/dL 07/19/2023 12:48 RDW 13.7 % 07/19/2023 12:48 PLT 128 L 10*3/uL 07/19/2023 12:48 MPV 10.5 fL 07/19/2023 12:48 NEUTROPHILS, AUTO % 68 % 07/19/2023 12:48 LYMPHOCYTES, AUTO % 23 % 07/19/2023 12:48 MONOCYTES, AUTO % 7 % 07/19/2023 12:48 EOSINOPHILS, AUTO % 1 % 07/19/2023 12:48 BASOPHILS, AUTO % 0 % 07/19/2023 12:48 NEUTROPHILS, ABSOLUTE 4.89 10*3/uL 07/19/2023 12:48 LYMPHOCYTES, ABSOLUTE 1.66 10*3/uL 07/19/2023 12:48 MONOCYTES, ABSOLUTE 0.51 10*3/uL 07/19/2023 12:48 EOSINOPHILS, ABSOLUTE 0.08 10*3/uL 07/19/2023 12:48 BASOPHILS, ABSOLUTE 0.03 10*3/uL 07/19/2023 12:48 IMMATURE PLT FRACTION 3.6 % 07/19/2023 12:48 TRIGLYCERIDE 301 H mg/dL 07/05/2022 11:30 CHOLESTEROL 169 mg/dL 07/05/2022 11:30 HDL(New) 30 L mg/dL 07/05/2022 11:30 DIRECT LDL 101 H mg/dL 07/05/2022 11:30 CALCULATED LDL comment mg/dL 07/05/2022 11:30 No TSH (1YR) EO data found VITAMIN D, 25-HYDROXY 46.4 ng/mL 07/05/2022 11:30 SLT - Lab Tests Selected Collection DT Specimen Test Name Result Units Ref Range 05/04/2023 11:17 BLOOD HGA1C 6.5 H % 4.0 - 6.0 07/05/2022 11:30 BLOOD HGA1C 7.4 H % 4.0 - 6.0 02/23/2022 14:19 BLOOD HGA1C 7.9 H % 4.0 - 6.0 PROST. SPECIFIC AG.(PB-STL) 0.876 ng/mL 07/05/2022 11:30 HbA1c No data available for: HGA1C Result: Acceptable Follow-up Action: Data results reviewed with patient and/or caregiver. Review of Systems: General: Denies fever, chills, weight loss, weight gain ENT: Denies sore throat, nasal discharge, tinnitus, loss of hearing Eye: Denies changes in vision, double vision Cardiovascular: Denies chest pain, palpitations, dizziness Respiratory: Denies SOB, cough, hemoptysis Abd/GI: Denies nausea, vomiting, diarrhea, constipation, pain MSK/Ext: + joint pain, -trauma, +stiffness, -edema /LEAD DATA ENTRY OPERATOR: Denies frequency, urgency, burning, odor, discharge Hemo/lymph: Denies easy bruising, fatigue, swollen nodes Endo: Denies excess thirst, hunger, urination Psych: Denies depression, anxiety, nightmares, insomnia Neuro: Denies headaches, tremors, seizures, head injury, neuropathy, +gait disturbance Skin: Denies laceration/abrasion, rash, itching, insect bites SMOKING STATUS:former VSD - Detailed Vitals Date Vital Measurement Qualifiers 06/12/2024 10:16 BP 144/78 L Arm, Sitting, Cuff- Manual, Lg Adult Cuff 06/12/2024 10:16 Temp F (C) 97.9 (36.6) Pulse 63 Respir 16 Wt lbs (kg)[BMI] 204.1 (92.58)[32*] Pain 0 POx (L/Min)(%) 95 Physical Exam: ENT: Pharynx clear, L TM clear, +cerumen blocking R ear EYE: PERRLA Cardiovascular: RRR, no murmurs, no carotid bruits, no edema Respiratory: Lungs CTAB Abd/GI: Abdomen soft, non-tender, non-distended, no masses or guarding Extremities: decreased ROM, no edema /LEAD DATA ENTRY OPERATOR: No CVA or S/P tenderness Hemo/lymph: no adenopathy, excessive bruising Endo: Thyroid without palpable nodules, no excess hair growth Psych: mood and affect appropriate Neuro: Alert and oriented, ambulates with cane Skin: Clear and intact Assessment and Plan: # Annual (Male)-The patient was counseled regarding guidelines for colon and prostate screenings, labs, a mediterranean diet, regular sustained exercise for at least 30 minutes 5 times per week or equivalent, and minimal ETOH intake. Recommend annual optometry and/or ophthalmology and dental appointments. # DM2 - controlled - continue current medications - encouraged daily foot care - checks feet daily - declined PAVE today - encouraged annual eye exam - gave pt number to schedule - check A1C # HTN - controlled - continue current medications - encouraged low sodium diet and regular exercise regimen - check BP at home weekly, 1-2 hours after taking RX - report if consistently > 130/>80 # HLD/myalgia to statin - controlled - continue OTC fish oil - Alexis Red - declines statins due to ADRs - encouraged low saturated fat diet/DASH diet - encouraged regular exercise regimen # CKD - controlled - avoid NSAIDs, IV dye, nephrotoxic drugs - push hydration - check renal function # low back pain/left knee pain - controlled - continue current regimen # vitamin D deficiency - controlled - cont. OTC vit d supplement # BPH - controlled - continue tamsulosin # obesity - uncontrolled - encouraged clinical fuel attendant and/or weight loss MOVE program - Encouraged implementing exercise regimen # Hx colon polyp/family history of colon cancer - uncontrolled - overdue for cscope - declines cscope - FIT ordered HEALTH MAINTENANCE: CRC screen - last Colonscopy 03/08/2019, 12 polyps, repeat 1 year (due 02/2020) - FIT neg 2022 - educated colonoscopy is preferred method for CRC screening, has family history of colon cancer, mother and father - FIT ordered today per Vet preference PSA ordered PROST. SPECIFIC AG.(PB-STL) 0.876 ng/mL 07/05/2022 11:30 PROST. SPECIFIC AG.(PB-STL) 1.471 ng/mL 07/05/2021 09:03 PROST. SPECIFIC AG.(PB-STL) 1.369 ng/ml 06/22/2020 10:18 age 45 - 70 for average risk PNEUMOCOCCAL CONJUGATE PCV 13 05/31/2018 [facility]* PNEUMOCOCCAL, UNSPECIFIED FORMUL* [facility]* TDAP 05/31/2018 [facility]* declines shingrix and pneumococcal vaccines Return to clinic 6 months and sooner PRN SUMMARY STATEMENT: Plan of care has been discussed with including expected therapeutic benefits and potential side effects of prescribed medication and treatments. verbalizes understanding and is in agreement with the plan of care. Patient was instructed to keep all scheduled appointments and contact diving instructor for any additional problems. Follow Up Colonoscopy - L,N,P,PH: Colonoscopy is due based on information available to this reminder. Patient declined screening/surveillance. Comment: FIT ordered and he will age out when he turns 74 if WNL PAVE Foot Check - L,N,P,PH,PO,PT,U: Patient declined limb care exam. The patient was advised the [place] mandates all patients with diabetes mellitus, end stage renal disease, peripheral vascular disease, or sensory neuropathy should have a complete foot check completed annually. This includes a visual exam of the skin, pedal pulses and a sensory exam. Patients with any abnormality noted during the foot check should be referred to a specialist. /kyle/ JOVANY LEONARD NURSE PRACTITIONER Signed: 06/12/2024 12:34 JOVANY LEONARD [facility] Jun 12, 2024 10:17 AM NURSING NOTE: LOCAL TITLE: V15 PACT FACE TO FACE NOTE ST STANDARD TITLE: NURSING NOTE DATE OF NOTE: JUN 12, 2024@10:17 ENTRY DATE: JUN 12, 2024@10:17:16 AUTHOR: REJI REYER: URGENCY: STATUS: COMPLETED Provider Visit: Patient Identifiers : Full Name Date of Reason for visit: Established Follow-Up Mode of Arrival: Wheelchair Allergy Review: LITHIUM, ROSUVASTATIN, METHOCARBAMOL, GEMFIBROZIL, FLUVASTATIN, LOVASTATIN Allergy list reviewed and remains current. Recent Vital Signs: Temperature: 97.9 F [36.6 C] (06/12/2024 10:16) Pulse: 63 (06/12/2024 10:16) Respiration: 16 (06/12/2024 10:16) B/P: 144/78 (06/12/2024 10:16) Pain: 0 (06/12/2024 10:16) Wt: 204.1 lb [92.58 kg] (06/12/2024 10:16) Ht: 67 in [170.2 cm] (07/31/2023 08:52) BMI: 32.0 POX: 95% (06/12/2024 10:16) Would you like to discuss any personal problem, family problem, alcohol use, drug use, or a mental or emotional illness? No Contact provided Primary Care phone number and encouraged to call if any questions or concerns. Review that after hours nurse line [phone] and emergency room are available 12/12 for patient use. Contact verbalized good understanding. Homelessness/Food Insecurity Screen - DI,L,N,P,PH,PS,S,U: In the past 2 months, have you been living in stable housing that you own, rent, or stay in as part of a household? Yes - Living in stable housing. Are you worried or concerned that in the next 2 months you may NOT have stable housing that you own, rent, or stay in as part of a household? No - Not worried about housing near future The [place] reports the following: Within the past 12 months, you worried whether your food would run out before you got money to buy more. Never true Within the past 12 months, the food you bought just didn't last and you didn't have money to get more. Never true Sexual Orientation - CP,L,N,P,PH,PS,S,U: The patient thinks of their sexual orientation as: Straight or Heterosexual COVID-19 Immunization - L,N,P,PH,U: Refused Pfizer Monovalent COVID-19 vaccine Immunization: COVID-19 (PFIZER), MRNA, LNP-S, PF, MARK-SUCROSE, 30 MCG/0.3 ML (AGES 12+ YEARS) Refusal Reason: PATIENT DECISION Patient refuses all immunization(s) in the COVID-19 group Date Documented: 06/12/24 10:18 Influenza Immunization - L,N,P,PH,U: Deferral / Refusal The patient declines to receive the recommended dose of seasonal influenza vaccine. Immunization: INFLUENZA, UNSPECIFIED FORMULATION Refusal Reason: PATIENT DECISION Patient refuses all immunization(s) in the FLU group Date Documented: 06/12/24 10:19 Herpes Zoster (Shingles) Vaccine - L,N,P,PH,U: The patient declines to receive the recommended dose of zoster (shingles) vaccine. Immunization: ZOSTER RECOMBINANT Refusal Reason: PATIENT DECISION Patient refuses all immunization(s) in the ZOSTER group Date Documented: 06/12/24 10:19 Pneumococcal PPSV23 (Pneumovax) - L,N,P,PH,U: The patient declines to receive the recommended dose of PPSV23 vaccine. Immunization: PNEUMOCOCCAL POLYSACCHARIDE PPV23 Refusal Reason: PATIENT DECISION Patient refuses all immunization(s) in the PneumoPPV group Date Documented: 06/12/24 10:19 [facility] MAP: PERSONAL HEALTH PLAN INVENTORY & MAP 's Response: praying SHARED GOALS staying active /es/ REJI REY LPN LICENSED PRACTICAL NURSE Signed: 06/12/2024 10:21 REJI REY [facility]
--- NOTE | 2024-07-25 13:05 | ED.WEAKNESS ---
HPI - Weakness General Chief complaint: Weakness Stated complaint: left sided weakness x couple days Time Seen by Provider: 07/25/24 13:05 Focused HPI: Patient is a 73 y/o male who presents to the ED with c/o weakness and confusion. at bedside assisted in providing information. Reports over the last 3-4 days, patient has been confused, disoriented, leaning to the left, dragging left leg, stumbling over words. States he has had several moments of not knowing where he is or what he's doing. States he has complained of room spinning dizziness. states this is very unlike patient. He is usually very sharp and can recite full Bible verses. He does have hx of electrolyte issues, has been drinking gatorade w/o improvement. GENERAL: Well-appearing, well-nourished, and in no acute distress. HEAD: Normocephalic, atraumatic. CHEST: Clear to auscultation. ?No respiratory distress. HEART: Regular rate and rhythm.? NEURO: ?Alert and oriented x3. No appreciable focal deficits. No pronator drift. Strength seems equal in upper and lower extremities bilaterally. No facial droop. Cranial nerves grossly intact. Patient screened in triage and initial orders placed.? ?Additional care and disposition to be based upon?diagnostic testing and treatment. Source: patient and family Mode of arrival: ambulatory Limitations: no limitations Related Data Home Medications ?Medication ?Instructions ?Recorded ?Confirmed ?Last Taken ?Type aspirin 81 mg tablet,delayed 81 mg PO DAILY 09/18/19 07/25/24 07/25/24 History release (Adult Aspirin Regimen) vitamin B12 500 mcg-folic acid 400 1 tablet PO DAILY 09/18/19 07/25/24 07/24/24 History mcg tablet cholecalciferol (vitamin D3) 25 25 mcg PO DAILY 09/21/19 07/25/24 07/25/24 History mcg (1,000 unit) capsule (Vitamin D3) cyanocobalamin (vitamin B-12) 1,000 mcg PO DAILY 09/21/19 07/25/24 07/24/24 History 1,000 mcg tablet (Vitamin B-12) divalproex 500 mg tablet,extended 1,000 mg PO DAILY 09/21/19 07/25/24 07/24/24 History release 24 hr glipizide 10 mg tablet 20 mg PO BIDAC 09/21/19 07/25/24 07/24/24 History hydrochlorothiazide 25 mg tablet 25 mg PO DAILY 09/21/19 07/25/24 07/25/24 History krill 500 mg-omega 3 115 mg-dha 30 1 cap PO DAILY 09/21/19 07/25/24 07/24/24 History mg-epa 64 [id number]-[id number] capsule (MegaRed [place]-3 Krill Oil) lisinopril 40 mg tablet 10 mg PO DAILY 09/21/19 07/25/24 07/25/24 History metoprolol tartrate 50 mg tablet 50 mg PO DAILY 09/21/19 07/25/24 07/25/24 History metoprolol tartrate 50 mg tablet 75 mg PO QPM 09/21/19 07/25/24 07/24/24 History Allergies Allergy/AdvReac Type Severity Reaction Status Date / Time lithium Allergy Unknown Verified 07/25/24 14:19 [facility] Past Medical History Medical History B12 deficiency Essential hypertension Gout Manic depressive disorder Osteoarthritis PTSD (post-traumatic stress disorder) Schizophrenia Type 2 diabetes mellitus Vitamin D deficiency Surgical History Surgical History History of cholecystectomy (~1970) Status post cataract extraction of both eyes with insertion of intraocular lens Status post laser cataract surgery of both eyes Family History Family History Father Carcinoma of colon Diabetes mellitus Mother Carcinoma of colon Diabetes mellitus Heart disease Social History Social History Social History: Primary care physician: [facility] Code status: Full code Advanced directives: None Smoking packs per day: 3 Smoking cigarettes per day: 60.0 Years smoked: 15 Smoking pack-years: 45.00 Smoking status: Former smoker Tobacco type: cigarettes Second hand tobacco smoke exposure: No Alcohol intake: never Substance use: never Living arrangements: with family Additional living arrangements comments: He lives with his of 11 years. He has 2 grown sons. One of his sons has issues with IV drug abuse. 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 He served in the [employer] during the War for 1 year. Gender identity (if verbalized by the patient): Male Spiritual care concerns: No Agree to blood products: Yes Course Vital Signs Vital signs: Vital Signs Temperature 97.8 F 07/25/24 12:01 Pulse Rate 86 07/25/24 12:01 Respiratory Rate 16 07/25/24 12:01 Blood Pressure 152/88 H 07/25/24 12:01 Pulse Oximetry 98 07/25/24 12:01 Oxygen Delivery Room Air 07/25/24 12:01 Temperature 97.8 F 07/25/24 14:02 Pulse Rate 73 07/25/24 19:28 Respiratory Rate 18 07/25/24 19:28 Blood Pressure 128/74 07/25/24 19:28 Pulse Oximetry 98 07/25/24 19:28 Oxygen Delivery Room Air 07/25/24 14:02 MDM - Weakness Lab Data 07/25/24 14:15 07/25/24 14:15 Labs: Lab Results 07/25/24 07/25/24 07/25/24 Range/Units 14:15 14:15 14:15 WBC 7.3 (4.5-10.0) K/mm3 RBC 4.94 (4.6-6.20) M/mm3 Hgb 14.9 (14.0-18.0) g/dL Hct 43.9 (42.0-52.0) % MCV 88.9 (80-100) fl MCH 30.2 (26-34) pg MCHC 33.9 (32-36) g/dl RDW 13.0 (11.5-14.5) % Plt Count 141 L (150-375) k/mm3 MPV 10.1 (7.4-10.4) fl Immature Gran % (Auto) 0.3 (0-0.5) % Neut % (Auto) 70.1 (45.5-73.1) % Lymph % (Auto) 18.9 (18.3-44.2) % [place] % (Auto) 9.2 H (2.6-8.5) % Eos % (Auto) 0.8 (0-4.4) % Baso % (Auto) 0.7 (0.2-1.2) % Lymph # (Auto) 1.38 (0.9-3.2) K/mm3 [place] # (Auto) 0.7 H (0.1-0.6) K/mm3 Eos # (Auto) 0.1 (0-0.3) K/mm3 Baso # (Auto) 0.1 (0.0-0.1) K/mm3 Abs Immat Gran (auto) 0.02 (0.00-0.031) K/mm3 Absolute Neuts (auto) 5.1 (1.3-6.7) K/mm3 Absolute Nucleated RBC 0.000 (0.0-0.012) K/mm3 Nucleated RBC % 0.0 (0.0-0.2) % PT 13.2 (11.1-14.7) Seconds INR 1.0 APTT 35.4 (22.3-36.8) Seconds Sodium 138 Cancelled (137-145) mmol/L Potassium 5.3 H Cancelled (3.4-5.0) mmol/L Chloride 98 (98-107) mmol/L Carbon Dioxide (22-30) mmol/L Anion Gap (4-12) mmol/L BUN (9-20) mg/dL Creatinine (0.7-1.3) mg/dL Estim Creat Clear Calc ml/min Estimated GFR (59 - ) Glucose (65-110) mg/dL POC Capillary Glucose (65-105) mg/dl Calcium (8.4-10.2) mg/dL Magnesium (1.6-2.3) mg/dL Total Bilirubin (0.2-1.3) mg/dL AST (17-59) U/L ALT (6-50) U/L Alkaline Phosphatase (38-126) U/L Troponin I (0.000-0.034) ng/mL Total Protein (6.3-8.2) g/dL Albumin (3.5-5.1) g/dL Urine Color (Yellow) Urine Appearance (Clear) Urine pH (5.0-9.0) Ur Specific [place] (1.001-1.035) Urine Protein (Negative) mg/dL Urine Glucose (UA) (Negative) mg/dL Urine Ketones (Negative) mg/dL Ur Blood (Man) (Negative) Urine Nitrate (Negative) Urine Bilirubin (Negative) Urine Urobilinogen (<2.0) mg/dL Leukocyte Esterase Rfl (Negative) MARICRUZ/UL Urine RBC (0-2) /hpf Urine WBC (0-3) /hpf Ur Squamous Epith Cells (Few) /hpf Urine Bacteria /hpf Urine Casts 07/25/24 07/25/24 07/25/24 Range/Units 14:15 14:15 14:15 WBC (4.5-10.0) K/mm3 RBC (4.6-6.20) M/mm3 Hgb (14.0-18.0) g/dL Hct (42.0-52.0) % MCV (80-100) fl MCH (26-34) pg MCHC (32-36) g/dl RDW (11.5-14.5) % Plt Count (150-375) k/mm3 MPV (7.4-10.4) fl Immature Gran % (Auto) (0-0.5) % Neut % (Auto) (45.5-73.1) % Lymph % (Auto) (18.3-44.2) % [place] % (Auto) (2.6-8.5) % Eos % (Auto) (0-4.4) % Baso % (Auto) (0.2-1.2) % Lymph # (Auto) (0.9-3.2) K/mm3 [place] # (Auto) (0.1-0.6) K/mm3 Eos # (Auto) (0-0.3) K/mm3 Baso # (Auto) (0.0-0.1) K/mm3 Abs Immat Gran (auto) (0.00-0.031) K/mm3 Absolute Neuts (auto) (1.3-6.7) K/mm3 Absolute Nucleated RBC (0.0-0.012) K/mm3 Nucleated RBC % (0.0-0.2) % PT (11.1-14.7) Seconds INR APTT (22.3-36.8) Seconds Sodium (137-145) mmol/L Potassium (3.4-5.0) mmol/L Chloride Cancelled (98-107) mmol/L Carbon Dioxide 30 Cancelled (22-30) mmol/L Anion Gap 10 Cancelled (4-12) mmol/L BUN 27 H D (9-20) mg/dL Creatinine (0.7-1.3) mg/dL Estim Creat Clear Calc ml/min Estimated GFR (59 - ) Glucose (65-110) mg/dL POC Capillary Glucose (65-105) mg/dl Calcium (8.4-10.2) mg/dL Magnesium (1.6-2.3) mg/dL Total Bilirubin (0.2-1.3) mg/dL AST (17-59) U/L ALT (6-50) U/L Alkaline Phosphatase (38-126) U/L Troponin I (0.000-0.034) ng/mL Total Protein (6.3-8.2) g/dL Albumin (3.5-5.1) g/dL Urine Color (Yellow) Urine Appearance (Clear) Urine pH (5.0-9.0) Ur Specific [place] (1.001-1.035) Urine Protein (Negative) mg/dL Urine Glucose (UA) (Negative) mg/dL Urine Ketones (Negative) mg/dL Ur Blood (Man) (Negative) Urine Nitrate (Negative) Urine Bilirubin (Negative) Urine Urobilinogen (<2.0) mg/dL Leukocyte Esterase Rfl (Negative) MARICRUZ/UL Urine RBC (0-2) /hpf Urine WBC (0-3) /hpf Ur Squamous Epith Cells (Few) /hpf Urine Bacteria /hpf Urine Casts 07/25/24 07/25/24 07/25/24 Range/Units 14:15 14:15 14:15 WBC (4.5-10.0) K/mm3 RBC (4.6-6.20) M/mm3 Hgb (14.0-18.0) g/dL Hct (42.0-52.0) % MCV (80-100) fl MCH (26-34) pg MCHC (32-36) g/dl RDW (11.5-14.5) % Plt Count (150-375) k/mm3 MPV (7.4-10.4) fl Immature Gran % (Auto) (0-0.5) % Neut % (Auto) (45.5-73.1) % Lymph % (Auto) (18.3-44.2) % [place] % (Auto) (2.6-8.5) % Eos % (Auto) (0-4.4) % Baso % (Auto) (0.2-1.2) % Lymph # (Auto) (0.9-3.2) K/mm3 [place] # (Auto) (0.1-0.6) K/mm3 Eos # (Auto) (0-0.3) K/mm3 Baso # (Auto) (0.0-0.1) K/mm3 Abs Immat Gran (auto) (0.00-0.031) K/mm3 Absolute Neuts (auto) (1.3-6.7) K/mm3 Absolute Nucleated RBC (0.0-0.012) K/mm3 Nucleated RBC % (0.0-0.2) % PT (11.1-14.7) Seconds INR APTT (22.3-36.8) Seconds Sodium (137-145) mmol/L Potassium (3.4-5.0) mmol/L Chloride (98-107) mmol/L Carbon Dioxide (22-30) mmol/L Anion Gap (4-12) mmol/L BUN Cancelled (9-20) mg/dL Creatinine 1.58 H Cancelled (0.7-1.3) mg/dL Estim Creat Clear Calc 41 Cancelled ml/min Estimated GFR 43 L (59 - ) Glucose (65-110) mg/dL POC Capillary Glucose (65-105) mg/dl Calcium (8.4-10.2) mg/dL Magnesium (1.6-2.3) mg/dL Total Bilirubin (0.2-1.3) mg/dL AST (17-59) U/L ALT (6-50) U/L Alkaline Phosphatase (38-126) U/L Troponin I (0.000-0.034) ng/mL Total Protein (6.3-8.2) g/dL Albumin (3.5-5.1) g/dL Urine Color (Yellow) Urine Appearance (Clear) Urine pH (5.0-9.0) Ur Specific [place] (1.001-1.035) Urine Protein (Negative) mg/dL Urine Glucose (UA) (Negative) mg/dL Urine Ketones (Negative) mg/dL Ur Blood (Man) (Negative) Urine Nitrate (Negative) Urine Bilirubin (Negative) Urine Urobilinogen (<2.0) mg/dL Leukocyte Esterase Rfl (Negative) MARICRUZ/UL Urine RBC (0-2) /hpf Urine WBC (0-3) /hpf Ur Squamous Epith Cells (Few) /hpf Urine Bacteria /hpf Urine Casts 07/25/24 07/25/24 07/25/24 Range/Units 14:15 14:15 14:15 WBC (4.5-10.0) K/mm3 RBC (4.6-6.20) M/mm3 Hgb (14.0-18.0) g/dL Hct (42.0-52.0) % MCV (80-100) fl MCH (26-34) pg MCHC (32-36) g/dl RDW (11.5-14.5) % Plt Count (150-375) k/mm3 MPV (7.4-10.4) fl Immature Gran % (Auto) (0-0.5) % Neut % (Auto) (45.5-73.1) % Lymph % (Auto) (18.3-44.2) % [place] % (Auto) (2.6-8.5) % Eos % (Auto) (0-4.4) % Baso % (Auto) (0.2-1.2) % Lymph # (Auto) (0.9-3.2) K/mm3 [place] # (Auto) (0.1-0.6) K/mm3 Eos # (Auto) (0-0.3) K/mm3 Baso # (Auto) (0.0-0.1) K/mm3 Abs Immat Gran (auto) (0.00-0.031) K/mm3 Absolute Neuts (auto) (1.3-6.7) K/mm3 Absolute Nucleated RBC (0.0-0.012) K/mm3 Nucleated RBC % (0.0-0.2) % PT (11.1-14.7) Seconds INR APTT (22.3-36.8) Seconds Sodium (137-145) mmol/L Potassium (3.4-5.0) mmol/L Chloride (98-107) mmol/L Carbon Dioxide (22-30) mmol/L Anion Gap (4-12) mmol/L BUN (9-20) mg/dL Creatinine (0.7-1.3) mg/dL Estim Creat Clear Calc ml/min Estimated GFR Cancelled (59 - ) Glucose 303 H Cancelled (65-110) mg/dL POC Capillary Glucose (65-105) mg/dl Calcium 10.7 H Cancelled (8.4-10.2) mg/dL Magnesium 1.4 L (1.6-2.3) mg/dL Total Bilirubin 0.6 (0.2-1.3) mg/dL AST (17-59) U/L ALT (6-50) U/L Alkaline Phosphatase (38-126) U/L Troponin I (0.000-0.034) ng/mL Total Protein (6.3-8.2) g/dL Albumin (3.5-5.1) g/dL Urine Color (Yellow) Urine Appearance (Clear) Urine pH (5.0-9.0) Ur Specific [place] (1.001-1.035) Urine Protein (Negative) mg/dL Urine Glucose (UA) (Negative) mg/dL Urine Ketones (Negative) mg/dL Ur Blood (Man) (Negative) Urine Nitrate (Negative) Urine Bilirubin (Negative) Urine Urobilinogen (<2.0) mg/dL Leukocyte Esterase Rfl (Negative) MARICRUZ/UL Urine RBC (0-2) /hpf Urine WBC (0-3) /hpf Ur Squamous Epith Cells (Few) /hpf Urine Bacteria /hpf Urine Casts 07/25/24 07/25/24 07/25/24 Range/Units 14:15 14:15 14:15 WBC (4.5-10.0) K/mm3 RBC (4.6-6.20) M/mm3 Hgb (14.0-18.0) g/dL Hct (42.0-52.0) % MCV (80-100) fl MCH (26-34) pg MCHC (32-36) g/dl RDW (11.5-14.5) % Plt Count (150-375) k/mm3 MPV (7.4-10.4) fl Immature Gran % (Auto) (0-0.5) % Neut % (Auto) (45.5-73.1) % Lymph % (Auto) (18.3-44.2) % [place] % (Auto) (2.6-8.5) % Eos % (Auto) (0-4.4) % Baso % (Auto) (0.2-1.2) % Lymph # (Auto) (0.9-3.2) K/mm3 [place] # (Auto) (0.1-0.6) K/mm3 Eos # (Auto) (0-0.3) K/mm3 Baso # (Auto) (0.0-0.1) K/mm3 Abs Immat Gran (auto) (0.00-0.031) K/mm3 Absolute Neuts (auto) (1.3-6.7) K/mm3 Absolute Nucleated RBC (0.0-0.012) K/mm3 Nucleated RBC % (0.0-0.2) % PT (11.1-14.7) Seconds INR APTT (22.3-36.8) Seconds Sodium (137-145) mmol/L Potassium (3.4-5.0) mmol/L Chloride (98-107) mmol/L Carbon Dioxide (22-30) mmol/L Anion Gap (4-12) mmol/L BUN (9-20) mg/dL Creatinine (0.7-1.3) mg/dL Estim Creat Clear Calc ml/min Estimated GFR (59 - ) Glucose (65-110) mg/dL POC Capillary Glucose (65-105) mg/dl Calcium (8.4-10.2) mg/dL Magnesium (1.6-2.3) mg/dL Total Bilirubin Cancelled (0.2-1.3) mg/dL AST 34 Cancelled (17-59) U/L ALT 35 Cancelled (6-50) U/L Alkaline Phosphatase 59 (38-126) U/L Troponin I (0.000-0.034) ng/mL Total Protein (6.3-8.2) g/dL Albumin (3.5-5.1) g/dL Urine Color (Yellow) Urine Appearance (Clear) Urine pH (5.0-9.0) Ur Specific [place] (1.001-1.035) Urine Protein (Negative) mg/dL Urine Glucose (UA) (Negative) mg/dL Urine Ketones (Negative) mg/dL Ur Blood (Man) (Negative) Urine Nitrate (Negative) Urine Bilirubin (Negative) Urine Urobilinogen (<2.0) mg/dL Leukocyte Esterase Rfl (Negative) MARICRUZ/UL Urine RBC (0-2) /hpf Urine WBC (0-3) /hpf Ur Squamous Epith Cells (Few) /hpf Urine Bacteria /hpf Urine Casts 07/25/24 07/25/24 07/25/24 Range/Units 14:15 14:15 14:15 WBC (4.5-10.0) K/mm3 RBC (4.6-6.20) M/mm3 Hgb (14.0-18.0) g/dL Hct (42.0-52.0) % MCV (80-100) fl MCH (26-34) pg MCHC (32-36) g/dl RDW (11.5-14.5) % Plt Count (150-375) k/mm3 MPV (7.4-10.4) fl Immature Gran % (Auto) (0-0.5) % Neut % (Auto) (45.5-73.1) % Lymph % (Auto) (18.3-44.2) % [place] % (Auto) (2.6-8.5) % Eos % (Auto) (0-4.4) % Baso % (Auto) (0.2-1.2) % Lymph # (Auto) (0.9-3.2) K/mm3 [place] # (Auto) (0.1-0.6) K/mm3 Eos # (Auto) (0-0.3) K/mm3 Baso # (Auto) (0.0-0.1) K/mm3 Abs Immat Gran (auto) (0.00-0.031) K/mm3 Absolute Neuts (auto) (1.3-6.7) K/mm3 Absolute Nucleated RBC (0.0-0.012) K/mm3 Nucleated RBC % (0.0-0.2) % PT (11.1-14.7) Seconds INR APTT (22.3-36.8) Seconds Sodium (137-145) mmol/L Potassium (3.4-5.0) mmol/L Chloride (98-107) mmol/L Carbon Dioxide (22-30) mmol/L Anion Gap (4-12) mmol/L BUN (9-20) mg/dL Creatinine (0.7-1.3) mg/dL Estim Creat Clear Calc ml/min Estimated GFR (59 - ) Glucose (65-110) mg/dL POC Capillary Glucose (65-105) mg/dl Calcium (8.4-10.2) mg/dL Magnesium (1.6-2.3) mg/dL Total Bilirubin (0.2-1.3) mg/dL AST (17-59) U/L ALT (6-50) U/L Alkaline Phosphatase Cancelled (38-126) U/L Troponin I < 0.012 Cancelled (0.000-0.034) ng/mL Total Protein 7.0 Cancelled (6.3-8.2) g/dL Albumin 4.3 (3.5-5.1) g/dL Urine Color (Yellow) Urine Appearance (Clear) Urine pH (5.0-9.0) Ur Specific [place] (1.001-1.035) Urine Protein (Negative) mg/dL Urine Glucose (UA) (Negative) mg/dL Urine Ketones (Negative) mg/dL Ur Blood (Man) (Negative) Urine Nitrate (Negative) Urine Bilirubin (Negative) Urine Urobilinogen (<2.0) mg/dL Leukocyte Esterase Rfl (Negative) MARICRUZ/UL Urine RBC (0-2) /hpf Urine WBC (0-3) /hpf Ur Squamous Epith Cells (Few) /hpf Urine Bacteria /hpf Urine Casts 07/25/24 07/25/24 07/25/24 Range/Units 14:15 14:28 14:54 WBC (4.5-10.0) K/mm3 RBC (4.6-6.20) M/mm3 Hgb (14.0-18.0) g/dL Hct (42.0-52.0) % MCV (80-100) fl MCH (26-34) pg MCHC (32-36) g/dl RDW (11.5-14.5) % Plt Count (150-375) k/mm3 MPV (7.4-10.4) fl Immature Gran % (Auto) (0-0.5) % Neut % (Auto) (45.5-73.1) % Lymph % (Auto) (18.3-44.2) % [place] % (Auto) (2.6-8.5) % Eos % (Auto) (0-4.4) % Baso % (Auto) (0.2-1.2) % Lymph # (Auto) (0.9-3.2) K/mm3 [place] # (Auto) (0.1-0.6) K/mm3 Eos # (Auto) (0-0.3) K/mm3 Baso # (Auto) (0.0-0.1) K/mm3 Abs Immat Gran (auto) (0.00-0.031) K/mm3 Absolute Neuts (auto) (1.3-6.7) K/mm3 Absolute Nucleated RBC (0.0-0.012) K/mm3 Nucleated RBC % (0.0-0.2) % PT (11.1-14.7) Seconds INR APTT (22.3-36.8) Seconds Sodium (137-145) mmol/L Potassium (3.4-5.0) mmol/L Chloride (98-107) mmol/L Carbon Dioxide (22-30) mmol/L Anion Gap (4-12) mmol/L BUN (9-20) mg/dL Creatinine (0.7-1.3) mg/dL Estim Creat Clear Calc ml/min Estimated GFR (59 - ) Glucose (65-110) mg/dL POC Capillary Glucose 313 H (65-105) mg/dl Calcium (8.4-10.2) mg/dL Magnesium (1.6-2.3) mg/dL Total Bilirubin (0.2-1.3) mg/dL AST (17-59) U/L ALT (6-50) U/L Alkaline Phosphatase (38-126) U/L Troponin I (0.000-0.034) ng/mL Total Protein (6.3-8.2) g/dL Albumin Cancelled (3.5-5.1) g/dL Urine Color Yellow (Yellow) Urine Appearance Cloudy H (Clear) Urine pH 7.0 (5.0-9.0) Ur Specific [place] 1.018 (1.001-1.035) Urine Protein 2+ H (Negative) mg/dL Urine Glucose (UA) 2+ H (Negative) mg/dL Urine Ketones Trace H (Negative) mg/dL Ur Blood (Man) Negative (Negative) Urine Nitrate Negative (Negative) Urine Bilirubin Negative (Negative) Urine Urobilinogen 0.2 (<2.0) mg/dL Leukocyte Esterase Rfl Negative (Negative) MARICRUZ/UL Urine RBC 0-2 (0-2) /hpf Urine WBC 0-5 (0-3) /hpf Ur Squamous Epith Cells None seen (Few) /hpf Urine Bacteria None seen /hpf Urine Casts 3-5 07/25/24 Range/Units 16:25 WBC (4.5-10.0) K/mm3 RBC (4.6-6.20) M/mm3 Hgb (14.0-18.0) g/dL Hct (42.0-52.0) % MCV (80-100) fl MCH (26-34) pg MCHC (32-36) g/dl RDW (11.5-14.5) % Plt Count (150-375) k/mm3 MPV (7.4-10.4) fl Immature Gran % (Auto) (0-0.5) % Neut % (Auto) (45.5-73.1) % Lymph % (Auto) (18.3-44.2) % [place] % (Auto) (2.6-8.5) % Eos % (Auto) (0-4.4) % Baso % (Auto) (0.2-1.2) % Lymph # (Auto) (0.9-3.2) K/mm3 [place] # (Auto) (0.1-0.6) K/mm3 Eos # (Auto) (0-0.3) K/mm3 Baso # (Auto) (0.0-0.1) K/mm3 Abs Immat Gran (auto) (0.00-0.031) K/mm3 Absolute Neuts (auto) (1.3-6.7) K/mm3 Absolute Nucleated RBC (0.0-0.012) K/mm3 Nucleated RBC % (0.0-0.2) % PT (11.1-14.7) Seconds INR APTT (22.3-36.8) Seconds Sodium (137-145) mmol/L Potassium (3.4-5.0) mmol/L Chloride (98-107) mmol/L Carbon Dioxide (22-30) mmol/L Anion Gap (4-12) mmol/L BUN (9-20) mg/dL Creatinine (0.7-1.3) mg/dL Estim Creat Clear Calc ml/min Estimated GFR (59 - ) Glucose (65-110) mg/dL POC Capillary Glucose 240 H (65-105) mg/dl Calcium (8.4-10.2) mg/dL Magnesium (1.6-2.3) mg/dL Total Bilirubin (0.2-1.3) mg/dL AST (17-59) U/L ALT (6-50) U/L Alkaline Phosphatase (38-126) U/L Troponin I (0.000-0.034) ng/mL Total Protein (6.3-8.2) g/dL Albumin (3.5-5.1) g/dL Urine Color (Yellow) Urine Appearance (Clear) Urine pH (5.0-9.0) Ur Specific [place] (1.001-1.035) Urine Protein (Negative) mg/dL Urine Glucose (UA) (Negative) mg/dL Urine Ketones (Negative) mg/dL Ur Blood (Man) (Negative) Urine Nitrate (Negative) Urine Bilirubin (Negative) Urine Urobilinogen (<2.0) mg/dL Leukocyte Esterase Rfl (Negative) MARICRUZ/UL Urine RBC (0-2) /hpf Urine WBC (0-3) /hpf Ur Squamous Epith Cells (Few) /hpf Urine Bacteria /hpf Urine Casts Discharge Plan Discharge Clinical Impression: Weakness, Dehydration Patient Disposition: Home, Self-Care Condition: Improved Instructions: Antibiotic Form, Dehydration (DC), Weakness (ED) Patient Language: Libyan Prescriptions: No Action aspirin [Adult Aspirin Regimen] 81 mg tablet,delayed release (DR/EC) 81 mg PO DAILY vitamin [id number] acid 500-400 mcg tablet 1 tablet PO DAILY Rx Instructions: administer with a meal glipizide 10 mg Tablet 20 mg PO BIDAC cyanocobalamin (vitamin B-12) [Vitamin B-12] 1,000 mcg Tablet 1,000 mcg PO DAILY divalproex 500 mg Tablet Extended Release 24 Hr 1,000 mg PO DAILY metoprolol tartrate 50 mg Tablet 50 mg PO DAILY metoprolol tartrate 50 mg Tablet 75 mg PO QPM hydrochlorothiazide 25 mg Tablet 25 mg PO DAILY lisinopril 40 mg Tablet 10 mg PO DAILY cholecalciferol (vitamin D3) [Vitamin D3] 25 mcg (1,000 unit) Capsule 25 mcg PO DAILY [id number] [MegaRed [place]-3 Krill Oil] [id number] mg Capsule 1 cap PO DAILY tamsulosin 0.4 mg Capsule 0.4 mg PO QAM 30 Days Qty: 30 0RF (DME) insulin syringe-needle U-100 [BD Insulin Syringe] 1 mL 28 gauge x 1/2 syringe See Rx Instructions .ROUTE .MEDSUPPLY Qty: 100 0RF Rx Instructions: As directed metformin 1,000 mg tablet 1,000 mg PO BIDWM 30 Days Qty: 60 0RF Follow-up/Referrals: [facility] [Primary Care Provider] -
--- NOTE | 2024-07-25 13:09 | ECG_ITS ---
Test Date: 2024-07-25 14:05:41 Measurements Intervals [place] Rate: 87 P: 73 CA: 196 QRS: -12 QRSD: 96 T: 81 QT: 337 QTc: 407 Interpretive Statements SINUS RHYTHM SEPTAL MYOCARDIAL INFARCTION , OF INDETERMINATE AGE [40+ ms Q WAVE IN V1/V2] No previous ECG available for comparison Electronically Signed On 07-25-2024 14:14:01 PER DIEM RN by Chester Macedo M.D.
[2024-07-25 14:02] VITALS: BP 124/99; PULSE 89; RESP 15; TEMP 36.6; O2SAT 96
[2024-07-25 14:20] LABS: Basophils Absolute Auto 0.1 K/mm3 (0.0-0.1); Basophils Percent Auto 0.7 % (0.2-1.2); Eosinophils Absolute Auto 0.1 K/mm3 (0-0.3); Eosinophils Percent Auto 0.8 % (0-4.4); Hematocrit 43.9 % (42.0-52.0); Hemoglobin 14.9 g/dL (14.0-18.0); Immature Granulocyte Absolute 0.02 K/mm3 (0.00-0.031); Immature Granulocyte Percent A 0.3 % (0-0.5); Lymphocytes Absolute Auto 1.38 K/mm3 (0.9-3.2); Lymphocytes Percent Auto 18.9 % (18.3-44.2); Mean Corpuscular HGB Conc 33.9 g/dl (32-36); Mean Corpuscular Hemoglobin 30.2 pg (26-34); Mean Corpuscular Volume 88.9 fl (80-100); Mean Platelet Volume 10.1 fl (7.4-10.4); Monocytes Absolute Auto 0.7 K/mm3 (0.1-0.6); Monocytes Percent Auto 9.2 % (2.6-8.5); Neutrophils Absolute Auto 5.1 K/mm3 (1.3-6.7); Neutrophils Percent Auto 70.1 % (45.5-73.1); Platelet Count Result 141 k/mm3 (150-375); Red Blood Count 4.94 M/mm3 (4.6-6.20); White Blood Count 7.3 K/mm3 (4.5-10.0)
[2024-07-25 14:29] LABS: Magnesium 1.4 mg/dL (1.6-2.3)
[2024-07-25 14:31] LABS: Prothrombin Time 13.2 Seconds (11.1-14.7)
[2024-07-25 14:32] LABS: Partial Thromboplastin Time 35.4 Seconds (22.3-36.8)
[2024-07-25 14:32] LABS: Glucose Point of Care 313 mg/dl (65-105)
[2024-07-25 14:34] LABS: Alanine Aminotransferase 35 U/L (6-50); Albumin Level 4.3 g/dL (3.5-5.1); Alkaline Phosphatase 59 U/L (38-126); Anion Gap 10 mmol/L (4-12); Aspartate Amino Transferase 34 U/L (17-59); Bilirubin,Total 0.6 mg/dL (0.2-1.3); Blood Urea Nitrogen 27 mg/dL (9-20); Calcium 10.7 mg/dL (8.4-10.2); Carbon Dioxide 30 mmol/L (22-30); Chloride 98 mmol/L (98-107); Estimated CRCL calculation 41 ml/min; Estimated Glomerular Filt Rate 43; Glucose 303 mg/dL (65-110); Potassium 5.3 mmol/L (3.4-5.0); Sodium 138 mmol/L (137-145)
[2024-07-25 14:43] LABS: Troponin I < 0.012 ng/mL (0.000-0.034)
--- NOTE | 2024-07-25 14:53 | ED_ITS ---
HPI - Weakness General Chief complaint: Weakness Stated complaint: left sided weakness x couple days Time Seen by Provider: 07/25/24 13:05 Source: patient and family Mode of arrival: ambulatory Limitations: no limitations History of Present Illness HPI Narrative: Pt presents with general weakness for two days. Pt has some difficulty producing words. Pt seems to be having trouble staying on task. Related Data Home Medications ?Medication ?Instructions ?Recorded ?Confirmed ?Last Taken ?Type aspirin 81 mg tablet,delayed 81 mg PO DAILY 09/18/19 07/25/24 07/25/24 History release (Adult Aspirin Regimen) vitamin B12 500 mcg-folic acid 400 1 tablet PO DAILY 09/18/19 07/25/24 07/24/24 History mcg tablet cholecalciferol (vitamin D3) 25 25 mcg PO DAILY 09/21/19 07/25/24 07/25/24 History mcg (1,000 unit) capsule (Vitamin D3) cyanocobalamin (vitamin B-12) 1,000 mcg PO DAILY 09/21/19 07/25/24 07/24/24 History 1,000 mcg tablet (Vitamin B-12) divalproex 500 mg tablet,extended 1,000 mg PO DAILY 09/21/19 07/25/24 07/24/24 History release 24 hr glipizide 10 mg tablet 20 mg PO BIDAC 09/21/19 07/25/24 07/24/24 History hydrochlorothiazide 25 mg tablet 25 mg PO DAILY 09/21/19 07/25/24 07/25/24 History krill 500 mg-omega 3 115 mg-dha 30 1 cap PO DAILY 09/21/19 07/25/24 07/24/24 History mg-epa 64 [id number] capsule (MegaRed [place]-3 Krill Oil) lisinopril 40 mg tablet 10 mg PO DAILY 09/21/19 07/25/24 07/25/24 History metoprolol tartrate 50 mg tablet 50 mg PO DAILY 09/21/19 07/25/24 07/25/24 History metoprolol tartrate 50 mg tablet 75 mg PO QPM 09/21/19 07/25/24 07/24/24 History Allergies Allergy/AdvReac Type Severity Reaction Status Date / Time lithium Allergy Unknown Verified 07/25/24 14:19 [facility] Past Medical History Medical History B12 deficiency Essential hypertension Gout Manic depressive disorder Osteoarthritis PTSD (post-traumatic stress disorder) Schizophrenia Type 2 diabetes mellitus Vitamin D deficiency Surgical History Surgical History History of cholecystectomy (~1971) Status post cataract extraction of both eyes with insertion of intraocular lens Status post laser cataract surgery of both eyes Family History Family History Father Carcinoma of colon Diabetes mellitus Mother Carcinoma of colon Diabetes mellitus Heart disease Social History Social History Social History: Primary care physician: [facility] Code status: Full code Advanced directives: None Smoking packs per day: 3 Smoking cigarettes per day: 60.0 Years smoked: 15 Smoking pack-years: 45.00 Smoking status: Former smoker Tobacco type: cigarettes Second hand tobacco smoke exposure: No Alcohol intake: never Substance use: never Living arrangements: with family Additional living arrangements comments: He lives with his of 11 years. He has 2 grown sons. One of his sons has issues with IV drug abuse. 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 He served in the [employer] during the [place] War for 1 year. Gender identity (if verbalized by the patient): Male Spiritual care concerns: No Agree to blood products: Yes Course Vital Signs Vital signs: Vital Signs Temperature 97.8 F 07/25/24 12:01 Pulse Rate 86 07/25/24 12:01 Respiratory Rate 16 07/25/24 12:01 Blood Pressure 152/88 H 07/25/24 12:01 Pulse Oximetry 98 07/25/24 12:01 Oxygen Delivery Room Air 07/25/24 12:01 Temperature 97.8 F 07/25/24 14:02 Pulse Rate 73 07/25/24 19:28 Respiratory Rate 18 07/25/24 19:28 Blood Pressure 128/74 07/25/24 19:28 Pulse Oximetry 98 07/25/24 19:28 Oxygen Delivery Room Air 07/25/24 14:02 MDM - Weakness MDM Narrative Medical decision making narrative: Pt presents with weakness. Pt is dehydrated on labs. given fluids and improved. Lab Data 07/25/24 14:15 07/25/24 14:15 Labs: Lab Results 07/25/24 07/25/24 07/25/24 Range/Units 14:15 14:15 14:15 WBC 7.3 (4.5-10.0) K/mm3 RBC 4.94 (4.6-6.20) M/mm3 Hgb 14.9 (14.0-18.0) g/dL Hct 43.9 (42.0-52.0) % MCV 88.9 (80-100) fl MCH 30.2 (26-34) pg MCHC 33.9 (32-36) g/dl RDW 13.0 (11.5-14.5) % Plt Count 141 L (150-375) k/mm3 MPV 10.1 (7.4-10.4) fl Immature Gran % (Auto) 0.3 (0-0.5) % Neut % (Auto) 70.1 (45.5-73.1) % Lymph % (Auto) 18.9 (18.3-44.2) % [place] % (Auto) 9.2 H (2.6-8.5) % Eos % (Auto) 0.8 (0-4.4) % Baso % (Auto) 0.7 (0.2-1.2) % Lymph # (Auto) 1.38 (0.9-3.2) K/mm3 [place] # (Auto) 0.7 H (0.1-0.6) K/mm3 Eos # (Auto) 0.1 (0-0.3) K/mm3 Baso # (Auto) 0.1 (0.0-0.1) K/mm3 Abs Immat Gran (auto) 0.02 (0.00-0.031) K/mm3 Absolute Neuts (auto) 5.1 (1.3-6.7) K/mm3 Absolute Nucleated RBC 0.000 (0.0-0.012) K/mm3 Nucleated RBC % 0.0 (0.0-0.2) % PT 13.2 (11.1-14.7) Seconds INR 1.0 APTT 35.4 (22.3-36.8) Seconds Sodium 138 Cancelled (137-145) mmol/L Potassium 5.3 H Cancelled (3.4-5.0) mmol/L Chloride 98 (98-107) mmol/L Carbon Dioxide (22-30) mmol/L Anion Gap (4-12) mmol/L BUN (9-20) mg/dL Creatinine (0.7-1.3) mg/dL Estim Creat Clear Calc ml/min Estimated GFR (59 - ) Glucose (65-110) mg/dL POC Capillary Glucose (65-105) mg/dl Calcium (8.4-10.2) mg/dL Magnesium (1.6-2.3) mg/dL Total Bilirubin (0.2-1.3) mg/dL AST (17-59) U/L ALT (6-50) U/L Alkaline Phosphatase (38-126) U/L Troponin I (0.000-0.034) ng/mL Total Protein (6.3-8.2) g/dL Albumin (3.5-5.1) g/dL Urine Color (Yellow) Urine Appearance (Clear) Urine pH (5.0-9.0) Ur Specific [place] (1.001-1.035) Urine Protein (Negative) mg/dL Urine Glucose (UA) (Negative) mg/dL Urine Ketones (Negative) mg/dL Ur Blood (Man) (Negative) Urine Nitrate (Negative) Urine Bilirubin (Negative) Urine Urobilinogen (<2.0) mg/dL Leukocyte Esterase Rfl (Negative) MARICRUZ/UL Urine RBC (0-2) /hpf Urine WBC (0-3) /hpf Ur Squamous Epith Cells (Few) /hpf Urine Bacteria /hpf Urine Casts 07/25/24 07/25/24 07/25/24 Range/Units 14:15 14:15 14:15 WBC (4.5-10.0) K/mm3 RBC (4.6-6.20) M/mm3 Hgb (14.0-18.0) g/dL Hct (42.0-52.0) % MCV (80-100) fl MCH (26-34) pg MCHC (32-36) g/dl RDW (11.5-14.5) % Plt Count (150-375) k/mm3 MPV (7.4-10.4) fl Immature Gran % (Auto) (0-0.5) % Neut % (Auto) (45.5-73.1) % Lymph % (Auto) (18.3-44.2) % [place] % (Auto) (2.6-8.5) % Eos % (Auto) (0-4.4) % Baso % (Auto) (0.2-1.2) % Lymph # (Auto) (0.9-3.2) K/mm3 [place] # (Auto) (0.1-0.6) K/mm3 Eos # (Auto) (0-0.3) K/mm3 Baso # (Auto) (0.0-0.1) K/mm3 Abs Immat Gran (auto) (0.00-0.031) K/mm3 Absolute Neuts (auto) (1.3-6.7) K/mm3 Absolute Nucleated RBC (0.0-0.012) K/mm3 Nucleated RBC % (0.0-0.2) % PT (11.1-14.7) Seconds INR APTT (22.3-36.8) Seconds Sodium (137-145) mmol/L Potassium (3.4-5.0) mmol/L Chloride Cancelled (98-107) mmol/L Carbon Dioxide 30 Cancelled (22-30) mmol/L Anion Gap 10 Cancelled (4-12) mmol/L BUN 27 H D (9-20) mg/dL Creatinine (0.7-1.3) mg/dL Estim Creat Clear Calc ml/min Estimated GFR (59 - ) Glucose (65-110) mg/dL POC Capillary Glucose (65-105) mg/dl Calcium (8.4-10.2) mg/dL Magnesium (1.6-2.3) mg/dL Total Bilirubin (0.2-1.3) mg/dL AST (17-59) U/L ALT (6-50) U/L Alkaline Phosphatase (38-126) U/L Troponin I (0.000-0.034) ng/mL Total Protein (6.3-8.2) g/dL Albumin (3.5-5.1) g/dL Urine Color (Yellow) Urine Appearance (Clear) Urine pH (5.0-9.0) Ur Specific [place] (1.001-1.035) Urine Protein (Negative) mg/dL Urine Glucose (UA) (Negative) mg/dL Urine Ketones (Negative) mg/dL Ur Blood (Man) (Negative) Urine Nitrate (Negative) Urine Bilirubin (Negative) Urine Urobilinogen (<2.0) mg/dL Leukocyte Esterase Rfl (Negative) MARICRUZ/UL Urine RBC (0-2) /hpf Urine WBC (0-3) /hpf Ur Squamous Epith Cells (Few) /hpf Urine Bacteria /hpf Urine Casts 07/25/24 07/25/24 07/25/24 Range/Units 14:15 14:15 14:15 WBC (4.5-10.0) K/mm3 RBC (4.6-6.20) M/mm3 Hgb (14.0-18.0) g/dL Hct (42.0-52.0) % MCV (80-100) fl MCH (26-34) pg MCHC (32-36) g/dl RDW (11.5-14.5) % Plt Count (150-375) k/mm3 MPV (7.4-10.4) fl Immature Gran % (Auto) (0-0.5) % Neut % (Auto) (45.5-73.1) % Lymph % (Auto) (18.3-44.2) % [place] % (Auto) (2.6-8.5) % Eos % (Auto) (0-4.4) % Baso % (Auto) (0.2-1.2) % Lymph # (Auto) (0.9-3.2) K/mm3 [place] # (Auto) (0.1-0.6) K/mm3 Eos # (Auto) (0-0.3) K/mm3 Baso # (Auto) (0.0-0.1) K/mm3 Abs Immat Gran (auto) (0.00-0.031) K/mm3 Absolute Neuts (auto) (1.3-6.7) K/mm3 Absolute Nucleated RBC (0.0-0.012) K/mm3 Nucleated RBC % (0.0-0.2) % PT (11.1-14.7) Seconds INR APTT (22.3-36.8) Seconds Sodium (137-145) mmol/L Potassium (3.4-5.0) mmol/L Chloride (98-107) mmol/L Carbon Dioxide (22-30) mmol/L Anion Gap (4-12) mmol/L BUN Cancelled (9-20) mg/dL Creatinine 1.58 H Cancelled (0.7-1.3) mg/dL Estim Creat Clear Calc 41 Cancelled ml/min Estimated GFR 43 L (59 - ) Glucose (65-110) mg/dL POC Capillary Glucose (65-105) mg/dl Calcium (8.4-10.2) mg/dL Magnesium (1.6-2.3) mg/dL Total Bilirubin (0.2-1.3) mg/dL AST (17-59) U/L ALT (6-50) U/L Alkaline Phosphatase (38-126) U/L Troponin I (0.000-0.034) ng/mL Total Protein (6.3-8.2) g/dL Albumin (3.5-5.1) g/dL Urine Color (Yellow) Urine Appearance (Clear) Urine pH (5.0-9.0) Ur Specific [place] (1.001-1.035) Urine Protein (Negative) mg/dL Urine Glucose (UA) (Negative) mg/dL Urine Ketones (Negative) mg/dL Ur Blood (Man) (Negative) Urine Nitrate (Negative) Urine Bilirubin (Negative) Urine Urobilinogen (<2.0) mg/dL Leukocyte Esterase Rfl (Negative) MARICRUZ/UL Urine RBC (0-2) /hpf Urine WBC (0-3) /hpf Ur Squamous Epith Cells (Few) /hpf Urine Bacteria /hpf Urine Casts 07/25/24 07/25/24 07/25/24 Range/Units 14:15 14:15 14:15 WBC (4.5-10.0) K/mm3 RBC (4.6-6.20) M/mm3 Hgb (14.0-18.0) g/dL Hct (42.0-52.0) % MCV (80-100) fl MCH (26-34) pg MCHC (32-36) g/dl RDW (11.5-14.5) % Plt Count (150-375) k/mm3 MPV (7.4-10.4) fl Immature Gran % (Auto) (0-0.5) % Neut % (Auto) (45.5-73.1) % Lymph % (Auto) (18.3-44.2) % [place] % (Auto) (2.6-8.5) % Eos % (Auto) (0-4.4) % Baso % (Auto) (0.2-1.2) % Lymph # (Auto) (0.9-3.2) K/mm3 [place] # (Auto) (0.1-0.6) K/mm3 Eos # (Auto) (0-0.3) K/mm3 Baso # (Auto) (0.0-0.1) K/mm3 Abs Immat Gran (auto) (0.00-0.031) K/mm3 Absolute Neuts (auto) (1.3-6.7) K/mm3 Absolute Nucleated RBC (0.0-0.012) K/mm3 Nucleated RBC % (0.0-0.2) % PT (11.1-14.7) Seconds INR APTT (22.3-36.8) Seconds Sodium (137-145) mmol/L Potassium (3.4-5.0) mmol/L Chloride (98-107) mmol/L Carbon Dioxide (22-30) mmol/L Anion Gap (4-12) mmol/L BUN (9-20) mg/dL Creatinine (0.7-1.3) mg/dL Estim Creat Clear Calc ml/min Estimated GFR Cancelled (59 - ) Glucose 303 H Cancelled (65-110) mg/dL POC Capillary Glucose (65-105) mg/dl Calcium 10.7 H Cancelled (8.4-10.2) mg/dL Magnesium 1.4 L (1.6-2.3) mg/dL Total Bilirubin 0.6 (0.2-1.3) mg/dL AST (17-59) U/L ALT (6-50) U/L Alkaline Phosphatase (38-126) U/L Troponin I (0.000-0.034) ng/mL Total Protein (6.3-8.2) g/dL Albumin (3.5-5.1) g/dL Urine Color (Yellow) Urine Appearance (Clear) Urine pH (5.0-9.0) Ur Specific [place] (1.001-1.035) Urine Protein (Negative) mg/dL Urine Glucose (UA) (Negative) mg/dL Urine Ketones (Negative) mg/dL Ur Blood (Man) (Negative) Urine Nitrate (Negative) Urine Bilirubin (Negative) Urine Urobilinogen (<2.0) mg/dL Leukocyte Esterase Rfl (Negative) MARICRUZ/UL Urine RBC (0-2) /hpf Urine WBC (0-3) /hpf Ur Squamous Epith Cells (Few) /hpf Urine Bacteria /hpf Urine Casts 07/25/24 07/25/24 07/25/24 Range/Units 14:15 14:15 14:15 WBC (4.5-10.0) K/mm3 RBC (4.6-6.20) M/mm3 Hgb (14.0-18.0) g/dL Hct (42.0-52.0) % MCV (80-100) fl MCH (26-34) pg MCHC (32-36) g/dl RDW (11.5-14.5) % Plt Count (150-375) k/mm3 MPV (7.4-10.4) fl Immature Gran % (Auto) (0-0.5) % Neut % (Auto) (45.5-73.1) % Lymph % (Auto) (18.3-44.2) % [place] % (Auto) (2.6-8.5) % Eos % (Auto) (0-4.4) % Baso % (Auto) (0.2-1.2) % Lymph # (Auto) (0.9-3.2) K/mm3 [place] # (Auto) (0.1-0.6) K/mm3 Eos # (Auto) (0-0.3) K/mm3 Baso # (Auto) (0.0-0.1) K/mm3 Abs Immat Gran (auto) (0.00-0.031) K/mm3 Absolute Neuts (auto) (1.3-6.7) K/mm3 Absolute Nucleated RBC (0.0-0.012) K/mm3 Nucleated RBC % (0.0-0.2) % PT (11.1-14.7) Seconds INR APTT (22.3-36.8) Seconds Sodium (137-145) mmol/L Potassium (3.4-5.0) mmol/L Chloride (98-107) mmol/L Carbon Dioxide (22-30) mmol/L Anion Gap (4-12) mmol/L BUN (9-20) mg/dL Creatinine (0.7-1.3) mg/dL Estim Creat Clear Calc ml/min Estimated GFR (59 - ) Glucose (65-110) mg/dL POC Capillary Glucose (65-105) mg/dl Calcium (8.4-10.2) mg/dL Magnesium (1.6-2.3) mg/dL Total Bilirubin Cancelled (0.2-1.3) mg/dL AST 34 Cancelled (17-59) U/L ALT 35 Cancelled (6-50) U/L Alkaline Phosphatase 59 (38-126) U/L Troponin I (0.000-0.034) ng/mL Total Protein (6.3-8.2) g/dL Albumin (3.5-5.1) g/dL Urine Color (Yellow) Urine Appearance (Clear) Urine pH (5.0-9.0) Ur Specific [place] (1.001-1.035) Urine Protein (Negative) mg/dL Urine Glucose (UA) (Negative) mg/dL Urine Ketones (Negative) mg/dL Ur Blood (Man) (Negative) Urine Nitrate (Negative) Urine Bilirubin (Negative) Urine Urobilinogen (<2.0) mg/dL Leukocyte Esterase Rfl (Negative) MARICRUZ/UL Urine RBC (0-2) /hpf Urine WBC (0-3) /hpf Ur Squamous Epith Cells (Few) /hpf Urine Bacteria /hpf Urine Casts 07/25/24 07/25/24 07/25/24 Range/Units 14:15 14:15 14:15 WBC (4.5-10.0) K/mm3 RBC (4.6-6.20) M/mm3 Hgb (14.0-18.0) g/dL Hct (42.0-52.0) % MCV (80-100) fl MCH (26-34) pg MCHC (32-36) g/dl RDW (11.5-14.5) % Plt Count (150-375) k/mm3 MPV (7.4-10.4) fl Immature Gran % (Auto) (0-0.5) % Neut % (Auto) (45.5-73.1) % Lymph % (Auto) (18.3-44.2) % [place] % (Auto) (2.6-8.5) % Eos % (Auto) (0-4.4) % Baso % (Auto) (0.2-1.2) % Lymph # (Auto) (0.9-3.2) K/mm3 [place] # (Auto) (0.1-0.6) K/mm3 Eos # (Auto) (0-0.3) K/mm3 Baso # (Auto) (0.0-0.1) K/mm3 Abs Immat Gran (auto) (0.00-0.031) K/mm3 Absolute Neuts (auto) (1.3-6.7) K/mm3 Absolute Nucleated RBC (0.0-0.012) K/mm3 Nucleated RBC % (0.0-0.2) % PT (11.1-14.7) Seconds INR APTT (22.3-36.8) Seconds Sodium (137-145) mmol/L Potassium (3.4-5.0) mmol/L Chloride (98-107) mmol/L Carbon Dioxide (22-30) mmol/L Anion Gap (4-12) mmol/L BUN (9-20) mg/dL Creatinine (0.7-1.3) mg/dL Estim Creat Clear Calc ml/min Estimated GFR (59 - ) Glucose (65-110) mg/dL POC Capillary Glucose (65-105) mg/dl Calcium (8.4-10.2) mg/dL Magnesium (1.6-2.3) mg/dL Total Bilirubin (0.2-1.3) mg/dL AST (17-59) U/L ALT (6-50) U/L Alkaline Phosphatase Cancelled (38-126) U/L Troponin I < 0.012 Cancelled (0.000-0.034) ng/mL Total Protein 7.0 Cancelled (6.3-8.2) g/dL Albumin 4.3 (3.5-5.1) g/dL Urine Color (Yellow) Urine Appearance (Clear) Urine pH (5.0-9.0) Ur Specific [place] (1.001-1.035) Urine Protein (Negative) mg/dL Urine Glucose (UA) (Negative) mg/dL Urine Ketones (Negative) mg/dL Ur Blood (Man) (Negative) Urine Nitrate (Negative) Urine Bilirubin (Negative) Urine Urobilinogen (<2.0) mg/dL Leukocyte Esterase Rfl (Negative) MARICRUZ/UL Urine RBC (0-2) /hpf Urine WBC (0-3) /hpf Ur Squamous Epith Cells (Few) /hpf Urine Bacteria /hpf Urine Casts 07/25/24 07/25/24 07/25/24 Range/Units 14:15 14:28 14:54 WBC (4.5-10.0) K/mm3 RBC (4.6-6.20) M/mm3 Hgb (14.0-18.0) g/dL Hct (42.0-52.0) % MCV (80-100) fl MCH (26-34) pg MCHC (32-36) g/dl RDW (11.5-14.5) % Plt Count (150-375) k/mm3 MPV (7.4-10.4) fl Immature Gran % (Auto) (0-0.5) % Neut % (Auto) (45.5-73.1) % Lymph % (Auto) (18.3-44.2) % [place] % (Auto) (2.6-8.5) % Eos % (Auto) (0-4.4) % Baso % (Auto) (0.2-1.2) % Lymph # (Auto) (0.9-3.2) K/mm3 [place] # (Auto) (0.1-0.6) K/mm3 Eos # (Auto) (0-0.3) K/mm3 Baso # (Auto) (0.0-0.1) K/mm3 Abs Immat Gran (auto) (0.00-0.031) K/mm3 Absolute Neuts (auto) (1.3-6.7) K/mm3 Absolute Nucleated RBC (0.0-0.012) K/mm3 Nucleated RBC % (0.0-0.2) % PT (11.1-14.7) Seconds INR APTT (22.3-36.8) Seconds Sodium (137-145) mmol/L Potassium (3.4-5.0) mmol/L Chloride (98-107) mmol/L Carbon Dioxide (22-30) mmol/L Anion Gap (4-12) mmol/L BUN (9-20) mg/dL Creatinine (0.7-1.3) mg/dL Estim Creat Clear Calc ml/min Estimated GFR (59 - ) Glucose (65-110) mg/dL POC Capillary Glucose 313 H (65-105) mg/dl Calcium (8.4-10.2) mg/dL Magnesium (1.6-2.3) mg/dL Total Bilirubin (0.2-1.3) mg/dL AST (17-59) U/L ALT (6-50) U/L Alkaline Phosphatase (38-126) U/L Troponin I (0.000-0.034) ng/mL Total Protein (6.3-8.2) g/dL Albumin Cancelled (3.5-5.1) g/dL Urine Color Yellow (Yellow) Urine Appearance Cloudy H (Clear) Urine pH 7.0 (5.0-9.0) Ur Specific [place] 1.018 (1.001-1.035) Urine Protein 2+ H (Negative) mg/dL Urine Glucose (UA) 2+ H (Negative) mg/dL Urine Ketones Trace H (Negative) mg/dL Ur Blood (Man) Negative (Negative) Urine Nitrate Negative (Negative) Urine Bilirubin Negative (Negative) Urine Urobilinogen 0.2 (<2.0) mg/dL Leukocyte Esterase Rfl Negative (Negative) MARICRUZ/UL Urine RBC 0-2 (0-2) /hpf Urine WBC 0-5 (0-3) /hpf Ur Squamous Epith Cells None seen (Few) /hpf Urine Bacteria None seen /hpf Urine Casts 3-5 07/25/24 Range/Units 16:25 WBC (4.5-10.0) K/mm3 RBC (4.6-6.20) M/mm3 Hgb (14.0-18.0) g/dL Hct (42.0-52.0) % MCV (80-100) fl MCH (26-34) pg MCHC (32-36) g/dl RDW (11.5-14.5) % Plt Count (150-375) k/mm3 MPV (7.4-10.4) fl Immature Gran % (Auto) (0-0.5) % Neut % (Auto) (45.5-73.1) % Lymph % (Auto) (18.3-44.2) % [place] % (Auto) (2.6-8.5) % Eos % (Auto) (0-4.4) % Baso % (Auto) (0.2-1.2) % Lymph # (Auto) (0.9-3.2) K/mm3 [place] # (Auto) (0.1-0.6) K/mm3 Eos # (Auto) (0-0.3) K/mm3 Baso # (Auto) (0.0-0.1) K/mm3 Abs Immat Gran (auto) (0.00-0.031) K/mm3 Absolute Neuts (auto) (1.3-6.7) K/mm3 Absolute Nucleated RBC (0.0-0.012) K/mm3 Nucleated RBC % (0.0-0.2) % PT (11.1-14.7) Seconds INR APTT (22.3-36.8) Seconds Sodium (137-145) mmol/L Potassium (3.4-5.0) mmol/L Chloride (98-107) mmol/L Carbon Dioxide (22-30) mmol/L Anion Gap (4-12) mmol/L BUN (9-20) mg/dL Creatinine (0.7-1.3) mg/dL Estim Creat Clear Calc ml/min Estimated GFR (59 - ) Glucose (65-110) mg/dL POC Capillary Glucose 240 H (65-105) mg/dl Calcium (8.4-10.2) mg/dL Magnesium (1.6-2.3) mg/dL Total Bilirubin (0.2-1.3) mg/dL AST (17-59) U/L ALT (6-50) U/L Alkaline Phosphatase (38-126) U/L Troponin I (0.000-0.034) ng/mL Total Protein (6.3-8.2) g/dL Albumin (3.5-5.1) g/dL Urine Color (Yellow) Urine Appearance (Clear) Urine pH (5.0-9.0) Ur Specific [place] (1.001-1.035) Urine Protein (Negative) mg/dL Urine Glucose (UA) (Negative) mg/dL Urine Ketones (Negative) mg/dL Ur Blood (Man) (Negative) Urine Nitrate (Negative) Urine Bilirubin (Negative) Urine Urobilinogen (<2.0) mg/dL Leukocyte Esterase Rfl (Negative) MARICRUZ/UL Urine RBC (0-2) /hpf Urine WBC (0-3) /hpf Ur Squamous Epith Cells (Few) /hpf Urine Bacteria /hpf Urine Casts Discharge Plan Discharge Clinical Impression: Weakness, Dehydration Patient Disposition: Home, Self-Care Condition: Improved Instructions: Antibiotic Form, Dehydration (DC), Weakness (ED) Patient Language: Nepali Prescriptions: No Action aspirin [Adult Aspirin Regimen] 81 mg tablet,delayed release (DR/EC) 81 mg PO DAILY vitamin [id number] 500-400 mcg tablet 1 tablet PO DAILY Rx Instructions: administer with a meal glipizide 10 mg Tablet 20 mg PO BIDAC cyanocobalamin (vitamin B-12) [Vitamin B-12] 1,000 mcg Tablet 1,000 mcg PO DAILY divalproex 500 mg Tablet Extended Release 24 Hr 1,000 mg PO DAILY metoprolol tartrate 50 mg Tablet 50 mg PO DAILY metoprolol tartrate 50 mg Tablet 75 mg PO QPM hydrochlorothiazide 25 mg Tablet 25 mg PO DAILY lisinopril 40 mg Tablet 10 mg PO DAILY cholecalciferol (vitamin D3) [Vitamin D3] 25 mcg (1,000 unit) Capsule 25 mcg PO DAILY [id number] [MegaRed [place]-3 Krill Oil] [phone] mg Capsule 1 cap PO DAILY tamsulosin 0.4 mg Capsule 0.4 mg PO QAM 30 Days Qty: 30 0RF (DME) insulin syringe-needle U-100 [BD Insulin Syringe] 1 mL 28 gauge x 1/2 syringe See Rx Instructions .ROUTE .MEDSUPPLY Qty: 100 0RF Rx Instructions: As directed metformin 1,000 mg tablet 1,000 mg PO BIDWM 30 Days Qty: 60 0RF Follow-up/Referrals: [facility] [Primary Care Provider] -
--- OUTSIDE RECORDS SUMMARY | 2024-07-25 14:58 | XMS_ITS | Continuity of Care Document ---
Author Name [facility] Organization [facility] Care Team Providers Care Mainframe Systems Programmer Name Role Phone [facility] Unavailable Unavailable Problems Combined list of problems from Department of Defense and Veterans Affairs facilities. It does not include entries that were removed or entered in error. Problem Status Onset Date Problem Type Date of Resolution Comments Source Abnormal liver function Active Condition [facility] Benign hypertension (SNOMED CT 80109720) Active Condition [facility] Benign prostatic hyperplasia Active Condition [facility] Bipolar disorder Active Condition Mar 15, 2016 Entered By: ANDRIY JUDD Comment: psychotic features [facility] Bipolar Disorder Active Condition [facility] Bipolar Disorder NOS * (ICD-9-CM 296.7/296.80) Active Condition [facility] Bipolar I Disorder, most Recent Episode Manic, Severe, with Psychotic Features ( Active Condition [facility] Chronic kidney disease Active Condition [facility] Diabetes mellitus Active Condition [facility] Diabetes mellitus (SNOMED CT 41928770) Active Condition [facility] Diabetes Mellitus Type II or unspecified * (ICD-9-CM 250.00) Active Condition [facility] Essential hypertension Active Condition [facility] Exposure to potentially hazardous substance Active Condition [facility] Family History of Malignant Neoplasm of Gastrointestinal Tract (ICD-9-CM V16.0) Active Condition [facility] Health maintenance alteration Active Condition Mar 13, [...] History of male erectile disorder Active Condition [facility] Hypercholesterolemia Active Condition [facility] Hyperlipidemia Active Condition [facility] Hyperlipidemia (SNOMED CT 23831051) Active Condition [facility] Hyperparathyroidism Active Condition [facility] Hypertension Active Condition [facility] Knee pain Active Condition [facility] LBP * (ICD-9-CM 724.2) Active Condition [facility] Low back pain Active Condition [facility] Low Back Pain Active Condition [facility] Male erectile disorder (ICD-9-CM 302.72/607.84) Active Condition [facility] Myalgia caused by statin Active Condition [facility] Nonspecific abnormal findings (radiological) of abdominal area, including retrop Active Condition Nov 04 8 Entered By: AWILDA MCNEAL Comment: ABNL RENAL US. PT DECLINES TO DO CT/MRI [facility] Obesity Active Condition [facility] Obesity * (ICD-9-CM 278.00) Active Condition [facility] Osteoarthritis of knee (SNOMED CT 743212609) [facility] Overweight [facility] Pain in left knee Active Condition [facility] Pain in right foot Active Condition [facility] Polycythemia Active Condition [facility] Polycythemia Active Condition [facility] Primary hyperparathyroidism Active Condition [facility] Primary Hyperparathyroidism (ICD-9-CM 252.01) Active Condition [facility] Schizoaffective disorder (SNOMED CT 84952475) Active Condition [facility] Soft tissue swelling Active Condition [facility] Tobacco Use Disorder Active Condition Mar 13, 2003 Entered By: AWILDA MCNEAL Comment: 59 pk yr and continues at 2ppd [facility] Vertigo Active Condition [facility] Vitamin B12 deficiency (non anaemic) Active Condition Feb 09, 2017 Entered By: KORINA KWAN Comment: refuses supplement [facility] Vitamin D deficiency Active Condition [facility] Anxiety Disorder * (ICD-9-CM 300.00) Inactive Condition 02/09/2017 [facility] Diabetes Mellitus without mention of Complication, type II or unspecified type, Inactive Condition 02/09/2017 [facility] Hypertension * (ICD-9-CM 401.9) Inactive Condition 02/09/2017 [facility] Liver function tests abnormal Inactive Condition 02/09/2017 [facility] Sinusitis * (ICD-9-CM 473.9) Inactive Condition 01/03/2014 [facility] Tobacco Use * (ICD-9-CM 305.1) Inactive Condition 03/15/2016 [facility] URI (ICD-9-CM 465.9) Inactive Condition 01/03/2014 [facility] Diagnosis: ICD-10-CM Z00.00 Encntr for general adult medical exam w/o abnormal findings Active Diagnosis [facility] Diagnosis: ICD-10-CM E11.9 Type 2 diabetes mellitus without complications Active Diagnosis [facility] Diagnosis: ICD-10-CM M25.561 Pain in right knee Active Diagnosis [facility] Diagnosis: ICD-10-CM F25.9 Schizoaffective disorder, unspecified Active Diagnosis [facility] Diagnosis: ICD-10-CM R53.1 Weakness Active Diagnosis [facility] Diagnosis: ICD-10-CM R63.4 Abnormal weight loss Active Diagnosis [facility] Diagnosis: ICD-10-CM H61.21 Impacted cerumen, right ear Active Diagnosis [facility] Diagnosis: ICD-10-CM Z74.1 Need for assistance with personal care Active Diagnosis [facility] Medications Combined list of outpatient medications [...] A DAY ORAL ACTIVE KETTY JUDD 2015 [facility] N ASPIRIN 81MG TAB,EC TAKE ONE TABLET BY MOUTH EVERY DAY ORAL ACTIVE MYAU DAY R 2007 [facility] CARBAMIDE PEROXIDE 6.5%/GLYCER IN SOLN,OTIC INSTILL 2 DROPS IN RIGHT EAR TWICE A DAY FOR EAR WAX BLOCKAGE AURICU LAR (OTIC) ACTIVE 07/31/2024 [id number] MOSERCASSIA VIER E 2023 15 [facility] DIVISIO N CHOLECALCIF LINDA (LOW DOSE VIT D) - (OTC) TAB TAKE 1000UNIT BY MOUTH ONCE A DAY ORAL ACTIVE STOUTENBO NACHO,[facility] I[facility] M 2023 [facility] DIV[facility]IO N CYANOCOBALA MIN 1000MCG TAB TAKE ONE TABLET BY MOUTH EVERY OTHER DAY ORAL ACTIVE STOUTENBO ROUGH,[facility] M 2023 [facility] DIVIS[facility] N DICLOFENAC NA 1% GEL,TOP APPLY 4 GM TO AFFECTED AREA(S) FOUR TIMES A DAY NEEDED NO MORE THAN 16 GM/DAY TO ANY LOWER EXTREMIT Y JOINT. NO MORE THAN 8 GM/DAY TO ANY UPPER EXTREMIT Y JOINT. MAX 32GM/DAY OVER ALL JOINTS.( MEASURE DOSE WITH RULER INSIDE BOX) TOPICA L ACTIVE 06/13/2025 [id number] 5 AISHAANEL SSA S 2024 100 [facility] DIVISIO N DIVALPROEX NA 500MG TAB,SA TAKE TWO TABLETS BY MOUTH AT BEDTIME FOR BIPOLAR DISORDER ORAL ACTIVE 04/23/2025 [id number] 5 LOITERSTE IN,ARIEL A 2023 180 [facility] DIVISIO N DIVALPROEX NA 500MG TAB,SA TAKE TWO TABLETS BY MOUTH AT BEDTIME FOR BIPOLAR DISORDER ORAL DISCONT INUED 04/26/2024 [id number] LOITERSTE INARIEL A 2022 180 [facility] DIVISIO N GLIPIZIDE 10MG TAB TAKE TWO TABLETS BY MOUTH TWO TIMES A DAY BEFORE MEALS FOR DIABETES . TAKE 30 MINUTES BEFORE EATING. ORAL ACTIVE 06/13/2025 [id number] 5 ANEL LEONARD SSA S 2024 360 [facility] DIVISIO N GLIPIZIDE 10MG TAB TAKE TWO TABLETS BY MOUTH TWO TIMES A DAY BEFORE MEALS FOR DIABETES . TAKE 30 MINUTES BEFORE EATING. ORAL DISCONT INUED 09/07/2024 [id number] 4 CYNDYEVINMaryanne GRIFFITHB[facility] MEDICAL CENTERJAGUAR M 2023 360 [facility] DIVISIO N GLIPIZIDE 10MG TAB TAKE TWO TABLETS BY MOUTH TWO TIMES A DAY BEFORE MEALS FOR DIABETES . TAKE 30 MINUTES BEFORE EATING. ORAL DISCONT INUED 03/09/2024 [id number] 4 CYNDYSAMMIE NACH[facility]BE MEDICAL CENTER[facility]AGUAR 2022 360 [facility] DIVISIO N HYDROCHLORO THIAZIDE 25MG TAB TAKE ONE TABLET BY MOUTH ONCE A DAY FOR HIGH BLOOD PRESSURE ORAL ACTIVE 06/13/2025 [id number] 5 ANEL LEONARD SSA S 2024 90 [facility] DIVISIO N HYDROCHLORO THIAZIDE 25MG TAB TAKE ONE TABLET BY MOUTH ONCE A DAY FOR HIGH BLOOD PRESSURE ORAL DISCONT INUED 06/23/2024 [id number] 4 ANEL LEONARD SSA S 2023 90 [facility] DIVISIO N HYDROCHLORO THIAZIDE 25MG TAB TAKE ONE TABLET BY MOUTH ONCE A DAY FOR HIGH BLOOD PRESSURE ORAL DISCONT INUED 03/19/2024 [id number] [facility]NDYSAMMIE [facility] I[facility] M 2023 90 [facility] DIVISIO N HYDROCHLORO THIAZIDE 25MG TAB TAKE ONE TABLET BY MOUTH ONCE A DAY FOR BLOOD PRESSURE ORAL DISCONT INUED BY PRECIOUS R 09/07/2024 [id number] 4 CYNDYEVINMaryanne [facility]ITH[facility] I[facility] M 2023 90 [facility] DIVISIO N HYDROCHLORO THIAZIDE 25MG TAB TAKE ONE TABLET BY MOUTH ONCE A DAY FOR BLOOD PRESSURE ORAL DISCONT INUED 03/09/2024 [id number] 4 [facility] 2022 90 [facility] DIVISIO N LISINOPRIL 40MG TAB TAKE ONE TABLET BY MOUTH ONCE A DAY FOR HEART OR BLOOD PRESSURE ORAL SUSPEND ED 06/13/2025 [id number] 5 [facility] S 2024 90 [facility] DIVISIO N LISINOPRIL 40MG TAB TAKE ONE TABLET BY MOUTH ONCE A DAY FOR HEART OR BLOOD PRESSURE ORAL DISCONT INUED 09/07/2024 [id number] 5 DHARACOLLEGE POINTEVIN [facility] [place] [address] [place] [address] DIVISIO N LISINOPRIL 40MG TAB TAKE ONE TABLET BY MOUTH ONCE A DAY FOR HEART OR BLOOD PRESSURE ORAL DISCONT INUED 03/09/2024 [id number] 4 [facility] 2022 90 [facility] DIVISIO N MENTHOL/MET HYL SALICYLATE (10-15%) LOW CONC. CREAM,TOP APPLY LIGHTLY TO AFFECTED AREA(S) FOUR TIMES A DAY FOR NECK MUSCLE DISCOMFO RT/PAIN. (EXTERNA L USE ONLY) TOPICA L ACTIVE 06/13/2025 [id number] 5 ANEL LEONARD SSA S 2024 90 [facility] DIVISIO N MENTHOL/MET HYL SALICYLATE (10-15%) LOW CONC. CREAM,TOP APPLY LIGHTLY TO AFFECTED AREA(S) FOUR TIMES A DAY FOR NECK MUSCLE DISCOMFO RT/PAIN. (EXTERNA L USE ONLY) TOPICA L DISCONT INUED 05/04/2024 [id number] 4 [facility] 2022 90 [facility] DIVISIO N METFORMIN HCL 1000MG TAB TAKE ONE TABLET BY MOUTH TWICE A DAY WITH MEALS FOR BLOOD SUGAR CONTROL. TAKE WITH FOOD. AVOID ALCOHOL. DISCONTI NUE BEFORE GETTING XRAY DYE. ORAL DISCONT INUED BY PROVIDE R 03/09/2024 [id number] 4 NADEEN LEE 2022 180 [facility] DIVISIO N METFORMIN HCL 500MG 24HR TAB,SA TAKE TWO TABLETS BY MOUTH TWICE A DAY TAKE WITH FOOD. AVOID ALCOHOL. DISCONTI NUE BEFORE GETTING XRAY DYE. ORAL ACTIVE 06/13/2025 [id number] 5 ANEL LEONARD SSA S 2024 360 [facility] DIVISIO N METFORMIN HCL 500MG 24HR TAB,SA TAKE TWO TABLETS BY MOUTH TWICE A DAY TAKE WITH FOOD. AVOID ALCOHOL. DISCONTI NUE BEFORE GETTING XRAY DYE. ORAL DISCONT INUED 12/09/2024 [id number] 4 NADEEN LEE 2023 120 [facility] DIVISIO N METFORMIN HCL 500MG 24HR TAB,SA TAKE TWO TABLETS BY MOUTH TWICE A DAY FOR DIABETES TAKE WITH FOOD. AVOID ALCOHOL. DISCONTI NUE BEFORE GETTING XRAY DYE. ORAL DISCONT INUED (EDIT) 09/07/2024 [id number] 4 NADEEN LEE 2023 120 [facility] DIVISIO N METFORMIN HCL 500MG 24HR TAB,SA TAKE TWO TABLETS BY MOUTH TWICE A DAY FOR DIABETES TAKE WITH FOOD. AVOID ALCOHOL. DISCONTI NUE BEFORE GETTING XRAY DYE. ORAL DISCONT INUED 09/07/2024 [id number] 4 NADEEN LEE 2023 360 [facility] DIVISIO N METOPROLOL TARTRATE 50MG TAB TAKE ONE AND ONE-HALF TABLETS BY MOUTH TWICE A DAY FOR HEART/BL OOD PRESSURE . TAKE WITH OR IMMEDIAT MALCOLM FOLLOWIN G FOOD. ORAL ACTIVE 06/13/2025 [id number] 5 ANEL LEONARD SSA S 2024 270 [facility] DIVISIO N METOPROLOL TARTRATE 50MG TAB TAKE ONE AND ONE-HALF TABLETS BY MOUTH TWICE A DAY FOR HEART/BL OOD PRESSURE . TAKE WITH OR IMMEDIAT MALCOLM FOLLOWIN G FOOD. ORAL DISCONT INUED 09/07/2024 [id number] 4 [facility] GRIFFITH,[facility] 2023 270 [facility] DIVISIO N METOPROLOL TARTRATE 50MG TAB TAKE ONE AND ONE-HALF TABLETS BY MOUTH TWICE A DAY FOR HEART/BL OOD PRESSURE . TAKE WITH OR IMMEDIAT MALCOLM FOLLOWIN G FOOD. ORAL DISCONT INUED 11/10/2023 [id number] 4 [facility] 2022 270 [facility] DIVISIO N TAMSULOSIN HCL 0.4MG CAP TAKE ONE CAPSULE BY MOUTH EVERY EVENING APPROXIM ATELY 30 MINUTES AFTER THE SAME MEAL EACH DAY (FOR PROSTATE ) ORAL ACTIVE 06/13/2025 [id number] 5 ANEL LEONARD S 2024 90 [facility] DIVISIO N TAMSULOSIN HCL 0.4MG CAP TAKE ONE CAPSULE BY MOUTH EVERY EVENING APPROXIM ATELY 30 MINUTES AFTER THE SAME MEAL EACH DAY (FOR PROSTATE ) ORAL DISCONT INUED 12/04/2024 [id number] 4 [facility] 2023 90 [facility] DIVISIO N TAMSULOSIN HCL 0.4MG CAP TAKE ONE CAPSULE BY MOUTH EVERY EVENING APPROXIM ATELY 30 MINUTES AFTER THE SAME MEAL EACH DAY (FOR PROSTATE ) ORAL DISCONT INUED 04/24/2024 [id number] 4 [facility] 2022 90 [facility] DIVISIO N ZINC OXIDE 20% OINT,TOP APPLY LIBERALL Y TO AFFECTED AREA(S) THREE TIMES A DAY NEEDED TOPICA L ACTIVE 06/13/2025 [id number] 5 ANEL LEOANRD SSA S 2024 60 [facility] DIVISIO N Allergies, Adverse Reactions, Alerts Combined [...] to drug (finding) Muscle pain active 2 [facility] GEMFIBROZIL Propensity to adverse reactions to drug (finding) Nausea, Diarrhea active 7 [facility] GEMFIBROZIL Propensity to adverse reactions to drug (finding) Diarrhea, Nausea active 8 [facility] GEMFIBROZIL Propensity to adverse reactions to drug (finding) Nausea and vomiting, Diarrhea active 2 [facility] LITHIUM Propensity to adverse reactions to drug (finding) TREMORS active 3 [facility] LITHIUM Propensity to adverse reactions to drug (finding) Tremor active 8 [facility] LITHIUM Propensity to adverse reactions to drug (finding) Anaphylaxis active 7 [facility] LOVASTATIN Propensity to adverse reactions to drug (finding) active 7 [facility] LOVASTATIN Propensity to adverse reactions to drug (finding) Muscle pain active 2 [facility] METHOCARBAMO L Propensity to adverse reactions to drug (finding) Sedated active 2 [facility] ROSUVASTATIN Propensity to adverse reactions to drug (finding) active 0 [facility] Immunizations Combined list of available immunizations from the Department of Defense and Veterans Affairs facilities. Immunization Series Date Given Administered By Site Reaction Lot Number CVX Code Drug Career Transition Specialist Status Comments Source PNEUMOCOCCAL CONJUGATE PCV 13 2018 133 complet ed [facility] N TDAP 2018 115 complet ed Right Deltoid [facility] DIVISIO N INFLUENZA, UNSPECIFIED FORMULATION 2017 88 complet ed [facility] DIV[facility]IO N INFLUENZA, UNSPECIFIED FORMULATION 2016 88 complet ed [facility] DIV[facility] N INFLUENZA, SEASONAL, INJECTABLE 2014 141 complet ed [facility] PNEUMOCOCCAL CONJUGATE PCV 13 2014 133 complet ed [facility] INFLUENZA, UNSPECIFIED FORMULATION 2013 88 complet ed [facility] INFLUENZA, UNSPECIFIED FORMULATION 2012 88 complet ed [facility] INFLUENZA, UNSPECIFIED FORMULATION 2011 88 complet ed [facility] INFLUENZA, UNSPECIFIED FORMULATION 2010 88 complet ed [facility] INFLUENZA, UNSPECIFIED FORMULATION 2009 88 complet ed [facility] TDAP 2009 115 complet ed [facility] NOVEL INFLUENZA-H1N 1-09, ALL FORMULATIONS 2009 128 complet ed [facility] PNEUMOCOCCAL, UNSPECIFIED FORMULATION 2008 109 complet ed [facility] DIV[facility] N INFLUENZA, UNSPECIFIED FORMULATION 2008 88 complet ed [facility] DIV[facility] N NOVEL INFLUENZA-H1N 1-09, ALL FORMULATIONS 2008 128 complet ed [facility] DIV[facility]IO N INFLUENZA, UNSPECIFIED FORMULATION 2008 88 complet ed [facility] PNEUMOCOCCAL, UNSPECIFIED FORMULATION 2008 109 complet ed [facility] Results Combined list of recent chemistry, hematology [...] comment entered. Ordering Provider: LIONEL LEONARD SA Report Released Date/Time: Jun 12, 2024 02:27 PM Reporting Lab: [facility] [address] [facility] [id number] Performing Lab: [facility] [address] [facility] [id number] [facility] CBC LEUKOCYTES [#/VOLUME] IN BLOOD BY AUTOMATED COUNT 7.2 10*3/uL 3.6 - 11.2 07/19 Specimen Type: BLOOD No comment entered. Ordering Provider: ESME WHITEHEAD Report Released Date/Time: Jul 19, 2023 12:13 PM Reporting Lab: [facility] [place] [address] Performing Lab: [facility] DIV[facility] #[address] DIVISION CBC ERYTHROCYT ES [#/VOLUME] IN BLOOD BY AUTOMATED COUNT 4.76 10*6/uL 4.10 - 5.70 07/19 Specimen Type: BLOOD No comment entered. Ordering Provider: ESME WHITEHEAD Report Released Date/Time: Jul 19, 2023 12:13 PM Reporting Lab: [facility] [place] [address] Performing Lab: [facility] CBC HEMOGLOBIN [MASS/VOLU ME] IN BLOOD 14.2 g/dL 13.1 - 16.8 07/19 Specimen Type: BLOOD No comment entered. Ordering Provider: ESME WHITEHEAD Report Released Date/Time: Jul 19, 2023 12:13 PM Reporting Lab: [facility] [place] [address] Performing Lab: [facility] CBC HEMATOCRIT [VOLUME FRACTION] OF BLOOD 42.3 38.2 - 48.4 07/19 Specimen Type: BLOOD No comment entered. Ordering Provider: ESME WHITEHEAD Report Released Date/Time: Jul 19, 2023 12:13 PM Reporting Lab: [facility] [place] [address] Performing Lab: [facility] DIVISION CBC MCV [ENTITIC VOLUME] BY AUTOMATED COUNT 88.9 fL 80.0 - 100.0 07/19 Specimen Type: BLOOD No comment entered. Ordering Provider: ESME WHITEHEAD Report Released Date/Time: Jul 19, 2023 12:13 PM Reporting Lab: [facility] [place] [address] Performing Lab: [facility] DIVISION CBC MCH [ENTITIC MASS] BY AUTOMATED COUNT 29.8 pg 27.0 - 34.0 07/19 Specimen Type: BLOOD No comment entered. Ordering Provider: ESME WHITEHEAD Report Released Date/Time: Jul 19, 2023 12:13 PM Reporting Lab: [facility] [place] [address] Performing Lab: [facility] DIVISION CBC MCHC [MASS/VOLU ME] BY AUTOMATED COUNT 33.6 g/dL 33.0 - 36.0 07/19 Specimen Type: BLOOD No comment entered. Ordering Provider: ESME WHITEHEAD Report Released Date/Time: Jul 19, 2023 12:13 PM Reporting Lab: [facility] [place] [address] Performing Lab: [facility] DIVISION CBC PLATELETS [#/VOLUME] IN BLOOD BY AUTOMATED COUNT 128 10*3/uL 150 - 400 07/19 L Specimen Type: BLOOD No comment entered. Ordering Provider: ESME WHITEHEAD Report Released Date/Time: Jul 19, 2023 12:13 PM Reporting Lab: [facility] [place] [address] Performing Lab: [facility] DIVISION CBC PLATELET MEAN VOLUME [ENTITIC VOLUME] IN BLOOD BY AUTOMATED COUNT 10.5 fL 7.5 - 11.2 07/19 Specimen Type: BLOOD No comment entered. Ordering Provider: ESME WHITEHEAD Report Released Date/Time: Jul 19, 2023 12:13 PM Reporting Lab: [facility] [place] [address] Performing Lab: [facility] DIV[facility] #[address] DIVISION CBC ERYTHROCYT E DISTRIBUTI ON WIDTH [RATIO] BY AUTOMATED COUNT 13.7 11.8 - 15.1 07/19 Specimen Type: BLOOD No comment entered. Ordering Provider: ESME WHITEHEAD Report Released Date/Time: Jul 19, 2023 12:13 PM Reporting Lab: [facility] [place] [address] Performing Lab: [facility] #[address] DIVISION CBC LYMPHOCYTE S/100 LEUKOCYTES IN BLOOD BY AUTOMATED COUNT 23 07/19 Specimen Type: BLOOD No comment entered. Ordering Provider: ESME WHITEHEAD Report Released Date/Time: Jul 19, 2023 12:13 PM Reporting Lab: [facility] [place] [address] Performing Lab: [facility] DIVISION CBC MONOCYTES/ 100 LEUKOCYTES IN BLOOD BY AUTOMATED COUNT 7 07/19 Specimen Type: BLOOD No comment entered. Ordering Provider: ESME WHITEHEAD Report Released Date/Time: Jul 19, 2023 12:13 PM Reporting Lab: [facility] [place] [address] Performing Lab: [facility] #[address] DIVISION CBC NEUTROPHIL S/100 LEUKOCYTES IN BLOOD BY AUTOMATED COUNT 68 07/19 Specimen Type: BLOOD No comment entered. Ordering Provider: ESME WHITEHEAD Report Released Date/Time: Jul 19, 2023 12:13 PM Reporting Lab: [facility] [place] [address] Performing Lab: [facility] DIV[facility] #[address] DIVISION CBC EOSINOPHIL S/100 LEUKOCYTES IN BLOOD BY AUTOMATED COUNT 1 07/19 Specimen Type: BLOOD No comment entered. Ordering Provider: ESME WHITEHEAD Report Released Date/Time: Jul 19, 2023 12:13 PM Reporting Lab: [facility] [place] [address] Performing Lab: [facility] DIVISION CBC BASOPHILS/ 100 LEUKOCYTES IN BLOOD BY AUTOMATED COUNT 0 07/19 Specimen Type: BLOOD No comment entered. Ordering Provider: ESME WHITEHEAD Report Released Date/Time: Jul 19, 2023 12:13 PM Reporting Lab: [facility] [place] [address] Performing Lab: [facility] CBC LYMPHOCYTE S [#/VOLUME] IN BLOOD BY AUTOMATED COUNT 1.66 10*3/uL 0.77 - 4.50 07/19 Specimen Type: BLOOD No comment entered. Ordering Provider: ESME WHITEHEAD Report Released Date/Time: Jul 19, 2023 12:13 PM Reporting Lab: [facility] [place] [address] Performing Lab: [facility] DIV[facility] #[address] DIVISION CBC MONOCYTES [#/VOLUME] IN BLOOD BY AUTOMATED COUNT 0.51 10*3/uL 0.19 - 0.80 07/19 Specimen Type: BLOOD No comment entered. Ordering Provider: ESME WHITEHEAD Report Released Date/Time: Jul 19, 2023 12:13 PM Reporting Lab: [facility] [place] [address] Performing Lab: [facility] DIVISION CBC NEUTROPHIL S [#/VOLUME] IN BLOOD BY AUTOMATED COUNT 4.89 10*3/uL 2.10 - 8.00 07/19 Specimen Type: BLOOD No comment entered. Ordering Provider: ESME WHITEHEAD Report Released Date/Time: Jul 19, 2023 12:13 PM Reporting Lab: [facility] [place] [address] Performing Lab: [facility] DIVISION CBC EOSINOPHIL S [#/VOLUME] IN BLOOD BY AUTOMATED COUNT 0.08 10*3/uL 0.00 - 0.60 07/19 Specimen Type: BLOOD No comment entered. Ordering Provider: ESME WHITEHEAD Report Released Date/Time: Jul 19, 2023 12:13 PM Reporting Lab: [facility]1 [place] [address] Performing Lab: [facility] DIVISION CBC BASOPHILS [#/VOLUME] IN BLOOD BY AUTOMATED COUNT 0.03 10*3/uL 0.00 - 0.20 07/19 Specimen Type: BLOOD No comment entered. Ordering Provider: ESME WHITEHEAD Report Released Date/Time: Jul 19, 2023 12:13 PM Reporting Lab: [facility]1 [place] [id number] Performing Lab: [facility] DIV[facility] DIVISION CBC PLATELETS RETICULATE D/100 PLATELETS IN BLOOD BY AUTOMATED COUNT 3.6 1.0 - 7.0 07/19 Specimen Type: BLOOD No comment entered. Ordering Provider: ESME WHITEHEAD Report Released Date/Time: Jul 19, 2023 12:13 PM Reporting Lab: [facility]1 [place] [address] Performing Lab: [facility] DIVISION COMPREHEN SIVE METABOLIC PANEL CREATININE [MASS/VOLU ME] IN SERUM OR PLASMA 1.49 mg/dL 0.70 - 1.30 07/19 H Specimen Type: PLASMA Comment: Specimen slightly hemolyzed. K result may show a positive bias due to hemolysis. Ordering Provider: ESME WHITEHEAD Report Released Date/Time: Jul 19, 2023 12:13 PM Reporting Lab: [facility]1 [place] [address] Performing Lab: [facility] DIVISION COMPREHEN SIVE METABOLIC PANEL UREA NITROGEN [MASS/VOLU ME] IN SERUM OR PLASMA 24.9 mg/dL 9.0 - 25.0 07/19 Specimen Type: PLASMA Comment: Specimen slightly hemolyzed. K result may show a positive bias due to hemolysis. Ordering Provider: ESME WHITEHEAD Report Released Date/Time: Jul 19, 2023 12:13 PM Reporting Lab: [facility]1 [place] [address] Performing Lab: [facility] DIVISION COMPREHEN SIVE METABOLIC PANEL GLUCOSE [MASS/VOLU ME] IN SERUM OR PLASMA 165 mg/dL 72 - 99 07/19 H Specimen Type: PLASMA Comment: Specimen slightly hemolyzed. K result may show a positive bias due to hemolysis. Ordering Provider: ESME WHITEHEAD Report Released Date/Time: Jul 19, 2023 12:13 PM Reporting Lab: [facility]1 [place] [address] Performing Lab: [facility] DIVISION COMPREHEN SIVE METABOLIC PANEL SODIUM [MOLES/VOL UME] IN SERUM OR PLASMA 143 meq/L 136 - 145 07/19 Specimen Type: PLASMA Comment: Specimen slightly hemolyzed. K result may show a positive bias due to hemolysis. Ordering Provider: ESME WHITEHEAD Report Released Date/Time: Jul 19, 2023 12:13 PM Reporting Lab: [facility]1 [place] [address] Performing Lab: [facility] DIVISION COMPREHEN SIVE METABOLIC PANEL POTASSIUM [MOLES/VOL UME] IN SERUM OR PLASMA 4.4 meq/L 3.5 - 5.0 07/19 Specimen Type: PLASMA Comment: Specimen slightly hemolyzed. K result may show a positive bias due to hemolysis. Ordering Provider: ESME WHITEHEAD Report Released Date/Time: Jul 19, 2023 12:13 PM Reporting Lab: [facility]1 [place] [address] Performing Lab: [facility] #[address] DIVISION COMPREHEN SIVE METABOLIC PANEL CHLORIDE [MOLES/VOL UME] IN SERUM OR PLASMA 106 meq/L 98 - 107 07/19 Specimen Type: PLASMA Comment: Specimen slightly hemolyzed. K result may show a positive bias due to hemolysis. Ordering Provider: ESME WHITEHEAD Report Released Date/Time: Jul 19, 2023 12:13 PM Reporting Lab: [facility]1 [place] [address] Performing Lab: [facility] DIVISION COMPREHEN SIVE METABOLIC PANEL CARBON DIOXIDE, TOTAL [MOLES/VOL UME] IN SERUM OR PLASMA 26 meq/L 22 - 31 07/19 Specimen Type: PLASMA Comment: Specimen slightly hemolyzed. K result may show a positive bias due to hemolysis. Ordering Provider: ESME WHITEHEAD Report Released Date/Time: Jul 19, 2023 12:13 PM Reporting Lab: [facility]1 [place] [address] Performing Lab: [facility] #[address] DIVISION COMPREHEN SIVE METABOLIC PANEL CALCIUM [MASS/VOLU ME] IN SERUM OR PLASMA 10.1 mg/dL 8.4 - 10.4 07/19 Specimen Type: PLASMA Comment: Specimen slightly hemolyzed. K result may show a positive bias due to hemolysis. Ordering Provider: ESME WHITEHEAD Report Released Date/Time: Jul 19, 2023 12:13 PM Reporting Lab: [facility]1 [place] [address] Performing Lab: [facility] #[address] DIVISION COMPREHEN SIVE METABOLIC PANEL PROTEIN [MASS/VOLU ME] IN SERUM OR PLASMA 7.9 g/dL 6.0 - 8.6 07/19 Specimen Type: PLASMA Comment: Specimen slightly hemolyzed. K result may show a positive bias due to hemolysis. Ordering Provider: ESME WHITEHEAD Report Released Date/Time: Jul 19, 2023 12:13 PM Reporting Lab: [facility]1 [place] [address] Performing Lab: [facility] #[address] DIVISION COMPREHEN SIVE METABOLIC PANEL ALBUMIN [MASS/VOLU ME] IN SERUM OR PLASMA 4.3 g/dL 3.4 - 5.0 07/19 Specimen Type: PLASMA Comment: Specimen slightly hemolyzed. K result may show a positive bias due to hemolysis. Ordering Provider: ESME WHITEHEAD Report Released Date/Time: Jul 19, 2023 12:13 PM Reporting Lab: [facility]1 [place] [address] Performing Lab: [facility] DIV[facility] #[address] DIVISION COMPREHEN SIVE METABOLIC PANEL BILIRUBIN. TOTAL [MASS/VOLU ME] IN SERUM OR PLASMA 0.5 mg/dL 0.2 - 1.2 07/19 Specimen Type: PLASMA Comment: Specimen slightly hemolyzed. K result may show a positive bias due to hemolysis. Ordering Provider: ESME WHITEHEAD Report Released Date/Time: Jul 19, 2023 12:13 PM Reporting Lab: [facility]1 [place] [address] Performing Lab: [facility] DIV[facility] #[address] DIVISION COMPREHEN SIVE METABOLIC PANEL ALKALINE PHOSPHATAS E [ENZYMATIC ACTIVITY/V OLUME] IN SERUM OR PLASMA 58 U/L 40 - 150 07/19 Specimen Type: PLASMA Comment: Specimen slightly hemolyzed. K result may show a positive bias due to hemolysis. Ordering Provider: ESME WHITEHEAD Report Released Date/Time: Jul 19, 2023 12:13 PM Reporting Lab: [facility]1 [place] [address] Performing Lab: [facility] [address] COMPREHEN SIVE METABOLIC PANEL ASPARTATE AMINOTRANS FERASE [ENZYMATIC ACTIVITY/V OLUME] IN SERUM OR PLASMA 20 U/L 5 - 34 07/19 Specimen Type: PLASMA Comment: Specimen slightly hemolyzed. K result may show a positive bias due to hemolysis. Ordering Provider: ESME WHITEHEAD Report Released Date/Time: Jul 19, 2023 12:13 PM Reporting Lab: [facility] #1 [place] [address] Performing Lab: [facility] DIVISION #[address] COMPREHEN SIVE METABOLIC PANEL ALANINE AMINOTRANS FERASE [ENZYMATIC ACTIVITY/V OLUME] IN SERUM OR PLASMA 22 U/L 8 - 40 07/19 Specimen Type: PLASMA Comment: Specimen slightly hemolyzed. K result may show a positive bias due to hemolysis. Ordering Provider: ESME WHITEHEAD Report Released Date/Time: Jul 19, 2023 12:13 PM Reporting Lab: [facility] #1 [place] [address] Performing Lab: [facility] DIVISION #[address] COMPREHEN SIVE METABOLIC PANEL GLOMERULAR FILTRATION RATE/1.73 SQ M.PREDICTE D [VOLUME RATE/AREA] IN SERUM, PLASMA OR BLOOD BY CREATININE -BASED FORMULA (CKD-EPI 2020) 49.25 60 07/19 Specimen Type: PLASMA Comment: Specimen slightly hemolyzed. K result may show a positive bias due to hemolysis. Ordering Provider: ESME WHITEHEAD Report Released Date/Time: Jul 19, 2023 12:13 PM Reporting Lab: [facility] #1 [place] [address] Performing Lab: [facility] DIVISION #[address] DIVISION BASIC METABOLIC PANEL CREATININE [MASS/VOLU ME] IN SERUM OR PLASMA 1.58 mg/dL 0.70 - 1.30 05/04 H Specimen Type: PLASMA Comment: No hemolysis noted. Ordering Provider: ESME WHITEHEAD Report Released Date/Time: May 04, 2023 11:02 AM Reporting Lab: [facility] #1 [facility] [phone] Performing Lab: [facility] DIVISION #[address] DIVISION BASIC METABOLIC PANEL UREA NITROGEN [MASS/VOLU ME] IN SERUM OR PLASMA 25.2 mg/dL 9.0 - 25.0 05/04 H Specimen Type: PLASMA Comment: No hemolysis noted. Ordering Provider: ESME WHITEHEAD Report Released Date/Time: May 04, 2023 11:02 AM Reporting Lab: [facility] #1 [place] [address] Performing Lab: [facility] DIVISION #[address] DIVISION BASIC METABOLIC PANEL GLUCOSE [MASS/VOLU ME] IN SERUM OR PLASMA 142 mg/dL 72 - 99 05/04 H Specimen Type: PLASMA Comment: No hemolysis noted. Ordering Provider: ESME WHITEHEAD Report Released Date/Time: May 04, 2023 11:02 AM Reporting Lab: [facility] #1 [place] [address] Performing Lab: [facility] DIV[facility] #[address] DIVISION BASIC METABOLIC PANEL SODIUM [MOLES/VOL UME] IN SERUM OR PLASMA 142 meq/L 136 - 145 05/04 Specimen Type: PLASMA Comment: No hemolysis noted. Ordering Provider: ESME WHITEHEAD Report Released Date/Time: May 04, 2023 11:02 AM Reporting Lab: [facility] #1 [place] [address] Performing Lab: [facility]1 [facility] [phone] [facility] DIV[facility] BASIC METABOLIC PANEL POTASSIUM [MOLES/VOL UME] IN SERUM OR PLASMA 4.4 meq/L 3.5 - 5.0 05/04 Specimen Type: PLASMA Comment: No hemolysis noted. Ordering Provider: ESME WHITEHEAD Report Released Date/Time: May 04, 2023 11:02 AM Reporting Lab: [facility] #1 [place] [address] Performing Lab: [facility]1 [facility] [phone] [place] [address] BASIC METABOLIC PANEL CHLORIDE [MOLES/VOL UME] IN SERUM OR PLASMA 106 meq/L 98 - 107 05/04 Specimen Type: PLASMA Comment: No hemolysis noted. Ordering Provider: ESME WHITEHEAD Report Released Date/Time: May 04, 2023 11:02 AM Reporting Lab: [facility] #1 [place] [address] Performing Lab: [facility] DIVISION #[address] DIVISION BASIC METABOLIC PANEL CARBON DIOXIDE, TOTAL [MOLES/VOL UME] IN SERUM OR PLASMA 27 meq/L 22 - 31 05/04 Specimen Type: PLASMA Comment: No hemolysis noted. Ordering Provider: ESME WHITEHEAD Report Released Date/Time: May 04, 2023 11:02 AM Reporting Lab: [facility]1 [facility] [phone] Performing Lab: [facility] DIVISION #[address] DIVISION BASIC METABOLIC PANEL CALCIUM [MASS/VOLU ME] IN SERUM OR PLASMA 9.6 mg/dL 8.4 - 10.4 05/04 Specimen Type: PLASMA Comment: No hemolysis noted. Ordering Provider: ESME WHITEHEAD Report Released Date/Time: May 04, 2023 11:02 AM Reporting Lab: [facility]1 [facility] [phone] Performing Lab: [facility] DIVISION #1 [facility] [phone] DIVISION BASIC METABOLIC PANEL GLOMERULAR FILTRATION RATE/1.73 SQ M.PREDICTE D [VOLUME RATE/AREA] IN SERUM, PLASMA OR BLOOD BY CREATININE -BASED FORMULA (CKD-EPI 2020) 45.90 60 05/04 Specimen Type: PLASMA Comment: No hemolysis noted. Ordering Provider: ESME WHITEHEAD Report Released Date/Time: May 04, 2023 11:02 AM Reporting Lab: [facility]1 [facility] [phone] Performing Lab: [facility] #1 [facility] [phone] DIVISION HGA1C HEMOGLOBIN A1C/HEMOGL OBIN.TOTAL IN BLOOD 6.5 4.0 - 6.0 05/04 H Specimen Type: BLOOD No comment entered. Ordering Provider: ESME WHITEHEAD Report Released Date/Time: May 04, 2023 11:02 AM Reporting Lab: [facility]1 [facility] [phone] Performing Lab: [facility]1 [facility] [phone] Vital Signs Combined list of inpatient and outpatient Vital Signs from Department of Defense and Veterans Affairs, ranging from 12 months to all on record, depending upon the facility. Vital Sign Value Date Comments Source SYSTOLIC BLOOD PRESSURE 151 06/12/2024 10:16:01 [facility] DIASTOLIC BLOOD PRESSURE 80 06/12/2024 10:16:01 [facility] PULSE OXIMETRY 95 06/12/2024 10:16:01 [place] [facility] WEIGHT 204.1 06/12/2024 10:16:01 [facility] BMI 32 kg/m2 06/12/2024 10:16:01 [facility] DIV[facility] PAIN 0 06/12/2024 10:16:01 [facility] DIVISION TEMPERATURE 97.9 06/12/2024 10:16:01 [facility] DIVISION PULSE 63 06/12/2024 10:16:01 [facility] DIVISION RESPIRATION 16 06/12/2024 10:16:01 [facility] DIVISION SYSTOLIC BLOOD PRESSURE 173 09/07/2023 14:46:16 [facility] DIASTOLIC BLOOD PRESSURE 83 09/07/2023 14:46:16 [facility] DIV[facility] PULSE OXIMETRY 98 09/07/2023 14:46:16 [place] [facility] DIVISION WEIGHT 203.9 09/07/2023 14:46:16 [facility] DIVISION BMI 32 kg/m2 09/07/2023 14:46:16 [facility] DIVISION PAIN 0 09/07/2023 14:46:16 [facility] DIVISION TEMPERATURE 97.5 09/07/2023 14:46:16 [facility] DIV[facility] PULSE 64 09/07/2023 14:46:16 [facility] DIVISION RESPIRATION 16 09/07/2023 14:46:16 [facility] SYSTOLIC BLOOD PRESSURE 169 07/31/2023 08:52:32 [facility] DIVISION DIASTOLIC BLOOD PRESSURE 91 07/31/2023 08:52:32 [facility] DIV[facility] PULSE OXIMETRY 96 07/31/2023 08:52:32 [place] [facility] DIVISION WEIGHT 210.4 07/31/2023 08:52:32 [facility] DIVISION BMI 33 kg/m2 07/31/2023 08:52:32 [facility] DIV[facility] PAIN 0 07/31/2023 08:52:32 [facility] HEIGHT 67 07/31/2023 08:52:32 [facility] TEMPERATURE 97.5 07/31/2023 08:52:32 [facility] PULSE 64 07/31/2023 08:52:32 [facility] RESPIRATION 18 07/31/2023 08:52:32 [facility] Encounters Combined list of: 1) Encounters from Department of [facility] Affairs facilities going backup to the last 18 months, not all VA inpatient encounters are included; 2) Encounters from the Department of [facility] facilities going backup to 280 months. Location Location Details Encounter Type Encounter Number Reason For Visit Attending Provider ADM Date DC Date Status Disposition Source [facility] Encounter [id number] ESME WHITEHEAD 03/08 [facility] Encounter [id number] 03/15 [facility] Outpatient Encounter [id number] 03/22 [facility] Outpatient Encounter [id number] 04/03 [facility] Outpatient Encounter [id number] 04/11 [facility] Outpatient Encounter [id number] 04/15 [facility] Outpatient Encounter [id number] JIMBO KHANNA 04/17 [facility] N [facility] Outpatient Encounter [id number] Lyla DUARTE 04/22 [facility] N [facility] Outpatient Encounter [id number] 04/25 [facility] N [facility] Outpatient Encounter [id number] 05/04 [facility] OFFICE O/P EST MOD 30-39 MIN [id number] Diagnos is: ICD-10- CM E11.9 Type 2 diabete s mellitu s without complic ations ESME WHITEHEAD 05/04 [facility] Outpatient Encounter [id number] ELVIS MALDONADO E 05/11 [facility] Outpatient Encounter [id number] 05/11 [facility] Outpatient Encounter [id number] ESME WHITEHEAD 05/17 [facility] Outpatient Encounter [id number] 06/29 [facility] En[facility] [id number] 07/13 [facility] Encounter [id number] 07/13 [facility] Encounter [id number] ELIAS MISHRA 07/13 [facility] En[facility] [id number] ELVIS MALDONADO Y E 07/14 [facility] Outpatient Encounter [id number] 07/17 [facility] OFFICE O/P EST MOD 30 MIN [id number] Diagnos is: ICD-10- CM M25.561 Pain in right knee ESME WHITEHEAD M 07/19 [facility] END OF LIFE COUNSELING [id number] Diagnos is: ICD-10- CM Z74.1 Need for assista nce with Modesto Herrmann 07/19 [facility] OT EVAL MOD COMPLEX 45 MIN [id number] Diagnos is: ICD-10- CM R53.1 John BAANDDemian EW H 07/24 [facility] Outpatient Encounter [id number] 07/25 [facility] Outpatient Encounter [id number] 07/27 [facility] REMOVE IMPACTED EAR WAX UNI [id number] Diagnos is: ICD-10- CM H61.21 Impacte d cerumen , right ear STACEY MENDOZA 07/30 [facility] Outpatient Encounter [id number] 08/01 [facility] Outpatient Encounter [id number] 08/01 [facility] THERAPEUTI C EXERCISES [id number] Diagnos is: ICD-10- CM M25.561 Pain in right knee SHIRLEYYING L 08/10 [facility] Outpatient Encounter [id number] 08/10 [facility] Outpatient Encounter [id number] 08/13 [facility] Outpatient Encounter [id number] 08/16 [facility] GAIT TRAINING THERAPY [id number] Diagnos is: ICD-10- CM M25.561 Pain in right knee YING WATSON L 08/17 [facility] Outpatient Encounter [id number] 08/21 [facility] THERAPEUTI C EXERCISES [id number] Diagnos is: ICD-10- CM M25.561 Pain in right knee YING WATSON L 08/24 [facility] Outpatient Encounter [id number] 08/24 [facility] HC PRO PHONE CALL 21-30 MIN [id number] Diagnos is: ICD-10- CM F25.9 Schizoa ffectiv e disorde r, unspeci fied RAMOSJAIMIE HICKMAN L 08/28 [facility] THERAPEUTI C EXERCISES [id number] Diagnos is: ICD-10- CM M25.561 Pain in right knee YING WATSON L 08/31 [facility] Outpatient Encounter [id number] FAUSTO STEVENSON L 09/06 [facility] DIV[facility] OFFICE O/P EST SF 10 MIN [id number] Diagnos is: ICD-10- CM R63.4 Abnorma l weight loss ESME WHITEHEAD 09/06 [facility] THERAPEUTI C EXERCISES [id number] Diagnos is: ICD-10- CM M25.561 Pain in right knee YING WATSON L 09/07 [facility] SELF CARE MNGMENT TRAINING [id number] Diagnos is: ICD-10- CM R53.1 John s JESENIA,ANDR EW H 10/08 [facility] Outpatient Encounter [id number] 10/12 [facility] Outpatient Encounter [id number] 10/18 [facility] Outpatient Encounter [id number] RAJ RED 11/14 [facility] Outpatient Encounter [id number] IVÁN REY RRY 11/23 [facility] OFFICE O/P EST MOD 30 MIN [id number] Diagnos is: ICD-10- CM F25.9 Schizoa ffectiv e disorde r, unspeci fied LOITERSTEI N,ARIEL A 11/27 [facility] ASSMT/REAS SESSMENT [id number] Diagnos is: ICD-10- CM M25.561 Pain in right knee KENNETH TAYLOR M 11/28 [facility] Outpatient Encounter [id number] Diagnos is: ICD-10- CM E11.9 Type 2 diabete s mellitu s without complic ations ESME WHITEHEAD M 12/03 [facility] Outpatient Encounter [id number] 12/05 [facility] Outpatient Encounter [id number] ELVIS MALDONADO 12/10 [facility] Outpatient Encounter [id number] YING BEE 12/10 [facility] Outpatient Encounter [id number] Lyla DUARTE 12/19 [facility] Outpatient Encounter [id number] 12/27 [facility] Outpatient Encounter [id number] 01/03 [facility] Outpatient Encounter [id number] 01/26 [facility] Outpatient Encounter [id number] 03/07 [facility] Outpatient Encounter [id number] 03/19 [facility] Outpatient Encounter [id number] 5 04/16 [facility] Outpatient Encounter [id number] LIONEL LEONARD SA S 05/10 [facility] Outpatient Encounter [id number] 05/23 [facility] Outpatient Encounter [id number] 05/29 [facility] Outpatient Encounter [id number] 06/12 [facility] OFFICE O/P EST MOD 30 MIN [id number] Diagnos is: ICD-10- CM Z00.00 Encntr for general adult medical exam w/o abnorma l finding s LUCIANO LEONARDIS SA S 06/12 [facility] Outpatient Encounter [id number] 07/11 [facility] Social History Combined list of available smoking, tobacco, and other social history from [facility] of Defense and [facility] facilities. Social History Type Response Date Comment Source Tobacco smoking status [facility] FORMER USER 09/07/2023 [facility] History of tobacco use VA-TOBACCO QUIT 15 YRS OR MORE 09/07/2023 [facility] History of tobacco use NC-TOBACCO QUIT 15 YRS OR MORE 07/19/2023 [facility] History of tobacco use NC-TOBACCO FORMER USER 07/05/2022 [facility] History of tobacco use VA-TOBACCO FORMER USER 07/05/2021 [facility] History of tobacco use VA-TOBACCO FORMER USER 06/19/2020 [facility] History of tobacco use VA-TOBACCO QUIT 5 TO < 15 YRS 12/03/2018 [facility] History of tobacco use NC-TOBACCO FORMER USER 05/31/2018 [facility] History of tobacco use QUIT TOBACCO >7 YEARS AGO 06/13/2017 [facility] History of tobacco use QUIT TOBACCO >7 YEARS AGO 02/09/2017 [facility] History of tobacco use QUIT TOBACCO >7 YEARS AGO 11/24/2016 [facility] History of tobacco use QUIT TOBACCO >7 YEARS AGO 03/15/2016 [facility] History of tobacco use HF V9 QUIT SMOKING > 1YR 02/11/2015 >5 years [facility] History of tobacco use HF V9 QUIT SMOKING > 1YR 01/13/2014 [facility] History of tobacco use HF V9 QUIT SMOKING > 1YR 02/08/2013 [facility] History of tobacco use HF V9 QUIT SMOKING > 1YR 02/13/2012 [facility] History of tobacco use HF V9 QUIT SMOKING > 1YR 03/09/2011 >2 years [facility] History of tobacco use HF V9 QUIT SMOKING > 1YR 07/22/2010 >3 months [facility] History of tobacco use QUIT TOBACCO >12 MO and <7 YRS AGO 09/22/2009 [facility] History of tobacco use HF V9 QUIT SMOKING > 1YR 08/12/2009 >2 years [facility] History of tobacco use HF V9 QUIT SMOKING > 1YR 08/04/2008 >2 years [facility] History of tobacco use HF V9 CURRENT SMOKER 07/11/2008 [facility] History of tobacco use QUIT TOBACCO IN THE LAST 12 MONTHS 01/10/2008 [facility] History of tobacco use HF V9 QUIT SMOKING < 1YR 09/26/2007 >6 months [facility] History of tobacco use HF V9 CURRENT SMOKER 02/12/2007 1ppd [facility] History of tobacco use HF V9 CURRENT SMOKER 12/08/2006 [facility] History of tobacco use HF V9 CURRENT SMOKER 07/17/2006 [facility] History of tobacco use HF V9 CURRENT SMOKER 05/03/2006 [facility] History of tobacco use HF V9 CURRENT SMOKER 01/10/2006 1 1/2PPD [facility] History of tobacco use HF V9 CURRENT SMOKER 06/15/2005 2 ppd [facility] History of tobacco use HF V9 CURRENT SMOKER 11/01/2004 [facility] History of tobacco use HF V9 CURRENT SMOKER 05/06/2004 [facility] History of tobacco use HF V9 CURRENT SMOKER 01/21/2004 2 PPD [facility] History of tobacco use HF V9 CURRENT SMOKER 07/17/2003 2PPD [facility] History of tobacco use HF V9 CURRENT SMOKER 04/14/2003 Pt does not want to stop smoking at this time. 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 Additional future care activities may be listed in the Assessment and Plan section. 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 Order COMPREHENSIVE METABOLIC PANEL GREEN LI/HEP BLD/PLAS PLASMA SP [facility] 06/12/2024 Laboratory - Third Grade Teacher ry Order LIPID PANEL (STL) GREEN LI/HEP BLD/PLAS PLASMA SP ONCE [facility] 06/12/2024 Laboratory - Third Grade Teacher ry Order CBC BLOOD SP [facility] 06/12/2024 Laboratory - Third Grade Teacher ry Order HGA1C BLOOD [facility] 06/12/2024 Laboratory - Third Grade Teacher ry Order B12 GOLD/RED SST SERUM SP [facility] 06/12/2024 Laboratory - Third Grade Teacher ry Order PROST. SPECIFIC AG.(PB-STL) GOLD/RED SST SERUM SP [facility] 06/12/2024 Laboratory - Third Grade Teacher ry Order THYROXINE GOLD/RED SST SERUM SP [facility] 06/12/2024 Laboratory - Third Grade Teacher ry Order TSH W/ REFLEX FT4 (STL) GREEN LI-HEP PLASMA SP [facility] 06/12/2024 Laboratory - Third Grade Teacher ry Order VITAMIN D, 25-HYDROXY GOLD/RED SST SERUM [facility] Advance Directives List of completed, amended, or rescinded Advance Directives on record at [facility] facilities. An actual copy of the Directive is not included. Date Advance Directive Provider Source 07/19/2023 ADVANCE DIRECTIVE SEVERIANO STERN [facility]
[2024-07-25 15:02] LABS: Add Urine Microscopic? YES; Appearance Urine Cloudy (Clear); Bacteria Urine None Seen /hpf; Bilirubin Urine Negative (Negative); Blood Urine Negative (Negative); Color Urine Yellow (Yellow); Glucose Urine UA 2+ mg/dL (Negative); Ketones Urine Trace mg/dL (Negative); Leukocyte Esterase Ur Negative LEU/UL (Negative); Nitrate Urine Negative (Negative); Protein Urine 2+ mg/dL (Negative); RBC Urine 0-2 /hpf (0-2); Specific Grav Ur 1.018 (1.001-1.035); Squamous Epithelial Cell Urine None Seen /hpf (Few); Urobilinogen Urine 0.2 mg/dL (<2.0); WBC Urine 0-5 /hpf (0-3)
[2024-07-25] MEDS: INSULIN HUMAN REGULAR (*BKC) 100 UNITS/ML 8 UNITS SUB-Q (15:18)
[2024-07-25] MEDS: SODIUM CHLORIDE 0.9% IV 1,000 ML 999 ML IV CONT (15:19)
[2024-07-25 15:21] VITALS: BP 162/106; PULSE 89; RESP 20; O2SAT 95
[2024-07-25 15:22] VITALS: PULSE 86
[2024-07-25 16:26] VITALS: BP 118/77; PULSE 79; RESP 21; O2SAT 95
[2024-07-25 16:29] LABS: Glucose Point of Care 240 mg/dl (65-105)
[2024-07-25] MEDS: SODIUM CHLORIDE 0.9% IV 500 ML 999 ML IV CONT (17:04)
[2024-07-25 19:28] VITALS: BP 128/74; PULSE 73; RESP 18; O2SAT 98
== END 2024-07-25 19:30 | disposition home or self-care (01) ==
PROVIDERS: Physician Assistant; Emergency Provider Emergency Medicine
DX: R53.1 Weakness (principal); E86.0 Dehydration; I10 Essential (primary) hypertension; E53.8 Deficiency of other specified B group vitamins; E55.9 Vitamin D deficiency, unspecified; E11.9 Type 2 diabetes mellitus without complications; M10.9 Gout, unspecified; M19.90 Unspecified osteoarthritis, unspecified site; Z87.891 Personal history of nicotine dependence; Z90.49 Acquired absence of other specified parts of digestive tract; Z96.1 Presence of intraocular lens; Z98.42 Cataract extraction status, left eye; Z98.41 Cataract extraction status, right eye; Z79.82 Long term (current) use of aspirin; Z79.899 Other long term (current) drug therapy; Z79.84 Long term (current) use of oral hypoglycemic drugs; Z79.4 Long term (current) use of insulin
CPT/HCPCS: 36415; 70450; 71045; 80053; 81001; 82948; 83735; 84484; 85025; 85610; 85730; 93005; 96360; 96361; 99284; J1815; J7030; J7040

== ENCOUNTER 2024-10-17 07:16 | Inpatient (IN) | payer MEDICARE, OTHER, SELFPAY ==
[2024-10-17] VITALS (21 sets, daily range): BP systolic 126–190; BP diastolic 64–91; PULSE 94–130; RESP 16–30; TEMP 36.9–39.2; O2SAT 93–100; BMI 32.5
--- NOTE | ~2024-10-17 | MR_ITS ---
MRI of the brain Clinical History: Altered mental status Technique: Axial and sagittal T1-weighted images were acquired. These were followed by axial T2-weigh dion, diffusion weighted, gradient, and FLAIR images. Findings: There is no acute infarct, intracranial hemorrhage, or mass lesion. There is mild chronic w vincent matter changes in the periventricular white matter bilaterally. Ventricles and subarachnoid spaces are dilated, compatible with moderate to severe atrophy. Orbits ar e unremarkable. Paranasal sinuses and mastoid air cells are clear. Major intracranial flow voids appe ar intact. Sagittal midline structures are intact. IMPRESSION: No acute abnormality. Mild chronic microvascular ischemic change. Moderate to severe generalized atrophy. Reviewed, dictated and finalized at location M.
--- NOTE | ~2024-10-17 | CT_ITS ---
EXAMINATION: CT brain wo con DATE: 10/21/2024 16:01 INDICATION: AMS . TECHNIQUE: Computed tomography (CT) of the head was performed without intravenous contrast. The mA wa s adjusted according to patient size. Iterative reconstruction technique was employed. The dose-lengt h product was 681.00 mGy-cm. COMPARISON: 07/25/2024. FINDINGS: No acute intracranial hemorrhage or extra-axial fluid collection. No hydrocephalus, mass, or herniation. No acute ischemic infarct. Unremarkable dural venous sinus attenuation. No acute osseous abnormality. Small retention cysts/polyps in the left maxillary sinus, the remaining aerated spaces are clear. Moderate atrophy and mild chronic white matter change. Atherosclerotic intracranial calcification. Bi lateral lens replacements. Old bilateral basal ganglia lacunar infarcts. IMPRESSION: No acute intracranial process. Reviewed, dictated and finalized at location K.
--- NOTE | ~2024-10-17 | MR_ITS ---
EXAMINATION: MR cervical spine wo con, MR lumbar spine wo con, MR thoracic spine wo con DATE: 10/22/2024 14:39 ) INDICATION: Sudden onset of decreased mobility. TECHNIQUE: 1. Magnetic resonance imaging (MRI) of the cervical spine was performed without intravenous contrast. Sequences included sagittal T2-weighted FSE, sagittal T2-weighted FS FSE, sagittal T1-weighted FSE, axial MERGE and axial T2-weighted FSE. 2. MRI of the thoracic spine was performed without intravenous contrast. Sagittal localizer T1-weight ed FSE of the cervicothoracic spine was obtained. Thoracic spine sequences included sagittal T2-weigh dion FSE, sagittal T1-weighted SE, Sagittal T2-weighted FS FSE, and axial T2-weighted FSE. 3. MRI of the lumbar spine was performed without intravenous contrast. Sequences included sagittal T2 -weighted FSE, sagittal T2-weighted FS FSE, sagittal T1-weighted FSE, and axial T2-weighted FSE. COMPARISON: None FINDINGS: 10 degrees thoracic dextroscoliosis. Sagittal alignment is normal throughout the cervical, thoracic a nd lumbar spine. Vertebral body heights are normal throughout. There are anterior bridging or nearly bridging osteophytes extending from C3 through L4 consistent with diffuse idiopathic skeletal hypero stosis (DISH). There is heterogeneous marrow signal with regions of increased T1 signal which could r epresent either fatty marrow, hemangiomas or fibrofatty degenerative endplate changes. No lesions con cerning for fracture or pathologic marrow replacing process. There is mild disc height loss at a few levels in the lower thoracic spine. There are mild disc bulges at L2-L3 through L5-S1 contributing to mild central canal stenosis at L3-L4 and minimal central canal stenosis. Remaining levels. The discs do not extend beyond the endplate margins in the cervical or thoracic spine where there is no eviden t central canal stenosis. Cord signal intensity is normal throughout the cervical, thoracic and lumba r spine. The conus terminates at the level of L1-L2. There is severe facet osteoarthritis bilaterally at C2-C3 with mild to moderate facet osteoarthritis in the more caudal cervical spine. Additional th oracic and lumbar facet osteoarthritis, severe at the levels in the lower thoracic and lower lumbar s pine with moderate facet osteoarthritis in the mid to upper thoracic and lumbar spine. This contribut es to moderate neural foraminal stenosis on the right at L3-L4 and L4-L5 with mild neural foraminal s tenosis at multiple levels throughout the cervical, thoracic and lumbar spine. Paravertebral soft tis sues are normal throughout. IMPRESSION: 1. Mild cervical, thoracic and lumbar spondylosis with extensive bridging or nearly bridging osteophy deloris throughout the majority the spine consistent with diffuse idiopathic skeletal hyperostosis (DISH) . 2. Normal cord signal throughout with only minimal to mild central canal stenosis in the mid to lower lumbar spine and no stenosis in the more cephalad cervical and thoracic spine. 3. Moderate neural from stenosis on the right at L3-L4 and L4-L5 with scattered mild stenosis at mult iple neural foramina scattered throughout the remainder of the cervical, thoracic and lumbar spine. Reviewed, dictated and finalized at location A. IMPRESSION: 1. Mild cervical, thoracic and lumbar spondylosis with extensive bridging or ne filiberto bridging osteophytes throughout the majority the spine consistent with dif fuse idiopathic skeletal hyperostosis (DISH). 2. Normal cord signal throughout with only minimal to mild central canal stenos is in the mid to lower lumbar spine and no stenosis in the more cephalad cervic al and thoracic spine. 3. Moderate neural from stenosis on the right at L3-L4 and L4-L5 with scattered mild stenosis at multiple neural foramina scattered throughout the remainder o f the cervical, thoracic and lumbar spine. IMPRESSION: 1. Mild cervical, thoracic and lumbar spondylosis with extensive bridging or ne filiberto bridging osteophytes throughout the majority the spine consistent with dif fuse idiopathic skeletal hyperostosis (DISH). 2. Normal cord signal throughout with only minimal to mild central canal stenos is in the mid to lower lumbar spine and no stenosis in the more cephalad cervic al and thoracic spine. 3. Moderate neural from stenosis on the right at L3-L4 and L4-L5 with scattered mild stenosis at multiple neural foramina scattered throughout the remainder o f the cervical, thoracic and lumbar spine.
--- NOTE | ~2024-10-17 | CT_ITS ---
CTA chest PE abdomen pel Ordering provider: Aj Smith History: . R/O PE. ELEVATED d-dimer.SEPSIS . Comparison: September 21, 2019 Technique: CT angiogram chest was performed following timed intravenous injection of contrast. Thin s lice axial images and reformatted coronal images were obtained. Three dimensional reformatted images of the chest were also obtained using a [employer] workstation. Also, CT of the abdomen and pelvis was pe rformed with IV contrast. . Automated exposure control and iterative reconstruction technique were e mployed. The dose-length product was 1955.30 mGy-cm. 100 MLO Omnipaque 350 was given IV. FINDINGS: Motion degraded the images. CHEST: --PULMONARY ARTERIES: No pulmonary embolus. --VISUALIZED THORACIC INLET: Normal. --MEDIASTINUM: Aorta/coronary arteries: The thoracic aorta is normal. Atherosclerotic changes at the origin of the r ight internal carotid artery. Heart/other: The heart is not enlarged. Trace of pericardial effusion is noted. Lymph nodes: Subcarinal lymph node measuring 2.4 cm is highly suggestive. Paratracheal lymph node is also noted measuring 1.5 cm. Otherwise, normal. --LUNGS: Left basilar atelectasis versus pneumonia with minimal pleural effusion. No pulmonary nodules or mass es. No infiltrates or effusions. No pneumothorax. --MUSCULOSKELETAL: Bones: Age appropriate degenerative changes of the spine. Superficial soft tissues: The superficial soft tissues are normal. ABDOMEN/PELVIS: --MUSCULOSKELETAL: Superficial soft tissues: Left fat containing inguinal hernia. Otherwise, The superficial soft tissue s are normal. Bones: Age appropriate degenerative changes of the spine. Bilateral sacroiliitis with fusion. Bilater al hip mild to moderate osteoarthritic changes. --UPPER ABDOMINAL ORGANS: Liver: Normal. Gallbladder: Status post cholecystectomy. Spleen: Normal. Stomach/duodenum: Normal. Pancreas: Normal. Adrenals: Normal. Kidneys: Hypodensity in the left kidney midpole most likely a cyst. Another one seen in the left kidn ey lower pole. --PELVIC ORGANS: The bladder shows thickened wall which may indicate cystitis. Clinical correlation a dvised.. No bladder stones. Enlarged prostate. --BOWEL AND MESENTERY: Colon: No evidence of diverticulitis. Contrast seen in the fecal material.. The appendix is not demon strated. Small Bowel: Normal. No obstruction. Peritoneum/mesentery: No free air or free fluid. No mesenteric lymphadenopathy. --RETROPERITONEUM: Mild atheromatous disease of the abdominal aorta. No retroperitoneal lymphadenop athy. Paraortic lymph node is seen measuring 1 cm. IMPRESSION: CHEST: 1. No pulmonary embolism. 2. Left basilar atelectasis versus pneumonia with minimal pleural effusion. 3. Mediastinal lymphadenopathy. ABDOMEN/PELVIS: 1. No evidence of appendicitis, diverticulitis or intestinal obstruction. 2. Slightly thickened wall of the urinary bladder which may indicate cystitis. Clinical correlation advised. 3. Small left inguinal fat containing hernia. 4. Enlarged prostate. Reviewed, dictated and finalized at location A.
--- NOTE | ~2024-10-17 | XR_ITS ---
EXAMINATION: XR chest ET placement DATE: 10/24/2024 12:11 INDICATION: Endotracheal tube and orogastric tube placement TECHNIQUE: frontal view of the chest was obtained. COMPARISON: Chest CT dated 10/22/2024 and radiograph dated 10/17/2024 FINDINGS: Endotracheal tube tip 3.8 cm above the meena. Orogastric tube tip in the body the stomach with dista l tip at the level of the gastroesophageal junction. Mild elevation the left hemidiaphragm with volume loss in left hemithorax and new diffuse hazy opacit y likely related to atelectasis. There is abrupt cut off to the lucency in the left mainstem bronchus suggesting a mucous plug. More dense mild patchy airspace opacity left lower lung zone suspicious fo r pneumonia based on appearance on prior CT. Right lung remains clear. No pulmonary edema, pleural ef fusion or pneumothorax. Heart size is normal. Cholecystectomy clips in right upper quadrant. IMPRESSION: 1. Endotracheal tube tip 3.8 cm above the meena. Orogastric tube in the stomach but would recommend advancement by [address] the proximal side-port below level of the gastroesophageal junction. 2. Persistent patchy airspace opacity left lower lung zone suspicious for pneumonia. 3. New volume loss and hazy opacity throughout the left lung likely related to atelectasis likely rel ated to an apparent mucous plugging in the left mainstem bronchus. Recommend pulmonary toilet. Reviewed, dictated and finalized at location A. IMPRESSION: 1. Endotracheal tube tip 3.8 cm above the meena. Orogastric tube in the stomac h but would recommend advancement by [address] the proximal side-port below level of the gastroesophageal junction. 2. Persistent patchy airspace opacity left lower lung zone suspicious for pneum onia. 3. New volume loss and hazy opacity throughout the left lung likely related to atelectasis likely related to an apparent mucous plugging in the left mainstem bronchus. Recommend pulmonary toilet.
--- NOTE | ~2024-10-17 | XR_ITS ---
MODIFIED ESOPHAGRAM HISTORY: Concern for aspiration pneumonia TECHNIQUE: Modified barium esophagram was performed on 10/18/2024. I administered fluoroscopy and perf ormed the exam with speech pathologist. Patient was seated for lateral fluoroscopic imaging for han stion of thin liquids, pudding, solids and quantified amounts, followed by thin liquids in uncontroll ed amounts. This was recorded on tape. A single fluoroscopic spot image was also recorded. The DAP fo r this procedure was 1.33 Gycm2. The amount of fluoroscopy time used during this procedure was 1.9 mi nutes. FINDINGS: Oral stage: Adequate function but with delayed mastication of solids secondary to limited dentition. Pharyngeal stage: There is reduced laryngeal elevation and adduction as well as reduced tongue base r etraction. There is laryngeal penetration without definitive aspiration on swallowing thin liquids fr om a cup which improved with chin tuck. Cervical/esophageal stage: Adequate function. IMPRESSION: Printed dysphagia with laryngeal penetration without evident aspiration on swallows of th in liquid from a cup which improved with chin tuck which improved with chin tuck. Please correlate w [facility] speech pathologist findings and specific feeding recommendations. Reviewed, dictated and finalized at location A. IMPRESSION: Printed dysphagia with laryngeal penetration without evident aspira tion on swallows of thin liquid from a cup which improved with chin tuck which improved with chin tuck. Please correlate with speech pathologist findings and specific feeding recommendations.
--- NOTE | ~2024-10-17 | XR_ITS ---
XR chest PICC line 10/24/2024 12:48 Indication: PICC line placement Procedure: AP portable chest Comparison: Comparison to multiple prior studies sequentially, with oldest reviewed study dated 04/22. Findings: PICC line tip in the SVC. There is mediastinal shift to the left. There is extensive left-s ided airspace consolidation. Small left effusion. Endotracheal tube tip 4.3 cm above the meena. Righ t lung clear. Impression: 1: Extensive left-sided airspace consolidation with mediastinal shift to the left. Differential diagn osis includes atelectasis and pneumonia. 2: Small left pleural effusion. Reviewed, dictated and finalized at location A. Impression: 1: Extensive left-sided airspace consolidation with mediastinal shift to the le ft. Differential diagnosis includes atelectasis and pneumonia. 2: Small left pleural effusion.
--- NOTE | ~2024-10-17 | XR_ITS ---
XR chest 1V portable 10/17/2024 08:26 Indication: Cough and congestion Procedure: AP portable chest Comparison: 07/25/2024 Findings: Left basilar airspace disease, consistent with pneumonia. Heart size normal. No significant effusion, edema or pneumothorax. Impression: 1: Left basilar airspace disease, compatible with pneumonia. Reviewed, dictated and finalized at location A. Impression: 1: Left basilar airspace disease, compatible with pneumonia.
--- NOTE | ~2024-10-17 | XR_ITS ---
XR abdomen gastric tube insert INDICATION: Evaluate NG tube position. TECHNIQUE: Limited KUB perform for evaluating NG tube . COMPARISON: No prior studies for comparison. FINDINGS: NG tube tip in the stomach. Visualized bowel gas pattern is unremarkable.There is a small left pleural effusion. There are cholecystectomy clips. IMPRESSION: 1: NG tube tip in the stomach. Reviewed, dictated and finalized at location A.
--- NOTE | ~2024-10-17 | US_ITS ---
US right upper quadrant INDICATION: Elevated liver enzymes PROCEDURE: Realtime right upper abdominal ultrasound. COMPARISON: No prior studies for comparison. FINDINGS: The pancreas is normal without focal mass or pancreatic ductal dilation. Liver echotexture is normal without focal mass or intrahepatic biliary dilatation. There is normal directional flow i n the portal vein. Gallbladder is surgically absent. Common bile duct measures 5 mm. No sonographic Menezes's sign. IMPRESSION: 1: Unremarkable limited abdominal ultrasound. Reviewed, dictated and finalized at location A.
--- NOTE | 2024-10-17 07:22 | ECG_ITS ---
Test Date: 2024-10-17 07:26:47 Measurements Intervals [place] Rate: 121 P: 72 MA: 181 QRS: 11 QRSD: 100 T: 102 QT: 331 QTc: 470 Interpretive Statements SINUS TACHYCARDIA INCOMPLETE RIGHT BUNDLE BRANCH BLOCK [90+ ms QRS DURATION, TERMINAL R IN V1/V2, 40+ ms S IN I/aVL/V4/V5/V6] SEPTAL MYOCARDIAL INFARCTION , PROBABLY OLD [40+ ms Q WAVE IN V1/V2] Compared to ECG 07/25/2024 14:05:41 Incomplete right bundle-branch block now present Sinus rhythm no longer present Electronically Signed On 10-18-2024 11:00:37 CDT by Keri Marrero M.D.
[2024-10-17] MEDS: SODIUM CHLORIDE 0.9% IV 1,000 ML 999 ML IV CONT ×3 (07:42→08:52)
--- OUTSIDE RECORDS SUMMARY | 2024-10-17 07:44 | XMS_ITS ---
Author Name [facility] [place] Address [address] [place] [address] Care Team Providers Care Top Hat Body Maker Name Role Phone ABBEY HUANG Primary Care [...] Member ID Insurance Provider's Telephone Number Policy Lzoa's Name Patient's Relationship to Policy Loza MEDICARE (WNR) MEDICARE (M) PART B Apr 21, 1984 PART B [id number] DEEYOGESH HN PATIENT MEDICARE (WNR) MEDICARE (M) PART B Apr 21, 1984 PART B [id number] [phone] YOGESH DEE HN PATIENT MEDICARE (WNR) MEDICARE (M) PART B Apr 21, 1984 PART B [id number] YOGESH DEE HN PATIENT MEDICARE (WNR) MEDICARE (M) PART B Apr 21[birth year] 1983 PART B [id number] YOGESH DEE HN PATIENT MEDICARE (WNR) MEDICARE (M) PART A September 19, 1981 PART A [id number] DEEYOGESH HN PATIENT MEDICARE (WNR) MEDICARE (M) PART A September 19, 1981 PART A [id number] YOGESH DEE HN PATIENT MEDICARE (WNR) MEDICARE (M) PART A September 19, 1981 PART A [id number] YOGESH DEE HN PATIENT MEDICARE (WNR) MEDICARE (M) PART A September 19, 1981 PART A [id number] YOGESH DEE PATIENT Selected Encounter This section includes the information on record at [place] for the Encounter. Date/Time Encounter Type Encounter Description Reason Pro vider Source October 04, 2024 09:58 AM Outpatient Encounter GENERAL INTERNAL MEDICINE [facility] Encounter Template Text not used by [place] Plan of Treatment: Future Appointments (+ 6 months) and Future Tests (+/- 45 days) The Plan of Treatment section includes future care activities for the patient from all [place] [facility] This section includes future appointments and future orders which are active, pending or scheduled. Future Appointments This section includes appointments that were scheduled to occur 6 months from the date of the Encounter, up to a maximum of 20 appointments. The data comes from all [facility]. Appointment Date/Time Appointment Type Appointme nt Facility Name Dec 11, 2024 10:30 AM AMBULATORY - MEDICINE [facility] Feb 18, 2025 02:00 PM AMBULATORY - PSYCHIATRY [facility] Active, Pending, and Scheduled Orders This section includes a listing of several types of active, pending, and scheduled orders, including clinic medications orders, diagnostic test orders, procedure orders and consult orders; where the start date of the order is 45 days before the date of the Encounter or 45 days after the date of theEncounter. The data comes from all [facility]. Test Date/Time Test Type Test Details Facility Name October 04, 2024 04:38 PM Consult Order [facility] HOMEMAKER/HOME HEALTH AIDE [facility] Cons Coat Maker's Choice [facility] Social History: Smoking Status (Most current) and Tobacco Use (All prior to encounter date) This section includes the most current, and the historical, smoking and tobacco- related health factors from the [place] facility where the Encounter took place. Current Smoking Status This section includes the most current smoking, or tobacco-related health factor, from the [place] facility where the Encounter took place. Date/Time Current Smoking Status Huong wu September 22, 2009 09:34 AM QUIT TOBACCO >12 M O & <7 YRS AGO [facility] Tobacco Use History This section includes a history of the smoking, or tobacco-related health factors, that were collected on or before the date of the Encounter. The data comes from the [place] facility where the Encounter took place. Date/Time Smoking Status/Tobacco Use Comment F acility 2001 08:20 AM CURRENT TOBACCO USER [facility] 2001 08:[address] [facility] Advance Directives: All historical and current Section Date Range: From patient's date of to the date document was created. This section includes ALL of a patient's completed or amended [place] Advance and Rescinded Directives. The entries below indicate that a directive exists for the patient, but an actual copy is not included with this document. The data comes from all [facility]. Date Advance Directives Provider Source Jul 19, 2023 ADVANCE DIRECTIVE SEVERIANO STERN [facility] Encounter Notes: All associated encounter notes This section contains the clinical notes associated to the Encounter. Date/Time Encounter Note(s) Provider Source Aug 02, 2024 09:58 AM NONVA CONSULT: LOCAL TITLE: COMMUNITY CARE-CONSULT RESULT NOTE [facility] STANDARD TITLE: NONVA CONSULT DATE OF NOTE: AUG 02, 2024@09:58 ENTRY DATE: OCTOBER 04, 2024@09:59:41 AUTHOR: MARI DIXON EXP COSIGNER: URGENCY: STATUS: COMPLETED The following Community Care consult has been completed. See scanned document for report. Date of Service: Jul TO September Place where service occurred: [facility] /kyle/ MARI DIXON Registered Nurse Signed: 10/04/2024 10:03 MARI DIXON [facility]
--- OUTSIDE RECORDS SUMMARY | 2024-10-17 07:44 | XMS_ITS | Encounter Summary ---
Author Name [facility] [place] [facility] [place] Address [address] [place] [address] Care Team Providers Care Plate Cleaner Name Role Phone ABBEY HUANG Primary Care [...] PART B Apr 21, 1984 PART B [id number] DEEYOGESH HN PATIENT MEDICARE (WNR) MEDICARE (M) PART B [birth year] 21, 1984 PART B [id number] [phone] YOGESH DEE HN PATIENT MEDICARE (WNR) MEDICARE (M) PART B Apr 21, 1984 PART B [id number] YOGESH DEE HN PATIENT MEDICARE (WNR) MEDICARE (M) PART B [birth year] 21[birth year] 1983 PART B [id number] YOGESH DEE HN PATIENT MEDICARE (WNR) MEDICARE (M) PART A September 19, 1981 PART A [id number] DEEYOGESH HN PATIENT MEDICARE (WNR) MEDICARE (M) PART A September 19, 1981 PART A [id number] YOGESH DEE HN PATIENT MEDICARE (WNR) MEDICARE (M) PART A September 19, 1981 PART A [id number] YOGESH DEE HN PATIENT MEDICARE (WNR) MEDICARE (M) PART A September 19, 1981 PART A [id number] YOGESH DEE PATIENT Selected Encounter This section includes the information on record at [place] for the Encounter. Date/Time Encounter Type Encounter Description Reason Provider Source May 10, 2024 08:22 AM Outpatient Encounter GENERAL INTERNAL MEDICINE JOVANY LEONARD Encounter Template Text not used by [place] Plan of Treatment: Future Appointments (+ 6 months) and Future Tests (+/- 45 days) The Plan of Treatment section includes future care activities for the patient from all [place] [facility]. This section includes future appointments and future orders which are active, pending or scheduled. Future Appointments This section includes appointments that were scheduled to occur 6 months from the date of the Encounter, up to a maximum of 20 appointments. The data comes from all [facility]. Appointment Date/Time Appointment Type Appointme nt Facility Name Jun 12, 2024 10:30 AM AMBULATORY - MEDICINE [facility] Aug 02, 2024 08:00 AM AMBULATORY - NONE [facility] Aug 19, 2024 01:30 PM AMBULATORY - PSYCHIATRY [facility] October 04, 2024 10:30 AM AMBULATORY - MEDICINE [facility] Active, Pending, and Scheduled Orders This section includes a listing of several types of active, pending, and scheduled orders, including clinic medications orders, diagnostic test orders, procedure orders and consult orders; where the start date of the order is 45 days before the date of the Encounter or 45 days after the date of theEncounter. The data comes from all [facility]. Test Date/Time Test Type Test Details Facility Name Jun 12, 2024 12:00 AM Laboratory - Chemistry Order COMPREHENSIVE METABOLIC PANEL GREEN LI/HEP BLD/PLAS PLASMA SP [facility] Jun 12, 2024 12:00 AM Laboratory - Chemistry Order LIPID PANEL (STL) GREEN LI/HEP BLD/PLAS PLASMA SP ONCE [facility] Jun 12, 2024 12:00 AM Laboratory - Chemistry Order CBC BLOOD SP [facility] Jun 12, 2024 12:00 AM Laboratory - Chemistry Order HGA1C BLOOD SP [facility] Jun 12, 2024 12:00 AM Laboratory - Chemistry Order PROST. SPECIFIC AG.(PB-STL) GOLD/RED SST SERUM SP [facility] Jun 12, 2024 12:00 AM Laboratory - Chemistry Order B12 GOLD/RED SST SERUM SP [facility] Jun 12, 2024 12:00 AM Laboratory - Chemistry Order THYROXINE GOLD/RED SST SERUM SP [facility] Jun 12, 2024 12:00 AM Laboratory - Chemistry Order TSH W/ REFLEX FT4 (STL) GREEN LI-HEP PLASMA [facility] Jun 12, 2024 12:00 AM Laboratory - Chemistry Order VITAMIN D, 25-HYDROXY GOLD/RED SST SERUM [facility] Social History: Smoking Status (Most current) and Tobacco Use (All prior to encounter date) This section includes the most current, and the historical, smoking and tobacco- related health factors from the [place] facility where the Encounter took place. Current Smoking Status This section includes the most current smoking, or tobacco-related health factor, from the [place] facility where the Encounter took place. Date/Time Current Smoking Status Comment Geoff ity September 22, 2009 09:34 AM QUIT TOBACCO >12 M O & <7 YRS AGO [facility] Tobacco Use History This section includes a history of the smoking, or tobacco-related health factors, that were collected on or before the date of the Encounter. The data comes from the [place] facility where the Encounter took place. Date/Time Smoking Status/Tobacco Use Comment F acility 2001 08:20 AM CURRENT TOBACCO USER [facility] 2001 08:20 AM TOBACCO USE [facility] Advance Directives: All historical and current Section Date Range: From patient's date of to the date document was created. This section includes ALL of a patient's completed or amended [place] Advance and Rescinded Directives. The entries below indicate that a directive exists for the patient, but an actual copy is not included with this document. The data comes from all [place] facilities. Date Advance Directives Provider Source Jul 19, 2023 ADVANCE DIRECTIVE [address]O STERN [facility] Encounter Notes: All associated encounter notes [...] Facility: Apr Method of Contact: Notified from [employer] worklist Notification ID: [id number] [facility] Referral #: [id number] Clinical Review [facility] Name: Hospital: [facility] Address: [address] [place] [address] City: [place] State: [place] Zip Code: [address] [facility] Facility Point of Contact: Name: Hannah Monroy Chief complaint: knee pain Primary Diagnosis: Disposition Unknown at time of intake note entry Faxed request for records to above hospital. /es/ TERRANCE SAUNDERS ADVANCED HONING MACHINE TRY OUT SETTER Signed: 05/10/2024 08:26 05/13/2024 ADDENDUM STATUS: COMPLETED Records r/t this episode of care sent to [facility] for scanning. /kyle/ TYRELL ROGERS ADVANCED HONING MACHINE TRY OUT SETTER Signed: 05/13/2024 08:[address] [facility]
--- OUTSIDE RECORDS SUMMARY | 2024-10-17 07:44 | XMS_ITS | Continuity of Care Document ---
Author Name [facility] Organization [facility] Care Team Providers Care Community Chest Officer Name Role Phone [facility] Unavailable Unavailable Problems Combined list of problems from Department of Defense and Veterans Affairs facilities. It does not include entries that were removed or entered in error. Problem Status Onset Date Problem Type Date of Resolution Comments Source Abnormal liver function Active Condition [facility] Benign hypertension (SNOMED CT 73877374) Active Condition [facility] Benign prostatic hyperplasia Active Condition [facility] Bipolar disorder Active Condition Mar 15, 2016 Entered By: ANDRIY JUDD Comment: psychotic features [facility] Bipolar Disorder Active Condition [facility] Bipolar Disorder NOS * (ICD-9-CM 296.7/296.80) Active Condition [facility] Bipolar I Disorder, most Recent Episode Manic, Severe, with Psychotic Features ( Active Condition [facility] Chronic kidney disease Active Condition [facility] Diabetes mellitus Active Condition [facility] Diabetes mellitus (SNOMED CT 80020864) Active Condition [facility] Diabetes Mellitus Type II or unspecified * (ICD-9-CM 250.00) Active Condition [facility] Essential hypertension Active Condition [facility] Exposure to potentially hazardous substance Active Condition [facility] Family History of Malignant Neoplasm of Gastrointestinal Tract (ICD-9-CM V16.0) Active Condition [facility] Health maintenance alteration Active Condition Mar 13, 2003 Entered By: AWILDA MCNEAL Comment: colonosocpy 02/2015, f/u 10/2015 due to poor prepSep 2003 Entered By: AWILDA MCNEAL Comment: declines nelly, psa 01/2015Sep 2009 Entered By: AWILDA MCNEAL Comment: TDAP 01/21/2010Jul 2012 Entered By: AWILDA MCNEAL Comment: pneumovax 9/09Sep 2014 Entered By: AWILDA MCNEAL Comment: prevnar 13 10/2014 [facility] History of male erectile disorder Active Condition [facility] Hypercholesterolemia Active Condition [facility] Hyperlipidemia Active Condition [facility] Hyperlipidemia (SNOMED CT 16887347) Active Condition [facility] Hyperparathyroidism Active Condition [facility] Hypertension Active Condition [facility] Knee pain Active Condition [facility] LBP * (ICD-9-CM 724.2) Active Condition [facility] Low back pain Active Condition [facility] Low Back Pain Active Condition [facility] Male erectile disorder (ICD-9-CM 302.72/607.84) Active Condition [facility] Myalgia caused by statin Active Condition [facility] Nonspecific abnormal findings (radiological) of abdominal area, including retrop Active Condition Nov 04 8 Entered By: AWILDA MCNEAL Comment: ABNL RENAL US. PT DECLINES TO DO CT/MRI [facility] Obesity Active Condition [facility] Obesity * (ICD-9-CM 278.00) Active Condition [facility] Osteoarthritis of knee (SNOMED CT 071811202) [facility] Overweight [facility] Pain in left knee Active Condition [facility] Pain in right foot Active Condition [facility] Polycythemia Active Condition [facility] Polycythemia Active Condition [facility] Primary hyperparathyroidism Active Condition [facility] Primary Hyperparathyroidism (ICD-9-CM 252.01) Active Condition [facility] Schizoaffective disorder (SNOMED CT 51560111) Active Condition [facility] Soft tissue swelling Active Condition [facility] Tobacco Use Disorder Active Condition Mar 13, 2003 Entered By: AWILDA MCNEAL Comment: 59 pk yr and continues at 2ppd [facility] Vertigo Active Condition [facility] Vitamin B12 deficiency (non anaemic) Active Condition Feb 09, 2017 Entered By: KORINA KWAN Comment: refuses supplement [facility] Vitamin D deficiency Active Condition [facility] Anxiety Disorder * (ICD-9-CM 300.00) Inactive Condition 02/09/2017 [facility] Diabetes Mellitus without mention of Complication, type II or unspecified type, Inactive Condition 02/09/2017 [facility] Hypertension * (ICD-9-CM 401.9) Inactive Condition 02/09/2017 [facility] Liver function tests abnormal Inactive Condition 02/09/2017 [facility] Sinusitis * (ICD-9-CM 473.9) Inactive Condition 01/03/2014 [facility] Tobacco Use * (ICD-9-CM 305.1) Inactive Condition 03/15/2016 [facility] URI (ICD-9-CM 465.9) Inactive Condition 01/03/2014 [facility] Diagnosis: ICD-10-CM Z73.9 Problem related to life management difficulty, unspecified Active Diagnosis [facility] Diagnosis: ICD-10-CM F25.9 Schizoaffective disorder, unspecified Active Diagnosis [facility] Diagnosis: ICD-10-CM Z00.00 Encntr for general adult medical exam w/o abnormal findings Active Diagnosis [facility] Diagnosis: ICD-10-CM E11.9 Type 2 diabetes mellitus without complications Active Diagnosis [facility] Diagnosis: ICD-10-CM M25.561 Pain in right knee Active Diagnosis [facility] Diagnosis: ICD-10-CM R53.1 Weakness Active Diagnosis [facility] Diagnosis: ICD-10-CM R63.4 Abnormal weight loss Active Diagnosis [facility] Diagnosis: ICD-10-CM H61.21 Impacted cerumen, right ear Active Diagnosis [facility] Diagnosis: ICD-10-CM Z74.1 Need for assistance with personal care Active Diagnosis [facility] Medications Combined list of outpatient medications from Department of Defense and [facility] Affairs facilities.Medications provided include 1) outpatient medications from the last 15 months, and 2) patient-reported medications. Medication Details Route Status Patient Instructions Prescription Expires Prescription Number Last Dispense Date Ordering Provider Order Date Order Qty Source ASPIRIN 81MG TAB,CHEWABL E CHEW AND SWALLOW ONE TABLET BY MOUTH ONCE A DAY ORAL ACTIVE BINTA KETTY K 2015 [facility] ASPIRIN 81MG TAB,EC TAKE ONE TABLET BY MOUTH EVERY DAY ORAL ACTIVE MYAU DAY R 2007 [facility] CARBAMIDE PEROXIDE 6.5%/GLYCER IN SOLN,OTIC INSTILL 2 DROPS IN RIGHT EAR TWICE A DAY FOR EAR WAX BLOCKAGE AURICU LAR (OTIC) 07/31/2024 [id number] CASSIA MOSER E 2023 15 [facility] CHOLECALCIF LINDA (LOW DOSE VIT D) - (OTC) TAB TAKE 1000UNIT BY MOUTH ONCE A DAY ORAL ACTIVE DHARAUTEEVINO NADEEN GRIFFITH ISTA M 2023 [facility] CYANOCOBALA MIN 1000MCG TAB TAKE ONE TABLET BY MOUTH EVERY OTHER DAY ORAL ACTIVE DHARAUTEEVINO NACHO,NADEEN ISTA M 2023 [facility] DICLOFENAC NA 1% GEL,TOP APPLY 4 GM TO AFFECTED AREA(S) FOUR TIMES A DAY NEEDED NO MORE THAN 16 GM/DAY TO ANY LOWER EXTREMIT Y JOINT. NO MORE THAN 8 GM/DAY TO ANY UPPER EXTREMIT Y JOINT. MAX 32GM/DAY OVER ALL JOINTS.( MEASURE DOSE WITH RULER INSIDE BOX) TOPICA L ACTIVE 06/13/2025 [id number] 5 AISHA,ANEL SSA S 2024 100 [facility] DIVALPROEX NA 500MG TAB,SA TAKE TWO TABLETS BY MOUTH AT BEDTIME FOR BIPOLAR DISORDER ORAL ACTIVE 04/23/2025 [id number] 5 LOITERSTE IN,ARIEL A 2023 180 [facility] DIVALPROEX NA 500MG TAB,SA TAKE TWO TABLETS BY MOUTH AT BEDTIME FOR BIPOLAR DISORDER ORAL DISCONT INUED 04/26/2024 [id number] LOITERSSOREN INARIEL 2022 180 [facility] GLIPIZIDE 10MG TAB TAKE TWO TABLETS BY MOUTH TWO TIMES A DAY BEFORE MEALS FOR DIABETES . TAKE 30 MINUTES BEFORE EATING. ORAL ACTIVE 06/13/2025 [id number] 5 ANEL LEONARD SSA S 2024 360 [facility] GLIPIZIDE 10MG TAB TAKE TWO TABLETS BY MOUTH TWO TIMES A DAY BEFORE MEALS FOR DIABETES . TAKE 30 MINUTES BEFORE EATING. ORAL DISCONT INUED 09/07/2024 [id number] [facility] [place] [facility] 360 [facility] HYDROCHLORO THIAZIDE 25MG TAB TAKE ONE TABLET BY MOUTH ONCE A DAY FOR HIGH BLOOD PRESSURE ORAL SUSPEND ED 06/13/2025 [id number] 5 ANEL LEONARD SSA S 2024 90 [facility] HYDROCHLORO THIAZIDE 25MG TAB TAKE ONE TABLET BY MOUTH ONCE A DAY FOR HIGH BLOOD PRESSURE ORAL DISCONT INUED 06/23/2024 [id number] 4 ANEL LEONARD SSA S 2023 90 [facility] HYDROCHLORO THIAZIDE 25MG TAB TAKE ONE TABLET BY MOUTH ONCE A DAY FOR HIGH BLOOD PRESSURE ORAL DISCONT INUED 03/19/2024 [id number] FRED GRIFFITH,[facility] ISTA M 2023 90 [facility] HYDROCHLORO THIAZIDE 25MG TAB TAKE ONE TABLET BY MOUTH ONCE A DAY FOR BLOOD PRESSURE ORAL DISCONT INUED BY PRECIOUS R 09/07/2024 [id number] 4 FRED GRIFFITH,[facility] ISTA M 2023 90 [facility] LISINOPRIL 40MG TAB TAKE ONE TABLET BY MOUTH ONCE A DAY FOR HEART OR BLOOD PRESSURE ORAL ACTIVE 06/13/2025 [id number] 5 [facility] 90 [facility] LISINOPRIL 40MG TAB TAKE ONE TABLET BY MOUTH ONCE A DAY FOR HEART OR BLOOD PRESSURE ORAL DISCONT INUED 09/07/2024 [id number] 5 [facility] N[facility] 2023 90 [facility] LISINOPRIL 40MG TAB TAKE ONE TABLET BY MOUTH ONCE A DAY FOR HEART OR BLOOD PRESSURE ORAL DISCONT INUED 03/09/2024 [id number] 4 [facility] 2022 90 [facility] MENTHOL/MET HYL SALICYLATE (10-15%) LOW CONC. CREAM,TOP APPLY LIGHTLY TO AFFECTED AREA(S) FOUR TIMES A DAY FOR NECK MUSCLE DISCOMFO RT/PAIN. (EXTERNA L USE ONLY) TOPICA L ACTIVE 06/13/2025 [id number] 5 AISHA,ANEL SSA S 2024 90 [facility] MENTHOL/MET HYL SALICYLATE (10-15%) LOW CONC. CREAM,TOP APPLY LIGHTLY TO AFFECTED AREA(S) FOUR TIMES A DAY FOR NECK MUSCLE DISCOMFO RT/PAIN. (EXTERNA L USE ONLY) TOPICA L DISCONT INUED 05/04/2024 [id number] 4 [facility] 2022 90 [facility] METFORMIN HCL 500MG 24HR TAB,SA TAKE TWO TABLETS BY MOUTH TWICE A DAY TAKE WITH FOOD. AVOID ALCOHOL. DISCONTI NUE BEFORE GETTING XRAY DYE. ORAL ACTIVE 06/13/2025 [id number] 5 AISHA,ANEL SSA S 2024 360 [facility] METFORMIN HCL 500MG 24HR TAB,SA TAKE TWO TABLETS BY MOUTH TWICE A DAY TAKE WITH FOOD. AVOID ALCOHOL. DISCONTI NUE BEFORE GETTING XRAY DYE. ORAL DISCONT INUED 12/09/2024 [id number] NADEEN LEE M 2023 120 [facility] METFORMIN HCL 500MG 24HR TAB,SA TAKE TWO TABLETS BY MOUTH TWICE A DAY FOR DIABETES TAKE WITH FOOD. AVOID ALCOHOL. DISCONTI NUE BEFORE GETTING XRAY DYE. ORAL DISCONT INUED (EDIT) 09/07/2024 [id number] NADEEN LEE 2023 120 [facility] METFORMIN HCL 500MG 24HR TAB,SA TAKE TWO TABLETS BY MOUTH TWICE A DAY FOR DIABETES TAKE WITH FOOD. AVOID ALCOHOL. DISCONTI NUE BEFORE GETTING XRAY DYE. ORAL DISCONT INUED 09/07/2024 [id number] NADEEN LEE 2023 360 [facility] METOPROLOL TARTRATE 50MG TAB TAKE ONE AND ONE-HALF TABLETS BY MOUTH TWICE A DAY FOR HEART/BL OOD PRESSURE . TAKE WITH OR IMMEDIAT MALCOLM FOLLOWIN G FOOD. ORAL ACTIVE 06/13/2025 [id number] 5 ANEL LEONARD SSA S 2024 270 [facility] METOPROLOL TARTRATE 50MG TAB TAKE ONE AND ONE-HALF TABLETS BY MOUTH TWICE A DAY FOR HEART/BL OOD PRESSURE . TAKE WITH OR IMMEDIAT MALCOLM FOLLOWIN G FOOD. ORAL DISCONT INUED 09/07/2024 [id number] 4 NADEEN LEE 2023 270 [facility] METOPROLOL TARTRATE 50MG TAB TAKE ONE AND ONE-HALF TABLETS BY MOUTH TWICE A DAY FOR HEART/BL OOD PRESSURE . TAKE WITH OR IMMEDIAT MALCOLM FOLLOWIN G FOOD. ORAL DISCONT INUED 11/10/2023 [id number] 4 NADEEN LEE M 2022 270 [facility] TAMSULOSIN HCL 0.4MG CAP TAKE ONE CAPSULE BY MOUTH EVERY EVENING APPROXIM ATELY 30 MINUTES AFTER THE SAME MEAL EACH DAY (FOR PROSTATE ) ORAL ACTIVE 06/13/2025 [id number] 5 ANEL LEONARD SSA S 2024 90 [facility] TAMSULOSIN HCL 0.4MG CAP TAKE ONE CAPSULE BY MOUTH EVERY EVENING APPROXIM ATELY 30 MINUTES AFTER THE SAME MEAL EACH DAY (FOR PROSTATE ) ORAL DISCONT INUED 12/04/2024 [id number] 4 FR[facility] GRIFFITH,[facility] ISTA M 2023 90 [facility] TAMSULOSIN HCL 0.4MG CAP TAKE ONE CAPSULE BY MOUTH EVERY EVENING APPROXIM ATELY 30 MINUTES AFTER THE SAME MEAL EACH DAY (FOR PROSTATE ) ORAL DISCONT INUED 04/24/2024 [id number] [facility] GRIFFITH,[facility] 2022 90 [facility] ZINC OXIDE 20% OINT,TOP APPLY LIBERALL Y TO AFFECTED AREA(S) THREE TIMES A DAY NEEDED TOPICA L ACTIVE 06/13/2025 [id number] ANEL LEONARD SSA S 2024 60 [facility] Allergies, Adverse Reactions, Alerts Combined list of allergies from Department of Defense and Veterans Affairs facilities. It does not include entries that were removed or entered in error. Substance Category Reaction Severity Reaction type Status Date Reported Comments Source FLUVASTATIN Propensity to adverse reactions to drug (finding) active 7 [facility] FLUVASTATIN Propensity to adverse reactions to drug (finding) Muscle pain active 2 [facility] GEMFIBROZIL Propensity to adverse reactions to drug (finding) Nausea, Diarrhea active 7 [facility] GEMFIBROZIL Propensity to adverse reactions to drug (finding) Diarrhea, Nausea active 8 [facility] GEMFIBROZIL Propensity to adverse reactions to drug (finding) Nausea and vomiting, Diarrhea active 2 [facility] LITHIUM Propensity to adverse reactions to drug (finding) TREMORS [facility] Propensity to adverse reactions to drug (finding) Tremor active 8 [facility] LITHIUM Propensity to adverse reactions to drug (finding) Anaphylaxis active 7 [facility] LOVASTATIN Propensity to adverse reactions to drug (finding) active [facility] LOVASTATIN Propensity to adverse reactions to drug (finding) Muscle pain active 2 [facility] METHOCARBAMO L Propensity to adverse reactions to drug (finding) Sedated active 2 [facility] ROSUVASTATIN Propensity to adverse reactions to drug (finding) active 0 [facility] Immunizations Combined list of available immunizations from the Department of Defense and [facility] Affairs facilities. Immunization Series Date Given Administered By Site Reaction Lot Number CVX Code Drug Sales And Merchandising Associate Status Comments Source PNEUMOCOCCAL CONJUGATE PCV 13 2018 133 complet ed [facility] TDAP 2018 115 complet ed Right Deltoid [facility] INFLUENZA, UNSPECIFIED FORMULATION 2017 88 complet ed [facility] INFLUENZA, UNSPECIFIED FORMULATION 2016 88 complet ed [facility] INFLUENZA, SEASONAL, INJECTABLE 2014 141 complet ed [facility] PNEUMOCOCCAL CONJUGATE PCV 13 2014 133 complet ed [facility] INFLUENZA, UNSPECIFIED FORMULATION 2013 88 complet ed [facility] INFLUENZA, UNSPECIFIED FORMULATION 2012 88 complet ed [facility] INFLUENZA, UNSPECIFIED FORMULATION 2011 88 complet ed [facility] INFLUENZA, UNSPECIFIED FORMULATION 2010 88 complet ed [facility] INFLUENZA, UNSPECIFIED FORMULATION 2009 88 complet ed [facility] TDAP 2009 115 complet ed [facility] NOVEL INFLUENZA-H1N 1-09, ALL FORMULATIONS 2009 128 complet ed [employer] [facility] PNEUMOCOCCAL, UNSPECIFIED FORMULATION 2008 109 complet ed [facility] INFLUENZA, UNSPECIFIED FORMULATION 2008 88 complet ed [facility] NOVEL INFLUENZA-H1N 1-09, ALL FORMULATIONS 2008 128 complet ed [facility] INFLUENZA, UNSPECIFIED FORMULATION 2008 88 complet ed [facility] PNEUMOCOCCAL, UNSPECIFIED FORMULATION 2008 109 complet ed [facility] Results Combined list of recent chemistry, [...] Jun 12, 2024 02:27 PM Reporting Lab: [address] [id number] Performing Lab: [address] [phone] [place] [address] DIVISION COMPREHEN SIVE METABOLIC PANEL CREATININE [MASS/VOLU ME] IN SERUM OR PLASMA 1.49 mg/dL 0.70 - 1.30 07/19 H Specimen Type: PLASMA Comment: Specimen slightly hemolyzed. K result may show a positive bias due to hemolysis. Ordering Provider: ESME WHITEHEAD Report Released Date/Time: Jul 19, 2023 12:13 PM Reporting Lab: [facility] [phone] Performing Lab: [facility] [phone] [place] [address] DIVISION COMPREHEN SIVE METABOLIC PANEL UREA NITROGEN [MASS/VOLU ME] IN SERUM OR PLASMA 24.9 mg/dL 9.0 - 25.0 07/19 Specimen Type: PLASMA Comment: Specimen slightly hemolyzed. K result may show a positive bias due to hemolysis. Ordering Provider: ESME WHITEHEAD Report Released Date/Time: Jul 19, 2023 12:13 PM Reporting Lab: [facility] [place] [address] Performing Lab: [facility] DIVISION COMPREHEN SIVE METABOLIC PANEL GLUCOSE [MASS/VOLU ME] IN SERUM OR PLASMA 165 mg/dL 72 - 99 07/19 H Specimen Type: PLASMA Comment: Specimen slightly hemolyzed. K result may show a positive bias due to hemolysis. Ordering Provider: ESME WHITEHEAD Report Released Date/Time: Jul 19, 2023 12:13 PM Reporting Lab: [facility] [place] [address] Performing Lab: [facility] DIVISION COMPREHEN SIVE METABOLIC PANEL SODIUM [MOLES/VOL UME] IN SERUM OR PLASMA 143 meq/L 136 - 145 07/19 Specimen Type: PLASMA Comment: Specimen slightly hemolyzed. K result may show a positive bias due to hemolysis. Ordering Provider: ESME WHITEHEAD Report Released Date/Time: Jul 19, 2023 12:13 PM Reporting Lab: [facility] [place] [address] Performing Lab: [facility] DIVISION COMPREHEN SIVE METABOLIC PANEL POTASSIUM [MOLES/VOL UME] IN SERUM OR PLASMA 4.4 meq/L 3.5 - 5.0 07/19 Specimen Type: PLASMA Comment: Specimen slightly hemolyzed. K result may show a positive bias due to hemolysis. Ordering Provider: ESME WHITEHEAD Report Released Date/Time: Jul 19, 2023 12:13 PM Reporting Lab: [facility] [place] [address] Performing Lab: [facility] DIVISION COMPREHEN SIVE METABOLIC PANEL CHLORIDE [MOLES/VOL UME] IN SERUM OR PLASMA 106 meq/L 98 - 107 07/19 Specimen Type: PLASMA Comment: Specimen slightly hemolyzed. K result may show a positive bias due to hemolysis. Ordering Provider: ESME WHITEHEAD Report Released Date/Time: Jul 19, 2023 12:13 PM Reporting Lab: [facility] [place] [address] Performing Lab: [facility] DIVISION COMPREHEN SIVE METABOLIC PANEL CARBON DIOXIDE, TOTAL [MOLES/VOL UME] IN SERUM OR PLASMA 26 meq/L 22 - 31 07/19 Specimen Type: PLASMA Comment: Specimen slightly hemolyzed. K result may show a positive bias due to hemolysis. Ordering Provider: ESME WHITEHEAD Report Released Date/Time: Jul 19, 2023 12:13 PM Reporting Lab: [facility] [place] [address] Performing Lab: [facility] DIVISION COMPREHEN SIVE METABOLIC PANEL CALCIUM [MASS/VOLU ME] IN SERUM OR PLASMA 10.1 mg/dL 8.4 - 10.4 07/19 Specimen Type: PLASMA Comment: Specimen slightly hemolyzed. K result may show a positive bias due to hemolysis. Ordering Provider: ESME WHITEHEAD Report Released Date/Time: Jul 19, 2023 12:13 PM Reporting Lab: [facility] [place] [address] Performing Lab: [facility] DIVISION COMPREHEN SIVE METABOLIC PANEL PROTEIN [MASS/VOLU ME] IN SERUM OR PLASMA 7.9 g/dL 6.0 - 8.6 07/19 Specimen Type: PLASMA Comment: Specimen slightly hemolyzed. K result may show a positive bias due to hemolysis. Ordering Provider: ESME WHITEHEAD Report Released Date/Time: Jul 19, 2023 12:13 PM Reporting Lab: [facility] [place] [address] Performing Lab: [address] DIVISION COMPREHEN SIVE METABOLIC PANEL ALBUMIN [MASS/VOLU ME] IN SERUM OR PLASMA 4.3 g/dL 3.4 - 5.0 07/19 Specimen Type: PLASMA Comment: Specimen slightly hemolyzed. K result may show a positive bias due to hemolysis. Ordering Provider: ESME WHITEHEAD Report Released Date/Time: Jul 19, 2023 12:13 PM Reporting Lab: [facility] [place] [address] Performing Lab: [facility] DIVISION COMPREHEN SIVE METABOLIC PANEL BILIRUBIN. TOTAL [MASS/VOLU ME] IN SERUM OR PLASMA 0.5 mg/dL 0.2 - 1.2 07/19 Specimen Type: PLASMA Comment: Specimen slightly hemolyzed. K result may show a positive bias due to hemolysis. Ordering Provider: ESME WHITEHEAD Report Released Date/Time: Jul 19, 2023 12:13 PM Reporting Lab: [facility] [place] [address] Performing Lab: [facility] DIVISION COMPREHEN SIVE METABOLIC PANEL ALKALINE PHOSPHATAS E [ENZYMATIC ACTIVITY/V OLUME] IN SERUM OR PLASMA 58 U/L 40 - 150 07/19 Specimen Type: PLASMA Comment: Specimen slightly hemolyzed. K result may show a positive bias due to hemolysis. Ordering Provider: ESME WHITEHEAD Report Released Date/Time: Jul 19, 2023 12:13 PM Reporting Lab: [facility] [place] [address] Performing Lab: [facility] DIVISION COMPREHEN SIVE METABOLIC PANEL ASPARTATE AMINOTRANS FERASE [ENZYMATIC ACTIVITY/V OLUME] IN SERUM OR PLASMA 20 U/L 5 - 34 07/19 Specimen Type: PLASMA Comment: Specimen slightly hemolyzed. K result may show a positive bias due to hemolysis. Ordering Provider: ESME WHITEHEAD Report Released Date/Time: Jul 19, 2023 12:13 PM Reporting Lab: [facility] [place] [address] Performing Lab: [facility] DIVISION COMPREHEN SIVE METABOLIC PANEL ALANINE AMINOTRANS FERASE [ENZYMATIC ACTIVITY/V OLUME] IN SERUM OR PLASMA 22 U/L 8 - 40 07/19 Specimen Type: PLASMA Comment: Specimen slightly hemolyzed. K result may show a positive bias due to hemolysis. Ordering Provider: ESME WHITEHEAD Report Released Date/Time: Jul 19, 2023 12:13 PM Reporting Lab: [facility] [place] [address] Performing Lab: [facility] COMPREHEN SIVE METABOLIC PANEL GLOMERULAR FILTRATION RATE/1.73 SQ M.PREDICTE D [VOLUME RATE/AREA] IN SERUM, PLASMA OR BLOOD BY CREATININE -BASED FORMULA (CKD-EPI 2020) 49.25 60 07/19 Specimen Type: PLASMA Comment: Specimen slightly hemolyzed. K result may show a positive bias due to hemolysis. Ordering Provider: ESME WHITEHEAD Report Released Date/Time: Jul 19, 2023 12:13 PM Reporting Lab: [facility] [place] [phone] Performing Lab: [facility] DIVISION CBC LEUKOCYTES [#/VOLUME] IN BLOOD BY AUTOMATED COUNT 7.2 10*3/uL 3.6 - 11.2 07/19 Specimen Type: BLOOD No comment entered. Ordering Provider: ESME WHITEHEAD Report Released Date/Time: Jul 19, 2023 12:13 PM Reporting Lab: [facility] [place] [address] Performing Lab: [facility] DIVISION #[address] DIVISION CBC ERYTHROCYT ES [#/VOLUME] IN BLOOD BY AUTOMATED COUNT 4.76 10*6/uL 4.10 - 5.70 07/19 Specimen Type: BLOOD No comment entered. Ordering Provider: ESME WHITEHEAD Report Released Date/Time: Jul 19, 2023 12:13 PM Reporting Lab: [facility] [place] [address] Performing Lab: [facility] CBC HEMOGLOBIN [MASS/VOLU ME] IN BLOOD 14.2 g/dL 13.1 - 16.8 07/19 Specimen Type: BLOOD No comment entered. Ordering Provider: ESME WHITEHEAD Report Released Date/Time: Jul 19, 2023 12:13 PM Reporting Lab: [facility]1 [place] [address] Performing Lab: [facility] CBC HEMATOCRIT [VOLUME FRACTION] OF BLOOD 42.3 38.2 - 48.4 07/19 Specimen Type: BLOOD No comment entered. Ordering Provider: ESME WHITEHEAD Report Released Date/Time: Jul 19, 2023 12:13 PM Reporting Lab: [facility]1 [place] [address] Performing Lab: [facility] DIVISION CBC MCV [ENTITIC VOLUME] BY AUTOMATED COUNT 88.9 fL 80.0 - 100.0 07/19 Specimen Type: BLOOD No comment entered. Ordering Provider: ESME WHITEHEAD Report Released Date/Time: Jul 19, 2023 12:13 PM Reporting Lab: [facility]1 [place] [address] Performing Lab: [facility] DIVISION CBC MCH [ENTITIC MASS] BY AUTOMATED COUNT 29.8 pg 27.0 - 34.0 07/19 Specimen Type: BLOOD No comment entered. Ordering Provider: ESME WHITEHEAD Report Released Date/Time: Jul 19, 2023 12:13 PM Reporting Lab: [facility]1 [place] [address] Performing Lab: [facility] DIVISION CBC MCHC [MASS/VOLU ME] BY AUTOMATED COUNT 33.6 g/dL 33.0 - 36.0 07/19 Specimen Type: BLOOD No comment entered. Ordering Provider: ESME WHITEHEAD Report Released Date/Time: Jul 19, 2023 12:13 PM Reporting Lab: [facility]1 [place] [address] Performing Lab: [facility] DIVISION CBC PLATELETS [#/VOLUME] IN BLOOD BY AUTOMATED COUNT 128 10*3/uL 150 - 400 07/19 L Specimen Type: BLOOD No comment entered. Ordering Provider: ESME WHITEHEAD Report Released Date/Time: Jul 19, 2023 12:13 PM Reporting Lab: [facility] [place] [address] Performing Lab: [facility] DIVISION CBC PLATELET MEAN VOLUME [ENTITIC VOLUME] IN BLOOD BY AUTOMATED COUNT 10.5 fL 7.5 - 11.2 07/19 Specimen Type: BLOOD No comment entered. Ordering Provider: ESME WHITEHEAD Report Released Date/Time: Jul 19, 2023 12:13 PM Reporting Lab: [facility]1 [place] [address] Performing Lab: [facility] DIVISION CBC ERYTHROCYT E DISTRIBUTI ON WIDTH [RATIO] BY AUTOMATED COUNT 13.7 11.8 - 15.1 07/19 Specimen Type: BLOOD No comment entered. Ordering Provider: ESME WHITEHEAD Report Released Date/Time: Jul 19, 2023 12:13 PM Reporting Lab: [facility] [place] [address] Performing Lab: [facility] DIVISION CBC LYMPHOCYTE S/100 LEUKOCYTES IN BLOOD BY AUTOMATED COUNT 23 07/19 Specimen Type: BLOOD No comment entered. Ordering Provider: ESME WHITEHEAD Report Released Date/Time: Jul 19, 2023 12:13 PM Reporting Lab: [facility]1 [place] [address] Performing Lab: [facility] DIVISION CBC MONOCYTES/ 100 LEUKOCYTES IN BLOOD BY AUTOMATED COUNT 7 07/19 Specimen Type: BLOOD No comment entered. Ordering Provider: ESME WHITEHEAD Report Released Date/Time: Jul 19, 2023 12:13 PM Reporting Lab: [facility]1 [place] [address] Performing Lab: [facility] DIVISION CBC NEUTROPHIL S/100 LEUKOCYTES IN BLOOD BY AUTOMATED COUNT 68 07/19 Specimen Type: BLOOD No comment entered. Ordering Provider: ESME WHITEHEAD Report Released Date/Time: Jul 19, 2023 12:13 PM Reporting Lab: [facility]1 [place] [address] Performing Lab: [facility] DIVISION CBC EOSINOPHIL S/100 LEUKOCYTES IN BLOOD BY AUTOMATED COUNT 1 07/19 Specimen Type: BLOOD No comment entered. Ordering Provider: ESME WHITEHEAD Report Released Date/Time: Jul 19, 2023 12:13 PM Reporting Lab: [facility]1 [place] [address] Performing Lab: [facility] DIVISION CBC BASOPHILS/ 100 LEUKOCYTES IN BLOOD BY AUTOMATED COUNT 0 07/19 Specimen Type: BLOOD No comment entered. Ordering Provider: ESME WHITEHEAD Report Released Date/Time: Jul 19, 2023 12:13 PM Reporting Lab: [facility]1 [place] [address] Performing Lab: [facility] DIVISION CBC LYMPHOCYTE S [#/VOLUME] IN BLOOD BY AUTOMATED COUNT 1.66 10*3/uL 0.77 - 4.50 07/19 Specimen Type: BLOOD No comment entered. Ordering Provider: ESME WHITEHEAD Report Released Date/Time: Jul 19, 2023 12:13 PM Reporting Lab: [facility]1 [place] [address] Performing Lab: [facility] DIVISION CBC MONOCYTES [#/VOLUME] IN BLOOD BY AUTOMATED COUNT 0.51 10*3/uL 0.19 - 0.80 07/19 Specimen Type: BLOOD No comment entered. Ordering Provider: ESME WHITEHEAD Report Released Date/Time: Jul 19, 2023 12:13 PM Reporting Lab: [facility]1 [place] [address] Performing Lab: [facility] DIVISION CBC NEUTROPHIL S [#/VOLUME] IN BLOOD BY AUTOMATED COUNT 4.89 10*3/uL 2.10 - 8.00 07/19 Specimen Type: BLOOD No comment entered. Ordering Provider: ESME WHITEHEAD Report Released Date/Time: Jul 19, 2023 12:13 PM Reporting Lab: [facility]1 [place] [address] Performing Lab: [facility] DIVISION CBC EOSINOPHIL S [#/VOLUME] IN BLOOD BY AUTOMATED COUNT 0.08 10*3/uL 0.00 - 0.60 07/19 Specimen Type: BLOOD No comment entered. Ordering Provider: ESME WHITEHEAD Report Released Date/Time: Jul 19, 2023 12:13 PM Reporting Lab: [facility]1 [place] [address] Performing Lab: [facility] DIVISION CBC BASOPHILS [#/VOLUME] IN BLOOD BY AUTOMATED COUNT 0.03 10*3/uL 0.00 - 0.20 07/19 Specimen Type: BLOOD No comment entered. Ordering Provider: ESME WHITEHEAD Report Released Date/Time: Jul 19, 2023 12:13 PM Reporting Lab: [facility]1 [place] [address] Performing Lab: [facility] CBC PLATELETS RETICULATE D/100 PLATELETS IN BLOOD BY AUTOMATED COUNT 3.6 1.0 - 7.0 07/19 Specimen Type: BLOOD No comment entered. Ordering Provider: ESME WHITEHEAD Report Released Date/Time: Jul 19, 2023 12:13 PM Reporting Lab: [facility]1 [place] [address] Performing Lab: [facility] DIVISION HGA1C HEMOGLOBIN A1C/HEMOGL OBIN.TOTAL IN BLOOD 6.5 4.0 - 6.0 05/04 H Specimen Type: BLOOD No comment entered. Ordering Provider: ESME WHITEHEAD Report Released Date/Time: May 04, 2023 11:02 AM Reporting Lab: [facility]1 [place] [address] Performing Lab: [facility] DIVISION BASIC METABOLIC PANEL CREATININE [MASS/VOLU ME] IN SERUM OR PLASMA 1.58 mg/dL 0.70 - 1.30 05/04 H Specimen Type: PLASMA Comment: No hemolysis noted. Ordering Provider: ESME WHITEHEAD Report Released Date/Time: May 04, 2023 11:02 AM Reporting Lab: [facility]1 [facility] [phone] Performing Lab: [facility]1 [facility] [phone] DIVISION BASIC METABOLIC PANEL UREA NITROGEN [MASS/VOLU ME] IN SERUM OR PLASMA 25.2 mg/dL 9.0 - 25.0 05/04 H Specimen Type: PLASMA Comment: No hemolysis noted. Ordering Provider: ESME WHITEHEAD Report Released Date/Time: May 04, 2023 11:02 AM Reporting Lab: [facility]1 [facility] [phone] Performing Lab: [facility]1 [facility] [phone] DIVISION BASIC METABOLIC PANEL GLUCOSE [MASS/VOLU ME] IN SERUM OR PLASMA 142 mg/dL 72 - 99 05/04 H Specimen Type: PLASMA Comment: No hemolysis noted. Ordering Provider: ESME WHITEHEAD Report Released Date/Time: May 04, 2023 11:02 AM Reporting Lab: [facility] #1 [place] [phone] Performing Lab: [facility]1 [facility] [phone] DIVISION BASIC METABOLIC PANEL SODIUM [MOLES/VOL UME] IN SERUM OR PLASMA 142 meq/L 136 - 145 05/04 Specimen Type: PLASMA Comment: No hemolysis noted. Ordering Provider: ESME WHITEHEAD Report Released Date/Time: May 04, 2023 11:02 AM Reporting Lab: [facility]1 [facility] [phone] Performing Lab: [facility]1 [facility] [phone] [place] [address] DIVISION BASIC METABOLIC PANEL POTASSIUM [MOLES/VOL UME] IN SERUM OR PLASMA 4.4 meq/L 3.5 - 5.0 05/04 Specimen Type: PLASMA Comment: No hemolysis noted. Ordering Provider: ESME WHITEHEAD Report Released Date/Time: May 04, 2023 11:02 AM Reporting Lab: [facility]1 [place] [address] Performing Lab: [facility] DIVISION BASIC METABOLIC PANEL CHLORIDE [MOLES/VOL UME] IN SERUM OR PLASMA 106 meq/L 98 - 107 05/04 Specimen Type: PLASMA Comment: No hemolysis noted. Ordering Provider: ESME WHITEHEAD Report Released Date/Time: May 04, 2023 11:02 AM Reporting Lab: [facility]1 [place] [address] Performing Lab: [facility] DIVISION BASIC METABOLIC PANEL CARBON DIOXIDE, TOTAL [MOLES/VOL UME] IN SERUM OR PLASMA 27 meq/L 22 - 31 05/04 Specimen Type: PLASMA Comment: No hemolysis noted. Ordering Provider: ESME WHITEHEAD Report Released Date/Time: May 04, 2023 11:02 AM Reporting Lab: [facility]1 [place] [address] Performing Lab: [facility] DIVISION BASIC METABOLIC PANEL CALCIUM [MASS/VOLU ME] IN SERUM OR PLASMA 9.6 mg/dL 8.4 - 10.4 05/04 Specimen Type: PLASMA Comment: No hemolysis noted. Ordering Provider: ESME WHITEHEAD Report Released Date/Time: May 04, 2023 11:02 AM Reporting Lab: [facility]1 [place] [address] Performing Lab: [facility] DIVISION BASIC METABOLIC PANEL GLOMERULAR FILTRATION RATE/1.73 SQ M.PREDICTE D [VOLUME RATE/AREA] IN SERUM, PLASMA OR BLOOD BY CREATININE -BASED FORMULA (CKD-EPI 2020) 45.90 60 05/04 Specimen Type: PLASMA Comment: No hemolysis noted. Ordering Provider: ESME WHITEHEAD Report Released Date/Time: May 04, 2023 11:02 AM Reporting Lab: [facility] #1 [facility] [phone] Performing Lab: [facility] #1 [facility] [phone] [facility] Vital Signs Combined list of inpatient and outpatient Vital Signs from Department of [facility] and [facility], ranging from 12 months to all on record, depending upon the facility. Vital Sign Value Date Comments Source SYSTOLIC BLOOD PRESSURE 151 06/12/2024 10:16:01 [facility] DIASTOLIC BLOOD PRESSURE 80 06/12/2024 10:16:01 [facility] PULSE OXIMETRY 95 06/12/2024 10:16:01 [facility] WEIGHT 204.1 06/12/2024 10:16:01 [facility] BMI 32 kg/m2 06/12/2024 10:16:01 [facility] PAIN 0 06/12/2024 10:16:01 [facility] TEMPERATURE 97.9 06/12/2024 10:16:01 [facility] PULSE 63 06/12/2024 10:16:01 [facility] RESPIRATION 16 06/12/2024 10:16:01 [facility] Encounters Combined list of: 1) Encounters from [facility] facilities going backup to the last 18 months, not all [place] inpatient encounters are included; 2) Encounters from the Department of [facility] facilities going backup to 280 months. Location Location Details Encounter Type Encounter Number Reason For Visit Attending Provider ADM Date DC Date Status Disposition Source [facility] Outpatient Encounter [id number] Lyla DUARTE 04/22 [facility] Outpatient Encounter [id number] 04/25 [facility] Outpatient Encounter [id number] 05/04 [facility]P EST MOD 30-39 MIN [id number] Diagnos is: ICD-10- CM E11.9 Type 2 diabete s mellitu s without complic ations ESME WHITEHEAD 05/04 [facility] Outpatient Encounter [id number] ELVIS MALDONADO 05/11 [facility] Outpatient Encounter [id number] 05/11 [facility] Outpatient Encounter [id number] ESME WHITEHEAD 05/17 [facility] Out[facility] Encounter [id number] 06/29 [facility] Outpatient Encounter [id number] 07/13 [facility] Outpatient Encounter [id number] 07/13 [facility] Outpatient Encounter [id number] ELIAS MISHRA 07/13 [facility] Outpatient Encounter [id number] ELVIS MALDONADO E 07/14 [facility] Outpatient Encounter [id number] 07/17 [facility] OFFICE O/P EST MOD 30 MIN [id number] Diagnos is: ICD-10- CM M25.561 Pain in right knee ESME WHITEHEAD M 07/19 [facility] END OF LIFE COUNSELING [id number] Diagnos is: ICD-10- CM Z74.1 Need for assista nce with Modesto Herrmann 07/19 [facility] OT EVAL MOD COMPLEX 45 MIN [id number] Diagnos is: ICD-10- CM R53.1 John BA,ANDR EW H 07/24 [facility] Outpatient Encounter [id number] 07/25 [facility] Outpatient Encounter [id number] 07/27 [facility] REMOVE IMPACTED EAR WAX UNI [id number] [id number] Diagnos is: ICD-10- CM H61.21 Impacte d cerumen , right ear STACEY MENDOZA A 07/30 [facility] Outpatient Encounter [id number] 08/01 [facility] Outpatient Encounter [id number] 08/01 [facility] THERAPEUTI C EXERCISES [id number] Diagnos is: ICD-10- CM M25.561 Pain in right knee SHIRLEY,YING DESAI L 08/10 [facility] Outpatient Encounter [id number] 08/10 [facility] Outpatient Encounter [id number] 08/13 [facility] Outpatient Encounter [id number] 08/16 [facility] GAIT TRAINING THERAPY [id number] Diagnos is: ICD-10- CM M25.561 Pain in right knee SHIRLEYYING GONZALEZN L 08/17 [facility] Outpatient Encounter [id number] 08/21 [facility] THERAPEUTI C EXERCISES [id number] Diagnos is: ICD-10- CM M25.561 Pain in right knee YING WATSONN L 08/24 [facility] Outpatient Encounter [id number] 1 08/24 [facility] HC PRO PHONE CALL 21-30 MIN [id number] Diagnos is: ICD-10- CM F25.9 Schizoa ffectiv e disorde r, unspeci fied RACHELJAIMIE HICKMAN L 08/28 [facility] THERAPEUTI C EXERCISES [id number] Diagnos is: ICD-10- CM M25.561 Pain in right knee YING WATSONN L 08/31 [facility] Outpatient Encounter [id number] GRAHAM,GIRaad Salvador L 09/06 [facility] OFFICE O/P EST SF 10 MIN [id number] Diagnos is: ICD-10- CM R63.4 Abnorma l weight loss JARETT NAIRESME JAGUAR M 09/06 [facility] THERAPEUTI C EXERCISES [id number] Diagnos is: ICD-10- CM M25.561 Pain in right knee YING WATSONN L 09/07 [facility] SELF CARE MNGMENT TRAINING [id number] Diagnos is: ICD-10- CM R53.1 John s FLKADE,ANDR EW H 10/08 [facility] Outpatient Encounter [id number] 10/12 [facility] Outpatient Encounter [id number] 10/18 [facility] Outpatient Encounter [id number] RAJ RED A 11/14 [facility] Outpatient Encounter [id number] IVÁN REY RRY 11/23 [facility] OFFICE O/P EST MOD 30 MIN [id number] Diagnos is: ICD-10- CM F25.9 Schizoa ffectiv e disorde r, unspeci fied LOITERSTEI N,ARIEL A 11/27 [facility] ASSMT/REAS SESSMENT [id number] Diagnos is: ICD-10- CM M25.561 Pain in right knee BRANDONKENNETH Ellison 11/28 [facility] Outpatient Encounter [id number] Diagnos is: ICD-10- CM E11.9 Type 2 diabete s mellitu s without complic ations ESME WHITEHEAD 12/03 [facility] Outpatient Encounter [id number] 12/05 [facility] Outpatient Encounter [id number] ELVIS MALDONADO 12/10 [facility] Outpatient Encounter [id number] YING BEE 12/10 [facility] Outpatient Encounter [id number] [id number] Lyla DUARTE 12/19 [facility] Outpatient Encounter [id number] 12/27 [facility] Outpatient Encounter [id number] 01/03 [facility] Outpatient Encounter [id number] 01/26 [facility] Outpatient Encounter [id number] 03/07 [facility] Outpatient Encounter [id number] 03/19 [facility] Outpatient Encounter [id number] 04/16 [facility] Outpatient Encounter [id number] LIONEL LEONARD SA S 05/10 [facility] Outpatient Encounter [id number] 05/23 [facility] Outpatient Encounter [id number] 05/29 [facility] Outpatient Encounter [id number] 06/12 [facility] OFFICE O/P EST MOD 30 MIN [id number] Diagnos is: ICD-10- CM Z00.00 Encntr for general adult medical exam w/o abnorma l finding s AISHALIONEL S 06/12 [facility] En[facility] [id number] 07/11 [facility] Outpatient Encounter [id number] ME JACQUELINE HUANG E 07/25 [facility] Outpatient Encounter [id number] 07/29 [facility] Outpatient Encounter [id number] 07/29 [facility] Outpatient Encounter [id number] 07/30 [facility] Outpatient Encounter [id number] 08/01 [facility] Outpatient Encounter [id number] 08/01 [facility] Outpatient Encounter [id number] ELVIS MALDONADO E 08/02 [facility] Outpatient Encounter [id number] 08/13 [facility] Outpatient Encounter [id number] 08/19 [facility] O[facility]P EST MOD 30 MIN [id number] Diagnos is: ICD-10- CM F25.9 Schizoa ffectiv e disorde r, unspeci fied KELIPHOEBEaScha NARIEL A 08/19 [facility] Outpatient Encounter [id number] GEMLUCIANOL,AM Y E 08/20 [facility] Outpatient Encounter [id number] 08/20 [facility] Outpatient Encounter [id number] 09/09 [facility] Outpatient Encounter [id number] 09/17 [facility] Outpatient Encounter [id number] 09/18 [facility] Outpatient Encounter [id number] 09/19 [facility] Outpatient Encounter [id number] 09/26 [facility] Outpatient Encounter [id number] 10/03 [facility] Outpatient Encounter [id number] 10/03 [facility] Outpatient Encounter [id number] 10/04 [facility] CASE MANAGEMENT [id number] Diagnos is: ICD-10- CM Z73.9 Problem related to life managem ent difficu lty, unspeci Modesto Anders 10/04 [facility] Outpatient Encounter [id number] 10/08 [facility] Outpatient Encounter [id number] 10/08 [facility] Outpatient Encounter [id number] 1 10/09 [facility] Outpatient Encounter [id number] 10/10 [facility] Outpatient Encounter [id number] 10/11 [facility] Social History Combined list of available smoking, tobacco, and other social history from Department of Defense and Veterans Affairs facilities. Social History Type Response Date Comment Source Tobacco smoking status NHIS VA-TOBACCO QUIT 15 YRS OR MORE 09/07/2023 [facility] History of tobacco use VA-TOBACCO FORMER USER 09/07/2023 [facility] History of tobacco use VA-TOBACCO FORMER USER 07/19/2023 [facility] History of tobacco use VA-TOBACCO FORMER USER 07/05/2022 [facility] History of tobacco use VA-TOBACCO QUIT 15 YRS OR MORE 07/05/2021 [facility] History of tobacco use VA-TOBACCO QUIT 5 TO < 15 YRS 06/19/2020 [facility] History of tobacco use VA-TOBACCO QUIT 5 TO < 15 YRS 12/03/2018 [facility] History of tobacco use VA-TOBACCO FORMER USER 05/31/2018 [facility] History of tobacco use QUIT TOBACCO >7 YEARS AGO 06/13/2017 [facility] History of tobacco use QUIT TOBACCO >7 YEARS AGO 02/09/2017 [facility] History of tobacco use QUIT TOBACCO >7 YEARS AGO 11/24/2016 [facility] History of tobacco use QUIT TOBACCO >7 YEARS AGO 03/15/2016 [facility] History of tobacco use HF V9 QUIT SMOKING > 1YR 02/11/2015 >5 years [facility] History of tobacco use HF V9 QUIT SMOKING > 1YR 01/13/2014 [facility] History of tobacco use HF V9 QUIT SMOKING > 1YR 02/08/2013 [facility] History of tobacco use HF V9 QUIT SMOKING > 1YR 02/13/2012 [facility] History of tobacco use HF V9 QUIT SMOKING > 1YR 03/09/2011 >2 years [facility] History of tobacco use HF V9 QUIT SMOKING > 1YR 07/22/2010 >3 months [facility] History of tobacco use QUIT TOBACCO >12 MO and <7 YRS AGO 09/22/2009 [facility] History of tobacco use HF V9 QUIT SMOKING > 1YR 08/12/2009 >2 years [facility] History of tobacco use HF V9 QUIT SMOKING > 1YR 08/04/2008 >2 years [facility] History of tobacco use HF V9 CURRENT SMOKER 07/11/2008 [facility] History of tobacco use QUIT TOBACCO IN THE LAST 12 MONTHS 01/10/2008 [facility] History of tobacco use HF V9 QUIT SMOKING < 1YR 09/26/2007 >6 months [facility] History of tobacco use HF V9 CURRENT SMOKER 02/12/2007 1ppd [facility] History of tobacco use HF V9 CURRENT SMOKER 12/08/2006 [facility] History of tobacco use HF V9 CURRENT SMOKER 07/17/2006 [facility] History of tobacco use HF V9 CURRENT SMOKER 05/03/2006 [facility] History of tobacco use HF V9 CURRENT SMOKER 01/10/2006 1 1/2PPD [facility] History of tobacco use HF V9 CURRENT SMOKER 06/15/2005 2 ppd [facility] History of tobacco use HF V9 CURRENT SMOKER 11/01/2004 [facility] History of tobacco use HF V9 CURRENT SMOKER 05/06/2004 [facility] History of tobacco use HF V9 CURRENT SMOKER 01/21/2004 2 PPD [facility] History of tobacco use HF V9 CURRENT SMOKER 07/17/2003 2PPD [facility] History of tobacco use HF V9 CURRENT SMOKER 04/14/2003 Pt does not want to stop smoking at this time. 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 Additional future care activities may be listed in the Assessment and Plan section. Date/Time Care Activity Care Activity Detail Facili ty 12/11/2024 AMBULATORY - MEDICINE AMBULATORY - MEDICI [facility] Advance Directives List of completed, amended, or rescinded Advance Directives on record at [facility] facilities. An actual copy of the Directive is not included. Date Advance Directive Provider Source 07/19/2023 ADVANCE DIRECTIVE SEVERIANO STERN [facility]
--- OUTSIDE RECORDS SUMMARY | 2024-10-17 07:45 | XMS_ITS | Encounter Summary ---
Author Name [facility] Organization [facility] [place] Address [address] [place] [address] Care Team Providers Care Cryogenics Repairer Name Role Phone ABBEY HUANG Primary Care [...] PART B Apr 21, 1984 PART B [id number] [phone] YOGESH DEE HN PATIENT MEDICARE (WNR) MEDICARE (M) PART B Apr 21, 1984 PART B [id number] YOGESH DEE HN PATIENT MEDICARE (WNR) MEDICARE (M) PART B Apr 21, 1984 PART B [id number] YOGESH DEE HN PATIENT MEDICARE (WNR) MEDICARE (M) PART B Apr 21, 1984 PART B [id number] YOGESH DEE HN PATIENT MEDICARE (WNR) MEDICARE (M) PART A September 19, 1981 PART A [id number] YOGESH DEE HN PATIENT MEDICARE (WNR) MEDICARE (M) PART A September 19, 1981 PART A [id number] [phone] YOGESH DEE HN PATIENT MEDICARE (WNR) MEDICARE (M) PART A September 19, 1981 PART A [id number] [facility] [phone] YOGESH DEE HN PATIENT MEDICARE (WNR) MEDICARE (M) PART A September 19, 1981 PART A [id number] YOGESH DEE PATIENT Selected Encounter This section includes the information on record at OR for the Encounter. Date/Time Encounter Type Encounter Description Reason Provider Source Jun 12, 2024 10:30 AM OFFICE O/P EST MOD 30 MIN PRIMARY CARE/MEDICINE ICD-10-CM Z00.00 Encntr for general adult medical exam w/o abnormal findings [facility] Encounter Template Text not used by [place] Assessments - Encounter Diagnoses This section includes the primary and secondary diagnoses documented for the Encounter. Date/Time Primary/Secondary Diagnosis Diagnosis Name Provider Source Jun 12, 2024 11:06 AM PRIMARY Encntr for general adult medical exam w/o abnormal findings [facility] Jun 12, 2024 11:06 AM SECONDARY Benign prostatic hyperplasia without lower urinry tract symp [facility] Jun 12, 2024 11:06 AM SECONDARY Chronic kidney disease, unspecified [facility] Jun 12, 2024 11:06 AM SECONDARY Essential (primary) hypertension [facility] Jun 12, 2024 11:06 AM SECONDARY Mixed hyperlipidemia [facility] Jun 12, 2024 11:06 AM SECONDARY Obesity, unspecified [facility] Jun 12, 2024 11:06 AM SECONDARY Other bipolar disorder [facility] Jun 12, 2024 11:06 AM SECONDARY Pain in unspecified knee [facility] Jun 12, 2024 11:06 AM SECONDARY Schizoaffective disorder, unspecified [facility] Jun 12, 2024 11:06 AM SECONDARY Type 2 diabetes mellitus without complications [facility] Jun 12, 2024 11:06 AM SECONDARY Vitamin B12 deficiency anemia, unspecified AISHA,JOVANY Mancia [facility] Jun 12, 2024 11:06 AM SECONDARY Vitamin D deficiency, unspecified AISHA,JOVANY Mancia [facility] Plan of Treatment: Future Appointments (+ 6 months) and Future Tests (+/- 45 days) The Plan of Treatment section includes future care activities for the patient from all [place] [facility]. This section includes future appointments and future orders which are active, pending or scheduled. Future Appointments This section includes appointments that were scheduled to occur 6 months from the date of the Encounter, up to a maximum of 20 appointments. The data comes from all [facility]. Appointment Date/Time Appointment Type Appointme nt Facility Name Aug 02, 2024 08:00 AM AMBULATORY - NONE [facility] Aug 19, 2024 01:30 PM AMBULATORY - PSYCHIATRY [facility] October 04, 2024 10:30 AM AMBULATORY - MEDICINE [facility] Active, Pending, and Scheduled Orders This section includes a listing of several types of active, pending, and scheduled orders, including clinic medications orders, diagnostic test orders, procedure orders and consult orders; where the start date of the order is 45 days before the date of the Encounter or 45 days after the date of theEncounter. The data comes from all [facility]. Test Date/Time Test Type Test Details Facility Name Jun 12, 2024 12:00 AM Laboratory - Chemistry Order COMPREHENSIVE METABOLIC PANEL GREEN LI/HEP BLD/PLAS PLASMA SP [facility] Jun 12, 2024 12:00 AM Laboratory - Chemistry Order LIPID PANEL (STL) GREEN LI/HEP BLD/PLAS PLASMA SP ONCE [facility] Jun 12, 2024 12:00 AM Laboratory - Chemistry Order CBC BLOOD SP [facility] Jun 12, 2024 12:00 AM Laboratory - Chemistry Order HGA1C BLOOD SP [facility] Jun 12, 2024 12:00 AM Laboratory - Chemistry Order B12 GOLD/RED SST SERUM SP [facility] Jun 12, 2024 12:00 AM Laboratory - Chemistry Order PROST. SPECIFIC AG.(PB-STL) GOLD/RED SST SERUM SP [facility] Jun 12, 2024 12:00 AM Laboratory - Chemistry Order TSH W/ REFLEX FT4 (STL) GREEN LI-HEP PLASMA SP [facility] Jun 12, 2024 12:00 AM Laboratory - Chemistry Order THYROXINE GOLD/RED SST SERUM SP [facility] Jun 12, 2024 12:00 AM Laboratory - Chemistry Order VITAMIN D, 25-HYDROXY GOLD/RED SST SERUM SP [facility] Lab Results: +/- 30 days of the encounter This section includes the Chemistry and Hematology Lab Results on record with OR for the patient. Radiology Reports and Pathology Reports are provided separately, in subsequent sections. Lab Results This section contains the Chemistry/Hematology Results that were resulted 30 days before or 30 daysafter the date of the Encounter. Date/Time Source Result Type Result - Unit Interpretation Reference Range Specimen Type Comment Jun 23, 2024 12:00 PM [facility] OCCULT BLOOD FIT X1 SCREEN FECES Specimen Typ e: FECES No comment entered. Ordering Provider: JOVANY LEONARD Report Released Date/Time: Jun 12, 2024 02:27 PM Reporting Lab: [place] [address] [facility] [id number] Performing Lab: [address] [address] OCCULT BLOOD (FIT) #1 OF 1 Negative Nega tive Vital Signs: All taken on the encounter date This section contains inpatient and outpatient Vital Signs collected on the date of the Encounter. Date/Time Temperature Pulse Blood Pressure Respiratory Rate SP02 Pain Height Weight Body Mass Index Source Jun 12, 2024 10:59 AM 130/68 [facility] Jun 12, 2024 10:16 AM 144/78 [facility] Jun 12, 2024 10:16 AM 97.9 63 151/80 16 95 0 204.1 32 [facility] Social History: Smoking Status (Most current) and Tobacco Use (All prior to encounter date) This section includes the most current, and the historical, smoking and tobacco- related health factors from the [place] facility where the Encounter took place. Current Smoking Status This section includes the most current smoking, or tobacco-related health factor, from the [place] facility where the Encounter took place. Date/Time Current Smoking Status Comment Geoff ity Sep 07, 2023 03:30 PM VA-TOBACCO FORMER USER [facility] Tobacco Use History This section includes a history of the smoking, or tobacco-related health factors, that were collected on or before the date of the Encounter. The data comes from the [place] facility where the Encounter took place. Date/Time Smoking Status/Tobacco Use Comment F acility Sep 07, 2023 03:30 PM VA-TOBACCO QUIT 15 YRS OR MORE [facility] Jul 19, 2023 11:00 AM VA-TOBACCO FORMER USER [facility] Jul 19, 2023 11:00 AM VA-TOBACCO QUIT 15 YRS OR MORE [facility] Jul 05, 2022 10:30 AM VA-TOBACCO FORMER USER [facility] Jul 05, 2022 10:30 AM VA-TOBACCO QUIT 15 YRS OR MORE [facility] Jul 05, 2021 09:30 AM VA-TOBACCO FORMER USER [facility] Jul 05, 2021 09:30 AM VA-TOBACCO QUIT 15 YRS OR MORE [facility] Jun 19, 2020 02:30 PM VA-TOBACCO FORMER USER [facility] Jun 19, 2020 02:30 PM VA-TOBACCO QUIT 5 TO < 15 YRS [facility] Dec 03, 2018 11:34 AM VA-TOBACCO FORMER USER [facility] Dec 03, 2018 11:34 AM VA-TOBACCO QUIT 5 TO < 15 YRS [facility] May 31, 2018 12:04 PM VA-TOBACCO FORMER USER [facility] May 31, 2018 12:04 PM VA-TOBACCO QUIT 5 TO < 15 YRS [facility] Jun 13, 2017 09:49 AM QUIT TOBACCO >7 YEARS AGO [facility] Feb 09, 2017 09:29 AM QUIT TOBACCO >7 YEARS AGO [facility] Nov 24, 2016 01:52 PM QUIT TOBACCO >7 YEARS AGO [facility] Mar 15, 2016 09:57 AM QUIT TOBACCO >7 YEARS AGO [facility] Advance Directives: All historical and current Section Date Range: From patient's date of to the date document was created. This section includes ALL of a patient's completed or amended [place] Advance and Rescinded Directives. The entries below indicate that a directive exists for the patient, but an actual copy is not included with this document. The data comes from all [place] facilities. Date Advance Directives Provider Source Jul 19, 2023 ADVANCE DIRECTIVE SEVERIANO STERN [facility] Encounter Notes: All associated encounter notes This section contains the clinical notes associated to the Encounter. Date/Time Encounter Note(s) Provider Source 2024 09:19 AM ADMINISTRATIVE NOTE: LOCAL TITLE: BENEFICIARY TRAVEL (BT) STANDARD TITLE: ADMINISTRATIVE NOTE DATE OF NOTE: 2024@09:19 ENTRY DATE: 2024@09:19:50 AUTHOR: ABBEY HUANG EXP COSIGNER: URGENCY: STATUS: COMPLETED BENEFICIARY TRAVEL SPECIAL MODE TRANSPORTATION: I have informed the [employer] [facility] that, requests with insufficient evidence of functional need, containing information that appears inconsistent with clinical evidence or appears intentionally exaggerated to obtain eligibility will be referred for further review or returned for additional information or clarification. Point of Contact's E-mail: Phone/Pager/Extension: MEDICAL JUSTIFICATION is not able to transfer into a private vehicle or medically appropriate common carrier, or requires additional assistance as outlined below. The clinical condition requiring the use of [place] Special Mode transportation to be safely transported are as follows: Severe deconditioning or functional limitation precluding private transportation with assistance This request is not for an inter-facility transfer WHEELCHAIR VAN/AMBULETTE ([place] Only; NO Art History Instructor; Non-Emergent): Wheelchair type: Manual Other Mobility type: Ambulatory with Supervision Date travel is to commence: September boom supervisor time (if needed): Estimated time frame [facility] will require transportation: 2 Years To and from all authorized VA and Non-VA care Frequency: Round Trip /kyle/ ABBEY DAMON AGPNP-C NURSE PRACTITIONER Signed: 2024 09:22 ABBEY HUANG [facility] Jul 04, 2024 10:47 AM PHYSICIAN LETTERS: LOCAL TITLE: TEST RESULT GENERAL LETTER STL STANDARD TITLE: PHYSICIAN LETTERS DATE OF NOTE: JUL 04, 2024@10:47 ENTRY DATE: JUL 04, 2024@10:48 AUTHOR: JOVANY LEONARD EXP COSIGNER: URGENCY: STATUS: COMPLETED [facility] [address] [place] [address] JUL 04, 2024 ERLIN DEE [address] [place] [address] Dear Erlin Dee, I would like to [...] not hesitate to reach out via My [employer] or telephone. We look forward to seeing you at your next office visit. FUTURE APPOINTMENTS: 07/12/2024 14:30 [facility] 12/11/2024 10:30 [facility]-PACT E4 PCP Sincerely, JOVANY LEONARD NURSE PRACTITIONER ERLIN DEE MELISSA S [facility] Jun 12, 2024 10:25 AM PRIMARY CARE NOTE: LOCAL TITLE: PRIMARY CARE PROVIDER ESTABLISHED VISIT STL STANDARD TITLE: PRIMARY CARE NOTE DATE OF NOTE: JUN 12, 2024@10:25 ENTRY DATE: JUN 12, 2024@10:26:05 AUTHOR: JOVANY LEONARD EXP COSIGNER: URGENCY: STATUS: COMPLETED ESTABLISHED PATIENT [id number]: REASON FOR VISIT/CHIEF COMPLAINT: routine 6 mo HPI is a 73 year old WHITE MALE who presents with his and sizing sprayer today for evaluation and management of chronic [...] walking up and down the steps at [facility] and around the house diet: eating better, more fruits and vegetables Schizoaffective disorder/bipolar depakote [...] MEDICAL HISTORY: 1) Schizoaffective disorder (SNOMED CT [id number]) 2) Polycythemia 3) Hyperlipidemia 4) Obesity 5) [...] medication list with the patient and/or his/her care-correspondence review clerk. Handwritten corrections, additions and/or deletions were made [...] MSK/Ext: + joint pain, -trauma, +stiffness, -edema /BIOMED TECH: Denies frequency, urgency, burning, odor, discharge Hemo/lymph: [...] or guarding Extremities: decreased ROM, no edema /BIOMED TECH: No CVA or S/P tenderness Hemo/lymph: no [...] # obesity - uncontrolled - encouraged clinical riveter automobile brakes and/or weight loss MOVE program - Encouraged [...] average risk PNEUMOCOCCAL CONJUGATE PCV 13 05/31/2018 [facility]* PNEUMOCOCCAL, UNSPECIFIED FORMUL* [facility]* TDAP 05/31/2018 [facility]* declines shingrix and pneumococcal vaccines Return to clinic 6 months and sooner PRN SUMMARY STATEMENT: Plan of care has been discussed with including expected therapeutic benefits and potential side effects of prescribed medication and treatments. verbalizes understanding and is in agreement with the plan of care. Patient was instructed to keep all scheduled appointments and contact roll coating machine operator for any additional problems. Follow Up Colonoscopy - L,N,P,PH: Colonoscopy is due based on information available to this reminder. Patient declined screening/surveillance. Comment: FIT ordered and he will age out when he turns 74 if WNL PAVE Foot Check - L,N,P,PH,PO,PT,U: Patient declined limb care exam. The patient was advised the [place] mandates all patients with diabetes mellitus, end stage renal disease, peripheral vascular disease, or sensory neuropathy should have a complete foot check completed annually. This includes a visual exam of the skin, pedal pulses and a sensory exam. Patients with any abnormality noted during the foot check should be referred to a specialist. /kyle/ JOVANY LEONARD NURSE PRACTITIONER Signed: 06/12/2024 12:34 JOVANY LEONARD [facility] Jun 12, 2024 10:17 AM NURSING NOTE: LOCAL TITLE: V15 PACT FACE TO FACE NOTE STL STANDARD TITLE: NURSING NOTE DATE OF NOTE: JUN 12, 2024@10:17 ENTRY DATE: JUN 12, 2024@10:17:16 AUTHOR: REJI REY EXP COSIGNER: URGENCY: STATUS: COMPLETED Provider Visit: Patient Identifiers [...] concerns. Review that after hours nurse line [phone] and emergency room are available 12/12 for [...] Not worried about housing near future The [employer] reports the following: Within the past 12 [...] the PneumoPPV group Date Documented: 06/12/24 10:19 [facility] - [facility] MAP: PERSONAL HEALTH PLAN INVENTORY & MAP [facility] [facility]'s Response: praying SHARED GOALS staying active /es/ REJI REY LPN LICENSED PRACTICAL NURSE Signed: 06/12/2024 10:21 REJI REY [facility]
--- OUTSIDE RECORDS SUMMARY | 2024-10-17 07:45 | XMS_ITS | Encounter Summary ---
Author Name Department of Veter[place] Address [address] [place] [address] Care Team Providers Care Hospice Care Consultant Name Role Phone ABBEY HUANG Primary Care [...] PART B Apr 21, 1984 PART B [id number] DEEYOGESH HN PATIENT MEDICARE (WNR) MEDICARE (M) PART B Apr 21, 1984 PART B [id number] YOGESH DEE HN PATIENT MEDICARE (WNR) MEDICARE (M) PART B Apr 21, 1984 PART B [id number] YOGESH DEE HN PATIENT MEDICARE (WNR) MEDICARE (M) PART B Apr 21, 1984 PART B [id number] YOGESH DEE HN PATIENT MEDICARE (WNR) MEDICARE (M) PART A September 19, 1981 PART A [id number] [phone] DEEYOGESH HN PATIENT MEDICARE (WNR) MEDICARE (M) PART A September 19, 1981 PART A [id number] [phone] YOGESH DEE HN PATIENT MEDICARE (WNR) MEDICARE (M) PART A September 19, 1981 PART A [id number] [id number] YOGESH DEE HN PATIENT MEDICARE (WNR) MEDICARE (M) PART A September 19, 1981 PART A [id number] YOGESH DEE PATIENT Selected Encounter This section includes the information on record at [place] for the Encounter. Date/Time Encounter Type Encounter Description Reason Pro vider Source Aug 01, 2024 09:22 AM Outpatient Encounter COMMUNITY CARE CONSULT IHE Encounter Template Text not used by [place] Plan of Treatment: Future Appointments (+ 6 months) and Future Tests (+/- 45 days) The Plan of Treatment section includes future care activities for the patient from all [place] [facility]. This section includes future appointments and future orders which are active, pending or scheduled. Future Appointments This section includes appointments that were scheduled to occur 6 months from the date of the Encounter, up to a maximum of 20 appointments. The data comes from all [place] treatment facilities. Appointment Date/Time Appointment Type Appointme nt Facility Name Aug 02, 2024 08:00 AM AMBULATORY - NONE [facility] Aug 19, 2024 01:30 PM AMBULATORY - PSYCHIATRY [facility] October 04, 2024 10:30 AM AMBULATORY - MEDICINE [facility] Dec 11, 2024 10:30 AM AMBULATORY - MEDICINE [facility] Social History: Smoking Status (Most current) and Tobacco Use (All prior to encounter date) This section includes the most current, and the historical, smoking and tobacco- related health factors from the [place] facility where the Encounter took place. Current Smoking Status This section includes the most current smoking, or tobacco-related health factor, from the [place] facility where the Encounter took place. Date/Time Current Smoking Status Comment Geoff wu September 22, 2009 09:34 AM QUIT TOBACCO >12 M O & <[address] [facility] Tobacco Use History This section includes a history of the smoking, or tobacco-related health factors, that were collected on or before the date of the Encounter. The data comes from the [place] facility where the Encounter took place. Date/Time Smoking Status/Tobacco Use Comment F acjusto 2001 08:20 AM CURRENT TOBACCO USER [facility] 2001 08:20 AM TOBACCO USE STJayson [facility] Advance Directives: All historical and current Section Date Range: From patient's date of to the date document was created. This section includes ALL of a patient's completed or amended [place] Advance and Rescinded Directives. The entries below indicate that a directive exists for the patient, but an actual copy is not included with this document. The data comes from all [place] facilities. Date Advance Directives Provider Source Jul 19, 2023 ADVANCE DIRECTIVE SEVERIANO STERN [facility] Encounter Notes: All associated encounter notes This section contains the clinical notes associated to the Encounter. Date/Time Encounter Note(s) Provider Source Aug 01, 2024 09:22 AM NONVA NOTE: [facility] TITLE: COMMUNITY CARE-CARE COORDINATION PLAN NOTE [address] STANDARD TITLE: NONVA NOTE DATE OF NOTE: AUG 01, 2024@09:22 ENTRY DATE: AUG 01, 2024@09:22:49 AUTHOR: ANDRES CRAIG COSIGNER: URGENCY: STATUS: COMPLETED THE PATIENT HAS BEEN REFERRED TO THE FOLLOWING SERVICES HOME CARE SERVICES: Community skilled home health care PT, OT - in accordance with [place] Standardized Episode of Care (SEOC) HOME CARE SERVICE FUNDING: [place]: [facility] NAME OF AGENCY TO PROVIDE CARE: [facility] [place] [address] DURATION OF CARE (Non-Hospice Services): 120 DAYS OR WHENEVER PATIENT GOALS ARE MET, WHICHEVER COMES FIRST Date service is projected to start: 08/02/24 End service date: 10/02/24 (VA consults terminate automatically after 120 days) *Please send all correspondence/orders to be signed to: ABBEY HUANG opt. 2 then opt. 4 PLAN: New Services-Transition to Skilled Home Health Services. Helpful phone numbers: [facility] Wheelchair Van Operator First Responder [facility] Email: [email or web address] /es/ YARED PENN,RN REGISTERED NURSE Signed: 08/01/2024 09:29 ANDERS CRAIG [facility]
[2024-10-17 07:51] LABS: Basophils Percent Auto 0.4 % (0.2-1.2); Eosinophils Percent Auto 0.2 % (0-4.4); Hematocrit 39.2 % (42.0-52.0); Hemoglobin 12.9 g/dL (14.0-18.0); Immature Granulocyte Absolute 0.03 K/mm3 (0.00-0.031); Immature Granulocyte Percent A 0.4 % (0-0.5); Lymphocytes Absolute Auto 0.61 K/mm3 (0.9-3.2); Lymphocytes Percent Auto 7.5 % (18.3-44.2); Mean Corpuscular HGB Conc 32.9 g/dl (32-36); Mean Corpuscular Hemoglobin 29.3 pg (26-34); Mean Corpuscular Volume 89.1 fl (80-100); Mean Platelet Volume 9.7 fl (7.4-10.4); Monocytes Absolute Auto 0.3 K/mm3 (0.1-0.6); Monocytes Percent Auto 3.4 % (2.6-8.5); Neutrophils Absolute Auto 7.2 K/mm3 (1.3-6.7); Neutrophils Percent Auto 88.1 % (45.5-73.1); Platelet Count Result 117 k/mm3 (150-375); White Blood Count 8.2 K/mm3 (4.5-10.0)
[2024-10-17 07:57] LABS: Alanine Aminotransferase 23 U/L (6-50); Albumin Level 4.2 g/dL (3.5-5.1); Alkaline Phosphatase 59 U/L (38-126); Anion Gap 12 mmol/L (4-12); Aspartate Amino Transferase 30 U/L (17-59); Bilirubin,Total 0.7 mg/dL (0.2-1.3); Blood Urea Nitrogen 20 mg/dL (9-20); Calcium 10.9 mg/dL (8.4-10.2); Carbon Dioxide 27 mmol/L (22-30); Chloride 104 mmol/L (98-107); Estimated Glomerular Filt Rate 58; Glucose 188 mg/dL (65-110); Potassium 3.8 mmol/L (3.4-5.0); Sodium 143 mmol/L (137-145)
[2024-10-17 07:59] LABS: Lactic Acid Reflex 2.9 mmol/L (0.7-2.0)
[2024-10-17 08:16] LABS: NT Pro B Type Natriuretic Pept 162 pg/mL (19.9-100); Troponin I < 0.012 ng/mL (0.000-0.034)
[2024-10-17 08:24] LABS: Influenza A QL RT-PCR Negative (Negative); Influenza B QL RT-PCR Negative (Negative); RSV RNA, RT-PCR Negative (Negative); SARS-CoV-2 RNA PCR Negative (Negative)
[2024-10-17 08:25] LABS: Add Urine Microscopic? YES; Appearance Urine Clear (Clear); Bacteria Urine None Seen /hpf; Bilirubin Urine Negative (Negative); Blood Urine 1+ (Negative); Color Urine Yellow (Yellow); Glucose Urine UA Trace mg/dL (Negative); Ketones Urine Trace mg/dL (Negative); Leukocyte Esterase Ur Negative LEU/UL (Negative); Need Manual Microscopic Reviewed; Nitrate Urine Negative (Negative); Non Pathogenic Casts 0-2; Protein Urine 2+ mg/dL (Negative); RBC Urine 0-2 /hpf (0-2); Specific Grav Ur 1.014 (1.001-1.035); Squamous Epithelial Cell Urine None Seen /hpf (Few); Urobilinogen Urine 0.2 mg/dL (<2.0); WBC Urine 0-5 /hpf (0-3)
--- NOTE | 2024-10-17 08:34 | ED.GENADULT ---
HPI - General Adult General Chief complaint: Upper Respiratory Infection Stated complaint: cough/fever Time Seen by Provider: 10/17/24 07:36 History of Present Illness HPI narrative: Patient is a 74-year-old gentleman who presents emergency department with chief complaint upper respiratory symptoms. Patient has had a cough fever and chills since yesterday the patient has prior history of sepsis from UTI patient reports that he was not feeling well today the family noticed these just not acting his usual self of the patient had generalized body aches and reports that he had chills and had a fever at home the reports that he has had a productive cough of green sputum for the last 2 days Related Data Home Medications ?Medication ?Instructions ?Recorded ?Confirmed ?Last Taken ?Type aspirin 81 mg tablet,delayed 81 mg PO DAILY 09/18/19 07/25/24 07/25/24 History release (Adult Aspirin Regimen) vitamin B12 500 mcg-folic acid 400 1 tablet PO DAILY 09/18/19 07/25/24 07/24/24 History mcg tablet cholecalciferol (vitamin D3) 25 25 mcg PO DAILY 09/21/19 07/25/24 07/25/24 History mcg (1,000 unit) capsule (Vitamin D3) cyanocobalamin (vitamin B-12) 1,000 mcg PO DAILY 09/21/19 07/25/24 07/24/24 History 1,000 mcg tablet (Vitamin B-12) divalproex 500 mg tablet,extended 1,000 mg PO DAILY 09/21/19 07/25/24 07/24/24 History release 24 hr glipizide 10 mg tablet 20 mg PO BIDAC 09/21/19 07/25/24 07/24/24 History hydrochlorothiazide 25 mg tablet 25 mg PO DAILY 09/21/19 07/25/24 07/25/24 History krill 500 mg-omega 3 115 mg-dha 30 1 cap PO DAILY 09/21/19 07/25/24 07/24/24 History mg-epa 64 vs-[id number] capsule (MegaRed [place]-3 Krill Oil) lisinopril 40 mg tablet 10 mg PO DAILY 09/21/19 07/25/24 07/25/24 History metoprolol tartrate 50 mg tablet 50 mg PO DAILY 09/21/19 07/25/24 07/25/24 History metoprolol tartrate 50 mg tablet 75 mg PO QPM 09/21/19 07/25/24 07/24/24 History Allergies Allergy/AdvReac Type Severity Reaction Status Date / Time lithium Allergy Unknown Verified 07/25/24 14:19 Review of Systems Review of Systems: A 10 system review of systems was completed on the patient and is negative except for what is stated in the HPI. Nursing and ancillary documentation was reviewed. [facility] Past Medical History Medical History B12 deficiency Vitamin D deficiency Manic depressive disorder Type 2 diabetes mellitus Gout Essential hypertension PTSD (post-traumatic stress disorder) Schizophrenia Osteoarthritis Surgical History Surgical History Status post cataract extraction of both eyes with insertion of intraocular lens History of cholecystectomy (~1970) Status post laser cataract surgery of both eyes Family History Family History Father Carcinoma of colon Diabetes mellitus Mother Carcinoma of colon Diabetes mellitus Heart disease Social History Social History Social History: Primary care physician: [facility] Code status: Full code Advanced directives: None Smoking packs per day: 3 Smoking cigarettes per day: 60.0 Years smoked: 15 Smoking pack-years: 45.00 Smoking status: Former smoker Tobacco type: cigarettes Second hand tobacco smoke exposure: No Alcohol intake: never Substance use: never Living arrangements: with family Additional living arrangements comments: He lives with his of 11 years. He has 2 grown sons. One of his sons has issues with IV drug abuse. 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 He served in the [employer] during the [place] War for 1 year. Gender identity (if verbalized by the patient): Male Spiritual care concerns: No Agree to blood products: Yes Exam Narrative: GENERAL: Well-appearing, well-nourished, and in no acute distress. HEAD: Normocephalic, atraumatic. EYES: PERRLA and EOMI. ENT: Nares clear, no rhinorrhea or epistaxis. Mucous membranes moist. NECK: Supple. CHEST: Clear to auscultation. No respiratory distress. HEART: Regular rate and rhythm. No murmur heard. Normal peripheral pulses. ABDOMEN: Soft, nontender, nondistended, normal active bowel sounds. EXTREMITIES: Normal range of motion. No edema. SKIN: Warm, dry, no rash. NEURO: No focal deficits. Alert and oriented x3. PSYCH: Normal mood and affect. Course Vital Signs Vital signs: Vital Signs Temperature 39.2 C H 10/17/24 07:16 Pulse Rate 122 H 10/17/24 07:16 Respiratory Rate 24 H 10/17/24 07:16 Blood Pressure 190/74 H 10/17/24 07:16 Pulse Oximetry 93 10/17/24 07:16 Oxygen Delivery Room Air 10/17/24 07:16 Temperature 39.2 C H 10/17/24 07:16 Pulse Rate 122 H 10/17/24 08:25 Respiratory Rate 30 H 10/17/24 08:25 Blood Pressure 172/86 H 10/17/24 08:25 Pulse Oximetry 96 10/17/24 08:25 Oxygen Delivery Room Air 10/17/24 07:16 Medical Decision Making [facility] Narrative Medical decision making narrative: Differential diagnosis includes pneumonia, COVID, flu, RSV, UTI Chest x-ray showed evidence of infiltrate Patient was febrile and tachycardic Patient was given 30 per kilos of normal saline boluses and was started on broad-spectrum antibiotic coverage for community-acquired pneumonia as the chest x-ray shows a infiltrate. Lactic acid was slightly elevated at 2.9 The case was discussed with the hospitalist patient admitted for further care Vital Signs Vital Signs: Vital Signs Temperature 39.2 C H 10/17/24 07:16 Pulse Rate 122 H 10/17/24 07:16 Respiratory Rate 24 H 10/17/24 07:16 Blood Pressure 190/74 H 10/17/24 07:16 Pulse Oximetry 93 10/17/24 07:16 Oxygen Delivery Room Air 10/17/24 07:16 Temperature 39.2 C H 10/17/24 07:16 Pulse Rate 122 H 10/17/24 08:25 Respiratory Rate 30 H 10/17/24 08:25 Blood Pressure 172/86 H 10/17/24 08:25 Pulse Oximetry 96 10/17/24 08:25 Oxygen Delivery Room Air 10/17/24 07:16 Lab Data 10/17/24 07:32 10/17/24 07:32 Labs: Lab Results 10/17/24 10/17/24 Range/Units 07:32 07:56 WBC 8.2 (4.5-10.0) K/mm3 RBC 4.40 L (4.6-6.20) M/mm3 Hgb 12.9 L (14.0-18.0) g/dL Hct 39.2 L (42.0-52.0) % MCV 89.1 (80-100) fl MCH 29.3 (26-34) pg MCHC 32.9 (32-36) g/dl RDW 14.0 (11.5-14.5) % Plt Count 117 L (150-375) k/mm3 MPV 9.7 (7.4-10.4) fl Immature Gran % (Auto) 0.4 (0-0.5) % Neut % (Auto) 88.1 H (45.5-73.1) % Lymph % (Auto) 7.5 L (18.3-44.2) % [place] % (Auto) 3.4 (2.6-8.5) % Eos % (Auto) 0.2 (0-4.4) % Baso % (Auto) 0.4 (0.2-1.2) % Lymph # (Auto) 0.61 L (0.9-3.2) K/mm3 [place] # (Auto) 0.3 (0.1-0.6) K/mm3 Eos # (Auto) 0.0 (0-0.3) K/mm3 Baso # (Auto) 0.0 (0.0-0.1) K/mm3 Abs Immat Gran (auto) 0.03 (0.00-0.031) K/mm3 Absolute Neuts (auto) 7.2 H (1.3-6.7) K/mm3 Absolute Nucleated RBC 0.000 (0.0-0.012) K/mm3 Nucleated RBC % 0.0 (0.0-0.2) % Sodium 143 (137-145) mmol/L Potassium 3.8 (3.4-5.0) mmol/L Chloride 104 (98-107) mmol/L Carbon Dioxide 27 (22-30) mmol/L Anion Gap 12 (4-12) mmol/L BUN 20 (9-20) mg/dL Creatinine 1.22 (0.7-1.3) mg/dL Estim Creat Clear Calc Not Reportable Estimated GFR 58 L (59 - ) Glucose 188 H (65-110) mg/dL Lactic Acid 2.9 H (0.7-2.0) mmol/L Calcium 10.9 H (8.4-10.2) mg/dL Total Bilirubin 0.7 (0.2-1.3) mg/dL AST 30 (17-59) U/L ALT 23 (6-50) U/L Alkaline Phosphatase 59 (38-126) U/L Troponin I < 0.012 (0.000-0.034) ng/mL NT-Pro-B Natriuret Pep 162 H (19.9-100) pg/mL Total Protein 8.0 (6.3-8.2) g/dL Albumin 4.2 (3.5-5.1) g/dL Urine Color Yellow (Yellow) Urine Appearance Clear (Clear) Urine pH 5.0 (5.0-9.0) Ur Specific [place] 1.014 (1.001-1.035) Urine Protein 2+ H (Negative) mg/dL Urine Glucose (UA) Trace H (Negative) mg/dL Urine Ketones Trace H (Negative) mg/dL Ur Blood (Man) 1+ H (Negative) Urine Nitrate Negative (Negative) Urine Bilirubin Negative (Negative) Urine Urobilinogen 0.2 (<2.0) mg/dL Add Ur Microanalysis Reviewed Leukocyte Esterase Rfl Negative (Negative) MARICRUZ/UL Urine RBC 0-2 (0-2) /hpf Urine WBC 0-5 (0-3) /hpf Ur Squamous Epith Cells None seen (Few) /hpf Urine Bacteria None seen /hpf Urine Casts 0-2 Influenza A (RT-PCR) Negative (Negative) Influenza B (RT-PCR) Negative (Negative) RSV (RT-PCR) Negative (Negative) SARS-CoV-2 RNA (RT-PCR) Negative (Negative) Discharge Plan Discharge Clinical Impression: Pneumonia Patient Disposition: Still a Patient Condition: Stable Patient Language: Persian Prescriptions: No Action aspirin [Adult Aspirin Regimen] 81 mg tablet,delayed release (DR/EC) 81 mg PO DAILY vitamin X15-qijnl acid 500-400 mcg tablet 1 tablet PO DAILY Rx Instructions: administer with a meal glipizide 10 mg Tablet 20 mg PO BIDAC cyanocobalamin (vitamin B-12) [Vitamin B-12] 1,000 mcg Tablet 1,000 mcg PO DAILY divalproex 500 mg Tablet Extended Release 24 Hr 1,000 mg PO DAILY metoprolol tartrate 50 mg Tablet 50 mg PO DAILY metoprolol tartrate 50 mg Tablet 75 mg PO QPM hydrochlorothiazide 25 mg Tablet 25 mg PO DAILY lisinopril 40 mg Tablet 10 mg PO DAILY cholecalciferol (vitamin D3) [Vitamin D3] 25 mcg (1,000 unit) Capsule 25 mcg PO DAILY qxvzf-sj-[id number]-jac-xzb-[id number]-ast [MegaRed [place]-3 Krill Oil] [id number] mg Capsule 1 cap PO DAILY tamsulosin 0.4 mg Capsule 0.4 mg PO QAM 30 Days Qty: 30 0RF (DME) insulin syringe-needle U-100 [BD Insulin Syringe] 1 mL 28 gauge x 1/2 syringe See Rx Instructions .ROUTE .MEDSUPPLY Qty: 100 0RF Rx Instructions: As directed metformin 1,000 mg tablet 1,000 mg PO BIDWM 30 Days Qty: 60 0RF Follow-up/Referrals: [facility] [Primary Care Provider] - Time of Disposition: 08:39
[2024-10-17] MEDS: ACETAMINOPHEN 500 MG TABLET 1000 MG PO (08:55)
[2024-10-17 09:45] LABS: Reflex Lactic Acid Yes or No Add Lactic
[2024-10-17] MEDS: AZITHROMYCIN 500 MG/NS 250 ML 500 MG/250 ML BAG 250 MG IVPB (09:45)
[2024-10-17 10:42] LABS: Lactic Acid 2.5 mmol/L (0.7-2.0)
--- NOTE | 2024-10-17 11:36 | ADMGEN ---
This patient, Alphonse Mason, was admitted to 3 [facility] Surg Room 327-01. Patient/family oriented to hospital policies and general routines including ID bracelet, bed and alarms, visiting hours, pain management, procedures, bathroom and other care routines, personal items, smoking policy, room service/diet, and visiting hours. Information on how to activate the Rapid Response Team has been discussed. Patient/Family are encouraged to report perceived risks to care and to ask questions if they do not understand what they are told or what they should do.
[2024-10-17] MEDS: SODIUM CHLORIDE 0.9% IV 1,000 ML 125 ML IV CONT ×2 (12:04→22:37)
[2024-10-17] MEDS: ACETAMINOPHEN 325 MG TABLET 650 MG PO ×2 (14:46→22:42)
--- NOTE | 2024-10-17 15:38 | PM.IMHP ---
H&P: HPI History of Present Illness Date/Time: 10/17/24 15:38 Chief Complaint: Upper Respiratory Infection cough/fever Narrative: ER-HPI narrative: Patient is a 74-year-old gentleman who presents emergency department with chief complaint upper respiratory symptoms. Patient has had a cough fever and chills since yesterday the patient has prior history of sepsis from UTI patient reports that he was not feeling well today the family noticed these just not acting his usual self of the patient had generalized body aches and reports that he had chills and had a fever at home the reports that he has had a productive cough of green sputum for the last 2 days patient is a poor historian, apparently he had been coughing for 2 days and fever, on the floor patient is coughing when swallowing, and chest X-ray showing pneumonia, most likely patient has aspiration pneumonia, will add antibiotics to cover for anaerobic organisms, Zosyn patient blood culture were drawn in the ER, will follow. will keep NPO, continue IVF, consult speech for further recommendation. Review of Systems Review of Systems: A 10 system review of systems was completed on the patient and is negative except for what is stated in the HPI. Nursing and ancillary documentation was reviewed. [facility] Past Medical History Medical History B12 deficiency Vitamin D deficiency Manic depressive disorder Type 2 diabetes mellitus Gout Essential hypertension PTSD (post-traumatic stress disorder) Schizophrenia Osteoarthritis Surgical History Surgical History Status post cataract extraction of both eyes with insertion of intraocular lens History of cholecystectomy (~1970) Status post laser cataract surgery of both eyes Family History Family History Father Carcinoma of colon Diabetes mellitus Mother Carcinoma of colon Diabetes mellitus Heart disease Social History Social History Social History: Primary care physician: [facility] Code status: Full code Advanced directives: None Smoking packs per day: 3 Smoking cigarettes per day: 60.0 Years smoked: 15 Smoking pack-years: 45.00 Smoking status: Former smoker Tobacco type: cigarettes Second hand tobacco smoke exposure: No Alcohol intake: never Substance use: never Substance use type: does not use Do You Feel Safe in your Home?: Yes Lack of Transportation: No Lack of Food: Never True Current Housing: I Have Housing Concerned About Future Housing: No Difficulty Paying Gas/Electric Bills: No Difficulty Paying for Meds: No Currently Unemployed: No Education: High School Diploma/GED Difficulty w/ Childcare or Family Care: No Living arrangements: with family Additional living arrangements comments: He lives with his of 11 years. He has 2 grown sons. One of his sons has issues with IV drug abuse. 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 He served in the [employer] during the [place] War for 1 year. Gender identity (if verbalized by the patient): Male Spiritual care concerns: No Agree to blood products: Yes Meds Home Medications and Allergies Home Medications ?Medication ?Instructions ?Recorded ?Confirmed ?Type aspirin 81 mg tablet,delayed 81 mg PO DAILY 09/18/19 10/17/24 History release (Adult Aspirin Regimen) cholecalciferol (vitamin D3) 25 25 mcg PO DAILY 09/21/19 10/17/24 History mcg (1,000 unit) capsule (Vitamin D3) cyanocobalamin (vitamin B-12) 1,000 mcg PO EVERY OTHER DAY 09/21/19 10/17/24 History 1,000 mcg tablet (Vitamin B-12) divalproex 500 mg tablet,extended 1,000 mg PO HS 09/21/19 10/17/24 History release 24 hr glipizide 10 mg tablet 20 mg PO BIDAC 09/21/19 10/17/24 History hydrochlorothiazide 25 mg tablet 25 mg PO DAILY 09/21/19 10/17/24 History krill 500 mg-omega 3 115 mg-dha 30 1 cap PO HS 09/21/19 10/17/24 History mg-epa 64 kf-wjlrrzl-vtcil capsule (MegaRed [place]-3 Krill Oil) lisinopril 40 mg tablet 10 mg PO DAILY 09/21/19 10/17/24 History metoprolol tartrate 50 mg tablet 75 mg PO BID 09/21/19 10/17/24 History metformin 1,000 mg tablet 1,000 mg PO BIDWM 30 days #60 tabs 09/27/19 10/17/24 Rx tamsulosin 0.4 mg capsule 0.4 mg PO HS 10/17/24 10/17/24 History Allergies Allergy/AdvReac Type Severity Reaction Status Date / Time lithium Allergy Unknown Verified 10/17/24 09:07 Vital Signs Vital Signs - 24 hr 10/17/24 07:16 10/17/24 07:30 10/17/24 08:00 Temperature 39.2 C H Pulse Rate 122 H Respiratory Rate 24 H Blood Pressure 190/74 H Pulse Oximetry 93 93 97 Oxygen Delivery Room Air Room Air Nasal Cannula Oxygen Flow Rate 2 10/17/24 08:25 10/17/24 09:00 10/17/24 09:30 Temperature Pulse Rate 122 H 130 H 124 H Respiratory Rate 30 H 28 H 30 H Blood Pressure 172/86 H 187/91 H 163/79 H Pulse Oximetry 96 97 97 Oxygen Delivery Oxygen Flow Rate 10/17/24 09:31 10/17/24 09:45 10/17/24 10:04 Temperature 38.2 C H Pulse Rate 122 H 114 H Respiratory Rate 30 H 26 H Blood Pressure 163/79 H 140/77 Pulse Oximetry 97 99 Oxygen Delivery Oxygen Flow Rate 10/17/24 10:31 10/17/24 14:00 10/17/24 14:46 Temperature 39.2 C H 38.8 C H Pulse Rate 104 H 118 H Respiratory Rate 30 H 26 H Blood Pressure 147/78 H 137/69 Pulse Oximetry 100 Oxygen Delivery Oxygen Flow Rate Exam Narrative: Patient is comfortable, NAD HEENT: eyes are clear and none icteric LUNGS:CTA HEART: RR S1S2 ABD: BS+, Soft and nontender Lower extremities: no edema SKIN: nonjaundiced Neuro: grossly intact. H&P: Results Labs Labs: Short CBC 10/17/24 Range/Units 07:32 WBC 8.2 (4.5-10.0) K/mm3 Hgb 12.9 L (14.0-18.0) g/dL Hct 39.2 L (42.0-52.0) % Plt Count 117 L (150-375) k/mm3 BMP 10/17/24 07:32 Sodium 143 Potassium 3.8 Chloride 104 Carbon Dioxide 27 BUN 20 Creatinine 1.22 Glucose 188 H Calcium 10.9 H Cardiac Enzymes 10/17/24 Range/Units 07:32 Troponin I < 0.012 (0.000-0.034) ng/mL Liver Function 10/17/24 Range/Units 07:32 Total Bilirubin 0.7 (0.2-1.3) mg/dL AST 30 (17-59) U/L ALT 23 (6-50) U/L Alkaline Phosphatase 59 (38-126) U/L Albumin 4.2 (3.5-5.1) g/dL Urine 10/17/24 Range/Units 07:56 Urine Color Yellow (Yellow) Urine Appearance Clear (Clear) Urine pH 5.0 (5.0-9.0) Ur Specific [place] 1.014 (1.001-1.035) Urine Protein 2+ H (Negative) mg/dL Urine Glucose (UA) Trace H (Negative) mg/dL Assessment and Plan Assessment and plan (1) Pneumonia: Code(s): J18.9 - Pneumonia, unspecified organism Status: Acute (2) Diabetes mellitus with hyperglycemia, without long-term current use of insulin: Qualifiers: Diabetes mellitus type: type 2 Qualified Code(s): E11.65 - Type 2 diabetes mellitus with hyperglycemia Code(s): E11.65 - Type 2 diabetes mellitus with hyperglycemia Status: Acute (3) Dysphagia: Code(s): R13.10 - Dysphagia, unspecified Status: Acute (4) Aspiration pneumonia: Code(s): J69.0 - Pneumonitis due to inhalation of food and vomit Status: Acute Plan patient is a poor historian, apparently he had been coughing for 2 days and fever, on the floor patient is coughing when swallowing, and chest X-ray showing pneumonia, most likely patient has aspiration pneumonia, will add antibiotics to cover for anaerobic organisms, Kierra patient blood culture were drawn in the ER, will follow. will keep NPO, continue IVF, consult speech for further recommendation.
[2024-10-17] MEDS: glipiZIDE 5 MG TABLET 20 MG PO (16:33)
[2024-10-17 16:47] LABS: Glucose Point of Care 145 mg/dl (65-105)
[2024-10-17] MEDS: DIVALPROEX SODIUM ER 500 MG TAB.24H 1000 MG PO (22:39)
[2024-10-18] VITALS (14 sets, daily range): BP systolic 128–149; BP diastolic 65–82; PULSE 79–99; RESP 16–22; TEMP 36.9–37.2; O2SAT 92–100
[2024-10-18 00:56] LABS: Glucose Point of Care 131 mg/dl (65-105)
[2024-10-18] MEDS: SODIUM CHLORIDE 0.9% IV 1,000 ML 125 ML IV CONT ×2 (06:22→17:21)
--- NOTE | 2024-10-18 07:53 | PM.IMPN ---
Progress Note: A&P Assessment and Plan (1) Pneumonia: Qualifiers: Pneumonia type: aspiration pneumonia Code(s): J18.9 - Pneumonia, unspecified organism Status: Acute Assessment and Plan: CXR: Left basilar airspace disease, compatible with pneumonia. Risk Factors: Aspiration started on CAP tx: azithromycin & ceftriaxone Viral PCR: negative for Flu/COVID/RSV Consider ordering legionella, mycoplasma and pneumococcal no supplemental O2 requirement Monitor vital signs, I&Os, neuro status and patient is a fall risk Follow WBC, serum electrolytes, temperature curves and cultures Send sputum cultures Oxygen via NC; wean as tolerated. Keep SpO2 greater than 88% Gentle IV fluid resuscitation Ceftriaxone 2 gram IV q24H and Azithromycin 500mg IV q24H (2) Diabetes mellitus with hyperglycemia, without long-term current use of insulin: Qualifiers: Diabetes mellitus type: type 2 Qualified Code(s): E11.65 - Type 2 diabetes mellitus with hyperglycemia Code(s): E11.65 - Type 2 diabetes mellitus with hyperglycemia Status: Acute Assessment and Plan: - hypoglycemia protocol - POC blood glucose ACHS - home medication - none - A1C 9.4 (09/2019) (3) Dysphagia: Code(s): R13.10 - Dysphagia, unspecified Status: Acute Assessment and Plan: Speech therapy consult MBS: Printed dysphagia with laryngeal penetration without evident aspiration on swallows of thin liquid from a cup which improved with chin tuck which improved with chin tuck. Please correlate with speech pathologist findings and specific feeding recommendations. Subjective Date/time seen: 10/18/24 07:53 Interval history: Patient is a 74-year-old gentleman who presents emergency department with chief complaint upper respiratory symptoms. 10/18/2024 Patient sitting comfortably in bed at time examination. Feeling better today. Denies any chest pain, shortness of breath, nausea/vomiting or abdominal pain at this time. Speech therapy consulted, MBS performed for aspiration risk; no evidence of aspiration on swallows of thin liquid. Can restart diet, continue IV antibiotics for pneumonia. Review of Systems Review of Systems: A 10 system review of systems was completed on the patient and is negative except for what is stated in the HPI. Nursing and ancillary documentation was reviewed. Exam Narrative: Patient is comfortable, NAD HEENT: eyes are clear and none icteric LUNGS:CTA HEART: RR S1S2 ABD: BS+, Soft and nontender Lower extremities: no edema SKIN: nonjaundiced Neuro: grossly intact. Objective Data Vital Signs Vital Signs: Vital Signs - 24 hr 10/17/24 08:00 10/17/24 08:25 10/17/24 09:00 Temperature Pulse Rate 122 H 130 H Respiratory Rate 30 H 28 H Blood Pressure 172/86 H 187/91 H Pulse Oximetry 97 96 97 Oxygen Delivery Nasal Cannula Oxygen Flow Rate 2 10/17/24 09:30 10/17/24 09:31 10/17/24 09:45 Temperature 100.7 F H Pulse Rate 124 H 122 H Respiratory Rate 30 H 30 H Blood Pressure 163/79 H 163/79 H Pulse Oximetry 97 97 Oxygen Delivery Oxygen Flow Rate 10/17/24 10:04 10/17/24 10:31 10/17/24 11:28 Temperature Pulse Rate 114 H 104 H Respiratory Rate 26 H 30 H Blood Pressure 140/77 147/78 H Pulse Oximetry 99 97 Oxygen Delivery Nasal Cannula Oxygen Flow Rate 2 10/17/24 12:00 10/17/24 14:00 10/17/24 14:46 Temperature 102.5 F H 101.8 F H Pulse Rate 122 H 118 H Respiratory Rate 26 H Blood Pressure 137/69 Pulse Oximetry 100 Oxygen Delivery Oxygen Flow Rate 10/17/24 15:50 10/17/24 16:00 10/17/24 20:00 Temperature 98.7 F Pulse Rate 106 H 103 H Respiratory Rate 20 Blood Pressure Pulse Oximetry 100 Oxygen Delivery Nasal Cannula Oxygen Flow Rate 2.5 10/17/24 20:00 10/17/24 21:24 10/17/24 22:00 Temperature 100.2 F H Pulse Rate 94 103 H 101 H Respiratory Rate 20 16 Blood Pressure 126/64 Pulse Oximetry 100 95 Oxygen Delivery Nasal Cannula Oxygen Flow Rate 3 10/17/24 22:42 10/17/24 23:42 10/18/24 00:00 Temperature 100.2 F H 98.5 F Pulse Rate 86 Respiratory Rate Blood Pressure Pulse Oximetry Oxygen Delivery Oxygen Flow Rate 10/18/24 04:00 10/18/24 05:59 Temperature 98.4 F Pulse Rate 87 86 Respiratory Rate 20 Blood Pressure 149/71 H Pulse Oximetry 100 Oxygen Delivery Oxygen Flow Rate Intake/Output Intake/Output: Intake & Output 10/15/24 10/16/24 10/17/24 10/18/24 23:59 23:59 23:59 23:59 Intake Total 4300 968.8 Output Total 125 Balance 4300 843.8 Meds/Results Medications: Active Medications Generic Name Dose Route Start Last Admin Trade Name Freq PRN Reason Stop Dose Admin Acetaminophen 650 mg 10/17/24 08:39 10/17/24 22:42 Acetaminophen 325 Mg Tablet PO 650 mg Q4H PRN Administration Mild Pain (1-3) or Fever Aspirin 81 mg 10/18/24 09:00 Aspirin 81 Mg Enteric Tablet PO DAILY KENDRA Cyanocobalamin 1,000 mcg 10/18/24 09:00 Cyanocobalamin 1,000 Mcg Tablet PO Q48H KENDRA Divalproex Sodium 1,000 mg 10/17/24 21:00 10/17/24 22:39 Divalproex Sodium Er 500 Mg Tab.24h PO 1,000 mg HS KENDRA Administration Enoxaparin Sodium 40 mg 10/18/24 09:00 Enoxaparin 40 Mg/0.4 Ml Syringe SUB-Q DAILY KENDRA Glipizide 20 mg 10/17/24 16:30 10/18/24 06:23 Glipizide 5 Mg Tablet PO Not Given BIDAC KENDRA Hydrochlorothiazide 25 mg 10/18/24 09:00 Hydrochlorothiazide 25 Mg Tablet PO DAILY KENDRA Sodium Chloride 1,000 mls @ 125 mls/hr 10/17/24 08:40 10/18/24 06:22 Normal Saline Iv IV CONT 125 mls/hr .Q8H KENRDA Administration Ceftriaxone Sodium 1 gm in 50 mls @ 100 mls/hr 10/18/24 09:00 Rocephin 1 Gm/Ns 50 Ml IVPB QAM KENDRA Azithromycin 500 mg in 250 mls @ 250 mls/hr 10/18/24 09:00 Zithromax IVPB Q24H KENDRA Lisinopril 10 mg 10/18/24 09:00 Lisinopril 10 Mg Tablet PO DAILY [facility] Metoprolol Tartrate 75 mg 10/17/24 21:00 10/17/24 22:37 Metoprolol Tartrate 25 Mg Tablet PO Not Given Q12HR KENDRA Nonformulary 0 each 10/17/24 16:05 Nutritional XX 10/18/24 16:04 [id number] PRN PRN -Ibo-Zyt-Uqmujkf-Ast PROTOCOL [Megared [place]-3 Krill O Tamsulosin HCl 0.4 mg 10/17/24 21:00 10/17/24 22:37 Tamsulosin Hcl 0.4 Mg Capsule PO Not Given [facility] Vitamin D 25 mcg 10/18/24 09:00 Cholecalciferol (Vitamin D3) 25 Mcg (1,000 Units) Tablet PO DAILY [facility] Radiology Results: ITS Impressions Chest X-Ray 10/17/24 08:30 Impression: 1: Left basilar airspace disease, compatible with pneumonia. Labs Labs: Laboratory Results - last 24 hr 10/17/24 10/17/24 10/17/24 07:32 07:56 10:27 Sodium 143 Potassium 3.8 Chloride 104 Carbon Dioxide 27 Anion Gap 12 BUN 20 Creatinine 1.22 Estim Creat Clear Calc Not Reportable Estimated GFR 58 L Glucose 188 H POC Capillary Glucose Lactic Acid 2.9 H 2.5 H Calcium 10.9 H Total Bilirubin 0.7 AST 30 ALT 23 Alkaline Phosphatase 59 Troponin I < 0.012 NT-Pro-B Natriuret Pep 162 H Total Protein 8.0 Albumin 4.2 Urine Color Yellow Urine Appearance Clear Urine pH 5.0 Ur Specific [place] 1.014 Urine Protein 2+ H Urine Glucose (UA) Trace H Urine Ketones Trace H Ur Blood (Man) 1+ H Urine Nitrate Negative Urine Bilirubin Negative Urine Urobilinogen 0.2 Add Ur Microanalysis Reviewed Leukocyte Esterase Rfl Negative Urine RBC 0-2 Urine WBC 0-5 Ur Squamous Epith Cells None seen Urine Bacteria None seen Urine Casts 0-2 Influenza A (RT-PCR) Negative Influenza B (RT-PCR) Negative RSV (RT-PCR) Negative SARS-CoV-2 RNA (RT-PCR) Negative 10/17/24 10/18/24 16:43 00:50 Sodium Potassium Chloride Carbon Dioxide Anion Gap BUN Creatinine Estim Creat Clear Calc Estimated GFR Glucose POC Capillary Glucose 145 H 131 H Lactic Acid Calcium Total Bilirubin AST ALT Alkaline Phosphatase Troponin I NT-Pro-B Natriuret Pep Total Protein Albumin Urine Color Urine Appearance Urine pH Ur Specific [place] Urine Protein Urine Glucose (UA) Urine Ketones Ur Blood (Man) Urine Nitrate Urine Bilirubin Urine Urobilinogen Add Ur Microanalysis Leukocyte Esterase Rfl Urine RBC Urine WBC Ur Squamous Epith Cells Urine Bacteria Urine Casts Influenza A (RT-PCR) Influenza B (RT-PCR) RSV (RT-PCR) SARS-CoV-2 RNA (RT-PCR) Quality VTE Prophylaxis VTE prophylaxis: pharmacologic ordered
[2024-10-18 08:25] LABS: Glucose Point of Care 83 mg/dl (65-105)
--- NOTE | 2024-10-18 08:33 | PCSTNOTE ---
Please refer to the Bedside Swallow Evaluation in the EMR. Please note, silent aspiration cannot be ruled out at bedside. Orders received to complete a bedside swallow evaluation. Patient admitted with pneumonia and staff reporting coughing with liquids. Patient changed to NPO status pending bedside swallow evaluation by BRANNER MACHINE TENDER. Patient presented trials puree, solid and thin liquid. Oral Stage was timely across consistencies. Required extra time to masticate solid texture due to lower dentures not available. However clear bolus without residual remaining or difficulty. Pharyngeal Stage: patient had a wheezy quality at rest prior to initiating PO trials due to recent pneumonia. Swallow initiation was timely across consistencies no repeat swallow but some delayed initiation toward end of trials. Patient had delayed cough after completing all trials that again maybe due to pneumonia. Recommend MBS to r/o silent aspiration risk prior to initiating a diet. Physician appeals assistant contacted and orders received for MBS study.
[2024-10-18 09:23] LABS: Alanine Aminotransferase 31 U/L (6-50); Albumin Level 2.9 g/dL (3.5-5.1); Alkaline Phosphatase 38 U/L (38-126); Anion Gap 7 mmol/L (4-12); Aspartate Amino Transferase 31 U/L (17-59); Bilirubin,Total 0.5 mg/dL (0.2-1.3); Blood Urea Nitrogen 23 mg/dL (9-20); Calcium 9.5 mg/dL (8.4-10.2); Carbon Dioxide 24 mmol/L (22-30); Chloride 112 mmol/L (98-107); Estimated CRCL calculation 60 ml/min; Estimated Glomerular Filt Rate > 60; Glucose 94 mg/dL (65-110); Potassium 3.6 mmol/L (3.4-5.0); Sodium 143 mmol/L (137-145)
[2024-10-18 09:39] LABS: Basophils Percent Auto 0.2 % (0.2-1.2); Eosinophils Percent Auto 0.1 % (0-4.4); Hematocrit 33.1 % (42.0-52.0); Immature Granulocyte Absolute 0.16 K/mm3 (0.00-0.031); Immature Granulocyte Percent A 1.1 % (0-0.5); Lymphocytes Absolute Auto 1.17 K/mm3 (0.9-3.2); Lymphocytes Percent Auto 7.7 % (18.3-44.2); Mean Corpuscular HGB Conc 33.2 g/dl (32-36); Mean Corpuscular Hemoglobin 30.1 pg (26-34); Mean Corpuscular Volume 90.4 fl (80-100); Mean Platelet Volume 9.7 fl (7.4-10.4); Monocytes Absolute Auto 1.1 K/mm3 (0.1-0.6); Neutrophils Absolute Auto 12.8 K/mm3 (1.3-6.7); Neutrophils Percent Auto 83.9 % (45.5-73.1); Platelet Count Result 112 k/mm3 (150-375); Red Blood Count 3.66 M/mm3 (4.6-6.20); Red Cell Distribution Width 14.6 % (11.5-14.5); White Blood Count 15.2 K/mm3 (4.5-10.0)
[2024-10-18] MEDS: AZITHROMYCIN 500 MG/NS 250 ML 500 MG/250 ML BAG 250 MG IVPB (10:09)
--- NOTE | 2024-10-18 10:29 | REHSTMBS ---
Assessment and note entered by Rachelle Kimbrough HEMATOLOGY TECHNICIAN Modified Barium Swallow Evaluation Feeding Type Recommended Oral Food Consistency Regular, Level 7 Liquid Consistency Thin (0) Treatment Recommendations Laryngeal Elevation Exercise ST Clinical Summary The patient is s/p admission to the hospital with pneumonia possibly secondary to aspiration. Orders received to complete a bedside swallow. Based on the beside swallow results it was recommended to complete an MBS study oat this time. Results were as followed. Patient demonstrated overall timely oral preparation and transit. Mildly delayed oral preparation for solid mixture was noted due to limited dentition during the study. However, patient did manage to control solid and pudding bolus trials without viewed aspiration/penetration and/or residual remaining in the vallecula or pyriform sinus. When presented initial tsp trials thin liquid barium patient was able to control the bolus and complete swallow initiation without noted difficulty. However, with cup trials thin liquid barium trace penetration was viewed during the swallow due to decreased laryngeal elevation/ adduction. When instructed to apply a chin tuck posture the patient was able to complete swallows without further viewed penetration or aspiration. Recommend Regular Diet (level 7) Regular Liquids (level 0), Chin tuck all swallows, small drinks, upright with meals. No straw. Provide Laryngeal elevation exercises.
--- NOTE | 2024-10-18 10:44 | PCSTNOTE ---
Please refer to the Modified Barium Swallow Evaluation in the EMR. The patient is s/p admission to the hospital with pneumonia possibly secondary to aspiration. Orders received to complete a bedside swallow. Based on the beside swallow results it was recommended to complete an MBS study oat this time. Results were as followed. Patient demonstrated overall timely oral preparation and transit. Mildly delayed oral preparation for solid mixture was noted due to limited dentition during the study. However, patient did manage to control solid and pudding bolus trials without viewed aspiration/penetration and/or residual remaining in the vallecula or pyriform sinus. When presented initial tsp trials thin liquid barium patient was able to control the bolus and complete swallow initiation without noted difficulty. However, with cup trials thin liquid barium trace penetration was viewed during the swallow due to decreased laryngeal elevation/adduction. When instructed to apply a chin tuck posture the patient was able to complete swallows without further viewed penetration or aspiration. Recommend Regular Diet (level 7) Regular Liquids (level 0), Chin tuck all swallows, small drinks, upright with meals. No straw. Provide Laryngeal elevation exercises.
[2024-10-18 11:30] LABS: Glucose Point of Care 86 mg/dl (65-105)
[2024-10-18] MEDS: lisinopriL 10 MG TABLET PO (13:01)
[2024-10-18] MEDS: METOPROLOL TARTRATE 25 MG TABLET 75 MG PO ×2 (13:03→21:49)
[2024-10-18] MEDS: CYANOCOBALAMIN 1,000 MCG TABLET 1000 MCG PO (13:03)
[2024-10-18] MEDS: ASPIRIN 81 MG ENTERIC TABLET PO (13:03)
[2024-10-18] MEDS: hydroCHLOROthiazide 25 MG TABLET PO (13:03)
[2024-10-18] MEDS: CHOLECALCIFEROL (VITAMIN D3) 25 MCG (1,000 UNITS) TABLET PO (13:03)
[2024-10-18] MEDS: ENOXAPARIN 40 MG/0.4 ML SYRINGE SUB-Q (13:04)
[2024-10-18] MEDS: IPRATROPIUM 0.5 MG/ALBUTEROL SULFATE 2.5 MG AMPUL.NEB 3 ML INHALATION (15:50)
[2024-10-18 17:03] LABS: Glucose Point of Care 147 mg/dl (65-105)
[2024-10-18] MEDS: glipiZIDE 5 MG TABLET 20 MG PO (17:21)
[2024-10-18 17:26] LABS: Hematocrit 34.6 % (42.0-52.0); Hemoglobin 11.3 g/dL (14.0-18.0); Mean Corpuscular HGB Conc 32.7 g/dl (32-36); Mean Corpuscular Volume 91.8 fl (80-100); Mean Platelet Volume 9.7 fl (7.4-10.4); Platelet Count Result 113 k/mm3 (150-375); Red Blood Count 3.77 M/mm3 (4.6-6.20); Red Cell Distribution Width 14.5 % (11.5-14.5)
[2024-10-18 17:34] LABS: Anion Gap 5 mmol/L (4-12); Blood Urea Nitrogen 21 mg/dL (9-20); Calcium 9.8 mg/dL (8.4-10.2); Carbon Dioxide 30 mmol/L (22-30); Chloride 108 mmol/L (98-107); Estimated CRCL calculation 55 ml/min; Estimated Glomerular Filt Rate > 60; Glucose 176 mg/dL (65-110); Potassium 3.5 mmol/L (3.4-5.0); Sodium 143 mmol/L (137-145)
[2024-10-18 20:27] LABS: Glucose Point of Care 160 mg/dl (65-105)
[2024-10-18] MEDS: TAMSULOSIN HCL 0.4 MG CAPSULE PO (21:49)
[2024-10-18] MEDS: DIVALPROEX SODIUM ER 500 MG TAB.24H 1000 MG PO (21:49)
[2024-10-19] VITALS (15 sets, daily range): BP systolic 149–161; BP diastolic 73–90; PULSE 70–100; RESP 17–20; TEMP 35.9–37.1; O2SAT 92–100
[2024-10-19] MEDS: SODIUM CHLORIDE 0.9% IV 1,000 ML 125 ML IV CONT (04:57)
[2024-10-19] MEDS: IPRATROPIUM 0.5 MG/ALBUTEROL SULFATE 2.5 MG AMPUL.NEB 3 ML INHALATION (05:44)
[2024-10-19] MEDS: glipiZIDE 5 MG TABLET 20 MG PO ×2 (06:30→17:07)
[2024-10-19 09:01] LABS: Glucose Point of Care 91 mg/dl (65-105)
[2024-10-19] MEDS: hydroCHLOROthiazide 25 MG TABLET PO (09:02)
[2024-10-19] MEDS: METOPROLOL TARTRATE 25 MG TABLET 75 MG PO ×2 (09:02→20:39)
[2024-10-19] MEDS: CHOLECALCIFEROL (VITAMIN D3) 25 MCG (1,000 UNITS) TABLET PO (09:02)
[2024-10-19] MEDS: ASPIRIN 81 MG ENTERIC TABLET PO (09:02)
[2024-10-19] MEDS: lisinopriL 10 MG TABLET PO (09:02)
[2024-10-19] MEDS: ENOXAPARIN 40 MG/0.4 ML SYRINGE SUB-Q (09:07)
[2024-10-19] MEDS: AZITHROMYCIN 500 MG/NS 250 ML 500 MG/250 ML BAG 250 MG IVPB (10:06)
[2024-10-19 11:06] LABS: Glucose Point of Care 154 mg/dl (65-105)
[2024-10-19] MEDS: ACETAMINOPHEN 325 MG TABLET 650 MG PO (11:20)
[2024-10-19] MEDS: MAGNESIUM SULF 2 GM/WATER 50ML 2 GM/50 ML BAG IVPB (11:20)
--- NOTE | 2024-10-19 14:45 | P.PNIM_ITS ---
Progress Note: A&P Assessment and Plan (1) Pneumonia: Qualifiers: Pneumonia type: aspiration pneumonia Code(s): J18.9 - Pneumonia, unspecified organism Status: Acute Assessment and Plan: CXR: Left basilar airspace disease, compatible with pneumonia. * Risk Factors: Aspiration * started on CAP tx: azithromycin & ceftriaxone * Viral PCR: negative for Flu/COVID/RSV * Consider ordering legionella, mycoplasma and pneumococcal * no supplemental O2 requirement * Monitor vital signs, I&Os, neuro status and patient is a fall risk * Follow WBC, serum electrolytes, temperature curves and cultures * Send sputum cultures * Ceftriaxone 2 gram IV q24H and Azithromycin 500mg IV q24H * dc fluids * speech theraphy ordered for pt to rule out aspiration pneumonia * iv mg ordered for pt * continue to watch mg levels (2) Diabetes mellitus with hyperglycemia, without long-term current use of insulin: Qualifiers: Diabetes mellitus type: type 2 Qualified Code(s): E11.65 - Type 2 diabetes mellitus with hyperglycemia Code(s): E11.65 - Type 2 diabetes mellitus with hyperglycemia Status: Acute Assessment and Plan: - hypoglycemia protocol - POC blood glucose ACHS - home medication - none - A1C 9.4 (09/2019) (3) Dysphagia: Code(s): R13.10 - Dysphagia, unspecified Status: Acute Assessment and Plan: * Speech therapy consult * MBS: Printed dysphagia with laryngeal penetration without evident aspiration on swallows of thin liquid from a cup which improved with chin tuck which impr jordon with chin tuck. Please correlate with speech pathologist findings and specific feeding recommendations. Subjective Date/time seen: 10/19/24 14:45 Interval history: Patient is a 74-year-old gentleman who presents emergency department with chief complaint upper respiratory symptoms. 10/18/2024 Patient sitting comfortably in bed at time examination. Feeling better today. Denies any chest pain, shortness of breath, nausea/vomiting or abdominal pain at this time. Speech therapy consulted, MBS performed for aspiration risk; no evidence of aspiration on swallows of thin liquid. Can restart diet, continue IV antibiotics for pneumonia. 10/19/2024 Continue IV Abx, can dc iv fluids pt mg level is low order mg rider for pt pt complains of SOB and body aches continue present care in hospital Exam Narrative: Patient is comfortable, NAD HEENT: eyes are clear and none icteric LUNGS:CTA HEART: RR S1S2 ABD: BS+, Soft and nontender Lower extremities: no edema SKIN: nonjaundiced Neuro: grossly intact. Objective Data Vital Signs Vital Signs: Vital Signs - 24 hr 10/18/24 15:51 10/18/24 15:56 10/18/24 16:00 Temperature Pulse Rate 84 84 Respiratory Rate 20 Blood Pressure Pulse Oximetry 92 Oxygen Delivery Room Air 10/18/24 16:01 10/18/24 20:00 10/18/24 20:00 Temperature Pulse Rate 80 89 79 Respiratory Rate 20 16 Blood Pressure Pulse Oximetry 95 Oxygen Delivery Room Air 10/18/24 21:05 10/18/24 21:49 10/19/24 00:00 Temperature 37.0 C Pulse Rate 89 89 90 Respiratory Rate 16 Blood Pressure 146/82 H Pulse Oximetry 95 Oxygen Delivery 10/19/24 04:00 10/19/24 05:44 10/19/24 05:47 Temperature Pulse Rate 88 73 Respiratory Rate 20 Blood Pressure Pulse Oximetry 94 Oxygen Delivery Room Air 10/19/24 05:50 10/19/24 06:00 10/19/24 09:00 Temperature 37.1 C Pulse Rate 80 70 Respiratory Rate 20 20 Blood Pressure 149/73 H Pulse Oximetry 92 Oxygen Delivery Room Air 10/19/24 09:02 10/19/24 14:00 Temperature 35.9 C L Pulse Rate 96 97 Respiratory Rate 17 Blood Pressure 154/75 H Pulse Oximetry 93 Oxygen Delivery Intake/Output Intake/Output: Intake & Output 10/16/24 10/17/24 10/18/24 10/19/24 23:59 23:59 23:59 23:59 Intake Total 4300 3298.8 1620 Output Total 125 Balance 4300 3173.8 1620 Meds/Results Medications: Active Medications Generic Name Dose Route Start Last Admin Trade Name Freq PRN Reason Stop Dose Admin Acetaminophen 650 mg 10/17/24 08:39 10/19/24 11:20 Acetaminophen 325 Mg Tablet PO 650 mg Q4H PRN Administration Mild Pain (1-3) or Fever Albuterol/Ipratropium 3 ml 10/18/24 15:36 10/19/24 05:44 Ipratropium 0.5 Mg/Albuterol Sulfate 2.5 Mg Ampul.Neb 3 Ml INHALATION 3 ml PRN PRN Administration Wheezing Aspirin 81 mg 10/18/24 09:00 10/19/24 09:02 Aspirin 81 Mg Enteric Tablet PO 81 mg DAILY KENDRA Administration Cyanocobalamin 1,000 mcg 10/18/24 09:00 10/18/24 13:03 Cyanocobalamin 1,000 Mcg Tablet PO 1,000 mcg Q48H KENDRA Administration Divalproex Sodium 1,000 mg 10/17/24 21:00 10/18/24 21:49 Divalproex Sodium Er 500 Mg Tab.24h PO 1,000 mg HS KENDRA Administration Enoxaparin Sodium 40 mg 10/18/24 09:00 10/19/24 09:07 Enoxaparin 40 Mg/0.4 Ml Syringe SUB-Q 40 mg DAILY KENDRA Administration Glipizide 20 mg 10/17/24 16:30 10/19/24 06:30 Glipizide 5 Mg Tablet PO 20 mg BIDAC KENDRA Administration Hydrochlorothiazide 25 mg 10/18/24 09:00 10/19/24 09:02 Hydrochlorothiazide 25 Mg Tablet PO 25 mg DAILY KENDRA Administration Ceftriaxone Sodium 1 gm in 50 mls @ 100 mls/hr 10/18/24 09:00 10/19/24 09:30 Rocephin 1 Gm/Ns 50 Ml IVPB Infused QAM KENDRA Infusion Azithromycin 500 mg in 250 mls @ 250 mls/hr 10/18/24 09:00 10/19/24 11:06 Zithromax IVPB Infused Q24H KENDRA Infusion Lisinopril 10 mg 10/18/24 09:00 10/19/24 09:02 Lisinopril 10 Mg Tablet PO 10 mg DAILY KENDRA Administration Metoprolol Tartrate 75 mg 10/17/24 21:00 10/19/24 09:02 Metoprolol Tartrate 25 Mg Tablet PO 75 mg Q12HR KENDRA Administration Tamsulosin HCl 0.4 mg 10/17/24 21:00 10/18/24 21:49 Tamsulosin Hcl 0.4 Mg Capsule PO 0.4 mg HS KENDRA Administration Vitamin D 25 mcg 10/18/24 09:00 10/19/24 09:02 Cholecalciferol (Vitamin D3) 25 Mcg (1,000 Units) Tablet PO 25 mcg DAILY KENDRA Administration Radiology Results: ITS Impressions Chest X-Ray 10/17/24 08:30 Impression: 1: Left basilar airspace disease, compatible with pneumonia. Modified Barium Swallow 10/18/24 11:21 IMPRESSION: Printed dysphagia with laryngeal penetration without evident aspiration on swallows of thin liquid from a cup which improved with chin tuck which improved with chin tuck. Please correlate with speech pathologist findings and specific feeding recommendations. Labs Labs: Laboratory Results - last 24 hr 10/18/24 10/18/24 10/18/24 16:58 17:11 19:51 WBC 15.0 H RBC 3.77 L Hgb 11.3 L Hct 34.6 L MCV 91.8 MCH 30.0 MCHC 32.7 RDW 14.5 Plt Count 113 L MPV 9.7 Sodium 143 Potassium 3.5 Chloride 108 H Carbon Dioxide 30 Anion Gap 5 BUN 21 H Creatinine 1.09 Estim Creat Clear Calc 55 Estimated GFR > 60 Glucose 176 H POC Capillary Glucose 147 H 160 H Calcium 9.8 Magnesium 1.0 L 10/19/24 10/19/24 08:32 10:52 WBC RBC Hgb Hct MCV MCH MCHC RDW Plt Count MPV Sodium Potassium Chloride Carbon Dioxide Anion Gap BUN Creatinine Estim Creat Clear Calc Estimated GFR Glucose POC Capillary Glucose 91 154 H Calcium Magnesium
[2024-10-19 16:18] LABS: Hematocrit 31.5 % (42.0-52.0); Hemoglobin 10.4 g/dL (14.0-18.0); Mean Corpuscular Hemoglobin 29.8 pg (26-34); Mean Corpuscular Volume 90.3 fl (80-100); Mean Platelet Volume 10.1 fl (7.4-10.4); Platelet Count Result 125 k/mm3 (150-375); Red Blood Count 3.49 M/mm3 (4.6-6.20); Red Cell Distribution Width 14.2 % (11.5-14.5); White Blood Count 11.7 K/mm3 (4.5-10.0)
[2024-10-19 16:25] LABS: Magnesium 1.6 mg/dL (1.6-2.3)
[2024-10-19 16:28] LABS: Glucose Point of Care 288 mg/dl (65-105)
[2024-10-19] MEDS: TAMSULOSIN HCL 0.4 MG CAPSULE PO (20:39)
[2024-10-19] MEDS: DIVALPROEX SODIUM ER 500 MG TAB.24H 1000 MG PO (20:39)
[2024-10-19 21:15] LABS: Glucose Point of Care 171 mg/dl (65-105)
[2024-10-20] VITALS (14 sets, daily range): BP systolic 136–177; BP diastolic 74–87; PULSE 87–118; RESP 17–20; TEMP 36.7; O2SAT 93–95
[2024-10-20] MEDS: IPRATROPIUM 0.5 MG/ALBUTEROL SULFATE 2.5 MG AMPUL.NEB 3 ML INHALATION (02:38)
[2024-10-20] MEDS: glipiZIDE 5 MG TABLET 20 MG PO ×2 (05:40→16:29)
[2024-10-20 06:29] LABS: Anion Gap 7 mmol/L (4-12); Blood Urea Nitrogen 16 mg/dL (9-20); Calcium 10.8 mg/dL (8.4-10.2); Carbon Dioxide 29 mmol/L (22-30); Chloride 107 mmol/L (98-107); Estimated CRCL calculation 55 ml/min; Estimated Glomerular Filt Rate > 60; Glucose 164 mg/dL (65-110); Magnesium 1.5 mg/dL (1.6-2.3); Potassium 3.4 mmol/L (3.4-5.0); Sodium 143 mmol/L (137-145)
[2024-10-20 07:55] LABS: Glucose Point of Care 137 mg/dl (65-105)
[2024-10-20] MEDS: METOPROLOL TARTRATE 25 MG TABLET 75 MG PO ×2 (08:56→21:12)
[2024-10-20] MEDS: hydroCHLOROthiazide 25 MG TABLET PO (08:56)
[2024-10-20] MEDS: lisinopriL 10 MG TABLET PO (08:56)
[2024-10-20] MEDS: CHOLECALCIFEROL (VITAMIN D3) 25 MCG (1,000 UNITS) TABLET PO (08:56)
[2024-10-20] MEDS: ASPIRIN 81 MG ENTERIC TABLET PO (08:56)
[2024-10-20] MEDS: CYANOCOBALAMIN 1,000 MCG TABLET 1000 MCG PO (08:56)
[2024-10-20] MEDS: ENOXAPARIN 40 MG/0.4 ML SYRINGE SUB-Q (08:57)
[2024-10-20] MEDS: AZITHROMYCIN 500 MG/NS 250 ML 500 MG/250 ML BAG 250 MG IVPB (09:46)
[2024-10-20 11:43] LABS: Glucose Point of Care 274 mg/dl (65-105)
--- NOTE | 2024-10-20 13:18 | P.PNIM_ITS ---
Progress Note: A&P Assessment and Plan (1) Pneumonia: Code(s): J18.9 - Pneumonia, unspecified organism Status: Acute Assessment and Plan: CXR: Left basilar airspace disease, compatible with pneumonia. * Ceftriaxone 2 gram IV q24H and Azithromycin 500mg IV q24H * dc fluids * speech theraphy ordered for pt to rule out aspiration pneumonia * iv mg ordered for pt * continue to watch mg levels * oral mg orderd * add mv and ensures (2) Diabetes mellitus with hyperglycemia, without long-term current use of insulin: Code(s): E11.65 - Type 2 diabetes mellitus with hyperglycemia Status: Acute Assessment and Plan: - hypoglycemia protocol - POC blood glucose ACHS - home medication - none - A1C 9.4 (09/2019) (3) Dysphagia: Code(s): R13.10 - Dysphagia, unspecified Status: Acute Assessment and Plan: * Speech therapy consult * MBS: Printed dysphagia with laryngeal penetration without evident aspiration on swallows of thin liquid from a cup which improved with chin tuck which improved with chin tuck. Please correlate with speech pathologist findings and specific feeding recommendations. Plan dvt prop: lovenox Subjective Date/time seen: 10/20/24 13:18 Interval history: Patient is a 74-year-old gentleman who presents emergency department with chief complaint upper respiratory symptoms, admitted for pneumonia 10/18/2024 Patient sitting comfortably in bed at time examination. Feeling better today. Denies any chest pain, shortness of breath, nausea/vomiting or abdominal pain at this time. Speech therapy consulted, MBS performed for aspiration risk; no evidence of aspiration on swallows of thin liquid. Can restart diet, continue IV antibiotics for pneumonia. 10/19/2024 Continue IV Abx, can dc iv fluids pt mg level is low order mg rider for pt pt complains of SOB and body aches continue present care in hospital 10/20/2024 pt still appears tired and lethargic continue iv abx and mg dosing add mv and ensures for pt Review of Systems Review of Systems: lethargy and weakness generalised Exam Narrative: Patient is comfortable HEENT: eyes are clear and none icteric LUNGS:CTA HEART: RR S1S2 ABD: BS+, Soft and nontender Lower extremities: no edema SKIN: nonjaundiced Neuro: grossly intact. Objective Data Vital Signs Vital Signs: Vital Signs - 24 hr 10/19/24 14:00 10/19/24 14:12 10/19/24 16:00 Temperature 35.9 C L Pulse Rate 97 82 Respiratory Rate 17 Blood Pressure 154/75 H Pulse Oximetry 93 Oxygen Delivery Room Air 10/19/24 20:00 10/19/24 20:00 10/19/24 20:39 Temperature Pulse Rate 96 92 82 Respiratory Rate 20 Blood Pressure Pulse Oximetry 100 Oxygen Delivery Room Air 10/19/24 21:11 10/19/24 21:27 10/20/24 00:00 Temperature 36.8 C Pulse Rate 96 87 Respiratory Rate 20 Blood Pressure 161/90 H Pulse Oximetry 99 100 Oxygen Delivery Room Air 10/20/24 02:41 10/20/24 02:52 10/20/24 04:00 Temperature Pulse Rate 91 94 113 H Respiratory Rate 20 20 Blood Pressure Pulse Oximetry Oxygen Delivery 10/20/24 05:25 10/20/24 08:56 10/20/24 09:49 Temperature 36.7 C Pulse Rate 93 118 H Respiratory Rate 20 Blood Pressure 136/81 Pulse Oximetry 95 Oxygen Delivery Room Air 10/20/24 10:18 Temperature Pulse Rate Respiratory Rate Blood Pressure Pulse Oximetry Oxygen Delivery Room Air Intake/Output Intake/Output: Intake & Output 10/17/24 10/18/24 10/19/24 10/20/24 23:59 23:59 23:59 23:59 Intake Total 4300 3298.8 1620 780 Output Total 125 Balance 4300 3173.8 1620 780 Meds/Results Medications: Active Medications Generic Name Dose Route Start Last Admin Trade Name Freq PRN Reason Stop Dose Admin Acetaminophen 650 mg 10/17/24 08:39 10/19/24 11:20 Acetaminophen 325 Mg Tablet PO 650 mg Q4H PRN Administration Mild Pain (1-3) or Fever Albuterol/Ipratropium 3 ml 10/18/24 15:36 10/20/24 02:38 Ipratropium 0.5 Mg/Albuterol Sulfate 2.5 Mg Ampul.Neb 3 Ml INHALATION 3 ml PRN PRN Administration Wheezing Aspirin 81 mg 10/18/24 09:00 10/20/24 08:56 Aspirin 81 Mg Enteric Tablet PO 81 mg DAILY KENDRA Administration Cyanocobalamin 1,000 mcg 10/18/24 09:00 10/20/24 08:56 Cyanocobalamin 1,000 Mcg Tablet PO 1,000 mcg Q48H KENDRA Administration Divalproex Sodium 1,000 mg 10/17/24 21:00 10/19/24 20:39 Divalproex Sodium Er 500 Mg Tab.24h PO 1,000 mg HS KENDRA Administration Enoxaparin Sodium 40 mg 10/18/24 09:00 10/20/24 08:57 Enoxaparin 40 Mg/0.4 Ml Syringe SUB-Q 40 mg DAILY KENDRA Administration Glipizide 20 mg 10/17/24 16:30 10/20/24 05:40 Glipizide 5 Mg Tablet PO 20 mg BIDAC KENDRA Administration Hydrochlorothiazide 25 mg 10/18/24 09:00 10/20/24 08:56 Hydrochlorothiazide 25 Mg Tablet PO 25 mg DAILY KENDRA Administration Ceftriaxone Sodium 1 gm in 50 mls @ 100 mls/hr 10/18/24 09:00 10/20/24 08:56 Rocephin 1 Gm/Ns 50 Ml IVPB 100 mls/hr QAM KENDRA Administration Azithromycin 500 mg in 250 mls @ 250 mls/hr 10/18/24 09:00 10/20/24 09:46 Zithromax IVPB 250 mls/hr Q24H KENDRA Administration Lisinopril 10 mg 10/18/24 09:00 10/20/24 08:56 Lisinopril 10 Mg Tablet PO 10 mg DAILY KENDRA Administration Magnesium Oxide 400 mg 10/20/24 17:00 Magnesium Oxide 400 Mg Tablet PO DAILY [facility] Metoprolol Tartrate 75 mg 10/17/24 21:00 10/20/24 08:56 Metoprolol Tartrate 25 Mg Tablet PO 75 mg Q12HR KENDRA Administration Tamsulosin HCl 0.4 mg 10/17/24 21:00 10/19/24 20:39 Tamsulosin Hcl 0.4 Mg Capsule PO 0.4 mg HS [facility] Administration Vitamin D 25 mcg 10/18/24 09:00 10/20/24 08:56 Cholecalciferol (Vitamin D3) 25 Mcg (1,000 Units) Tablet PO 25 mcg DAILY KENDRA Administration Radiology Results: ITS Impressions Chest X-Ray 10/17/24 08:30 Impression: 1: Left basilar airspace disease, compatible with pneumonia. Modified Barium Swallow 10/18/24 11:21 IMPRESSION: Printed dysphagia with laryngeal penetration without evident aspiration on swallows of thin liquid from a cup which improved with chin tuck which improved with chin tuck. Please correlate with speech pathologist findings and specific feeding recommendations. Labs Labs: Laboratory Results - last 24 hr 10/19/24 10/19/24 10/19/24 16:01 16:02 21:03 WBC 11.7 H RBC 3.49 L Hgb 10.4 L Hct 31.5 L MCV 90.3 MCH 29.8 MCHC 33.0 RDW 14.2 Plt Count 125 L MPV 10.1 % Immature Plt Fraction 3.0 Sodium Potassium Chloride Carbon Dioxide Anion Gap BUN Creatinine Estim Creat Clear Calc Estimated GFR Glucose POC Capillary Glucose 288 H 171 H Calcium Magnesium 1.6 10/20/24 10/20/24 10/20/24 05:52 07:40 11:30 WBC RBC Hgb Hct MCV MCH MCHC RDW Plt Count MPV % Immature Plt Fraction Sodium 143 Potassium 3.4 Chloride 107 Carbon Dioxide 29 Anion Gap 7 BUN 16 Creatinine 1.10 Estim Creat Clear Calc 55 Estimated GFR > 60 Glucose 164 H POC Capillary Glucose 137 H 274 H Calcium 10.8 H Magnesium 1.5 L
[2024-10-20] MEDS: MAGNESIUM OXIDE 400 MG TABLET PO (16:29)
[2024-10-20 16:59] LABS: Glucose Point of Care 252 mg/dl (65-105)
[2024-10-20 17:21] LABS: Hematocrit 34.2 % (42.0-52.0); Hemoglobin 11.3 g/dL (14.0-18.0); Mean Corpuscular Hemoglobin 29.6 pg (26-34); Mean Corpuscular Volume 89.5 fl (80-100); Mean Platelet Volume 9.6 fl (7.4-10.4); Platelet Count Result 148 k/mm3 (150-375); Red Blood Count 3.82 M/mm3 (4.6-6.20); White Blood Count 9.2 K/mm3 (4.5-10.0)
[2024-10-20 17:31] LABS: Anion Gap 5 mmol/L (4-12); Blood Urea Nitrogen 18 mg/dL (9-20); Calcium 10.7 mg/dL (8.4-10.2); Carbon Dioxide 31 mmol/L (22-30); Chloride 103 mmol/L (98-107); Estimated CRCL calculation 51 ml/min; Estimated Glomerular Filt Rate 60; Glucose 269 mg/dL (65-110); Magnesium 1.5 mg/dL (1.6-2.3); Potassium 3.8 mmol/L (3.4-5.0); Sodium 139 mmol/L (137-145)
[2024-10-20 21:05] LABS: Glucose Point of Care 196 mg/dl (65-105)
[2024-10-20] MEDS: TAMSULOSIN HCL 0.4 MG CAPSULE PO (21:12)
[2024-10-20] MEDS: DIVALPROEX SODIUM ER 500 MG TAB.24H 1000 MG PO (21:12)
[2024-10-21] VITALS (11 sets, daily range): BP systolic 157–169; BP diastolic 88–96; PULSE 90–120; RESP 16; TEMP 36.7–36.9; O2SAT 91–92
[2024-10-21] MEDS: glipiZIDE 5 MG TABLET 20 MG PO ×2 (05:38→17:02)
[2024-10-21 07:44] LABS: Glucose Point of Care 197 mg/dl (65-105)
--- NOTE | 2024-10-21 08:58 | PCSTNOTE ---
Speech Therapy dysphagia treatment completed 10/20/24. Unable to enter in EMR due to downtime. Please see note placed in hard chart.
[2024-10-21] MEDS: MAGNESIUM OXIDE 400 MG TABLET PO (09:05)
[2024-10-21] MEDS: ENOXAPARIN 40 MG/0.4 ML SYRINGE SUB-Q (09:05)
[2024-10-21] MEDS: lisinopriL 10 MG TABLET PO (09:05)
[2024-10-21] MEDS: CHOLECALCIFEROL (VITAMIN D3) 25 MCG (1,000 UNITS) TABLET PO (09:05)
[2024-10-21] MEDS: ASPIRIN 81 MG ENTERIC TABLET PO (09:05)
[2024-10-21] MEDS: hydroCHLOROthiazide 25 MG TABLET PO (09:05)
[2024-10-21] MEDS: METOPROLOL TARTRATE 25 MG TABLET 75 MG PO ×2 (09:06→20:29)
[2024-10-21] MEDS: AZITHROMYCIN 500 MG/NS 250 ML 500 MG/250 ML BAG 125 MG IVPB (09:53)
[2024-10-21 12:07] LABS: Glucose Point of Care 245 mg/dl (65-105)
--- NOTE | 2024-10-21 15:16 | P.PNIM_ITS ---
Progress Note: A&P Assessment and Plan (1) Acute encephalopathy: Code(s): G93.40 - Encephalopathy, unspecified Status: Acute Assessment and Plan: order ct head consult neurology ? sepsis/ infection related ordre b12 tsh folic acid and thiamine levels (2) Pneumonia: Qualifiers: Pneumonia type: aspiration pneumonia Code(s): J18.9 - Pneumonia, unspecified organism Status: Acute Assessment and Plan: CXR: Left basilar airspace disease, compatible with pneumonia. * Ceftriaxone 2 gram IV q24H and Azithromycin 500mg IV q24H * dc fluids * speech theraphy ordered for pt to rule out aspiration pneumonia * iv mg ordered for pt * continue to watch mg levels * oral mg orderd * add mv and ensures (3) Diabetes mellitus with hyperglycemia, without long-term current use of insulin: Qualifiers: Diabetes mellitus type: type 2 Qualified Code(s): E11.65 - Type 2 diabetes mellitus with hyperglycemia Code(s): E11.65 - Type 2 diabetes mellitus with hyperglycemia Status: Acute Assessment and Plan: - hypoglycemia protocol - POC blood glucose ACHS - home medication - none - A1C 9.4 (09/2019) (4) Dysphagia: Code(s): R13.10 - Dysphagia, unspecified Status: Acute Assessment and Plan: * Speech therapy consult * MBS: Printed dysphagia with laryngeal penetration without evident aspiration on swallows of thin liquid from a cup which improved with chin tuck which improved with chin tuck. Please correlate with speech pathologist findings and specific feeding recommendations. Plan dvt prop: lovenox Subjective Date/time seen: 10/21/24 15:16 Interval history: Patient is a 74-year-old gentleman who presents emergency department with chief complaint upper respiratory symptoms, admitted for pneumonia 10/18/2024 Patient sitting comfortably in bed at time examination. Feeling better today. Denies any chest pain, shortness of breath, nausea/vomiting or abdominal pain at this time. Speech therapy consulted, MBS performed for aspiration risk; no evidence of aspiration on swallows of thin liquid. Can restart diet, continue IV antibiotics for pneumonia. 10/19/2024 Continue IV Abx, can dc iv fluids pt mg level is low order mg rider for pt pt complains of SOB and body aches continue present care in hospital 10/20/2024 pt still appears tired and lethargic continue iv abx and mg dosing add mv and ensures for pt 10/21/2024 pt still appears encephalopathic consult neurology for recommendations continue iv abx for now order ct head long discussion with at the bedside Review of Systems Review of Systems: ongoing encephalopathic state Exam Narrative: Patient is comfortable HEENT: eyes are clear and none icteric LUNGS:CTA HEART: RR S1S2 ABD: BS+, Soft and nontender Lower extremities: no edema SKIN: nonjaundiced Neuro: grossly intact. Objective Data Vital Signs Vital Signs: Vital Signs - 24 hr 10/20/24 16:00 10/20/24 20:00 10/20/24 20:00 Temperature Pulse Rate 94 94 Respiratory Rate Blood Pressure Pulse Oximetry Oxygen Delivery Room Air 10/20/24 20:41 10/20/24 21:02 10/20/24 21:12 Temperature 36.7 C Pulse Rate 103 H 96 Respiratory Rate 17 Blood Pressure 177/87 H Pulse Oximetry 93 95 Oxygen Delivery Room Air 10/21/24 00:00 10/21/24 04:00 10/21/24 06:00 Temperature 36.9 C Pulse Rate 91 118 H 105 H Respiratory Rate 16 Blood Pressure 169/96 H Pulse Oximetry 91 Oxygen Delivery 10/21/24 08:00 10/21/24 08:00 10/21/24 09:06 Temperature Pulse Rate 117 H 90 Respiratory Rate Blood Pressure Pulse Oximetry 92 Oxygen Delivery Room Air 10/21/24 12:00 Temperature Pulse Rate 103 H Respiratory Rate Blood Pressure Pulse Oximetry Oxygen Delivery Intake/Output Intake/Output: Intake & Output 10/18/24 10/19/24 10/20/24 10/21/24 23:59 23:59 23:59 23:59 Intake Total 3298.8 1620 1320 240 Output Total 125 600 500 Balance 3173.8 1620 720 -260 Meds/Results Medications: Active Medications Generic Name Dose Route Start Last Admin Trade Name Freq PRN Reason Stop Dose Admin Acetaminophen 650 mg 10/17/24 08:39 10/19/24 11:20 Acetaminophen 325 Mg Tablet PO 650 mg Q4H PRN Administration Mild Pain (1-3) or Fever Albuterol/Ipratropium 3 ml 10/18/24 15:36 10/20/24 02:38 Ipratropium 0.5 Mg/Albuterol Sulfate 2.5 Mg Ampul.Neb 3 Ml INHALATION 3 ml PRN PRN Administration Wheezing Aspirin 81 mg 10/18/24 09:00 10/21/24 09:05 Aspirin 81 Mg Enteric Tablet PO 81 mg DAILY KENDRA Administration Cyanocobalamin 1,000 mcg 10/18/24 09:00 10/20/24 08:56 Cyanocobalamin 1,000 Mcg Tablet PO 1,000 mcg Q48H KENDRA Administration Divalproex Sodium 1,000 mg 10/17/24 21:00 10/20/24 21:12 Divalproex Sodium Er 500 Mg Tab.24h PO 1,000 mg HS KENDRA Administration Enoxaparin Sodium 40 mg 10/18/24 09:00 10/21/24 09:05 Enoxaparin 40 Mg/0.4 Ml Syringe SUB-Q 40 mg DAILY KENDRA Administration Glipizide 20 mg 10/17/24 16:30 10/21/24 05:38 Glipizide 5 Mg Tablet PO 20 mg BIDAC KENDRA Administration Hydrochlorothiazide 25 mg 10/18/24 09:00 10/21/24 09:05 Hydrochlorothiazide 25 Mg Tablet PO 25 mg DAILY KENDRA Administration Ceftriaxone Sodium 1 gm in 50 mls @ 100 mls/hr 10/18/24 09:00 10/21/24 09:07 Rocephin 1 Gm/Ns 50 Ml IVPB 10/23/24 09:29 100 mls/hr QAM KENDRA Administration Lisinopril 10 mg 10/18/24 09:00 10/21/24 09:05 Lisinopril 10 Mg Tablet PO 10 mg DAILY KENDRA Administration Magnesium Oxide 400 mg 10/20/24 17:00 10/21/24 09:05 Magnesium Oxide 400 Mg Tablet PO 400 mg DAILY KENDRA Administration Metoprolol Tartrate 75 mg 10/17/24 21:00 10/21/24 09:06 Metoprolol Tartrate 25 Mg Tablet PO 75 mg Q12HR KENDRA Administration Tamsulosin HCl 0.4 mg 10/17/24 21:00 10/20/24 21:12 Tamsulosin Hcl 0.4 Mg Capsule PO 0.4 mg HS KENDRA Administration Vitamin D 25 mcg 10/18/24 09:00 10/21/24 09:05 Cholecalciferol (Vitamin D3) 25 Mcg (1,000 Units) Tablet PO 25 mcg DAILY KENDRA Administration Radiology Results: ITS Impressions Chest X-Ray 10/17/24 08:30 Impression: 1: Left basilar airspace disease, compatible with pneumonia. Modified Barium Swallow 10/18/24 11:21 IMPRESSION: Printed dysphagia with laryngeal penetration without evident aspiration on swallows of thin liquid from a cup which improved with chin tuck which improved with chin tuck. Please correlate with speech pathologist findings and specific feeding recommendations. Labs Labs: Laboratory Results - last 24 hr 10/20/24 10/20/24 10/20/24 16:51 17:16 17:17 WBC 9.2 RBC 3.82 L Hgb 11.3 L Hct 34.2 L MCV 89.5 MCH 29.6 MCHC 33.0 RDW 14.0 Plt Count 148 L MPV 9.6 Sodium 139 Potassium 3.8 Chloride 103 Carbon Dioxide 31 H Anion Gap 5 BUN 18 Creatinine 1.19 Estim Creat Clear Calc 51 Estimated GFR 60 Glucose 269 H POC Capillary Glucose 252 H Calcium 10.7 H Magnesium 1.5 L 10/20/24 10/21/24 10/21/24 21:02 07:32 11:51 WBC RBC Hgb Hct MCV MCH MCHC RDW Plt Count MPV Sodium Potassium Chloride Carbon Dioxide Anion Gap BUN Creatinine Estim Creat Clear Calc Estimated GFR Glucose POC Capillary Glucose 196 H 197 H 245 H Calcium Magnesium
[2024-10-21 15:54] LABS: Hematocrit 36.4 % (42.0-52.0); Mean Corpuscular Hemoglobin 29.6 pg (26-34); Mean Corpuscular Volume 89.7 fl (80-100); Mean Platelet Volume 9.7 fl (7.4-10.4); Platelet Count Result 179 k/mm3 (150-375); Red Blood Count 4.06 M/mm3 (4.6-6.20); Red Cell Distribution Width 13.7 % (11.5-14.5); White Blood Count 10.6 K/mm3 (4.5-10.0)
[2024-10-21 16:28] LABS: Anion Gap 8 mmol/L (4-12); Blood Urea Nitrogen 19 mg/dL (9-20); Calcium 11.2 mg/dL (8.4-10.2); Carbon Dioxide 31 mmol/L (22-30); Chloride 100 mmol/L (98-107); Estimated CRCL calculation 51 ml/min; Estimated Glomerular Filt Rate 60; Glucose 224 mg/dL (65-110); Potassium 4.1 mmol/L (3.4-5.0); Sodium 139 mmol/L (137-145)
[2024-10-21 17:10] LABS: Glucose Point of Care 207 mg/dl (65-105)
[2024-10-21 19:34] LABS: Thyroid Stimulating Hormone 0.617 uIU/mL (0.465-4.680)
[2024-10-21 20:10] LABS: Folic Acid 7.4 ng/mL (2.76->20)
[2024-10-21] MEDS: DIVALPROEX SODIUM ER 500 MG TAB.24H 1000 MG PO (20:29)
[2024-10-21 22:07] LABS: Glucose Point of Care 180 mg/dl (65-105)
[2024-10-22] VITALS (20 sets, daily range): BP systolic 139–192; BP diastolic 72–102; PULSE 98–135; RESP 22–36; TEMP 36.5–38.4; O2SAT 91–98
--- NOTE | 2024-10-22 | ECHO_ITS ---
Patient Info Name: Alphonse Mason Age: 74 years : 1950 Gender: Male Ht: 66 in Wt: 201 lbs BSA: 2.09 m2 HR: 125 bpm BP: 178 / 102 mmHg Heart Rhythm: Tachycardia Technical Quality: Poor Exam Date: 10/22/2024 12:15 PM Patient Status: I Admit Date: 10/18/2024 Exam Type: CA echo dop color flow w con Complete two-dimensional, color flow and Doppler transthoracic echocardiogram is performed with contrast to opacify the left ventricle and to improve the deliniation of the left ventricle endocardial borders. Staff Referring Physician: Aj Smith Councilor: Kell Chen Attending Provider: Rajeev Rodriguez Contrast/Agitated Saline Contrast/Ag. Saline: Definity Amount: 3.00 ml Existing IV Access: Yes IV Access Condition: patent with no signs of infiltration Reason for Poor Study: patient body habitus Summary 1. Technically difficult study with limited views. 2. Left ventricular chamber dimension is normal. 3. Left ventricular systolic function is normal, estimated at 60-65. 4. There is moderately increased left ventricular wall thickness. 5. There is trivial pericardial effusion. Left Ventricle Left ventricular chamber dimension is normal. Left ventricular systolic function is normal, estimated at 60-65. There is moderately increased left ventricular wall thickness. Right Ventricle Right ventricular chamber dimension is normal. Left Atria Left atrial chamber dimension is normal. Right Atria Right atrial chamber dimension is normal. Atrial Septum Interatrial septum is not well visualized. Aortic Valve There is no aortic valve regurgitation. Pulmonic Valve The pulmonic valve is not well visualized. Mitral Valve The mitral valve has not well visualized leaflets. Tricuspid Valve The tricuspid valve leaflets are not well visualized. There is trace tricuspid valve regurgitation. Pericardium/Pleural The pericardium appears epicardial fat pad. There is trivial pericardial effusion. Inferior Vena Cava Normal inferior vena cava with >50% collapse upon inspiration consistent with normal right atrial pressure, 3 mmHg. Aorta The aortic root size at the sinus of Valsalva is normal. Left Ventricular Outflow Tract Name Value Normal LVOT 2D LVOT Diameter 2.1 cm LVOT Doppler LVOT Peak Velocity 76 cm/s LVOT Peak Gradient 2 mmHg LVOT Mean Gradient 1 mmHg LVOT VTI 14 cm LVOT VTI/AV VTI Ratio 0.9 LVOT Stroke Volume 48 ml LVOT CO 11.8 l/min LVOT CI 5.6 l/min/m2 Tricuspid Valve Name Value Normal Estimated PAP/RSVP RA Pressure 3 mmHg <=5 Aorta Name Value Normal Ascending Aorta Ao Root Diameter (MM) 3.7 cm Ao Root Diam Index (MM) 1.8 cm/m2 Aortic Valve Name Value Normal AV Doppler AV Peak Velocity 110 cm/s AV Peak Gradient 5 mmHg AV Mean Gradient 3 mmHg AV VTI 16 cm AV Area (Cont Eq VTI) 3.0 cm2 >=3.0 AV Area (Cont Eq Jordy) 2.3 cm2 AV DI (Jordy) 0.69 AV Regurgitation 2D LVOT Area 3.3 cm2 Ventricles Name Value Normal LV Dimensions 2D/MM IVS Diastolic Thickness (2D) 1.5 cm 0.6-1.0 LVID Diastole (2D) 3.2 cm 4.2-5.8 LVIW Diastolic Thickness (2D) 1.4 cm 0.6-1.0 LVID Systole (2D) 2.4 cm 2.5-4.0 LVOT Diameter 2.1 cm LV Mass (2D Cubed) 159.56 g 88.00-224.00 LV Mass Index (2D Cubed) 76 g/m2 49-115 Relative Wall Thickness (2D) 0.86 <=0.42 LV Fractional Shortening/Ejection Fraction 2D/MM LV Fractional Shortening (2D) 22 % 25-43 LV EF (2D Teichholz) 49 % LV Diastolic Volume (4C MOD) 85 ml LV EF (4C MOD) 60 % LV Diastolic Volume (2C MOD) 39 ml LV EF (2C MOD) 74 % LV Diastolic Volume (BP MOD) 61 ml 62-150 LV Diastolic Volume Index (BP MOD) 29 ml/m2 34-74 LV Systolic Volume (BP MOD) 20 ml 21-61 LV Systolic Volume Index (BP MOD) 9 ml/m2 11-31 LV EF (BP MOD) 68 % 52-72 LV Diastolic Length (4C) 8.1 cm LV Systolic Length (4C) 7.1 cm LV Stroke Volume (4C MOD) 50 ml RV Dimensions 2D/MM RVID Diastole (2D) 3.4 cm 2.1-3.5 Report Signatures
[2024-10-22 06:00] LABS: Glucose Point of Care 183 mg/dl (65-105)
[2024-10-22 06:20] LABS: Ammonia < 9 umol/L (9-30)
[2024-10-22 06:31] LABS: Alanine Aminotransferase 38 U/L (6-50); Albumin Level 3.5 g/dL (3.5-5.1); Alkaline Phosphatase 97 U/L (38-126); Anion Gap 6 mmol/L (4-12); Aspartate Amino Transferase 39 U/L (17-59); Bilirubin,Total 0.6 mg/dL (0.2-1.3); Blood Urea Nitrogen 23 mg/dL (9-20); Calcium 11.6 mg/dL (8.4-10.2); Carbon Dioxide 35 mmol/L (22-30); Chloride 100 mmol/L (98-107); Estimated CRCL calculation 45 ml/min; Estimated Glomerular Filt Rate 52; Glucose 202 mg/dL (65-110); Magnesium 1.6 mg/dL (1.6-2.3); Potassium 4.1 mmol/L (3.4-5.0); Sodium 141 mmol/L (137-145)
[2024-10-22 06:32] LABS: Lactic Acid Reflex 1.2 mmol/L (0.7-2.0)
[2024-10-22 06:34] LABS: Alveolar/Arterial O2 Gradient 41.3 mmHg; Base Excess ABG 7.6 mEq/l (+/-2.0); Carboxyhemoglobin 1.4 % THb (0-2.0); Fractional Inspired Oxygen 21 %; HCO3 ABG 31.6 mEq/l (22.0-26.0); Methemoglobin ABG 0.2 %THb (0-1.5); Oxygen Content ABG 20.7 %vol (16.0-22.0); Oxygen Saturation ABG 92.4 % (95.0-100.0); Oxyhemoglobin 90.1 % THb (90.0-100.0); PCO2 ABG 41.6 mmHg (35.0-45.0); PO2 ABG 58.6 mmHg (80.0-100.0); PO2 FiO2 Ratio Arterial Blood 2.79 %; Reduced Hemoglobin 8.3 %THb (0-5.0); Total Hemoglobin 16.4 g/dL (12.0-18.0); pH ABG 7.499 (7.350-7.450)
[2024-10-22 06:37] LABS: Device ROOM AIR; Modified Allen's Test Pass; Site Drawn LEFT RADIAL
[2024-10-22 06:41] LABS: Basophils Absolute Auto 0.1 K/mm3 (0.0-0.1); Basophils Percent Auto 0.5 % (0.2-1.2); Immature Granulocyte Absolute 0.12 K/mm3 (0.00-0.031); Immature Granulocyte Percent A 0.9 % (0-0.5); Lymphocytes Absolute Auto 1.17 K/mm3 (0.9-3.2); Lymphocytes Percent Auto 8.9 % (18.3-44.2); Mean Corpuscular HGB Conc 32.4 g/dl (32-36); Mean Corpuscular Hemoglobin 29.3 pg (26-34); Mean Corpuscular Volume 90.2 fl (80-100); Mean Platelet Volume 9.8 fl (7.4-10.4); Monocytes Absolute Auto 1.6 K/mm3 (0.1-0.6); Neutrophils Absolute Auto 10.2 K/mm3 (1.3-6.7); Neutrophils Percent Auto 77.7 % (45.5-73.1); Platelet Count Result 209 k/mm3 (150-375); Red Cell Distribution Width 13.7 % (11.5-14.5); White Blood Count 13.1 K/mm3 (4.5-10.0)
[2024-10-22 07:03] LABS: Procalcitonin 0.8 ng/mL
[2024-10-22 07:43] LABS: Glucose Point of Care 199 mg/dl (65-105)
--- NOTE | 2024-10-22 08:03 | PC.NURSE ---
Dr Neumann notified of bp 178/102 and tachy 120's on tele. Patient lethargic bur does follow commands. Md will see patient.
--- NOTE | 2024-10-22 08:09 | P.PNIM_ITS ---
Progress Note: A&P Assessment and Plan (1) Acute encephalopathy: Code(s): G93.40 - Encephalopathy, unspecified Status: Acute Assessment and Plan: Brain MRI:No acute abnormality. Mild chronic microvascular ischemic change. Moderate to severe generalized atrophy. Head CT:No acute intracranial process. Metabolic encephalopathy possibly due to infectious process Reviewed ABG Negative syphilis Normal B12, TSH, folic acid and thiamine Valproic acid 41.8 Started Meropenem, Vancomycin,Ampicillin, and Acyclovir Order LP. (2) Pneumonia: Qualifiers: Pneumonia type: aspiration pneumonia Code(s): J18.9 - Pneumonia, unspecified organism Status: Acute Assessment and Plan: CXR: Left basilar airspace disease, compatible with pneumonia. * DC Ceftriaxone 2 gram IV q24H and escalated to meropenem and vancomycin * Started gentle fluid resuscitation * Repeat speech therapy * Monitor electrolyte * Monitor vitals * Monitor culture * Nasal MRSA negative * Lactic acid 1.3 * Echocardiogram shows ejection fraction 60-65% Chest/Abdomen/Pelvis CTA: CHEST: 1. No pulmonary embolism. 2. Left basilar atelectasis versus pneumonia with minimal pleural effusion. 3. Mediastinal lymphadenopathy. ABDOMEN/PELVIS: 1. No evidence of appendicitis, diverticulitis or intestinal obstruction. 2. Slightly thickened wall of the urinary bladder which may indicate cystitis. Clinical correlation advised. 3. Small left inguinal fat containing hernia. 4. Enlarged prostate. (3) Diabetes mellitus with hyperglycemia, without long-term current use of insulin: Qualifiers: Diabetes mellitus type: type 2 Qualified Code(s): E11.65 - Type 2 diabetes mellitus with hyperglycemia Code(s): E11.65 - Type 2 diabetes mellitus with hyperglycemia Status: Acute Assessment and Plan: - hypoglycemia protocol - POC blood glucose ACHS - home medication - none - A1C 9.4 (09/2019) (4) Dysphagia: Code(s): R13.10 - Dysphagia, unspecified Status: Acute Assessment and Plan: * Speech therapy consult * MBS: Printed dysphagia with laryngeal penetration without evident aspiration on swallows of thin liquid from a cup which improved with chin tuck which improved with chin tuck. Please correlate with speech pathologist findings and specific feeding recommendations. * Repeated MBS due to lethargy (5) OMARI (acute kidney injury): Code(s): N17.9 - Acute kidney failure, unspecified Status: Acute Assessment and Plan: Holding lisinopril and hydrochlorothiazide Avoid nephrotoxic drugs Order ultrasound Order CPK Order urine eosinophils Trial of Gentle fluid resuscitation Reviewed PT PTT INR Elevated D-dimer but no evidence of DIC (6) Hypercalcemia: Code(s): E83.52 - Hypercalcemia Status: Acute Assessment and Plan: Possibly due to dehydration Started on fluids Ordered ionized calcium Plan dvt prop: Hold lovenox due to possible LP Patient is currently on NPO. Subjective Date/time seen: 10/22/24 08:09 Interval history: Interval history: I assumed care on 10/22/2024. Nursing was concerned due to the patient acute lethargy. He had a lengthy discussion with his , who reported that the patient had been doing fine until when he was brought to the hospital due to a fever. Baseline patient uses a walker for ambulation due to leg weakness. No significant past medical history other than DM 2 and HTN. Currently, the patient is unable to answer questions. Discussed with speech therapy and Physical therapist who reported patient had acute declining condition. Performed MRI and pascal CT scan to rule out infectious process. I ordered a new speech therapy consult to evaluate his swallowing, although the patient previously passed his MBS. I also ordered a blood culture and lactic acid and escalated the antibiotics from ceftriaxone to cefepime, then to meropenem and vancomycin. ABG reviewed. Started gentle fluid resuscitation due to OMARI. Ordered echocardiogram and BNP. Order renal ultrasound, CPK, and urine eosinophils due to OMARI. D-dimer was elevated. The patient underwent chest/abdomen/pelvis CTA. Consulted Neurology. Since the patient is unable to swallow, I will start Metoprolol 5mg IV every 6 hours for hypertension and Tachycardia. Valproic acid level 41.8. Order LP. Hold Lovenox possible LP. Patient is currently on NPO. Echocardiogram was performed which shows left ventricular ejection fraction 60-60% and trivial pericardial effusion. No evidence of DIC. Discussed with and aggress with plan and advise to increase the fluid rate from 75 to 125ml/hr and no sedatives. Confirmed the code status with who wants all aggressive measure including intubation. Chest/Abdomen/Pelvis CTA: CHEST: 1. No pulmonary embolism. 2. Left basilar atelectasis versus pneumonia with minimal pleural effusion. 3. Mediastinal lymphadenopathy. ABDOMEN/PELVIS: 1. No evidence of appendicitis, diverticulitis or intestinal obstruction. 2. Slightly thickened wall of the urinary bladder which may indicate cystitis. Clinical correlation advised. 3. Small left inguinal fat containing hernia. 4. Enlarged prostate. Brain MRI:No acute abnormality. Mild chronic microvascular ischemic change. Moderate to severe generalized atrophy. Cervical/thoracic/lumbar spine MRI:1. Mild cervical, thoracic and lumbar spondylosis with extensive bridging or nearly bridging osteophytes throughout the majority the spine consistent with diffuse idiopathic skeletal hyperostosis (DISH). 2. Normal cord signal throughout with only minimal to mild central canal stenosis in the mid to lower lumbar spine and no stenosis in the more cephalad cervical and thoracic spine. 3. Moderate neural from stenosis on the right at L3-L4 and L4-L5 with scattered mild stenosis at multiple neural foramina scattered throughout the remainder of the cervical, thoracic and lumbar spine. Review of Systems Review of Systems: ongoing encephalopathic state Exam Narrative: Patient is comfortable HEENT: eyes are clear and none icteric LUNGS:CTA HEART: RR S1S2 ABD: BS+, Soft and nontender Lower extremities: no edema SKIN: nonjaundiced Neuro: grossly intact. Objective Data Vital Signs Vital Signs: Vital Signs - 24 hr 10/21/24 09:06 10/21/24 12:00 10/21/24 14:13 Temperature 98.1 F Pulse Rate 90 103 H 113 H Respiratory Rate 16 Blood Pressure 157/88 H Pulse Oximetry 92 Oxygen Delivery 10/21/24 16:00 10/21/24 20:00 10/21/24 20:29 Temperature Pulse Rate 119 H 118 H 120 H Respiratory Rate Blood Pressure Pulse Oximetry Oxygen Delivery 10/21/24 23:38 10/22/24 00:00 10/22/24 00:24 Temperature Pulse Rate 107 H 107 H Respiratory Rate Blood Pressure 163/90 H Pulse Oximetry 92 91 Oxygen Delivery Room Air 10/22/24 04:00 10/22/24 06:00 10/22/24 07:25 Temperature 97.9 F 97.7 F Pulse Rate 118 H 119 H 126 H Respiratory Rate 36 H Blood Pressure 192/96 H 178/102 H Pulse Oximetry 91 91 Oxygen Delivery Intake/Output Intake/Output: Intake & Output 10/19/24 10/20/24 10/21/24 10/22/24 23:59 23:59 23:59 23:59 Intake Total 1620 1320 790 150 Output Total 600 1300 1000 Balance 1620 720 -510 -850 Meds/Results Medications: Active Medications Generic Name Dose Route Start Last Admin Trade Name Freq PRN Reason Stop Dose Admin Acetaminophen 650 mg 10/17/24 08:39 10/19/24 11:20 Acetaminophen 325 Mg Tablet PO 650 mg Q4H PRN Administration Mild Pain (1-3) or Fever Albuterol/Ipratropium 3 ml 10/18/24 15:36 10/20/24 02:38 Ipratropium 0.5 Mg/Albuterol Sulfate 2.5 Mg Ampul.Neb 3 Ml INHALATION 3 ml PRN PRN Administration Wheezing Aspirin 81 mg 10/18/24 09:00 10/21/24 09:05 Aspirin 81 Mg Enteric Tablet PO 81 mg DAILY KENDRA Administration Cyanocobalamin 1,000 mcg 10/18/24 09:00 10/20/24 08:56 Cyanocobalamin 1,000 Mcg Tablet PO 1,000 mcg Q48H KENDRA Administration Divalproex Sodium 1,000 mg 10/17/24 21:00 10/21/24 20:29 Divalproex Sodium Er 500 Mg Tab.24h PO 500 mg HS KENDRA Administration Enoxaparin Sodium 40 mg 10/18/24 09:00 10/21/24 09:05 Enoxaparin 40 Mg/0.4 Ml Syringe SUB-Q 40 mg DAILY KENDRA Administration Glipizide 20 mg 10/17/24 16:30 10/21/24 17:02 Glipizide 5 Mg Tablet PO 20 mg BIDAC KENDRA Administration Hydrochlorothiazide 25 mg 10/18/24 09:00 10/21/24 09:05 Hydrochlorothiazide 25 Mg Tablet PO 25 mg DAILY KENDRA Administration Cefepime HCl 2 gm in 50 mls @ 100 mls/hr 10/22/24 08:05 Maxipime 2 Gm/Ns 50 Ml IVPB Q8H KENDRA Labetalol HCl 10 mg 10/22/24 08:02 Labetalol Hcl Inj 100 Mg/20 Ml Vial IV PUSH 10/22/24 08:03 ONCE ONE Lisinopril 10 mg 10/18/24 09:00 10/21/24 09:05 Lisinopril 10 Mg Tablet PO 10 mg DAILY KENDRA Administration Magnesium Oxide 400 mg 10/20/24 17:00 10/21/24 09:05 Magnesium Oxide 400 Mg Tablet PO 400 mg DAILY KENDRA Administration Metoprolol Tartrate 75 mg 10/17/24 21:00 10/21/24 20:29 Metoprolol Tartrate 25 Mg Tablet PO 75 mg Q12HR KENDRA Administration Multivitamins Therapeutic 1 tablet 10/22/24 09:00 Multivitamins Therapeutic Tab (*Bkc) PO QAM [facility] Tamsulosin HCl 0.4 mg 10/17/24 21:00 10/21/24 21:00 Tamsulosin Hcl 0.4 Mg Capsule PO Not Given HS [facility] Vitamin D 25 mcg 10/18/24 09:00 10/21/24 09:05 Cholecalciferol (Vitamin D3) 25 Mcg (1,000 Units) Tablet PO 25 mcg DAILY KENDRA Administration Radiology Results: ITS Impressions Chest X-Ray 10/17/24 08:30 Impression: 1: Left basilar airspace disease, compatible with pneumonia. Modified Barium Swallow 10/18/24 11:21 IMPRESSION: Printed dysphagia with laryngeal penetration without evident aspiration on swallows of thin liquid from a cup which improved with chin tuck which improved with chin tuck. Please correlate with speech pathologist findings and specific feeding recommendations. Head CT 10/21/24 16:12 IMPRESSION: No acute intracranial process. Labs Labs: Laboratory Results - last 24 hr 10/21/24 10/21/24 10/21/24 11:51 15:44 17:02 WBC 10.6 H RBC 4.06 L Hgb 12.0 L Hct 36.4 L MCV 89.7 MCH 29.6 MCHC 33.0 RDW 13.7 Plt Count 179 MPV 9.7 Immature Gran % (Auto) Neut % (Auto) Lymph % (Auto) [place] % (Auto) Eos % (Auto) Baso % (Auto) Lymph # (Auto) [place] # (Auto) Eos # (Auto) Baso # (Auto) Abs Immat Gran (auto) Absolute Neuts (auto) Absolute Nucleated RBC Nucleated RBC % Puncture Site ABG pH ABG pCO2 ABG pO2 ABG PO2/FiO2 Ratio ABG HCO3 ABG O2 Saturation ABG O2 Content ABG Base Excess A-a Gradient Oxyhemoglobin Carboxyhemoglobin Methemoglobin Reduced Hemoglobin Total Hemoglobin O2 Delivery Device O2 Liters/Min FiO2 Sodium 139 Potassium 4.1 Chloride 100 Carbon Dioxide 31 H Anion Gap 8 BUN 19 Creatinine 1.18 Estim Creat Clear Calc 51 Estimated GFR 60 Glucose 224 H POC Capillary Glucose 245 H 207 H Lactic Acid Calcium 11.2 H Magnesium Total Bilirubin AST ALT Alkaline Phosphatase Ammonia Total Protein Albumin Vitamin B12 844.0 Folate 7.4 Procalcitonin TSH 0.617 10/21/24 10/22/24 10/22/24 19:52 05:55 06:04 WBC 13.1 H RBC 4.10 L Hgb 12.0 L Hct 37.0 L MCV 90.2 MCH 29.3 MCHC 32.4 RDW 13.7 Plt Count 209 MPV 9.8 Immature Gran % (Auto) 0.9 H Neut % (Auto) 77.7 H Lymph % (Auto) 8.9 L [place] % (Auto) 12.0 H Eos % (Auto) 0.0 Baso % (Auto) 0.5 Lymph # (Auto) 1.17 [place] # (Auto) 1.6 H Eos # (Auto) 0.0 Baso # (Auto) 0.1 Abs Immat Gran (auto) 0.12 H Absolute Neuts (auto) 10.2 H Absolute Nucleated RBC 0.000 Nucleated RBC % 0.0 Puncture Site ABG pH ABG pCO2 ABG pO2 ABG PO2/FiO2 Ratio ABG HCO3 ABG O2 Saturation ABG O2 Content ABG Base Excess A-a Gradient Oxyhemoglobin Carboxyhemoglobin Methemoglobin Reduced Hemoglobin Total Hemoglobin O2 Delivery Device O2 Liters/Min FiO2 Sodium 141 Potassium 4.1 Chloride 100 Carbon Dioxide 35 H Anion Gap 6 BUN 23 H Creatinine 1.35 H Estim Creat Clear Calc 45 Estimated GFR 52 L Glucose 202 H POC Capillary Glucose 180 H 183 H Lactic Acid 1.2 Calcium 11.6 H Magnesium 1.6 Total Bilirubin 0.6 AST 39 ALT 38 Alkaline Phosphatase 97 Ammonia < 9 L Total Protein 7.0 Albumin 3.5 Vitamin B12 Folate Procalcitonin 0.8 TSH 10/22/24 10/22/24 06:05 07:34 WBC RBC Hgb Hct MCV MCH MCHC RDW Plt Count MPV Immature Gran % (Auto) Neut % (Auto) Lymph % (Auto) [place] % (Auto) Eos % (Auto) Baso % (Auto) Lymph # (Auto) [place] # (Auto) Eos # (Auto) Baso # (Auto) Abs Immat Gran (auto) Absolute Neuts (auto) Absolute Nucleated RBC Nucleated RBC % Puncture Site Left radial ABG pH 7.499 H ABG pCO2 41.6 ABG pO2 58.6 L ABG PO2/FiO2 Ratio 2.79 ABG HCO3 31.6 H ABG O2 Saturation 92.4 L ABG O2 Content 20.7 ABG Base Excess 7.6 A-a Gradient 41.3 Oxyhemoglobin 90.1 Carboxyhemoglobin 1.4 Methemoglobin 0.2 Reduced Hemoglobin 8.3 H Total Hemoglobin 16.4 O2 Delivery Device Room air O2 Liters/Min Not Reportable FiO2 21 Sodium Potassium Chloride Carbon Dioxide Anion Gap BUN Creatinine Estim Creat Clear Calc Estimated GFR Glucose POC Capillary Glucose 199 H Lactic Acid Calcium Magnesium Total Bilirubin AST ALT Alkaline Phosphatase Ammonia Total Protein Albumin Vitamin B12 Folate Procalcitonin TSH Quality VTE Prophylaxis VTE prophylaxis: pharmacologic ordered Hospitalist MIPS Advance Care Plan I have confirmed that the patient's Advanced Care Plan is present, code status is documented, or surrogate decision maker is listed in patient medical record.: Yes Medication Reconciliation I have utilized all available resources to obtain, update and review the patients current medications (includes all prescriptions, OTC, herbals, cannabis, and nutritional supplements).: Yes
[2024-10-22] MEDS: LABETALOL HCL INJ 100 MG/20 ML VIAL 10 MG IV PUSH (08:25)
[2024-10-22] MEDS: SODIUM CHLORIDE 0.9% IV 1,000 ML 75 ML IV CONT ×2 (09:07→23:58)
[2024-10-22] MEDS: CEFEPIME 2 GM/NS 50 ML 2 GM/50 ML BAG IVPB (09:08)
--- NOTE | 2024-10-22 09:21 | PC.NURSE ---
This patient, Alphonse aMson, was transferred to IMU on 10/22/24 at 0921. Personal belongings sent with patient. Report given to [facility]. Appropriate documentation sent with patient.
[2024-10-22 09:28] LABS: Glucose Point of Care 196 mg/dl (65-105)
[2024-10-22 09:33] LABS: Lactic Acid Reflex 1.3 mmol/L (0.7-2.0)
[2024-10-22 09:41] LABS: MRSA (PCR) NOT DETECTED (NOT DETECTE)
[2024-10-22 09:43] LABS: NT Pro B Type Natriuretic Pept 832 pg/mL (19.9-100)
[2024-10-22] MEDS: FUROSEMIDE INJ 40 MG/4 ML VIAL IV PUSH (10:25)
--- NOTE | 2024-10-22 11:06 | P.CONNEU_ITS ---
Assessment and Plan Assessment and plan (1) Encephalopathy: Code(s): G93.40 - Encephalopathy, unspecified Status: Acute Plan 1. Encephalopathy with additional history URI for which he came to the emergency room and needed additional statement of not feeling along with the generalized symptomatology in addition to the history of underlying B12 deficiency type 2 diabetes mellitus an additional history of schizophrenia and manic depressive illness. Examination today reveals him to be easily arousable following the simple conversation with nod, and MRI of the brain is mostly consistent with the moderate to severe generalized atrophy but no focal involvement. His CT scan of the head was negative for the bleed as well. He is being treated for the infection with most recent CBC revealing the leukocytosis and routine screen for the common viruses negative. At present I will recommend to continue the treatment as such, I have discussed with the patient's family thoroughly his mental status can be monitored while he is here I will reexamine him tomorrow. Consult date: 10/22/24 HPI: Alphonse Mason is a 74 year old male Admitted to the hospital through the emergency room for URI in addition to the previous history of sepsis from UTI and also complains of not acting his usual self. Patient has been receiving aspirin 81mg daily, divalproex 1000mg daily, extended release, glipizide 20mg b.i.d., hydrochlorothiazide 25mg daily, lisinopril 10mg daily, metoprolol 75mg daily, patient carries the diagnosis of B12 deficiency, vitamin-D deficiency, type 2 diabetes mellitus, gout, and manic depressive disorder with schizophrenia. He has also undergone cataract extraction bilateral with insertion of the intra-ocular lens. On initial eval in the ER there were no acute findings, but his pulse was 122 respiration 24 blood pressure 190/74 and pulse ox 93, CBC with platelet count only 117, BMP with blood sugar of 188 mast scan negative, his screening for the routine viral infections negative x-ray chest compatible with pneumonia and CT of the head neck negative. At present patient is receiving treatment for acute encephalopathy, B12 folic acid and thiamine levels to be checked and have been ordered and he continues on the ceftriaxone. Review of Systems 2 Review of Systems: All systems reviewed & are unremarkable except as noted in HPI and below PMFSH Past Medical History Medical History B12 deficiency Vitamin D deficiency Manic depressive disorder Type 2 diabetes mellitus Gout Essential hypertension PTSD (post-traumatic stress disorder) Schizophrenia Osteoarthritis Surgical History Surgical History Status post cataract extraction of both eyes with insertion of intraocular lens History of cholecystectomy (~1970) Status post laser cataract surgery of both eyes Family History Family History Father Carcinoma of colon Diabetes mellitus Mother Carcinoma of colon Diabetes mellitus Heart disease Social History Social History Social History: Primary care physician: [facility] Code status: Full code Advanced directives: None Smoking packs per day: 3 Smoking cigarettes per day: 60.0 Years smoked: 15 Smoking pack-years: 45.00 Smoking status: Former smoker Tobacco type: cigarettes Second hand tobacco smoke exposure: No Alcohol intake: never Substance use: never Substance use type: does not use Do You Feel Safe in your Home?: Yes Lack of Transportation: No Lack of Food: Never True Current Housing: I Have Housing Concerned About Future Housing: No Difficulty Paying Gas/Electric Bills: No Difficulty Paying for Meds: No Currently Unemployed: No Education: High School Diploma/GED Difficulty w/ Childcare or Family Care: No Living arrangements: with family Additional living arrangements comments: He lives with his of 11 years. He has 2 grown sons. One of his sons has issues with IV drug abuse. 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 He served in the [employer] during the [place] War for 1 year. Gender identity (if verbalized by the patient): Male Spiritual care concerns: No Agree to blood products: Yes Meds Home Medications and Allergies Home Medications ?Medication ?Instructions ?Recorded ?Confirmed ?Type aspirin 81 mg tablet,delayed 81 mg PO DAILY 09/18/19 10/17/24 History release (Adult Aspirin Regimen) cholecalciferol (vitamin D3) 25 25 mcg PO DAILY 09/21/19 10/17/24 History mcg (1,000 unit) capsule (Vitamin D3) cyanocobalamin (vitamin B-12) 1,000 mcg PO EVERY OTHER DAY 09/21/19 10/17/24 History 1,000 mcg tablet (Vitamin B-12) divalproex 500 mg tablet,extended 1,000 mg PO HS 09/21/19 10/17/24 History release 24 hr glipizide 10 mg tablet 20 mg PO BIDAC 09/21/19 10/17/24 History hydrochlorothiazide 25 mg tablet 25 mg PO DAILY 09/21/19 10/17/24 History krill 500 mg-omega 3 115 mg-dha 30 1 cap PO HS 09/21/19 10/17/24 History mg-epa 64 [id number] capsule ([employer] [facility]-3 Krill Oil) lisinopril 40 mg tablet 10 mg PO DAILY 09/21/19 10/17/24 History metoprolol tartrate 50 mg tablet 75 mg PO BID 09/21/19 10/17/24 History metformin 1,000 mg tablet 1,000 mg PO BIDWM 30 days #60 tabs 09/27/19 10/17/24 Rx tamsulosin 0.4 mg capsule 0.4 mg PO HS 10/17/24 10/17/24 History Allergies Allergy/AdvReac Type Severity Reaction Status Date / Time lithium Allergy Unknown Verified 10/17/24 09:07 Vital Signs Vital Signs - 24 hr 10/21/24 12:00 10/21/24 14:13 10/21/24 16:00 Temperature 36.7 C Pulse Rate 103 H 113 H 119 H Respiratory Rate 16 Blood Pressure 157/88 H Pulse Oximetry 92 Oxygen Delivery 10/21/24 20:00 10/21/24 20:29 10/21/24 23:38 Temperature Pulse Rate 118 H 120 H Respiratory Rate Blood Pressure Pulse Oximetry 92 Oxygen Delivery Room Air 10/22/24 00:00 10/22/24 00:24 10/22/24 04:00 Temperature Pulse Rate 107 H 107 H 118 H Respiratory Rate Blood Pressure 163/90 H Pulse Oximetry 91 Oxygen Delivery 10/22/24 06:00 10/22/24 07:25 10/22/24 08:00 Temperature 36.6 C 36.5 C Pulse Rate 119 H 126 H 135 H Respiratory Rate 36 H 26 H Blood Pressure 192/96 H 178/102 H Pulse Oximetry 91 91 92 Oxygen Delivery Room Air 10/22/24 08:00 10/22/24 08:25 Temperature Pulse Rate 130 H 135 H Respiratory Rate Blood Pressure Pulse Oximetry Oxygen Delivery Exam 2 Narrative: Examination today reveals him to be alert arousable with simple verbal stimuli after subtle sternal rub, family in the examination room, his speech was not dysphasic not dysarthric but he did not have much conversation he shook his head yes and no, head was normocephalic with no cranial bruits, ear nose throat examination was normal, neck was supple with no meningeal signs, heart regular with no murmur, lungs were clear with no rhonchi or crepitations, abdomen was soft nontender with normal bowel sounds, neurologically he was easily arousable, he did not carry out the conversation, but he follow the instruction by shaking his head, pupils were round regular, seizure vision were full to threat stimuli, extraocular movements are full in the horizontal gaze only with no nystagmus, facial grimace was symmetrical, tongue was in the oral cavity, motor examination revealed him to have the ability to move both upper and lower extremities but strength was obviously down and reflects a very sluggish but plantar responses were down as well we did not perform any movements to with cerebellar functions. He responded to pinprick all over. Results Labs 10/22/24 06:04 10/22/24 06:04 Labs: Short CBC 10/21/24 10/22/24 Range/Units 15:44 06:04 WBC 10.6 H 13.1 H (4.5-10.0) K/mm3 Hgb 12.0 L 12.0 L (14.0-18.0) g/dL Hct 36.4 L 37.0 L (42.0-52.0) % Plt Count 179 209 (150-375) k/mm3 BMP 10/21/24 10/22/24 15:44 06:04 Sodium 139 141 Potassium 4.1 4.1 Chloride 100 100 Carbon Dioxide 31 H 35 H BUN 19 23 H Creatinine 1.18 1.35 H Glucose 224 H 202 H Calcium 11.2 H 11.6 H Liver Function 10/22/24 Range/Units 06:04 Total Bilirubin 0.6 (0.2-1.3) mg/dL AST 39 (17-59) U/L ALT 38 (6-50) U/L Alkaline Phosphatase 97 (38-126) U/L Albumin 3.5 (3.5-5.1) g/dL
--- NOTE | 2024-10-22 11:10 | PCNFU ---
Nutrition Follow-Up Complete: Suboptimal po intake related to appetite as evidenced by charted intake, family report Goal:PO intake greater than 50% Pt current nutrition is heart healthy, Ensure Enlive and Ensure clear BID. Nutrition recommendation: encourage po intake Last recorded weight is 91.6 kg. Bowel Motility: +BM 10/20 Labs Reviewed: Hgb:12, HCT:37, GFR:52, BUN:23, Cr:1.3, Glu:202 Meds Noted: HCTZ, lovenox, MVI, novolog Skin: WNL Additional Notes: pt continues on a heart healthy diet, intake was good but has since decreased as pt alertness has declined. Nursing states pt will be NPO for lunch today due to decreased alertness, speech also following for possible dysphagia but unable to assess today due to pt lethargic. Informed dietary of NPO for lunch. Monitor plan of care, diet orders, intake, wt, labs. Follow up in 3 days.
[2024-10-22 11:35] LABS: INR 1.1; Partial Thromboplastin Time 28.8 Seconds (22.3-36.8); Prothrombin Time 14.5 Seconds (11.1-14.7)
[2024-10-22 11:40] LABS: D Dimer 3.33 ug/mL (<0.48)
[2024-10-22 11:51] LABS: Glucose Point of Care 206 mg/dl (65-105)
[2024-10-22 12:12] LABS: Procalcitonin 0.8 ng/mL
--- NOTE | 2024-10-22 12:21 | PCPTNOTE ---
Patient transferred to IMU today. Hospitalist states to hold PT for today.
[2024-10-22] MEDS: PERFLUTREN LIPID MICROSPHERES 1.5 ML VIAL DILUTED TO 10 ML TOTAL VOLUME IV PUSH (12:30)
[2024-10-22 12:31] LABS: Creatine Kinase 218 U/L (55-170)
--- NOTE | 2024-10-22 12:54 | IVDEFINITY ---
Prior to administration of IV Definity the patient was educated on the risks and benefits of the imaging enhancing agent including potential adverse side effects. The patient verbalized understanding. Allergies were verified. No exclusion criteria were identified and at least one of the following inclusion criteria were met: 1) physician request, 2) patient technically difficult to image (per the [employer]ocardi[employer] guidelines of two or more segments not discernable within the apical view), or 3) questionable left ventricular function. ?
[2024-10-22 15:51] LABS: Glucose Point of Care 211 mg/dl (65-105)
[2024-10-22 16:01] LABS: Alveolar/Arterial O2 Gradient 66.8 mmHg; Base Excess ABG 4.5 mEq/l (+/-2.0); Fractional Inspired Oxygen 28 %; HCO3 ABG 29.5 mEq/l (22.0-26.0); Oxygen Content ABG 17.9 %vol (16.0-22.0); Oxyhemoglobin 94.6 % THb (90.0-100.0); PCO2 ABG 45.3 mmHg (35.0-45.0); PO2 ABG 79.4 mmHg (80.0-100.0); PO2 FiO2 Ratio Arterial Blood 2.84 %; Total Hemoglobin 13.4 g/dL (12.0-18.0); pH ABG 7.431 (7.350-7.450)
[2024-10-22 16:07] LABS: Syphilis IgG/IgM Antibody Negative (Negative)
[2024-10-22 16:13] LABS: Device NASAL CANNULA; Modified Allen's Test Pass; Site Drawn RIGHT RADIAL
[2024-10-22 17:34] LABS: Hematocrit 36.7 % (42.0-52.0); Hemoglobin 11.9 g/dL (14.0-18.0); Mean Corpuscular HGB Conc 32.4 g/dl (32-36); Mean Corpuscular Hemoglobin 29.5 pg (26-34); Mean Corpuscular Volume 90.8 fl (80-100); Mean Platelet Volume 9.7 fl (7.4-10.4); Platelet Count Result 219 k/mm3 (150-375); Red Blood Count 4.04 M/mm3 (4.6-6.20); Red Cell Distribution Width 13.9 % (11.5-14.5); White Blood Count 15.6 K/mm3 (4.5-10.0)
[2024-10-22 17:45] LABS: Anion Gap 9 mmol/L (4-12); Blood Urea Nitrogen 29 mg/dL (9-20); Calcium 11.4 mg/dL (8.4-10.2); Carbon Dioxide 32 mmol/L (22-30); Chloride 99 mmol/L (98-107); Estimated CRCL calculation 42 ml/min; Estimated Glomerular Filt Rate 47; Glucose 222 mg/dL (65-110); Magnesium 1.7 mg/dL (1.6-2.3); Potassium 4.4 mmol/L (3.4-5.0); Sodium 140 mmol/L (137-145)
[2024-10-22] MEDS: METOPROLOL TARTRATE INJ 5 MG/5 ML VIAL IV PUSH (18:48)
[2024-10-22] MEDS: VANCOMYCIN 1,500 MG/NS 500 ML 1,500 MG/500 ML BAG 250 MG IVPB (19:38)
[2024-10-22] MEDS: AMPICILLIN 2 GM/NS 100 ML 2 GM/100 ML BAG IVPB ×2 (20:06→23:53)
[2024-10-22] MEDS: MEROPENEM 1 GM/NS 100 ML 1 GM/100 ML BAG IVPB (20:07)
[2024-10-22 20:08] LABS: Glucose Point of Care 196 mg/dl (65-105)
[2024-10-22] MEDS: ACYCLOVIR SODIUM IVPB (20:29)
[2024-10-22] MEDS: WATER IVPB (20:29)
[2024-10-22] MEDS: DEXTROSE 5% IVPB (20:29)
[2024-10-22 20:33] LABS: Phosphorus 3.3 mg/dL (2.5-4.5)
[2024-10-22] MEDS: DIVALPROEX SODIUM ER 500 MG TAB.24H 1000 MG PO (20:34)
[2024-10-22] MEDS: METOPROLOL TARTRATE 25 MG TABLET 75 MG PO (20:34)
[2024-10-22] MEDS: TAMSULOSIN HCL 0.4 MG CAPSULE PO (20:35)
[2024-10-22 20:46] LABS: Parathyroid Intact 88.8 pg/mL (14.5-75.2)
--- NOTE | 2024-10-22 22:47 | PC.NURSE ---
Update given to OTP.
[2024-10-22 23:00] LABS: Lithium < 0.2 mmol/L (0.6-1.2)
[2024-10-22] MEDS: ACETAMINOPHEN 650 MG SUPPOSITORY RECTAL (23:55)
[2024-10-23] VITALS (19 sets, daily range): BP systolic 130–169; BP diastolic 67–83; PULSE 98–129; RESP 22–32; TEMP 36.6–38.5; O2SAT 90–98
[2024-10-23 00:38] LABS: Add Urine Microscopic? YES
[2024-10-23 00:39] LABS: Appearance Urine Clear (Clear); Bilirubin Urine Negative (Negative); Blood Urine 1+ (Negative); Color Urine Yellow (Yellow); Glucose Urine UA Negative (Negative); Ketones Urine Negative (Negative); Leukocyte Esterase Ur Negative LEU/UL (Negative); Nitrate Urine Negative (Negative); Protein Urine 3+ mg/dL (Negative); Urobilinogen Urine 0.2 mg/dL (<2.0); pH Urine 5.5 (5.0-9.0)
[2024-10-23 00:40] LABS: Bacteria Urine Trace /hpf; Hyaline Casts Urine 0-2 /lpf; Squamous Epithelial Cell Urine None seen /hpf (Few); WBC Urine 0-5 /hpf (0-3)
[2024-10-23 00:44] LABS: Creatinine Urine 83.4 mg/dL
[2024-10-23 01:08] LABS: Eosinophil Urine None Seen % (None Seen); Urine Eos QC 2nd Tech Confirmed
[2024-10-23] MEDS: AMPICILLIN 2 GM/NS 100 ML 2 GM/100 ML BAG IVPB ×2 (03:00→05:54)
[2024-10-23 04:55] LABS: Base Excess ABG 1.4 mEq/l (+/-2.0); Fractional Inspired Oxygen 28 %; HCO3 ABG 26.9 mEq/l (22.0-26.0); Oxygen Content ABG 18.3 %vol (16.0-22.0); Oxygen Saturation ABG 95.3 % (95.0-100.0); PCO2 ABG 45.8 mmHg (35.0-45.0); PO2 ABG 77.6 mmHg (80.0-100.0); PO2 FiO2 Ratio Arterial Blood 2.77 %; Total Hemoglobin 13.8 g/dL (12.0-18.0); pH ABG 7.387 (7.350-7.450)
[2024-10-23 05:13] LABS: Device NASAL CANNULA; Modified Allen's Test Pass; Site Drawn RIGHT RADIAL
[2024-10-23 05:17] LABS: Estimated CRCL calculation 41 ml/min; Estimated Glomerular Filt Rate 49
[2024-10-23] MEDS: MEROPENEM 1 GM/NS 100 ML 1 GM/100 ML BAG IVPB ×2 (05:55→18:06)
[2024-10-23] MEDS: WATER IVPB ×2 (06:02→18:06)
[2024-10-23] MEDS: DEXTROSE 5% IVPB ×2 (06:02→18:06)
[2024-10-23] MEDS: ACYCLOVIR SODIUM IVPB ×2 (06:02→18:06)
[2024-10-23] MEDS: SODIUM CHLOR 3% 15 ML NEB (RESPIRATORY THERAPY) 6 ML INHALATION (06:07)
[2024-10-23 08:00] LABS: Hematocrit 35.1 % (42.0-52.0); Mean Corpuscular HGB Conc 31.3 g/dl (32-36); Mean Corpuscular Hemoglobin 29.6 pg (26-34); Mean Corpuscular Volume 94.4 fl (80-100); Mean Platelet Volume 10.4 fl (7.4-10.4); Platelet Count Result 235 k/mm3 (150-375); Red Blood Count 3.72 M/mm3 (4.6-6.20); Red Cell Distribution Width 13.9 % (11.5-14.5); White Blood Count 12.8 K/mm3 (4.5-10.0)
--- NOTE | 2024-10-23 08:00 | ECG_ITS ---
Test Date: 2024-10-23 08:59:30 Measurements Intervals [place] Rate: 121 P: 64 IA: 164 QRS: 21 QRSD: 94 T: 82 QT: 334 QTc: 474 Interpretive Statements SINUS TACHYCARDIA INCOMPLETE RIGHT BUNDLE BRANCH BLOCK ANTERIOR INFARCT, AGE INDETERMINATE INFARCT, AGE INDETERMINATE BORDERLINE ST-T WAVE ABNORMALITY- HIGH LATERAL LEADS ABNORMAL ECG Compared to ECG 10/17/2024 07:26:47 NO SIGNIFICANT CHANGE Electronically Signed On 10-23-2024 09:09:09 CDT by Geoffrey Roche D.O.
[2024-10-23] MEDS: ASPIRIN 81 MG ENTERIC TABLET PO (08:51)
[2024-10-23] MEDS: SODIUM CHLORIDE 0.9% IV 1,000 ML 75 ML IV CONT ×2 (08:51→18:06)
[2024-10-23] MEDS: MAGNESIUM OXIDE 400 MG TABLET PO (08:51)
[2024-10-23] MEDS: METOPROLOL TARTRATE 25 MG TABLET 75 MG PO (08:51)
[2024-10-23 08:52] LABS: Alanine Aminotransferase 37 U/L (6-50); Albumin Level 3.2 g/dL (3.5-5.1); Alkaline Phosphatase 94 U/L (38-126); Anion Gap 10 mmol/L (4-12); Aspartate Amino Transferase 52 U/L (17-59); Bilirubin,Total 0.6 mg/dL (0.2-1.3); Blood Urea Nitrogen 33 mg/dL (9-20); Calcium 10.9 mg/dL (8.4-10.2); Carbon Dioxide 27 mmol/L (22-30); Chloride 104 mmol/L (98-107); Estimated CRCL calculation 37 ml/min; Estimated Glomerular Filt Rate 44; Glucose 202 mg/dL (65-110); Potassium 4.2 mmol/L (3.4-5.0); Sodium 141 mmol/L (137-145); Total Protein 6.6 g/dL (6.3-8.2)
[2024-10-23] MEDS: INSULIN ASPART (*BKC) 100 UNITS/ML SUB-Q (08:52)
--- NOTE | 2024-10-23 09:12 | WPDNEUROLOGY ---
Neurology EEG Report General Information Date of Study: 10/23/24 TEST EEG DIAGNOSIS Rule out seizures CONDITION OF RECORDING sleep EEG NUMBER [id number] CLINICAL HISTORY patient slept throughout the setup and tracing with no particular history given to the geotechnical laboratory technician, but the EEG has been over to roll the possibility of seizures. EEG DESCRIPTION Whole record consists of a low to medium voltage 5 to 7 hertz per 2nd theta activity admixed with intermittent low to medium voltage 3 to 4 hertz per 2nd delta activity. Hyperventilation could not be done. Photic stimulation not done. Non paroxysmal. Nonfocal. Nonlateralizing. IMPRESSION no significant abnormalities noted in this tracing which mainly comprised of sleep activity, clinical correlation recommended, the possibility of seizures cannot be ruled out by this tracing.
[2024-10-23 09:16] LABS: NT Pro B Type Natriuretic Pept 526 pg/mL (19.9-100)
--- NOTE | 2024-10-23 09:54 | PCSTNOTE ---
Please refer to the Bedside Swallow Evaluation in the EMR. Please note, silent aspiration cannot be ruled out at bedside.
[2024-10-23 12:18] LABS: Glucose Point of Care 194 mg/dl (65-105)
[2024-10-23 12:18] LABS: Glucose Point of Care 232 mg/dl (65-105)
[2024-10-23 16:51] LABS: Glucose Point of Care 184 mg/dl (65-105)
--- NOTE | 2024-10-23 17:05 | PM.IMPN ---
Progress Note: A&P Assessment and Plan (1) Acute encephalopathy: Code(s): G93.40 - Encephalopathy, unspecified Status: Acute Assessment and Plan: Brain MRI:No acute abnormality. Mild chronic microvascular ischemic change. Moderate to severe generalized atrophy. Head CT:No acute intracranial process. Metabolic encephalopathy possibly due to infectious process Reviewed ABG Negative syphilis Normal B12, TSH, folic acid and thiamine Valproic acid 41.8 Started Meropenem, Vancomycin,Ampicillin, and Acyclovir Order LP. (2) Pneumonia: Qualifiers: Pneumonia type: aspiration pneumonia Code(s): J18.9 - Pneumonia, unspecified organism Status: Acute Assessment and Plan: CXR: Left basilar airspace disease, compatible with pneumonia. DC Ceftriaxone 2 gram IV q24H and escalated to meropenem and vancomycin Started gentle fluid resuscitation Repeat speech therapy Monitor electrolyte Monitor vitals Monitor culture Nasal MRSA negative Lactic acid 1.3 Echocardiogram shows ejection fraction 60-65% Chest/Abdomen/Pelvis CTA: CHEST: 1. No pulmonary embolism. 2. Left basilar atelectasis versus pneumonia with minimal pleural effusion. 3. Mediastinal lymphadenopathy. ABDOMEN/PELVIS: 1. No evidence of appendicitis, diverticulitis or intestinal obstruction. 2. Slightly thickened wall of the urinary bladder which may indicate cystitis. Clinical correlation advised. 3. Small left inguinal fat containing hernia. 4. Enlarged prostate. (3) Diabetes mellitus with hyperglycemia, without long-term current use of insulin: Qualifiers: Diabetes mellitus type: type 2 Qualified Code(s): E11.65 - Type 2 diabetes mellitus with hyperglycemia Code(s): E11.65 - Type 2 diabetes mellitus with hyperglycemia Status: Acute Assessment and Plan: - hypoglycemia protocol - POC blood glucose ACHS - home medication - none - A1C 9.4 (09/2019) (4) Dysphagia: Code(s): R13.10 - Dysphagia, unspecified Status: Acute Assessment and Plan: Speech therapy consult MBS: Printed dysphagia with laryngeal penetration without evident aspiration on swallows of thin liquid from a cup which improved with chin tuck which improved with chin tuck. Please correlate with speech pathologist findings and specific feeding recommendations. Repeated MBS due to lethargy (5) OMARI (acute kidney injury): Code(s): N17.9 - Acute kidney failure, unspecified Status: Acute Assessment and Plan: Holding lisinopril and hydrochlorothiazide Avoid nephrotoxic drugs Order ultrasound Order CPK Order urine eosinophils Trial of Gentle fluid resuscitation Reviewed PT PTT INR Elevated D-dimer but no evidence of DIC (6) Hypercalcemia: Code(s): E83.52 - Hypercalcemia Status: Acute Assessment and Plan: Possibly due to dehydration Started on fluids Ordered ionized calcium Plan dvt prop: Hold lovenox due to possible LP Patient is currently on NPO. Subjective Date/time seen: 10/23/24 17:05 Interval history: Interval history: I assumed care on 10/22/2024. Nursing was concerned due to the patient acute lethargy. He had a lengthy discussion with his , who reported that the patient had been doing fine until when he was brought to the hospital due to a fever. Baseline patient uses a walker for ambulation due to leg weakness. No significant past medical history other than DM 2 and HTN. Currently, the patient is unable to answer questions. Discussed with speech therapy and Physical therapist who reported patient had acute declining condition. Performed MRI and pascal CT scan to rule out infectious process. I ordered a new speech therapy consult to evaluate his swallowing, although the patient previously passed his MBS. I also ordered a blood culture and lactic acid and escalated the antibiotics from ceftriaxone to cefepime, then to meropenem and vancomycin. ABG reviewed. Started gentle fluid resuscitation due to OMARI. Ordered echocardiogram and BNP. Order renal ultrasound, CPK, and urine eosinophils due to OMARI. D-dimer was elevated. The patient underwent chest/abdomen/pelvis CTA. Consulted Neurology. Since the patient is unable to swallow, I will start Metoprolol 5mg IV every 6 hours for hypertension and Tachycardia. Valproic acid level 41.8. Order LP. Hold Lovenox possible LP. Patient is currently on NPO. Echocardiogram was performed which shows left ventricular ejection fraction 60-60% and trivial pericardial effusion. No evidence of DIC. Discussed with and aggress with plan and advise to increase the fluid rate from 75 to 125ml/hr and no sedatives. Confirmed the code status with who wants all aggressive measure including intubation. 10/23:Patient responds only yes or no. Unable to perform LP today.Possible tomorrow.Hold Lovenox. High Tension Tester evaluated the patient and agrees with plan. Review of Systems Review of Systems: ongoing encephalopathic state Exam Narrative: Patient is comfortable HEENT: eyes are clear and none icteric LUNGS:CTA HEART: RR S1S2 ABD: BS+, Soft and nontender Lower extremities: no edema SKIN: nonjaundiced Neuro: grossly intact. Objective Data Vital Signs Vital Signs: Vital Signs - 24 hr 10/22/24 18:00 10/22/24 18:48 10/22/24 19:23 Temperature 99.4 F Pulse Rate 100 117 H 98 Respiratory Rate 22 H Blood Pressure 153/72 H Pulse Oximetry 98 Oxygen Delivery Oxygen Flow Rate 10/22/24 20:00 10/22/24 20:00 10/22/24 20:34 Temperature Pulse Rate 102 H 107 H Respiratory Rate Blood Pressure Pulse Oximetry 97 Oxygen Delivery Nasal Cannula Oxygen Flow Rate 2 10/22/24 22:00 10/22/24 23:55 10/23/24 00:00 Temperature 100.7 F H Pulse Rate 99 100 Respiratory Rate Blood Pressure Pulse Oximetry Oxygen Delivery Oxygen Flow Rate 10/23/24 00:00 10/23/24 00:09 10/23/24 00:55 Temperature 100.7 F H 99.1 F Pulse Rate 101 H Respiratory Rate 22 H Blood Pressure 163/81 H Pulse Oximetry 96 98 Oxygen Delivery Nasal Cannula Oxygen Flow Rate 2 10/23/24 01:51 10/23/24 02:00 10/23/24 03:50 Temperature 101.3 F H Pulse Rate 118 H 115 H Respiratory Rate 22 H Blood Pressure 169/80 H Pulse Oximetry 96 94 Oxygen Delivery Nasal Cannula Oxygen Flow Rate 2 10/23/24 04:00 10/23/24 04:00 10/23/24 06:00 Temperature 98.5 F Pulse Rate 114 H Respiratory Rate Blood Pressure Pulse Oximetry 95 Oxygen Delivery Nasal Cannula Oxygen Flow Rate 2 10/23/24 06:00 10/23/24 08:00 10/23/24 08:00 Temperature 99.6 F Pulse Rate 110 H 118 H Respiratory Rate 28 H Blood Pressure 131/74 Pulse Oximetry 94 94 Oxygen Delivery Nasal Cannula Oxygen Flow Rate 2 10/23/24 08:00 10/23/24 09:31 10/23/24 10:00 Temperature Pulse Rate 119 H 100 Respiratory Rate Blood Pressure Pulse Oximetry 94 Oxygen Delivery Nasal Cannula Oxygen Flow Rate 2 10/23/24 12:00 10/23/24 12:00 10/23/24 12:00 Temperature 100.7 F H Pulse Rate 98 99 Respiratory Rate 32 H Blood Pressure 136/77 Pulse Oximetry 97 94 Oxygen Delivery Nasal Cannula Oxygen Flow Rate 2 Intake/Output Intake/Output: Intake & Output 10/20/24 10/21/24 10/22/24 10/23/24 23:59 23:59 23:59 23:59 Intake Total 4203 562 9109.3 1066.2 Output Total 600 1300 1500 300 Balance 720 -510 618.3 766.2 Meds/Results Medications: Active Medications Generic Name Dose Route Start Last Admin Trade Name Freq PRN Reason Stop Dose Admin Acetaminophen 650 mg 10/17/24 08:39 10/19/24 11:20 Acetaminophen 325 Mg Tablet PO 650 mg Q4H PRN Administration Mild Pain (1-3) or Fever Acetaminophen 650 mg 10/22/24 23:45 10/22/24 23:55 Acetaminophen 650 Mg Suppository RECTAL 650 mg Q6H PRN Administration Mild Pain (1-3) or Fever Albuterol/Ipratropium 3 ml 10/18/24 15:36 10/20/24 02:38 Ipratropium 0.5 Mg/Albuterol Sulfate 2.5 Mg Ampul.Neb 3 Ml INHALATION 3 ml PRN PRN Administration Wheezing Aspirin 81 mg 10/18/24 09:00 10/23/24 08:51 Aspirin 81 Mg Enteric Tablet PO 81 mg DAILY KENDRA Administration Cyanocobalamin 1,000 mcg 10/18/24 09:00 10/22/24 08:24 Cyanocobalamin 1,000 Mcg Tablet PO Not Given Q48H KENDRA Dextrose 12.5 gm 10/22/24 10:41 Dextrose 50% 25 Gm/50 Ml Syringe IV PUSH PRN PRN Hypoglycemia Protocol Divalproex Sodium 1,000 mg 10/17/24 21:00 10/22/24 20:34 Divalproex Sodium Er 500 Mg Tab.24h PO 1,000 mg HS KENDRA Administration Enoxaparin Sodium 40 mg 10/18/24 09:00 10/22/24 08:27 Enoxaparin 40 Mg/0.4 Ml Syringe SUB-Q Not Given DAILY KENDAR Glipizide 20 mg 10/17/24 16:30 10/22/24 08:24 Glipizide 5 Mg Tablet PO Not Given BIDAC KENDRA Glucagon 1 mg 10/22/24 10:41 Glucagon For Inj 1 Mg Vial IM PRN PRN Hypoglycemia Protocol Glucose 15 gm 10/22/24 10:41 Glucose Oral Gel 15 Gm Of Glucse In 37.5 Gm Tube PO PRN PRN Hypoglycemia Protocol Hydrochlorothiazide 25 mg 10/18/24 09:00 10/21/24 09:05 Hydrochlorothiazide 25 Mg Tablet PO 25 mg DAILY KENDRA Administration Sodium Chloride 1,000 mls @ 125 mls/hr 10/22/24 08:40 10/23/24 08:51 Normal Saline Iv IV CONT 75 mls/hr .Q8H EKNDRA Administration Dextrose 1,000 mls @ 100 mls/hr 10/22/24 10:41 Dextrose 5% 1,000 Ml IVPB PRN PRN Hypoglycemia Protocol Meropenem 1 gm in 100 mls @ 200 mls/hr 10/22/24 19:00 10/23/24 06:25 IVPB Infused Q12H KENDRA Infusion Acyclovir Sodium 915 mg/ 268.3 mls @ 250 mls/hr 10/22/24 19:00 10/23/24 06:02 Dextrose IVPB 250 mls/hr Q12H KENDRA Administration Insulin Aspart 2 - 5 units 10/22/24 12:00 10/23/24 12:19 Insulin Aspart (*Bkc) 100 Units/Ml SUB-Q Not Given [facility] Protocol Insulin Aspart 1 - 2 units 10/22/24 21:00 10/22/24 20:10 Insulin Aspart (*Bkc) 100 Units/Ml SUB-Q Not Given HS KENDRA Protocol Lisinopril 10 mg 10/18/24 09:00 10/21/24 09:05 Lisinopril 10 Mg Tablet PO 10 mg DAILY KENDRA Administration Magnesium Oxide 400 mg 10/20/24 17:00 10/23/24 08:51 Magnesium Oxide 400 Mg Tablet PO 400 mg DAILY KENDRA Administration Metoprolol Tartrate 75 mg 10/17/24 21:00 10/23/24 08:51 Metoprolol Tartrate 25 Mg Tablet PO 75 mg Q12HR KENDRA Administration Metoprolol Tartrate 5 mg 10/22/24 18:00 10/22/24 18:48 Metoprolol Tartrate Inj 5 Mg/5 Ml Vial IV PUSH 5 mg Q6H KENDRA Administration Multivitamins Therapeutic 1 tablet 10/22/24 09:00 10/22/24 08:24 Multivitamins Therapeutic Tab (*Bkc) PO Not Given QAM KENDRA Sodium Chloride 6 ml 10/23/24 05:00 10/23/24 06:07 Sodium Chlor 3% 15 Ml Neb (Respiratory Therapy) INHALATION 10/25/24 05:01 6 ml DAILY@0500 KENDRA Administration Tamsulosin HCl 0.4 mg 10/17/24 21:00 10/22/24 20:35 Tamsulosin Hcl 0.4 Mg Capsule PO 0.4 mg HS KENDRA Administration Vancomycin HCl 1 each 10/22/24 18:25 Vancomycin For Acute Kidney Injury IVPB PRN PRN Vancomycin Protocol Vitamin D 25 mcg 10/18/24 09:00 10/22/24 08:24 Cholecalciferol (Vitamin D3) 25 Mcg (1,000 Units) Tablet PO Not Given DAILY KENDRA Radiology Results: ITS Impressions Chest X-Ray 10/17/24 08:30 Impression: 1: Left basilar airspace disease, compatible with pneumonia. Modified Barium Swallow 10/18/24 11:21 IMPRESSION: Printed dysphagia with laryngeal penetration without evident aspiration on swallows of thin liquid from a cup which improved with chin tuck which improved with chin tuck. Please correlate with speech pathologist findings and specific feeding recommendations. Head CT 10/21/24 16:12 IMPRESSION: No acute intracranial process. Brain MRI 10/22/24 14:47 IMPRESSION: No acute abnormality. Mild chronic microvascular ischemic change. Moderate to severe generalized atrophy. Cervical Spine MRI 10/22/24 16:00 IMPRESSION: 1. Mild cervical, thoracic and lumbar spondylosis with extensive bridging or nearly bridging osteophytes throughout the majority the spine consistent with diffuse idiopathic skeletal hyperostosis (DISH). 2. Normal cord signal throughout with only minimal to mild central canal stenosis in the mid to lower lumbar spine and no stenosis in the more cephalad cervical and thoracic spine. 3. Moderate neural from stenosis on the right at L3-L4 and L4-L5 with scattered mild stenosis at multiple neural foramina scattered throughout the remainder of the cervical, thoracic and lumbar spine. Lumbar Spine MRI 10/22/24 16:00 IMPRESSION: 1. Mild cervical, thoracic and lumbar spondylosis with extensive bridging or nearly bridging osteophytes throughout the majority the spine consistent with diffuse idiopathic skeletal hyperostosis (DISH). 2. Normal cord signal throughout with only minimal to mild central canal stenosis in the mid to lower lumbar spine and no stenosis in the more cephalad cervical and thoracic spine. 3. Moderate neural from stenosis on the right at L3-L4 and L4-L5 with scattered mild stenosis at multiple neural foramina scattered throughout the remainder of the cervical, thoracic and lumbar spine. Thoracic Spine MRI 10/22/24 16:00 IMPRESSION: 1. Mild cervical, thoracic and lumbar spondylosis with extensive bridging or nearly bridging osteophytes throughout the majority the spine consistent with diffuse idiopathic skeletal hyperostosis (DISH). 2. Normal cord signal throughout with only minimal to mild central canal stenosis in the mid to lower lumbar spine and no stenosis in the more cephalad cervical and thoracic spine. 3. Moderate neural from stenosis on the right at L3-L4 and L4-L5 with scattered mild stenosis at multiple neural foramina scattered throughout the remainder of the cervical, thoracic and lumbar spine. Chest/Abdomen/Pelvis CTA 10/22/24 16:17 IMPRESSION: CHEST: 1. No pulmonary embolism. 2. Left basilar atelectasis versus pneumonia with minimal pleural effusion. 3. Mediastinal lymphadenopathy. ABDOMEN/PELVIS: 1. No evidence of appendicitis, diverticulitis or intestinal obstruction. 2. Slightly thickened wall of the urinary bladder which may indicate cystitis. Clinical correlation advised. 3. Small left inguinal fat containing hernia. 4. Enlarged prostate. Labs Labs: Laboratory Results - last 24 hr 10/22/24 10/22/24 10/22/24 17:23 20:03 20:08 WBC 15.6 H RBC 4.04 L Hgb 11.9 L Hct 36.7 L MCV 90.8 MCH 29.5 MCHC 32.4 RDW 13.9 Plt Count 219 MPV 9.7 Puncture Site ABG pH ABG pCO2 ABG pO2 ABG PO2/FiO2 Ratio ABG HCO3 ABG O2 Saturation ABG O2 Content ABG Base Excess A-a Gradient Oxyhemoglobin Total Hemoglobin O2 Delivery Device O2 Liters/Min FiO2 Sodium 140 Potassium 4.4 Chloride 99 Carbon Dioxide 32 H Anion Gap 9 BUN 29 H Creatinine 1.46 H Estim Creat Clear Calc 42 Estimated GFR 47 L Glucose 222 H POC Capillary Glucose 196 H Calcium 11.4 H Phosphorus 3.3 Magnesium 1.7 Total Bilirubin AST ALT Alkaline Phosphatase NT-Pro-B Natriuret Pep Total Protein Albumin Vitamin D 25-Hydroxy 42.0 PTH Intact 88.8 H Urine Color Urine Appearance Urine pH Ur Specific [place] Urine Protein Urine Glucose (UA) Urine Ketones Ur Blood (Man) Urine Nitrate Urine Bilirubin Urine Urobilinogen Ur Leukocyte Esterase Urine RBC Urine WBC Ur Squamous Epith Cells Urine Bacteria Hyaline Casts Urine Eosinophils Urine Creatinine [place] < 0.2 L 10/23/24 10/23/24 10/23/24 00:26 03:46 03:46 WBC 12.8 H RBC 3.72 L Hgb 11.0 L Hct 35.1 L MCV 94.4 MCH 29.6 MCHC 31.3 L RDW 13.9 Plt Count 235 MPV 10.4 Puncture Site ABG pH ABG pCO2 ABG pO2 ABG PO2/FiO2 Ratio ABG HCO3 ABG O2 Saturation ABG O2 Content ABG Base Excess A-a Gradient Oxyhemoglobin Total Hemoglobin O2 Delivery Device O2 Liters/Min FiO2 Sodium 141 Potassium 4.2 Chloride 104 Carbon Dioxide 27 Anion Gap 10 BUN 33 H Creatinine 1.41 H 1.56 H Estim Creat Clear Calc 41 Estimated GFR Glucose POC Capillary Glucose Calcium Phosphorus Magnesium Total Bilirubin AST ALT Alkaline Phosphatase NT-Pro-B Natriuret Pep Total Protein Albumin Vitamin D 25-Hydroxy PTH Intact Urine Color Yellow Urine Appearance Clear Urine pH 5.5 Ur Specific [place] 1.020 Urine Protein 3+ H Urine Glucose (UA) Negative Urine Ketones Negative Ur Blood (Man) 1+ H Urine Nitrate Negative Urine Bilirubin Negative Urine Urobilinogen 0.2 Ur Leukocyte Esterase Negative Urine RBC 6-10 H Urine WBC 0-5 Ur Squamous Epith Cells None seen Urine Bacteria Trace Hyaline Casts 0-2 Urine Eosinophils None seen Urine Creatinine 83.4 [place] 10/23/24 10/23/24 10/23/24 03:46 03:46 04:45 WBC RBC Hgb Hct MCV MCH MCHC RDW Plt Count MPV Puncture Site Right radial ABG pH 7.387 ABG pCO2 45.8 H ABG pO2 77.6 L ABG PO2/FiO2 Ratio 2.77 ABG HCO3 26.9 H ABG O2 Saturation 95.3 ABG O2 Content 18.3 ABG Base Excess 1.4 A-a Gradient 68.0 Oxyhemoglobin 94.0 Total Hemoglobin 13.8 O2 Delivery Device Nasal cannula O2 Liters/Min 2.0 FiO2 28 Sodium Potassium Chloride Carbon Dioxide Anion Gap BUN Creatinine Estim Creat Clear Calc 37 Estimated GFR 49 L 44 L Glucose 202 H POC Capillary Glucose Calcium 10.9 H Phosphorus Magnesium Total Bilirubin 0.6 AST 52 ALT 37 Alkaline Phosphatase 94 NT-Pro-B Natriuret Pep 526 H Total Protein 6.6 Albumin 3.2 L Vitamin D 25-Hydroxy PTH Intact Urine Color Urine Appearance Urine pH Ur Specific [place] Urine Protein Urine Glucose (UA) Urine Ketones Ur Blood (Man) Urine Nitrate Urine Bilirubin Urine Urobilinogen Ur Leukocyte Esterase Urine RBC Urine WBC Ur Squamous Epith Cells Urine Bacteria Hyaline Casts Urine Eosinophils Urine Creatinine [place] 10/23/24 10/23/24 10/23/24 08:02 12:11 16:19 WBC RBC Hgb Hct MCV MCH MCHC RDW Plt Count MPV Puncture Site ABG pH ABG pCO2 ABG pO2 ABG PO2/FiO2 Ratio ABG HCO3 ABG O2 Saturation ABG O2 Content ABG Base Excess A-a Gradient Oxyhemoglobin Total Hemoglobin O2 Delivery Device O2 Liters/Min FiO2 Sodium Potassium Chloride Carbon Dioxide Anion Gap BUN Creatinine Estim Creat Clear Calc Estimated GFR Glucose POC Capillary Glucose 232 H 194 H 184 H Calcium Phosphorus Magnesium Total Bilirubin AST ALT Alkaline Phosphatase NT-Pro-B Natriuret Pep Total Protein Albumin Vitamin D 25-Hydroxy PTH Intact Urine Color Urine Appearance Urine pH Ur Specific [place] Urine Protein Urine Glucose (UA) Urine Ketones Ur Blood (Man) Urine Nitrate Urine Bilirubin Urine Urobilinogen Ur Leukocyte Esterase Urine RBC Urine WBC Ur Squamous Epith Cells Urine Bacteria Hyaline Casts Urine Eosinophils Urine Creatinine [place] Quality VTE Prophylaxis VTE prophylaxis: pharmacologic ordered Hospitalist MIPS Advance Care Plan I have confirmed that the patient's Advanced Care Plan is present, code status is documented, or surrogate decision maker is listed in patient medical record.: Yes Medication Reconciliation I have utilized all available resources to obtain, update and review the patients current medications (includes all prescriptions, OTC, herbals, cannabis, and nutritional supplements).: Yes
[2024-10-23 20:11] LABS: Hematocrit 31.4 % (42.0-52.0); Mean Corpuscular HGB Conc 31.8 g/dl (32-36); Mean Corpuscular Hemoglobin 29.7 pg (26-34); Mean Corpuscular Volume 93.2 fl (80-100); Mean Platelet Volume 9.8 fl (7.4-10.4); Platelet Count Result 239 k/mm3 (150-375); Red Blood Count 3.37 M/mm3 (4.6-6.20); Red Cell Distribution Width 13.7 % (11.5-14.5); White Blood Count 11.1 K/mm3 (4.5-10.0)
[2024-10-23 20:27] LABS: Anion Gap 8 mmol/L (4-12); Blood Urea Nitrogen 38 mg/dL (9-20); Calcium 10.7 mg/dL (8.4-10.2); Carbon Dioxide 28 mmol/L (22-30); Chloride 105 mmol/L (98-107); Estimated CRCL calculation 37 ml/min; Estimated Glomerular Filt Rate 43; Glucose 227 mg/dL (65-110); Magnesium 1.8 mg/dL (1.6-2.3); Sodium 141 mmol/L (137-145)
[2024-10-23 20:28] LABS: Glucose Point of Care 182 mg/dl (65-105)
[2024-10-23 21:13] LABS: Vancomycin Trough 8.2 ug/mL (10.0-20.0)
--- NOTE | 2024-10-23 21:13 | PC.NURSE ---
Spoke with Hawk Watts regarding PO meds. Patient responding with head nod, unable to form words. Also responding by squeezing hand. New orders received.
[2024-10-23 21:20] LABS: Valproic Acid 14.7 ug/mL (50-120)
[2024-10-23] MEDS: VANCOMYCIN 1,250 MG/NS 250 ML 1,250 MG/250 ML BAG 166.67 MG IVPB (21:57)
[2024-10-23] MEDS: METOPROLOL TARTRATE INJ 5 MG/5 ML VIAL IV PUSH (22:02)
[2024-10-23] MEDS: VALPROATE SODIUM INJ 500 MG in DEXTROSE 5% IN WATER 50 ML 55 MG IVPB (23:54)
[2024-10-24] VITALS (23 sets, daily range): BP systolic 56–185; BP diastolic 28–98; PULSE 85–128; RESP 20–22; TEMP 36.9–38.9; O2SAT 87–99
[2024-10-24 04:32] LABS: Hematocrit 32.3 % (42.0-52.0); Hemoglobin 10.1 g/dL (14.0-18.0); Mean Corpuscular HGB Conc 31.3 g/dl (32-36); Mean Corpuscular Hemoglobin 29.4 pg (26-34); Mean Corpuscular Volume 93.9 fl (80-100); Platelet Count Result 248 k/mm3 (150-375); Red Blood Count 3.44 M/mm3 (4.6-6.20); Red Cell Distribution Width 13.7 % (11.5-14.5); White Blood Count 10.4 K/mm3 (4.5-10.0)
[2024-10-24 04:49] LABS: Alanine Aminotransferase 90 U/L (6-50); Alkaline Phosphatase 110 U/L (38-126); Anion Gap 7 mmol/L (4-12); Aspartate Amino Transferase 119 U/L (17-59); Bilirubin,Total 0.9 mg/dL (0.2-1.3); Blood Urea Nitrogen 40 mg/dL (9-20); Carbon Dioxide 29 mmol/L (22-30); Chloride 107 mmol/L (98-107); Estimated CRCL calculation 35 ml/min; Estimated Glomerular Filt Rate 40; Glucose 201 mg/dL (65-110); Potassium 4.1 mmol/L (3.4-5.0); Sodium 143 mmol/L (137-145); Total Protein 6.4 g/dL (6.3-8.2)
[2024-10-24] MEDS: SODIUM CHLOR 3% 15 ML NEB (RESPIRATORY THERAPY) 6 ML INHALATION (05:01)
[2024-10-24] MEDS: METOPROLOL TARTRATE INJ 5 MG/5 ML VIAL IV PUSH (05:13)
[2024-10-24] MEDS: VALPROATE SODIUM INJ 500 MG in DEXTROSE 5% IN WATER 50 ML 55 MG IVPB ×2 (05:16→12:59)
[2024-10-24] MEDS: MEROPENEM 1 GM/NS 100 ML 1 GM/100 ML BAG IVPB ×2 (06:16→10:34)
[2024-10-24] MEDS: WATER IVPB (07:25)
[2024-10-24] MEDS: ACYCLOVIR SODIUM IVPB (07:25)
[2024-10-24] MEDS: DEXTROSE 5% IVPB (07:25)
[2024-10-24 07:42] LABS: Glucose Point of Care 205 mg/dl (65-105)
--- NOTE | 2024-10-24 09:11 | PC.NURSE ---
Responsive to verbal command. Able to open eyes on command and squeeze hands. Patient is not able to lift arms, lift legs or wiggle toes on command. When bilateral feet are touched the patient moans as if in pain. The right side is noted to be worse than the left side. The right foot has trace non-pitting edema noted, and the right ankle as +1-2 pitting edema. Patient is noted to be febrile (see vital sign flow sheet) and ice pack were placed on the patient and covers removed. The patient is unable to communicate needs at this time. MD at bedside. Plan is for LP study, this RN spoke to the MD about concerns that the patient may not be able to complete the study due to the fact that the patient would need to be placed on his stomach. The MD verbalized understanding. This RN retook vital signs at 0835 and the blood pressure had improved from previously taken (see vital sign flow sheet) and is currently 150/83, HR 125, RR 32, Temp 99.8 left arm axillary, and O2 saturation is 93% on 4L/NC. MD made aware when he returned to the unit.
[2024-10-24 09:14] LABS: Uric Acid 8.7 mg/dL (3.5-8.5)
--- NOTE | 2024-10-24 10:00 | P.PNIM_ITS ---
Progress Note: A&P Assessment and Plan (1) Acute encephalopathy: Code(s): G93.40 - Encephalopathy, unspecified Status: Acute Assessment and Plan: Intubated and further management as per financial services consultant Brain MRI:No acute abnormality. Mild chronic microvascular ischemic change. Moderate to severe generalized atrophy. Head CT:No acute intracranial process. Metabolic encephalopathy possibly due to infectious process Reviewed ABG Negative syphilis Normal B12, TSH, folic acid and thiamine Valproic acid 41.8 Started Meropenem, Vancomycin,Ampicillin, and Acyclovir Order LP. (2) Pneumonia: Qualifiers: Pneumonia type: aspiration pneumonia Code(s): J18.9 - Pneumonia, unspecified organism Status: Acute Assessment and Plan: Intubated and further management as per financial services consultant CXR: Left basilar airspace disease, compatible with pneumonia. * DC Ceftriaxone 2 gram IV q24H and escalated to meropenem and vancomycin * Started gentle fluid resuscitation * Repeat speech therapy * Monitor electrolyte * Monitor vitals * Monitor culture * Nasal MRSA negative * Lactic acid 1.3 * Echocardiogram shows ejection fraction 60-65% Chest/Abdomen/Pelvis CTA: CHEST: 1. No pulmonary embolism. 2. Left basilar atelectasis versus pneumonia with minimal pleural effusion. 3. Mediastinal lymphadenopathy. ABDOMEN/PELVIS: 1. No evidence of appendicitis, diverticulitis or intestinal obstruction. 2. Slightly thickened wall of the urinary bladder which may indicate cystitis. Clinical correlation advised. 3. Small left inguinal fat containing hernia. 4. Enlarged prostate. (3) Diabetes mellitus with hyperglycemia, without long-term current use of insulin: Qualifiers: Diabetes mellitus type: type 2 Qualified Code(s): E11.65 - Type 2 diabetes mellitus with hyperglycemia Code(s): E11.65 - Type 2 diabetes mellitus with hyperglycemia Status: Acute Assessment and Plan: - hypoglycemia protocol - POC blood glucose ACHS - home medication - none - A1C 9.4 (09/2019) (4) Dysphagia: Code(s): R13.10 - Dysphagia, unspecified Status: Acute Assessment and Plan: * Speech therapy consult * MBS: Printed dysphagia with laryngeal penetration without evident aspiration on swallows of thin liquid from a cup which improved with chin tuck which improved with chin tuck. Please correlate with speech pathologist findings and specific feeding recommendations. * Repeated MBS due to lethargy (5) OMARI (acute kidney injury): Code(s): N17.9 - Acute kidney failure, unspecified Status: Acute Assessment and Plan: Holding lisinopril and hydrochlorothiazide Avoid nephrotoxic drugs Order ultrasound Order CPK Order urine eosinophils Trial of Gentle fluid resuscitation Reviewed PT PTT INR Elevated D-dimer but no evidence of DIC (6) Hypercalcemia: Code(s): E83.52 - Hypercalcemia Status: Acute Assessment and Plan: Possibly due to dehydration Started on fluids Ordered ionized calcium Plan dvt prop: Hold lovenox due to possible LP Patient is currently on NPO. Subjective Date/time seen: 10/24/24 10:00 Interval history: Patient is accepted at [place] by and at [facility] by Dr Nunn. Patient respiratory condition worsened and was intubated. The patient is in ICU Review of Systems Review of Systems: ongoing encephalopathic state Exam Narrative: Patient is comfortable HEENT: eyes are clear and none icteric LUNGS:CTA HEART: RR S1S2 ABD: BS+, Soft and nontender Lower extremities: no edema SKIN: nonjaundiced Neuro: grossly intact. Objective Data Vital Signs Vital Signs: Vital Signs - 24 hr 10/23/24 12:00 10/23/24 12:00 10/23/24 12:00 Temperature 100.7 F H Pulse Rate 98 99 Respiratory Rate 32 H Blood Pressure 136/77 Pulse Oximetry 97 94 Oxygen Delivery Nasal Cannula Oxygen Flow Rate 2 10/23/24 14:00 10/23/24 16:00 10/23/24 16:00 Temperature Pulse Rate 101 H 115 H Respiratory Rate Blood Pressure Pulse Oximetry 97 Oxygen Delivery Nasal Cannula Oxygen Flow Rate 2 10/23/24 16:00 10/23/24 18:00 10/23/24 20:00 Temperature 98.9 F 97.9 F Pulse Rate 116 H 102 H 128 H Respiratory Rate 24 H 22 H Blood Pressure 156/80 H 130/67 Pulse Oximetry 97 91 Oxygen Delivery Oxygen Flow Rate 10/23/24 20:00 10/23/24 20:00 10/23/24 20:00 Temperature Pulse Rate 129 H 129 H Respiratory Rate Blood Pressure Pulse Oximetry 97 97 Oxygen Delivery Nasal Cannula Nasal Cannula Oxygen Flow Rate 2 2 10/23/24 22:00 10/23/24 22:02 10/23/24 23:49 Temperature 97.9 F Pulse Rate 126 H 127 H 118 H Respiratory Rate 22 H Blood Pressure 150/83 H Pulse Oximetry 90 Oxygen Delivery Oxygen Flow Rate 10/24/24 00:00 10/24/24 00:00 10/24/24 02:00 Temperature Pulse Rate 115 H 120 H Respiratory Rate Blood Pressure Pulse Oximetry 93 Oxygen Delivery Nasal Cannula Oxygen Flow Rate 2 10/24/24 04:00 10/24/24 04:00 10/24/24 04:00 Temperature 98.4 F Pulse Rate 128 H 123 H Respiratory Rate 20 Blood Pressure 132/97 H Pulse Oximetry 93 92 Oxygen Delivery Nasal Cannula Oxygen Flow Rate 2 10/24/24 05:02 10/24/24 05:13 10/24/24 05:13 Temperature Pulse Rate 120 H 125 H 126 H Respiratory Rate 20 20 Blood Pressure Pulse Oximetry Oxygen Delivery Oxygen Flow Rate 10/24/24 06:04 10/24/24 07:43 10/24/24 07:59 Temperature 102.0 F H Pulse Rate 109 H 109 H 121 H Respiratory Rate 20 20 Blood Pressure 185/98 H Pulse Oximetry 92 91 Oxygen Delivery Nasal Cannula Oxygen Flow Rate 4 10/24/24 08:00 Temperature Pulse Rate 121 H Respiratory Rate Blood Pressure Pulse Oximetry Oxygen Delivery Oxygen Flow Rate Intake/Output Intake/Output: Intake & Output 10/21/24 10/22/24 10/23/24 10/24/24 23:59 23:59 23:59 23:59 Intake Total 790 2118.3 2396.6 55 Output Total 1300 1500 1250 1000 Balance -510 618.3 1146.6 -945 Meds/Results Medications: Active Medications Generic Name Dose Route Start Last Admin Trade Name Freq PRN Reason Stop Dose Admin Acetaminophen 650 mg 10/17/24 08:39 10/19/24 11:20 Acetaminophen 325 Mg Tablet PO 650 mg Q4H PRN Administration Mild Pain (1-3) or Fever Acetaminophen 650 mg 10/22/24 23:45 10/22/24 23:55 Acetaminophen 650 Mg Suppository RECTAL 650 mg Q6H PRN Administration Mild Pain (1-3) or Fever Albuterol/Ipratropium 3 ml 10/18/24 15:36 10/20/24 02:38 Ipratropium 0.5 Mg/Albuterol Sulfate 2.5 Mg Ampul.Neb 3 Ml INHALATION 3 ml PRN PRN Administration Wheezing Aspirin 81 mg 10/18/24 09:00 10/23/24 08:51 Aspirin 81 Mg Enteric Tablet PO 81 mg DAILY KENDRA Administration Cyanocobalamin 1,000 mcg 10/18/24 09:00 10/22/24 08:24 Cyanocobalamin 1,000 Mcg Tablet PO Not Given Q48H KENDRA Dextrose 12.5 gm 10/22/24 10:41 Dextrose 50% 25 Gm/50 Ml Syringe IV PUSH PRN PRN Hypoglycemia Protocol Enoxaparin Sodium 40 mg 10/18/24 09:00 10/22/24 08:27 Enoxaparin 40 Mg/0.4 Ml Syringe SUB-Q Not Given DAILY KENDRA Glipizide 20 mg 10/17/24 16:30 10/22/24 08:24 Glipizide 5 Mg Tablet PO Not Given BIDAC KENDRA Glucagon 1 mg 10/22/24 10:41 Glucagon For Inj 1 Mg Vial IM PRN PRN Hypoglycemia Protocol Glucose 15 gm 10/22/24 10:41 Glucose Oral Gel 15 Gm Of Glucse In 37.5 Gm Tube PO PRN PRN Hypoglycemia Protocol Hydrochlorothiazide 25 mg 10/18/24 09:00 10/21/24 09:05 Hydrochlorothiazide 25 Mg Tablet PO 25 mg DAILY KENDRA Administration Sodium Chloride 1,000 mls @ 125 mls/hr 10/22/24 08:40 10/23/24 18:06 Normal Saline Iv IV CONT 75 mls/hr .Q8H KENDRA Administration Dextrose 1,000 mls @ 100 mls/hr 10/22/24 10:41 Dextrose 5% 1,000 Ml IVPB PRN PRN Hypoglycemia Protocol Meropenem 1 gm in 100 mls @ 200 mls/hr 10/22/24 19:00 10/24/24 06:16 IVPB 200 mls/hr Q12H KENDRA Administration Acyclovir Sodium 915 mg/ 268.3 mls @ 250 mls/hr 10/22/24 19:00 10/24/24 07:25 Dextrose IVPB 250 mls/hr Q12H KENDRA Administration Valproate Sodium 500 mg/ 55 mls @ 55 mls/hr 10/24/24 00:00 10/24/24 05:16 Dextrose IVPB 55 mls/hr Q6HR KENDRA Administration Meropenem 2 gm/ Sodium 140 mls @ 280 mls/hr 10/24/24 21:00 Chloride IVPB Q12HR KENDRA Meropenem 1 gm in 100 mls @ 200 mls/hr 10/24/24 10:00 IVPB 10/24/24 10:29 ONCE ONE Insulin Aspart 2 - 5 units 10/22/24 12:00 10/23/24 18:06 Insulin Aspart (*Bkc) 100 Units/Ml SUB-Q Not Given TIDWM COUNTS INCLUDE 234 BEDS AT THE [facility] Protocol Insulin Aspart 1 - 2 units 10/22/24 21:00 10/23/24 22:06 Insulin Aspart (*Bkc) 100 Units/Ml SUB-Q Not Given HS COUNTS INCLUDE 234 BEDS AT THE [facility] Protocol Lisinopril 10 mg 10/18/24 09:00 10/21/24 09:05 Lisinopril 10 Mg Tablet PO 10 mg DAILY KENDRA Administration Magnesium Oxide 400 mg 10/20/24 17:00 10/23/24 08:51 Magnesium Oxide 400 Mg Tablet PO 400 mg DAILY COUNTS INCLUDE 234 BEDS AT THE [facility] Administration Metoprolol Tartrate 5 mg 10/22/24 18:00 10/22/24 18:48 Metoprolol Tartrate Inj 5 Mg/5 Ml Vial IV PUSH 5 mg Q6H KENDRA Administration Metoprolol Tartrate 5 mg 10/23/24 22:00 10/24/24 05:13 Metoprolol Tartrate Inj 5 Mg/5 Ml Vial IV PUSH 5 mg Q6HR COUNTS INCLUDE 234 BEDS AT THE [facility] Administration Multivitamins Therapeutic 1 tablet 10/22/24 09:00 10/22/24 08:24 Multivitamins Therapeutic Tab (*Bkc) PO Not Given QAM COUNTS INCLUDE 234 BEDS AT THE [facility] Sodium Chloride 6 ml 10/23/24 05:00 10/24/24 05:01 Sodium Chlor 3% 15 Ml Neb (Respiratory Therapy) INHALATION 10/25/24 05:01 6 ml DAILY@0500 COUNTS INCLUDE 234 BEDS AT THE [facility] Administration Vancomycin HCl 1 each 10/22/24 18:25 Vancomycin For Acute Kidney Injury IVPB PRN PRN Vancomycin Protocol Vitamin D 25 mcg 10/18/24 09:00 10/22/24 08:24 Cholecalciferol (Vitamin D3) 25 Mcg (1,000 Units) Tablet PO Not Given DAILY COUNTS INCLUDE 234 BEDS AT THE [facility] Radiology Results: ITS Impressions Chest X-Ray 10/17/24 08:30 Impression: 1: Left basilar airspace disease, compatible with pneumonia. Modified Barium Swallow 10/18/24 11:21 IMPRESSION: Printed dysphagia with laryngeal penetration without evident aspiration on swallows of thin liquid from a cup which improved with chin tuck which improved with chin tuck. Please correlate with speech pathologist findings and specific feeding recommendations. Head CT 10/21/24 16:12 IMPRESSION: No acute intracranial process. Brain MRI 10/22/24 14:47 IMPRESSION: No acute abnormality. Mild chronic microvascular ischemic change. Moderate to severe generalized atrophy. Cervical Spine MRI 10/22/24 16:00 IMPRESSION: 1. Mild cervical, thoracic and lumbar spondylosis with extensive bridging or nearly bridging osteophytes throughout the majority the spine consistent with diffuse idiopathic skeletal hyperostosis (DISH). 2. Normal cord signal throughout with only minimal to mild central canal stenosis in the mid to lower lumbar spine and no stenosis in the more cephalad cervical and thoracic spine. 3. Moderate neural from stenosis on the right at L3-L4 and L4-L5 with scattered mild stenosis at multiple neural foramina scattered throughout the remainder of the cervical, thoracic and lumbar spine. Lumbar Spine MRI 10/22/24 16:00 IMPRESSION: 1. Mild cervical, thoracic and lumbar spondylosis with extensive bridging or nearly bridging osteophytes throughout the majority the spine consistent with diffuse idiopathic skeletal hyperostosis (DISH). 2. Normal cord signal throughout with only minimal to mild central canal stenosis in the mid to lower lumbar spine and no stenosis in the more cephalad cervical and thoracic spine. 3. Moderate neural from stenosis on the right at L3-L4 and L4-L5 with scattered mild stenosis at multiple neural foramina scattered throughout the remainder of the cervical, thoracic and lumbar spine. Thoracic Spine MRI 10/22/24 16:00 IMPRESSION: 1. Mild cervical, thoracic and lumbar spondylosis with extensive bridging or nearly bridging osteophytes throughout the majority the spine consistent with diffuse idiopathic skeletal hyperostosis (DISH). 2. Normal cord signal throughout with only minimal to mild central canal stenosis in the mid to lower lumbar spine and no stenosis in the more cephalad cervical and thoracic spine. 3. Moderate neural from stenosis on the right at L3-L4 and L4-L5 with scattered mild stenosis at multiple neural foramina scattered throughout the remainder of the cervical, thoracic and lumbar spine. Chest/Abdomen/Pelvis CTA 10/22/24 16:17 IMPRESSION: CHEST: 1. No pulmonary embolism. 2. Left basilar atelectasis versus pneumonia with minimal pleural effusion. 3. Mediastinal lymphadenopathy. ABDOMEN/PELVIS: 1. No evidence of appendicitis, diverticulitis or intestinal obstruction. 2. Slightly thickened wall of the urinary bladder which may indicate cystitis. Clinical correlation advised. 3. Small left inguinal fat containing hernia. 4. Enlarged prostate. Labs Labs: Laboratory Results - last 24 hr 10/23/24 10/23/24 10/23/24 08:02 12:11 16:19 WBC RBC Hgb Hct MCV MCH MCHC RDW Plt Count MPV Sodium Potassium Chloride Carbon Dioxide Anion Gap BUN Creatinine Estim Creat Clear Calc Estimated GFR Glucose POC Capillary Glucose 232 H 194 H 184 H Uric Acid Calcium Magnesium Total Bilirubin AST ALT Alkaline Phosphatase Total Protein Albumin Vancomycin Trough Valproic Acid 10/23/24 10/23/24 10/23/24 19:55 19:55 20:12 WBC 11.1 H RBC 3.37 L Hgb 10.0 L Hct 31.4 L MCV 93.2 MCH 29.7 MCHC 31.8 L RDW 13.7 Plt Count 239 MPV 9.8 Sodium 141 Potassium 4.0 Chloride 105 Carbon Dioxide 28 Anion Gap 8 BUN 38 H Creatinine 1.58 H Estim Creat Clear Calc 37 Estimated GFR 43 L Glucose 227 H POC Capillary Glucose 182 H Uric Acid Calcium 10.7 H Magnesium 1.8 Total Bilirubin AST ALT Alkaline Phosphatase Total Protein Albumin Vancomycin Trough 8.2 L Valproic Acid 14.7 L Cancelled 10/24/24 10/24/24 03:53 07:22 WBC 10.4 H RBC 3.44 L Hgb 10.1 L Hct 32.3 L MCV 93.9 MCH 29.4 MCHC 31.3 L RDW 13.7 Plt Count 248 MPV 10.0 Sodium 143 Potassium 4.1 Chloride 107 Carbon Dioxide 29 Anion Gap 7 BUN 40 H Creatinine 1.69 H Estim Creat Clear Calc 35 Estimated GFR 40 L Glucose 201 H POC Capillary Glucose 205 H Uric Acid 8.7 H Calcium 11.0 H Magnesium Total Bilirubin 0.9 AST 119 H ALT 90 H Alkaline Phosphatase 110 Total Protein 6.4 Albumin 3.0 L Vancomycin Trough Valproic Acid Quality VTE Prophylaxis VTE prophylaxis: pharmacologic ordered Hospitalist MIPS Advance Care Plan I have confirmed that the patient's Advanced Care Plan is present, code status is documented, or surrogate decision maker is listed in patient medical record.: Yes Medication Reconciliation I have utilized all available resources to obtain, update and review the patients current medications (includes all prescriptions, OTC, herbals, cannabis, and nutritional supplements).: Yes
[2024-10-24 10:07] LABS: Ammonia 13 umol/L (9-30)
--- NOTE | 2024-10-24 10:14 | PM.CNNEP ---
Assessment and Plan Assessment and plan (1) OMARI (acute kidney injury): Code(s): N17.9 - Acute kidney failure, unspecified Status: Acute Assessment and Plan: The patient has acute kidney injury. Etiology is unclear. the patient might have been dehydrated on admission but certainly received plenty of fluid since so I do not think pre renal azotemia is playing a role. His heart function is good and there is no reason to think he has liver disease , thinking of causes of pre renal azotemia apart from just dehydration. Other possibilities include infection as he does have some sort of a pneumonia. he continues to run fevers and so the infection is still active so it is not surprising that the creatinine is still on the rise. The patient was placed on vancomycin. His creatinine had been worsening before that so I do not think this is playing a role right now pharmacy is following levels to make sure it does not rise too high. The patient received contrast on the which could be playing a role. This would be temporary. Other causes would include Glomerulonephritis, interstitial nephritis, vascular disease ( although CTA did not show anything), and infiltrative diseases. Things that cause mental status changes plus kidney disease would include uremia but is kidneys are not this bad, toxoplasmosis but the patient does not have a cap, spirochetes, sepsis, HUS/TTP but his platelet count is normal and there has not been a major steady drop in his hemoglobin especially. at this point will check a renal ultrasound, urine electrolytes, urine eosinophils, continue hydration, serologies for Legionella and toxoplasma, consider adding doxycycline, and just to avoiding potential issues, consider changing vancomycin to linezolid. discussed with Dr. Rocha (2) Acute encephalopathy: Code(s): G93.40 - Encephalopathy, unspecified Status: Acute Assessment and Plan: Etiology unclear. Neuro on the case. LP at some point. (3) Pneumonia: Qualifiers: Pneumonia type: aspiration pneumonia Code(s): J18.9 - Pneumonia, unspecified organism Status: Acute Assessment and Plan: The patient is on antibiotics. (4) Diabetes mellitus with hyperglycemia, without long-term current use of insulin: Qualifiers: Diabetes mellitus type: type 2 Qualified Code(s): E11.65 - Type 2 diabetes mellitus with hyperglycemia Code(s): E11.65 - Type 2 diabetes mellitus with hyperglycemia Status: Acute Assessment and Plan: Patient is is on medication per hospitalist (5) Hypercalcemia: Code(s): E83.52 - Hypercalcemia Status: Acute Assessment and Plan: PTH is a little high. This suggests primary hyperparathyroidism verses FHH. This is a chronic off and on issue ( although hydrochlorothiazide could do this, but usually if it does it would suppress the PTH). Will also check vitamin-A and angiotensin-converting enzyme. Will check a urine calcium to creatinine ratio History of Present Illness Reason for Consult Consult date: 10/24/24 Chief Complaint Chief complaint: pneumonia History of Present Illness Narrative: spouse is in the room and gave most of the history. Alphonse is a very pleasant 74-year-old gentleman who has PTSD, type 2 diabetes, hypertension, gout, osteoarthritis, B12 deficiency, vitamin-D deficiency. His said that he was formerly diagnosed with schizophrenia but this was wrong and it turned out to be PTSD. Patient was well until last morning when the patient woke his up Because he was shaking. She said that it reminded her of when he had COVID because he had chills from fever so she called 911 and had him brought to the ER. At that time he was mentating okay. in the emergency room he was evaluated. At that point he was termed a poor historian . He had had a couple of days of cough. Evaluation revealed pneumonia on chest x-ray he had cultures and was placed on antibiotics and was admitted. During the hospital stay he was placed on antibiotics. He had problems with swallowing so speech therapy saw him. There was a concern for aspiration because of his pneumonia. Over the 1st couple of days his mental status gradually worsened. On the 1st he was lethargic and on the 2nd he was termed encephalopathic so Neurology consult was obtained. The patient had CT of the head, MRI of the brain the and these were unremarkable. EEG was obtained and no seizures were noted during the EEG. The patient had multiple other tests including MRI of the cervical, thoracic, and lumbar spine which showed some chronic disease. 2 days ago the patient has chest abdomen pelvic CT angio which was unremarkable Except for the left basilar atelectasis versus pneumonia. On admission the patient's creatinine was normal at 1.22. In the past the patient had had basically a normal creatinine except for occasionally elevated creatinine such as in july of this year, September of 2022, and also in September of 2019 but mostly is creatinine has been normal. On the the creatinine anh to 1.35 and it has gradually risen to today's value of 1.69. The patient had been getting IV fluids For the 1st couple of days in the hospital and then these were discontinued on the but then restarted on the . In spite of the IV fluids the creatinine has continued to rise. The patient has intermittent fevers throughout the hospital stay. His blood pressure has been running anywhere from 130s to 180s. He has not had a hypotensive episode. He receives ceftriaxone plus Zithromax early on and then was switched to cefepime and then meropenem. Vancomycin was just added yesterday. Blood cultures on admission were negative and more recent cultures are negative so far. B12, folate, and vitamin-D are okay. ammonia level was normal. EEG was noted and generally unremarkable. Lumbar puncture it is going to be done soon Calcium level is a little bit on the high side. He was on hydrochlorothiazide as an outpatient but is not on this anymore. PTH is 88. vitamin-D is normal and 1, 25 vitamin-D is pending. Review of Systems Constitutional: Constitutional: Reports no additional constitutional complaints Eyes: Eyes: Reports no additional eye complaints ENT: Reports system reviewed and no additional complaints, except as documented Cardiovascular: Cardiovascular: Reports no additional cardiovascular complaints Respiratory: Respiratory: Reports no additional respiratory complaints Gastrointestinal: Gastrointestinal: Reports no additional gastrointestinal complaints Genitourinary: Genitourinary: Reports no additional male genitourinary complaints Musculoskeletal: Musculoskeletal: Reports no additional musculoskeletal complaints Integumentary/Breasts: Skin/Breast: Reports system reviewed and no additional complaints, except as docu Neurologic: Reports system reviewed and no additional complaints, except as documented Psychiatric: Psychiatric: Reports no additional psychiatric complaints Endocrine: Endocrine: Reports no additional endocrine complaints [facility] Past Medical History Medical History B12 deficiency Vitamin D deficiency Manic depressive disorder Type 2 diabetes mellitus Gout Essential hypertension PTSD (post-traumatic stress disorder) Schizophrenia Osteoarthritis Surgical History Surgical History Status post cataract extraction of both eyes with insertion of intraocular lens History of cholecystectomy (~1970) Status post laser cataract surgery of both eyes Family History Family History Father Carcinoma of colon Diabetes mellitus Mother Carcinoma of colon Diabetes mellitus Heart disease Social History Social History Social History: Primary care physician: [facility] Code status: Full code Advanced directives: None Smoking packs per day: 3 Smoking cigarettes per day: 60.0 Years smoked: 15 Smoking pack-years: 45.00 Smoking status: Former smoker Tobacco type: cigarettes Second hand tobacco smoke exposure: No Alcohol intake: never Substance use: never Substance use type: does not use Do You Feel Safe in your Home?: Yes Lack of Transportation: No Lack of Food: Never True Current Housing: I Have Housing Concerned About Future Housing: No Difficulty Paying Gas/Electric Bills: No Difficulty Paying for Meds: No Currently Unemployed: No Education: High School Diploma/GED Difficulty w/ Childcare or Family Care: No Living arrangements: with family Additional living arrangements comments: He lives with his of 11 years. He has 2 grown sons. One of his sons has issues with IV drug abuse. 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 He served in the [employer] during the [place] War for 1 year. Gender identity (if verbalized by the patient): Male Spiritual care concerns: No Agree to blood products: Yes Meds Home Medications and Allergies Home Medications ?Medication ?Instructions ?Recorded ?Confirmed ?Type aspirin 81 mg tablet,delayed 81 mg PO DAILY 09/18/19 10/17/24 History release (Adult Aspirin Regimen) cholecalciferol (vitamin D3) 25 25 mcg PO DAILY 09/21/19 10/17/24 History mcg (1,000 unit) capsule (Vitamin D3) cyanocobalamin (vitamin B-12) 1,000 mcg PO EVERY OTHER DAY 09/21/19 10/17/24 History 1,000 mcg tablet (Vitamin B-12) divalproex 500 mg tablet,extended 1,000 mg PO HS 09/21/19 10/17/24 History release 24 hr glipizide 10 mg tablet 20 mg PO BIDAC 09/21/19 10/17/24 History hydrochlorothiazide 25 mg tablet 25 mg PO DAILY 09/21/19 10/17/24 History krill 500 mg-omega 3 115 mg-dha 30 1 cap PO HS 09/21/19 10/17/24 History mg-epa 64 [id number] capsule (MegaRed [place]-3 Krill Oil) lisinopril 40 mg tablet 10 mg PO DAILY 09/21/19 10/17/24 History metoprolol tartrate 50 mg tablet 75 mg PO BID 09/21/19 10/17/24 History metformin 1,000 mg tablet 1,000 mg PO BIDWM 30 days #60 tabs 09/27/19 10/17/24 Rx tamsulosin 0.4 mg capsule 0.4 mg PO HS 10/17/24 10/17/24 History Allergies Allergy/AdvReac Type Severity Reaction Status Date / Time lithium Allergy Unknown Verified 10/17/24 09:07 Vital Signs Vital Signs - 24 hr 10/23/24 12:00 10/23/24 12:00 10/23/24 12:00 Temperature 100.7 F H Pulse Rate 98 99 Respiratory Rate 32 H Blood Pressure 136/77 Pulse Oximetry 97 94 Oxygen Delivery Nasal Cannula Oxygen Flow Rate 2 10/23/24 14:00 10/23/24 16:00 10/23/24 16:00 Temperature Pulse Rate 101 H 115 H Respiratory Rate Blood Pressure Pulse Oximetry 97 Oxygen Delivery Nasal Cannula Oxygen Flow Rate 2 10/23/24 16:00 10/23/24 18:00 10/23/24 20:00 Temperature 98.9 F 97.9 F Pulse Rate 116 H 102 H 128 H Respiratory Rate 24 H 22 H Blood Pressure 156/80 H 130/67 Pulse Oximetry 97 91 Oxygen Delivery Oxygen Flow Rate 10/23/24 20:00 10/23/24 20:00 10/23/24 20:00 Temperature Pulse Rate 129 H 129 H Respiratory Rate Blood Pressure Pulse Oximetry 97 97 Oxygen Delivery Nasal Cannula Nasal Cannula Oxygen Flow Rate 2 2 10/23/24 22:00 10/23/24 22:02 10/23/24 23:49 Temperature 97.9 F Pulse Rate 126 H 127 H 118 H Respiratory Rate 22 H Blood Pressure 150/83 H Pulse Oximetry 90 Oxygen Delivery Oxygen Flow Rate 10/24/24 00:00 10/24/24 00:00 10/24/24 02:00 Temperature Pulse Rate 115 H 120 H Respiratory Rate Blood Pressure Pulse Oximetry 93 Oxygen Delivery Nasal Cannula Oxygen Flow Rate 2 10/24/24 04:00 10/24/24 04:00 10/24/24 04:00 Temperature 98.4 F Pulse Rate 128 H 123 H Respiratory Rate 20 Blood Pressure 132/97 H Pulse Oximetry 93 92 Oxygen Delivery Nasal Cannula Oxygen Flow Rate 2 10/24/24 05:02 10/24/24 05:13 10/24/24 05:13 Temperature Pulse Rate 120 H 125 H 126 H Respiratory Rate 20 20 Blood Pressure Pulse Oximetry Oxygen Delivery Oxygen Flow Rate 10/24/24 06:04 10/24/24 07:43 10/24/24 07:59 Temperature 102.0 F H Pulse Rate 109 H 109 H 121 H Respiratory Rate 20 20 Blood Pressure 185/98 H Pulse Oximetry 92 91 Oxygen Delivery Nasal Cannula Oxygen Flow Rate 4 10/24/24 08:00 Temperature Pulse Rate 121 H Respiratory Rate Blood Pressure Pulse Oximetry Oxygen Delivery Oxygen Flow Rate Exam Narrative: Exam Narrative: Well developed well-nourished male in no acute distress Skin is warm and dry without rash Head normocephalic atraumatic Eyes normal sclerae and conjunctivae Mouth normal lips teeth and gums Neck no nodes no thyromegaly no carotid bruit on left but positive carotid bruit on right, Axillae no nodes Back no CVA tenderness Lungs symmetric and clear to auscultation and percussion Heart regular rate and rhythm without rub or gallop Abdomen bowel sounds positive soft nontender, no HSM, masses, or bruits. Extremities no cyanosis, clubbing, or edema Pulses 2+ equal in radial arteries Psychological not anxious or depressed Neuro alert and nods head yes/no to a degree and follows one stage commands but fatigues easily. motor 5/5 cranial nerves 2-12 intact passively reflexes 2+ and equal in the biceps and patellar tendons cerebellar no tremor, clonus, or seizure. Results Lab Results 10/24/24 03:53 10/24/24 03:53 Lab results: Most recent lab results ABG pH 7.387 (7.350-7.450) 10/23/24 04:45 ABG pCO2 45.8 mmHg (35.0-45.0) H 10/23/24 04:45 ABG pO2 77.6 mmHg (80.0-100.0) L 10/23/24 04:45 ABG HCO3 26.9 mEq/l (22.0-26.0) H 10/23/24 04:45 ABG O2 Saturation 95.3 % (95.0-100.0) 10/23/24 04:45 Calcium 11.0 mg/dL (8.4-10.2) H 10/24/24 03:53 Phosphorus 3.3 mg/dL (2.5-4.5) 10/22/24 20:08 Magnesium 1.8 mg/dL (1.6-2.3) 10/23/24 19:55 Urine Creatinine 83.4 mg/dL 10/23/24 00:26
[2024-10-24] MEDS: SODIUM CHLORIDE 0.9% IV 1,000 ML 75 ML IV CONT (10:33)
[2024-10-24 11:38] LABS: Glucose Point of Care 213 mg/dl (65-105)
[2024-10-24] MEDS: SUCCINYLCHOLINE CHLORIDE 20 MG/ML 10 ML VIAL 100 MG IV PUSH (11:49)
[2024-10-24] MEDS: ETOMIDATE 20 MG/10 ML AMPUL 30 MG IV PUSH (11:49)
[2024-10-24 11:57] LABS: Creatine Kinase 160 U/L (55-170)
[2024-10-24] MEDS: MIDAZOLAM HCL (*CRX) 2 MG/2 ML VIAL 4 MG IV PUSH ×2 (12:00→12:15)
--- NOTE | 2024-10-24 12:01 | PC.NURSE ---
At approximately 1130am, this RN noted that the patient oxygen saturations began to drop to 88% on 4L/NC. This RN went into the room to assess the patient. Vital signs obtained at this time 167/91, 87% on 4L/NC, HR 124, Axillary temp 99.0 on left side, RR 32. Breath sounds diminished throughout, more on the left side than on the right. MD called and updated on current breathing status and vital signs. Respiratory therapist called to assist. Patient placed on Non-rebreather at 15L at this time. Respiratory therapy arrived to the room to assess the patient and was updated on status as well as the oil dispatcher, and gaming associate who arrived to the room. Orders to get ABG placed and chest x-ray. Patient was transferred to the ICU, room 9 for intubation. Family member at the bedside and extension agent at the bedside with family member.
[2024-10-24 12:13] LABS: Ionized Calcium 6.5 mg/dL (4.7-5.5)
[2024-10-24] MEDS: LIDOCAINE 1% PF INJ 5 ML VIAL INFILTRATE (12:20)
--- NOTE | 2024-10-24 12:26 | PC.NURSE ---
Updates/report given to ALMA ROSA Kaplan.
[2024-10-24] MEDS: MIDAZOLAM 100MG/NS 100ML(*CRX) 100 MG/100 ML BAG IV CONT (12:30)
[2024-10-24] MEDS: FENTANYL 2,500MCG/NS250ML(*CRX 2,500 MCG/250 ML BAG IV CONT (12:30)
--- NOTE | 2024-10-24 12:36 | P.CONIN_ITS ---
Assessment and Plan Assessment and plan (1) Acute respiratory failure: Code(s): J96.00 - Acute respiratory failure, unspecified whether with hypoxia or hypercapnia Status: Acute Assessment and Plan: Acute respiratory failure likely secondary to combination of pneumonia which could be aspiration and also atelectasis from weakness. On my exam patient had diminished breath sounds on the left side and was tachypneic and exhibiting a rapid shallow breathing with use of abdominal muscles. He was on non-rebreather mask. Patient was emergently intubated without checking a chest x-ray ABG. Post intubation chest x-ray did confirm patchy airspace disease on the left lowers stone with volume loss suggestive of atelectasis Patient now intubated and on mechanical ventilation ABG ordered and pending Bronchodilator, Mucomyst inhalation, left side up, frequent suctioning, CPT Antibiotics as below (2) Sepsis: Qualifiers: Sepsis acute organ dysfunction status: without acute organ dysfunction Sepsis type: sepsis due to unspecified organism Qualified Code(s): A41.9 - Sepsis, unspecified organism Code(s): A41.9 - Sepsis, unspecified organism Status: Resolved Assessment and Plan: Sepsis secondary to pneumonia, atelectasis, UTI possible. meningitis encephalitis Blood culture negative till now Check urine culture and sputum culture Currently on acyclovir, meropenem vancomycin Patient has received significant IV fluids I will give 1 more L bolus as patient dropped his blood pressure after intubation Start Levophed titration to maintain mean arterial pressure (3) Encephalopathy: Code(s): G93.40 - Encephalopathy, unspecified Status: Acute Assessment and Plan: Patient developed encephalopathy Hospital along with weakness and has had extensive workup done as above mentioned in HPI Patient has been evaluated by Neurology LP is ordered and pending Patient also awaits transfer to tertiary facility. Will defer further workup except LP and treatment at this time (4) Dysphagia: Code(s): R13.10 - Dysphagia, unspecified Status: Acute Assessment and Plan: Patient failed his swallow study and I suspect the left lower lobe pneumonia could be an aspiration Will start tube feeds (5) OMARI (acute kidney injury): Code(s): N17.9 - Acute kidney failure, unspecified Status: Acute Assessment and Plan: Patient evaluated by Nephrology today and workup has been ordered (6) Hypercalcemia: Code(s): E83.52 - Hypercalcemia Status: Acute Assessment and Plan: Mild hypercalcemia with potassium slightly more than normal range. CT scan does not show any bony lesions. Alkaline phosphate is normal. PTH is elevated Patient receiving IV fluids (7) UTI (urinary tract infection): Qualifiers: Hematuria presence: with hematuria Urinary tract infection type: acute cystitis Qualified Code(s): N30.01 - Acute cystitis with hematuria Code(s): N39.0 - Urinary tract infection, site not specified Status: Acute Assessment and Plan: See above (8) Aspiration pneumonia: Code(s): J69.0 - Pneumonitis due to inhalation of food and vomit Status: Acute Assessment and Plan: See above (9) Atelectasis: Code(s): J98.11 - Atelectasis Status: Acute Assessment and Plan: See above Plan DVT prophylaxis -Lovenox on hold for LP Stress ulcer prophylaxis -PPI Nutrition -start Tube Feeds Code Status - Full Code Spoke to patient's and updated her with at bedside. Patient is awaiting transfer to tertiary facility. I have spoken to the rough and trueing machine operator at [facility] and updated them with events for the day. Patient is awaiting for transfer once a bed is available. Total Critical Care Time - 40 minutes Due to a high probability of clinically significant, life threatening deterioration, the patient required my highest level of preparedness to intervene emergently and I personally spent this critical care time directly and personally managing the patient. This critical care time included obtaining a history; examining the patient; pulse oximetry; ordering and review of studies; arranging urgent treatment with development of a management plan; evaluation of patient's response to treatment; frequent reassessment; and discussions with other providers. It was exclusive of separately billable procedures and treating other patients and teaching time. Please see Assessment and Plan section and the rest of the note for further information on patient assessment and treatment Gluing Machine Adjuster Consult Note Consult date: 10/24/24 Reason for consult: Respiratory failure HPI: Alphonse Mason is a 74 year old male with past medical history of type 2 diabetes gout hypertension PTSD schizophrenia osteoarthritis presented with chief complaint of cough and fever on 10/17. Chest x-ray was suggestive of pneumonia. Patient was admitted and started on Zosyn kept NPO and speech therapy was consult. Patient was found to be having aspiration on the testing Viral PCR was negative for fluid COVID and RSV During the hospitalization patient developed encephalopathy. Neurology was consulted Patient appeared generalized weakness and worsening encephalopathy. Extensive workup was done as below EEG - no significant abnormalities noted in this tracing which mainly comprised of sleep activity, clinical correlation recommended, the possibility of seizures cannot be ruled out by this tracing. Head CT no acute intracranial process Brain MRI Brain MRI:No acute abnormality. Mild chronic microvascular ischemic change. Moderate to severe generalized atrophy. Chest/Abdomen/Pelvis CTA: CHEST: 1. No pulmonary embolism. 2. Left basilar atelectasis versus pneumonia with minimal pleural effusion. 3. Mediastinal lymphadenopathy. ABDOMEN/PELVIS: 1. No evidence of appendicitis, diverticulitis or intestinal obstruction. 2. Slightly thickened wall of the urinary bladder which may indicate cystitis. Clinical correlation advised. 3. Small left inguinal fat containing hernia. 4. Enlarged prostate. Right upper quadrant ultrasound 1: Unremarkable limited abdominal ultrasound. MRI spine cervical thoracic and lumbar IMPRESSION: 1. Mild cervical, thoracic and lumbar spondylosis with extensive bridging or nearly bridging osteophytes throughout the majority the spine consistent with diffuse idiopathic skeletal hyperostosis (DISH). 2. Normal cord signal throughout with only minimal to mild central canal stenosis in the mid to lower lumbar spine and no stenosis in the more cephalad cervical and thoracic spine. 3. Moderate neural from stenosis on the right at L3-L4 and L4-L5 with scattered mild stenosis at multiple neural foramina scattered throughout the remainder of the cervical, thoracic and lumbar spine. Patient also developed OMARI and was given fluids. Nephrology was consulted LP was ordered and was planned for today. Patient started on empiric antibiotics to cover for meningitis and encephalitis. Attempts were also made to transfer patient to tertiary hospital and patient had been accepted at [facility] and [facility] and was waiting for transfer. Today I was called to evaluate patient due to worsening respiratory status as patient had became more hypoxic with increased oxygen requirement. On my assessment patient was the exhibiting a rapid shallow breathing with use of accessory muscles. Breath sounds are significantly decreased on left side. He was on non-rebreather. He was unable to provide any history but was awake but very weak. He withdrew both extremities to pain and followed commands by squeezing my hand with both of his hands but he could not lift his hands up. He just answered yes. Patient was immediately transferred to ICU. I obtained verbal consent patient's was at bedside for intubation and she was agreeable and patient was transferred to ICU and emergently intubated Review of Systems 2 Review of Systems: ROS unobtainable: Yes unobtainable due to endotracheal tube, unobtainable due to medical condition and unobtainable due to mental status PMFSH Past Medical History Medical History B12 deficiency Vitamin D deficiency Manic depressive disorder Type 2 diabetes mellitus Gout Essential hypertension PTSD (post-traumatic stress disorder) Schizophrenia Osteoarthritis Surgical History Surgical History Status post cataract extraction of both eyes with insertion of intraocular lens History of cholecystectomy (~1970) Status post laser cataract surgery of both eyes Family History Family History Father Carcinoma of colon Diabetes mellitus Mother Carcinoma of colon Diabetes mellitus Heart disease Social History Social History Social History: Primary care physician: [facility] Code status: Full code Advanced directives: None Smoking packs per day: 3 Smoking cigarettes per day: 60.0 Years smoked: 15 Smoking pack-years: 45.00 Smoking status: Former smoker Tobacco type: cigarettes Second hand tobacco smoke exposure: No Alcohol intake: never Substance use: never Substance use type: does not use Do You Feel Safe in your Home?: Yes Lack of Transportation: No Lack of Food: Never True Current Housing: I Have Housing Concerned About Future Housing: No Difficulty Paying Gas/Electric Bills: No Difficulty Paying for Meds: No Currently Unemployed: No Education: High School Diploma/GED Difficulty w/ Childcare or Family Care: No Living arrangements: with family Additional living arrangements comments: He lives with his of 11 years. He has 2 grown sons. One of his sons has issues with IV drug abuse. 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 He served in the [employer] during the [place] War for 1 year. Gender identity (if verbalized by the patient): Male Spiritual care concerns: No Agree to blood products: Yes Meds Home Medications and Allergies Home Medications ?Medication ?Instructions ?Recorded ?Confirmed ?Type aspirin 81 mg tablet,delayed 81 mg PO DAILY 09/18/19 10/17/24 History release (Adult Aspirin Regimen) cholecalciferol (vitamin D3) 25 25 mcg PO DAILY 09/21/19 10/17/24 History mcg (1,000 unit) capsule (Vitamin D3) cyanocobalamin (vitamin B-12) 1,000 mcg PO EVERY OTHER DAY 09/21/19 10/17/24 History 1,000 mcg tablet (Vitamin B-12) divalproex 500 mg tablet,extended 1,000 mg PO HS 09/21/19 10/17/24 History release 24 hr glipizide 10 mg tablet 20 mg PO BIDAC 09/21/19 10/17/24 History hydrochlorothiazide 25 mg tablet 25 mg PO DAILY 09/21/19 10/17/24 History krill 500 mg-omega 3 115 mg-dha 30 1 cap PO HS 09/21/19 10/17/24 History mg-epa 64 [id number]-[id number] capsule (MegaRed [place]-3 Krill Oil) lisinopril 40 mg tablet 10 mg PO DAILY 09/21/19 10/17/24 History metoprolol tartrate 50 mg tablet 75 mg PO BID 09/21/19 10/17/24 History metformin 1,000 mg tablet 1,000 mg PO BIDWM 30 days #60 tabs 09/27/19 10/17/24 Rx tamsulosin 0.4 mg capsule 0.4 mg PO HS 10/17/24 10/17/24 History Allergies Allergy/AdvReac Type Severity Reaction Status Date / Time lithium Allergy Unknown Verified 10/17/24 09:07 Vital Signs Vital Signs - 24 hr 10/23/24 14:00 10/23/24 16:00 10/23/24 16:00 Temperature Pulse Rate 101 H 115 H Respiratory Rate Blood Pressure Pulse Oximetry 97 Oxygen Delivery Nasal Cannula Oxygen Flow Rate 2 10/23/24 16:00 10/23/24 18:00 10/23/24 20:00 Temperature 37.2 C 36.6 C Pulse Rate 116 H 102 H 128 H Respiratory Rate 24 H 22 H Blood Pressure 156/80 H 130/67 Pulse Oximetry 97 91 Oxygen Delivery Oxygen Flow Rate 10/23/24 20:00 10/23/24 20:00 10/23/24 20:00 Temperature Pulse Rate 129 H 129 H Respiratory Rate Blood Pressure Pulse Oximetry 97 97 Oxygen Delivery Nasal Cannula Nasal Cannula Oxygen Flow Rate 2 2 10/23/24 22:00 10/23/24 22:02 10/23/24 23:49 Temperature 36.6 C Pulse Rate 126 H 127 H 118 H Respiratory Rate 22 H Blood Pressure 150/83 H Pulse Oximetry 90 Oxygen Delivery Oxygen Flow Rate 10/24/24 00:00 10/24/24 00:00 10/24/24 02:00 Temperature Pulse Rate 115 H 120 H Respiratory Rate Blood Pressure Pulse Oximetry 93 Oxygen Delivery Nasal Cannula Oxygen Flow Rate 2 10/24/24 04:00 10/24/24 04:00 10/24/24 04:00 Temperature 36.9 C Pulse Rate 128 H 123 H Respiratory Rate 20 Blood Pressure 132/97 H Pulse Oximetry 93 92 Oxygen Delivery Nasal Cannula Oxygen Flow Rate 2 10/24/24 05:02 10/24/24 05:13 10/24/24 05:13 Temperature Pulse Rate 120 H 125 H 126 H Respiratory Rate 20 20 Blood Pressure Pulse Oximetry Oxygen Delivery Oxygen Flow Rate 10/24/24 06:04 10/24/24 07:43 10/24/24 07:59 Temperature 38.9 C H Pulse Rate 109 H 109 H 121 H Respiratory Rate 20 20 Blood Pressure 185/98 H Pulse Oximetry 92 91 Oxygen Delivery Nasal Cannula Oxygen Flow Rate 4 10/24/24 08:00 10/24/24 10:00 10/24/24 11:20 Temperature Pulse Rate 121 H 122 H Respiratory Rate Blood Pressure Pulse Oximetry 87 L Oxygen Delivery Non-Rebreather Mask Oxygen Flow Rate 15 Exam 2 Narrative: Pre intubation exam in the HPI post intubation exam General: Pt is now now sedated, intubated and on mechanical ventilation Lungs/Chest: Breath sounds are decreased on the left side Cardiac: Tachycardia. Normal S1 S2. No murmurs Circulation: Pedal pulses are intact and symmetrical. Abdomen: Decreased bowel sounds. Soft. NT. ND. Extremities: No clubbing, cyanosis or edema. Warm : Randle in place Neurologic: Unable to assess due to sedation now. Peep PERRL prior to intubation patient was awake but drowsy and could only responded with 'yes'. He he followed command by squeezing my hand with both of his hands and with due to pain in lower extremities Results Labs 10/24/24 03:53 10/24/24 03:53 Labs: Impressions Upper Quadrant Ultrasound 10/24/24 11:08 IMPRESSION: 1: Unremarkable limited abdominal ultrasound. Chest X-Ray 10/24/24 12:16 IMPRESSION: 1. Endotracheal tube tip 3.8 cm above the meena. Orogastric tube in the stomach but would recommend advancement by [address] the proximal side-port below level of the gastroesophageal junction. 2. Persistent patchy airspace opacity left lower lung zone suspicious for pneumonia. 3. New volume loss and hazy opacity throughout the left lung likely related to atelectasis likely related to an apparent mucous plugging in the left mainstem bronchus. Recommend pulmonary toilet. Short CBC 10/23/24 10/24/24 Range/Units 19:55 03:53 WBC 11.1 H 10.4 H (4.5-10.0) K/mm3 Hgb 10.0 L 10.1 L (14.0-18.0) g/dL Hct 31.4 L 32.3 L (42.0-52.0) % Plt Count 239 248 (150-375) k/mm3 BMP 10/23/24 10/24/24 19:55 03:53 Sodium 141 143 Potassium 4.0 4.1 Chloride 105 107 Carbon Dioxide 28 29 BUN 38 H 40 H Creatinine 1.58 H 1.69 H Glucose 227 H 201 H Calcium 10.7 H 11.0 H Cardiac Enzymes 10/24/24 Range/Units 11:18 Total Creatine Kinase 160 (55-170) U/L Liver Function 10/24/24 Range/Units 03:53 Total Bilirubin 0.9 (0.2-1.3) mg/dL AST 119 H (17-59) U/L ALT 90 H (6-50) U/L Alkaline Phosphatase 110 (38-126) U/L Albumin 3.0 L (3.5-5.1) g/dL Quality VTE Prophylaxis VTE prophylaxis: mechanical ordered and pharmacologic ordered Hospitalist MIPS Advance Care Plan I have confirmed that the patient's Advanced Care Plan is present, code status is documented, or surrogate decision maker is listed in patient medical record.: Yes Medication Reconciliation I have utilized all available resources to obtain, update and review the patients current medications (includes all prescriptions, OTC, herbals, cannabis, and nutritional supplements).: Yes
[2024-10-24] MEDS: fentaNYL CITRATE INJ (*CRX) 100 MCG/2 ML VIAL 50 MCG IV PUSH (12:50)
[2024-10-24] MEDS: LACTATED RINGERS 1,000 ML 999 ML IV CONT (12:51)
[2024-10-24] MEDS: NOREPINEPHRINE 8 MG/D5W 250 ML 8 MG/250 ML BAG 9.38 MG IV CONT (12:51)
[2024-10-24] MEDS: CENTRAL LINE FLUSH 10 ML IV PUSH (13:00)
[2024-10-24 13:03] LABS: Alveolar/Arterial O2 Gradient 503.5 mmHg; Base Excess ABG 2.1 mEq/l (+/-2.0); Carboxyhemoglobin 0.3 % THb (0-2.0); Fractional Inspired Oxygen 100 %; HCO3 ABG 26.1 mEq/l (22.0-26.0); Methemoglobin ABG 0.1 %THb (0-1.5); Oxygen Content ABG 14.7 %vol (16.0-22.0); Oxygen Saturation ABG 99.2 % (95.0-100.0); Oxyhemoglobin 98.7 % THb (90.0-100.0); PCO2 ABG 38.5 mmHg (35.0-45.0); PO2 FiO2 Ratio Arterial Blood 1.71 %; Reduced Hemoglobin 0.9 %THb (0-5.0); Total Hemoglobin 10.3 g/dL (12.0-18.0); pH ABG 7.449 (7.350-7.450)
[2024-10-24 13:05] LABS: Calcium/Creatinine Ratio, Ur 16 mg/g creat (10-240); Urine Calcium, Random 1.4 mg/dL; Urine Creatinine, Random 90 mg/dL (20-320)
[2024-10-24 13:05] LABS: Modified Allen's Test Pass; Site Drawn RIGHT RADIAL
--- NOTE | 2024-10-24 13:05 | WPDPROCEDUR ---
Procedures Intubation Intubation Date: 10/24/24 Intubation Time: 12:15 Consent: Verbal consent was obtained from patient's A pre-procedural Time-Out was completed immediately before starting the procedure and confirmed: Patient Identification, Site, Procedure, Patient Position and the Availability of Requisite Equipment: Yes Sedative: etomidate Mg given: 30 Paralytic: succinylcholine Mg given: 100 Laryngoscope: fiber optic video scope Assist device used: fiber optic device ET tube size: 8 Tube secured depth (cm): 24 Tube secured location: lips Tube placement confirmation: visualized tube passing through cords, no breath sounds over epigastrium and confirmation by capnometry Patient tolerated procedure: well Intubation complications: none Additional comments: Tube was withdrawn 2 cm after x-ray was done
[2024-10-24 13:06] LABS: Device VENTILATOR
[2024-10-24 13:08] LABS: Arterial Blood Gas PEEP 5 cmH2O; Arterial Blood Gas Vent Mode CMV; Arterial Blood Gas Ventilator rate 20 /MIN
[2024-10-24 13:09] LABS: Arterial Blood Gas Tidal Volume 450 ml
[2024-10-24] MEDS: PANTOPRAZOLE SODIUM IV 40 MG VIAL IV PUSH (13:11)
[2024-10-24] MEDS: ACETYLCYSTEINE 20% INHAL SOLN 800 MG/4 ML VIAL 200 MG INHALATION (13:14)
[2024-10-24] MEDS: IPRATROPIUM 0.5 MG/ALBUTEROL SULFATE 2.5 MG AMPUL.NEB 3 ML INHALATION (13:14)
--- NOTE | 2024-10-24 13:22 | PCNFU ---
Nutrition Follow-Up Complete: Suboptimal po intake related to appetite as evidenced by charted intake, family report PO intake greater than 50% - not able to meet goal Goal: Pt current nutrition is NPO Nutrition recommendation: Diet recommendations per speech. Following Last recorded weight is 83.3 kg. Bowel Motility: No BMs are charted Labs Reviewed: Hgb 10.1, Hct 32.3, Alb 3.0, BUN 40, Cre 1.69, glu 201 Meds Noted: Fentanyl, versed, levophed, LR Skin: No pressure Additional Notes: Pt was moved to ICU, sedation and pressors are on. Pt was lethargic today and not able to swallow. Continue to monitor in ICU and make recommendations as needed Monitor intake, wt, labs. Follow up in 3 days.
[2024-10-24 15:53] LABS: Glucose Point of Care 234 mg/dl (65-105)
[2024-10-24] MEDS: ACETAMINOPHEN 325 MG TABLET 650 MG PO (16:37)
[2024-10-24] MEDS: INSULIN ASPART (*BKC) 100 UNITS/ML SUB-Q (16:38)
--- NOTE | 2024-10-24 18:02 | PC.NURSE ---
1746-Pt. transferred to [place] via [facility]. Report called to Nora CAMARILLO Pt.'s last set of vitals charted before transfer.
--- NOTE | 2024-10-25 10:16 | P.TS_ITS ---
Transfer Discharge Sum: Prov Provider Date of admission: 10/18/24 10:12 Primary care physician: HEATHER ADMIN,CLIFTON Admitting clinician: Jillian Layton MD Consults: 10/21/24 Consult to Physician Routine Comment: Spoke to 10/21 ([facility]) Consulting Provider: Alonzo Devlin on call/MD group to consult: neurology Pt will be seen tomorrow 10/22 Reason for consultation: AMS Has provider been notified: Yes Consult to Physician Routine Comment: Spoke to 10/21 [id number] ([facility]) Consulting Provider: Alonzo Devlin on call/MD group to consult: neurology Per Dr Devlin pt will be seen tomorrow on 10/22 Reason for consultation: encephalopathic and pneumonia Has provider been notified: Yes 10/24/24 Consult to Physician Routine Comment: Consulting Provider: Jose Bearden Reason for consultation: icu transfer Has provider been notified: Yes 10/24/24 08:35 Consult to Physician Routine Comment: Spoke with and notified him of consult Consulting Provider: Paulino Gonzalez on call/MD group to consult: Nephrology Reason for consultation: OMARI Has provider been notified: Yes DS: Admitting Diagnosis Discharge Date 10/24/24 Admitting Diagnosis Fever DS: Discharge Diagnosis Discharge Diagnosis (1) Acute encephalopathy: Code(s): G93.40 - Encephalopathy, unspecified Status: Acute Assessment and Plan: Intubated and further management as per acls nurse Brain MRI:No acute abnormality. Mild chronic microvascular ischemic change. Moderate to severe generalized atrophy. Head CT:No acute intracranial process. Metabolic encephalopathy possibly due to infectious process Reviewed ABG Negative syphilis Normal B12, TSH, folic acid and thiamine Valproic acid 41.8 Started Meropenem, Vancomycin,Ampicillin, and Acyclovir Order LP. (2) Pneumonia: Qualifiers: Pneumonia type: aspiration pneumonia Code(s): J18.9 - Pneumonia, unspecified organism Status: Acute Assessment and Plan: Intubated and further management as per acls nurse CXR: Left basilar airspace disease, compatible with pneumonia. * DC Ceftriaxone 2 gram IV q24H and escalated to meropenem and vancomycin * Started gentle fluid resuscitation * Repeat speech therapy * Monitor electrolyte * Monitor vitals * Monitor culture * Nasal MRSA negative * Lactic acid 1.3 * Echocardiogram shows ejection fraction 60-65% Chest/Abdomen/Pelvis CTA: CHEST: 1. No pulmonary embolism. 2. Left basilar atelectasis versus pneumonia with minimal pleural effusion. 3. Mediastinal lymphadenopathy. ABDOMEN/PELVIS: 1. No evidence of appendicitis, diverticulitis or intestinal obstruction. 2. Slightly thickened wall of the urinary bladder which may indicate cystitis. Clinical correlation advised. 3. Small left inguinal fat containing hernia. 4. Enlarged prostate. (3) Diabetes mellitus with hyperglycemia, without long-term current use of insulin: Qualifiers: Diabetes mellitus type: type 2 Qualified Code(s): E11.65 - Type 2 diabetes mellitus with hyperglycemia Code(s): E11.65 - Type 2 diabetes mellitus with hyperglycemia Status: Acute Assessment and Plan: - hypoglycemia protocol - POC blood glucose ACHS - home medication - none - A1C 9.4 (09/2019) (4) Dysphagia: Code(s): R13.10 - Dysphagia, unspecified Status: Acute Assessment and Plan: * Speech therapy consult * MBS: Printed dysphagia with laryngeal penetration without evident aspiration on swallows of thin liquid from a cup which improved with chin tuck which improved with chin tuck. Please correlate with speech pathologist findings and specific feeding recommendations. * Repeated MBS due to lethargy (5) OMARI (acute kidney injury): Code(s): N17.9 - Acute kidney failure, unspecified Status: Acute Assessment and Plan: Holding lisinopril and hydrochlorothiazide Avoid nephrotoxic drugs Order ultrasound Order CPK Order urine eosinophils Trial of Gentle fluid resuscitation Reviewed PT PTT INR Elevated D-dimer but no evidence of DIC (6) Hypercalcemia: Code(s): E83.52 - Hypercalcemia Status: Acute Assessment and Plan: Possibly due to dehydration Started on fluids Ordered ionized calcium Transfer Discharge Sum: Med Medications Active and Home Medications: Home Medications aspirin 81 mg tablet,delayed release (Adult Aspirin Regimen) 81 mg PO DAILY 09/18/19 [History Confirmed 10/17/24] cholecalciferol (vitamin D3) 25 mcg (1,000 unit) capsule (Vitamin D3) 25 mcg PO DAILY 09/21/19 [History Confirmed 10/17/24] cyanocobalamin (vitamin B-12) 1,000 mcg tablet (Vitamin B-12) 1,000 mcg PO EVERY OTHER DAY 09/21/19 [History Confirmed 10/17/24] divalproex 500 mg tablet,extended release 24 hr 1,000 mg PO HS 09/21/19 [History Confirmed 10/17/24] glipizide 10 mg tablet 20 mg PO BIDAC 09/21/19 [History Confirmed 10/17/24] hydrochlorothiazide 25 mg tablet 25 mg PO DAILY 09/21/19 [History Confirmed 10/17/24] krill 500 mg-omega 3 115 mg-dha 30 mg-epa 64 [id number]-gizek capsule ([employer] [place]-[employer]) 1 cap PO HS 09/21/19 [History Confirmed 10/17/24] lisinopril 40 mg tablet 10 mg PO DAILY 09/21/19 [History Confirmed 10/17/24] metoprolol tartrate 50 mg tablet 75 mg PO BID 09/21/19 [History Confirmed 10/17/24] metformin 1,000 mg tablet 1,000 mg PO BIDWM 30 days #60 tabs 09/27/19 [Rx Confirmed 10/17/24] tamsulosin 0.4 mg capsule 0.4 mg PO HS 10/17/24 [History Confirmed 10/17/24] Transfer Discharge Sum: Hosp Hospital Course Hospital course: Alphonse Mason is a 74 year old male with past medical history of type 2 diabetes gout hypertension PTSD schizophrenia osteoarthritis presented with chief complaint of cough and fever on 10/17. Chest x-ray was suggestive of pneumonia. Patient was admitted and started on Zosyn kept NPO and speech therapy was consult. Patient was found to be having aspiration on the testing Viral PCR was negative for fluid COVID and RSV During the hospitalization patient developed encephalopathy. Neurology was consulted Patient appeared generalized weakness and worsening encephalopathy. Extensive workup was done as below EEG - no significant abnormalities noted in this tracing which mainly comprised of sleep activity, clinical correlation recommended, the possibility of seizures cannot be ruled out by this tracing. Head CT no acute intracranial process Brain MRI Brain MRI:No acute abnormality. Mild chronic microvascular ischemic change. Moderate to severe generalized atrophy. Chest/Abdomen/Pelvis CTA: CHEST: 1. No pulmonary embolism. 2. Left basilar atelectasis versus pneumonia with minimal pleural effusion. 3. Mediastinal lymphadenopathy. ABDOMEN/PELVIS: 1. No evidence of appendicitis, diverticulitis or intestinal obstruction. 2. Slightly thickened wall of the urinary bladder which may indicate cystitis. Clinical correlation advised. 3. Small left inguinal fat containing hernia. 4. Enlarged prostate. Right upper quadrant ultrasound 1: Unremarkable limited abdominal ultrasound. MRI spine cervical thoracic and lumbar IMPRESSION: 1. Mild cervical, thoracic and lumbar spondylosis with extensive bridging or nearly bridging osteophytes throughout the majority the spine consistent with diffuse idiopathic skeletal hyperostosis (DISH). 2. Normal cord signal throughout with only minimal to mild central canal stenosis in the mid to lower lumbar spine and no stenosis in the more cephalad cervical and thoracic spine. 3. Moderate neural from stenosis on the right at L3-L4 and L4-L5 with scattered mild stenosis at multiple neural foramina scattered throughout the remainder of the cervical, thoracic and lumbar spine. Patient also developed OMARI and was given fluids. Nephrology was consulted LP was ordered and was planned for today. Patient started on empiric antibiotics to cover for meningitis and encephalitis. Attempts were also made to transfer patient to tertiary hospital and patient had been accepted at [facility] and [facility] and was waiting for transfer. Wastewater Superintendent was called to evaluate patient due to worsening respiratory status as patient had became more hypoxic with increased oxygen requirement. On assessment patient was the exhibiting a rapid shallow breathing with use of accessory muscles. Breath sounds are significantly decreased on left side. He was on non-rebreather. He was unable to provide any history but was awake but very weak. He withdrew both extremities to pain and followed commands by squeezing acls nurse hand with both of his hands but he could not lift his hands up. He just answered yes. Patient was immediately transferred to ICU.He obtained verbal consent patient's was at bedside for intubation and she was agreeable and patient was transferred to ICU and emergently intubated and transferred Time Spent with Patient Time attestation: Total time spent providing and/or coordinating transfer services: Exam Narrative: Pre intubation exam in the HPI post intubation exam General: Pt is now now sedated, intubated and on mechanical ventilation Lungs/Chest: Breath sounds are decreased on the left side Cardiac: Tachycardia. Normal S1 S2. No murmurs Circulation: Pedal pulses are intact and symmetrical. Abdomen: Decreased bowel sounds. Soft. NT. ND. Extremities: No clubbing, cyanosis or edema. Warm : Randle in place Neurologic: Unable to assess due to sedation now. Peep PERRL prior to intubation patient was awake but drowsy and could only responded with 'yes'. He he followed command by squeezing my hand with both of his hands and with due to pain in lower extremities DS: Data Data Completed and Pending Pending studies at discharge: Pending at discharge 10/22/24 18:14 Cytology [PTH] Routine Labs on day of discharge: Labs from last 24 hours 10/24/24 10/24/24 10/24/24 15:44 12:48 11:36 Puncture Site Right radial ABG pH 7.449 ABG pCO2 38.5 ABG pO2 171.0 H ABG PO2/FiO2 Ratio 1.71 ABG HCO3 26.1 H ABG O2 Saturation 99.2 ABG O2 Content 14.7 L ABG Base Excess 2.1 A-a Gradient 503.5 Oxyhemoglobin 98.7 Carboxyhemoglobin 0.3 Methemoglobin 0.1 Reduced Hemoglobin 0.9 Total Hemoglobin 10.3 L O2 Delivery Device Ventilator O2 Liters/Min Not Reportable Minute Volume Not Reportable Vent Rate 20 Vent Mode Cmv FiO2 100 Tidal Volume 450 PEEP 5 Peak Inspir Pressure Not Reportable Pressure Support Not Reportable POC Capillary Glucose 234 H 213 H Ionized Calcium Lilia Total Creatine Kinase Angiotensin Convert Enz Vitamin A PTH Related Protein Ur Random Creatinine Ur Random Calcium Calcium/Creat Ratio Free Valproic Acid Serum Immunofixation [place]/Lambda Ratio Free [place] Light Chains Free Lambda Light Chain Toxoplasma IgG Ab Toxoplasma IgM Ab 10/24/24 10/24/24 10/24/24 11:21 11:18 11:17 Puncture Site ABG pH ABG pCO2 ABG pO2 ABG PO2/FiO2 Ratio ABG HCO3 ABG O2 Saturation ABG O2 Content ABG Base Excess A-a Gradient Oxyhemoglobin Carboxyhemoglobin Methemoglobin Reduced Hemoglobin Total Hemoglobin O2 Delivery Device O2 Liters/Min Minute Volume Vent Rate Vent Mode FiO2 Tidal Volume PEEP Peak Inspir Pressure Pressure Support POC Capillary Glucose Ionized Calcium Lilia Pending Total Creatine Kinase 160 Angiotensin Convert Enz Pending Vitamin A Pending PTH Related Protein Pending Ur Random Creatinine Ur Random Calcium Calcium/Creat Ratio Free Valproic Acid Serum Immunofixation Pending [place]/Lambda Ratio Pending Free [place] Light Chains Pending Free Lambda Light Chain Pending Toxoplasma IgG Ab Pending Toxoplasma IgM Ab Pending 10/23/24 10/22/24 10/21/24 00:26 17:53 15:44 Puncture Site ABG pH ABG pCO2 ABG pO2 ABG PO2/FiO2 Ratio ABG HCO3 ABG O2 Saturation ABG O2 Content ABG Base Excess A-a Gradient Oxyhemoglobin Carboxyhemoglobin Methemoglobin Reduced Hemoglobin Total Hemoglobin O2 Delivery Device O2 Liters/Min Minute Volume Vent Rate Vent Mode FiO2 Tidal Volume PEEP Peak Inspir Pressure Pressure Support POC Capillary Glucose Ionized Calcium Lilia 6.5 H Total Creatine Kinase Angiotensin Convert Enz Vitamin A PTH Related Protein Ur Random Creatinine 90 Ur Random Calcium 1.4 Calcium/Creat Ratio 16 Free Valproic Acid 25.6 H Serum Immunofixation [place]/Lambda Ratio Free [place] Light Chains Free Lambda Light Chain Toxoplasma IgG Ab Toxoplasma IgM Ab Preliminary micro results at discharge 10/22/24 10:08 Blood Culture - Preliminary Blood 10/22/24 09:06 Blood Culture - Preliminary Blood Imaging Radiologist's impression: ITS Impressions Chest X-Ray 10/17/24 08:30 Impression: 1: Left basilar airspace disease, compatible with pneumonia. Modified Barium Swallow 10/18/24 11:21 IMPRESSION: Printed dysphagia with laryngeal penetration without evident aspiration on swallows of thin liquid from a cup which improved with chin tuck which improved with chin tuck. Please correlate with speech pathologist findings and specific feeding recommendations. Head CT 10/21/24 16:12 IMPRESSION: No acute intracranial process. Brain MRI 10/22/24 14:47 IMPRESSION: No acute abnormality. Mild chronic microvascular ischemic change. Moderate to severe generalized atrophy. Cervical Spine MRI 10/22/24 16:00 IMPRESSION: 1. Mild cervical, thoracic and lumbar spondylosis with extensive bridging or nearly bridging osteophytes throughout the majority the spine consistent with diffuse idiopathic skeletal hyperostosis (DISH). 2. Normal cord signal throughout with only minimal to mild central canal stenosis in the mid to lower lumbar spine and no stenosis in the more cephalad cervical and thoracic spine. 3. Moderate neural from stenosis on the right at L3-L4 and L4-L5 with scattered mild stenosis at multiple neural foramina scattered throughout the remainder of the cervical, thoracic and lumbar spine. Lumbar Spine MRI 10/22/24 16:00 IMPRESSION: 1. Mild cervical, thoracic and lumbar spondylosis with extensive bridging or nearly bridging osteophytes throughout the majority the spine consistent with diffuse idiopathic skeletal hyperostosis (DISH). 2. Normal cord signal throughout with only minimal to mild central canal stenosis in the mid to lower lumbar spine and no stenosis in the more cephalad cervical and thoracic spine. 3. Moderate neural from stenosis on the right at L3-L4 and L4-L5 with scattered mild stenosis at multiple neural foramina scattered throughout the remainder of the cervical, thoracic and lumbar spine. Thoracic Spine MRI 10/22/24 16:00 IMPRESSION: 1. Mild cervical, thoracic and lumbar spondylosis with extensive bridging or nearly bridging osteophytes throughout the majority the spine consistent with diffuse idiopathic skeletal hyperostosis (DISH). 2. Normal cord signal throughout with only minimal to mild central canal stenosis in the mid to lower lumbar spine and no stenosis in the more cephalad cervical and thoracic spine. 3. Moderate neural from stenosis on the right at L3-L4 and L4-L5 with scattered mild stenosis at multiple neural foramina scattered throughout the remainder of the cervical, thoracic and lumbar spine. Chest/Abdomen/Pelvis CTA 10/22/24 16:17 IMPRESSION: CHEST: 1. No pulmonary embolism. 2. Left basilar atelectasis versus pneumonia with minimal pleural effusion. 3. Mediastinal lymphadenopathy. ABDOMEN/PELVIS: 1. No evidence of appendicitis, diverticulitis or intestinal obstruction. 2. Slightly thickened wall of the urinary bladder which may indicate cystitis. Clinical correlation advised. 3. Small left inguinal fat containing hernia. 4. Enlarged prostate. Upper Quadrant Ultrasound 10/24/24 11:08 IMPRESSION: 1: Unremarkable limited abdominal ultrasound. Chest X-Ray 10/24/24 12:16 IMPRESSION: 1. Endotracheal tube tip 3.8 cm above the meena. Orogastric tube in the stomach but would recommend advancement by [address] the proximal side-port below level of the gastroesophageal junction. 2. Persistent patchy airspace opacity left lower lung zone suspicious for pneumonia. 3. New volume loss and hazy opacity throughout the left lung likely related to atelectasis likely related to an apparent mucous plugging in the left mainstem bronchus. Recommend pulmonary toilet. Chest X-Ray 10/24/24 12:59 Impression: 1: Extensive left-sided airspace consolidation with mediastinal shift to the left. Differential diagnosis includes atelectasis and pneumonia. 2: Small left pleural effusion. Abdomen X-Ray 10/24/24 14:29 IMPRESSION: 1: NG tube tip in the stomach.
[2024-10-26 08:04] LABS: Toxoplasma IgG Antibody <7.20 IU/mL
[2024-10-27 12:08] LABS: Vitamin D 1,25 (OH)2 Total 47 pg/mL (18-72); Vitamin D2 1,25 (OH)2 <8 pg/mL; Vitamin D3 1,25 (OH)2 47 pg/mL
[2024-10-27 14:43] LABS: Vitamin A 9 mcg/dL (38-98)
[2024-10-27 16:43] LABS: Immunofixation, Serum Normal pattern.
[2024-10-28 11:14] LABS: Kappa\\Lambda Light Chains 0.82 (0.26-1.65); Lambda Light Chain 100.6 mg/L (5.7-26.3)
[2024-10-28 13:08] LABS: Angiotensin Converting Enzyme 9 U/L (9-67)
[2024-10-28 16:54] LABS: Toxoplasma IgM Antibody <8.00 AU/mL
[2024-10-29 02:53] LABS: Parathyroid Hormone Related Pr 11 pg/mL (11-20)
== END 2024-10-24 17:46 | disposition short-term general hospital (02) | DRG 208 ==
LOC: ANHED 08:40 → ANH3MEDSUR 09:51 → ANHICU 10-25 09:00 → ANHIMU 10-25 09:00
PROVIDERS: Family Medicine; Internal Medicine; Internal Medicine Nephrology; Nurse Practitioner; Physician Assistant; Admitting Provider Family Medicine; Emergency Provider Emergency Medicine; Visit Provider General Practice
DX: J69.0 Pneumonitis due to inhalation of food and vomit (principal); A41.9 Sepsis, unspecified organism; G04.90 Encephalitis and encephalomyelitis, unspecified; G93.41 Metabolic encephalopathy; J96.00 Acute respiratory failure, unspecified whether with hypoxia or hypercapnia; N17.9 Acute kidney failure, unspecified; J98.11 Atelectasis; J18.9 Pneumonia, unspecified organism; E53.8 Deficiency of other specified B group vitamins; E55.9 Vitamin D deficiency, unspecified; E11.65 Type 2 diabetes mellitus with hyperglycemia; E86.0 Dehydration; F43.10 Post-traumatic stress disorder, unspecified; I10 Essential (primary) hypertension; M10.9 Gout, unspecified; M19.90 Unspecified osteoarthritis, unspecified site; Z98.41 Cataract extraction status, right eye; Z98.42 Cataract extraction status, left eye; Z96.1 Presence of intraocular lens; Z90.49 Acquired absence of other specified parts of digestive tract; Z87.891 Personal history of nicotine dependence; Z79.82 Long term (current) use of aspirin; Z20.822 Contact with and (suspected) exposure to COVID-19; Z79.84 Long term (current) use of oral hypoglycemic drugs
CPT/HCPCS: 31500; 36415; 36569; 36600; 70450; 70551; 71045; 71275; 72141; 72146; 72148; 74177; 76705; 80048; 80053; 80164; 80165; 80178; 80202; 81001; 82140; 82164; 82306; 82310; 82330; 82375; 82550; 82565; 82570; 82607; 82652; 82746; 82805; 82948; 83050; 83519; 83605; 83735; 83880; 83883; 83970; 84100; 84145; 84443; 84484; 84550; 84590; 85018; 85025; 85027; 85055; 85380; 85610; 85730; 85999; 86334; 86593; 86777; 86778; 87040; 87637; 87641; 92526; 92610; 92611; 93005; 94002; 94640; 94669; 95816; 96365; 96367; 97110; 97161; 97165; 97530; 99285; A9270; C1751; C8929; G0378; J0133; J0290; J0330; J0456; J0692; J0696; J1650; J1815; J1938; J2003; J2185; J2250; J2470; J3010; J3370; J3475; J7030; J7060; J7120; Q9957; Q9967